=== PATIENT | female | born 1930 | race Caucasian/White ===

== ENCOUNTER 2017-08-14 21:10 | Emergency (ER) | payer OTHER ==
[2017-08-14 21:24] VITALS: BP 102/89; PULSE 113; TEMP 98; BMI 28.3
--- NOTE | 2017-08-14 21:40 | PDOC ---
History of Present Illness - General Chief Complaint: Pain, Acute Stated Complaint: SICK Time Seen by Provider: 08/14/17 21:40 - History of Present Illness Initial Comments: 87 year old female with PMH of HTN, COPD, Diabetes, and cardiac disease ( pacemaker in place) with poor recollection of medical history (granddaughter lives with her at home) presenting with stomach pain and abdominal distension for the past three days that acutely worsened today. The food does not have an prandial relation and her appetite has not been affected. The pain is a sharp/ pressure in the bilateral lower abdominal quadrants. Denies fevers, urinary symptoms, chills, nausea vomiting, diarrhea, constipation, or other sick symptoms. 08/14/17 21:56 Past History - Past Medical History Allergies/Adverse Reactions: Allergies Allergy/AdvReac Type Severity Reaction Status Date / Time No Known Allergies Allergy Verified 08/14/17 21:22 Home Medications: Ambulatory Orders Amlodipine Besylate mg PO 08/15/17 Brillintox 08/15/17 Carvedilol mg PO 08/15/17 Gabapentin mg PO 08/15/17 Insulin (Levemir) [Levemir Vial] 0 unit SQ DAILY 08/15/17 Pantoprazole Sodium [Protonix -] mg PO DAILY 08/15/17 Sitagliptin Phosphate [Januvia] mg PO 08/15/17 - Suicide/Smoking/Psychosocial Hx Smoking History: Never smoked Have you smoked in the past 12 months: No Information on smoking cessation initiated: No Hx Alcohol Use: No Drug/Substance Use Hx: No Review of Systems - Review of Systems Constitutional: No: Chills, Diaphoresis, Fever HEENTM: No: Eye Pain, Blurred Vision Respiratory: No: Cough, Orthopnea, Shortness of Breath Cardiac (ROS): No: Chest Pain, Edema, Irregular Heart Rate, Palpitations, Syncope, Chest Tightness ABD/GI: Yes: Abdominal Distended. No: Constipated, Diarrhea, Nausea, Vomiting : No: Burning, Dysuria, Discharge, Frequency, Hematuria, Incontinence, Pain Musculoskeletal: No: Back Pain Integumentary: No: Bruising, Erythema, Flushing, Lesions Neurological: No: Headache, Numbness *Physical Exam - Vital Signs Last Vital Signs Temp Pulse Resp BP Pulse Ox 98.0 F 113 H 20 102/89 97 08/14/17 21:22 08/14/17 21:22 08/14/17 21:22 08/14/17 21:22 08/14/17 21:22 - Physical Exam General Appearance: Yes: Nourished, Appropriately Dressed. No: Apparent Distress HEENT: positive: EOMI, FRANKIE, Normal ENT Inspection, Normal Voice, Thrush Neck: positive: Trachea midline, Normal Thyroid. negative: Tender, Rigid Respiratory/Chest: positive: Lungs Clear. negative: Chest Tender, Normal Breath Sounds (distant lung sounds with slightly delayed expiratory phase) ED Treatment Course - LABORATORY CBC & Chemistry Diagram: 08/14/17 21:55 08/14/17 21:55 Medical Decision Making - Medical Decision Making 87 year old occasionally confused female presenting with with bilateral lower quadrant abdominal pain. Given one dose of nebs, maalox, and ranitidine with some relief. CXR clear. Labs roughly WNL and pending CT abdomen/ pelvis with IV contrast as well as UA. Suspicion for gerd vs. appendicitis vs. UTI vs. diverticulitis. Patient signed out to Dr. Ocampo in stable condition. 08/15/17 00:08 *DC/Admit/Observation/Transfer Diagnosis at time of Disposition: Abdominal pain Qualifiers: Abdominal location: generalized Qualified Code(s): R10.84 - Generalized abdominal pain - Discharge Dispostion Disposition: HOME Condition at time of disposition: Stable Admit: No - Referrals Referrals: James Machuca [Primary Care Provider] - - Patient Instructions Printed Discharge Instructions: Kidney Stones -- Adult Additional Instructions: Please return to the ER if you have any signs or symptoms of chest pain, shortness of breath, uncontrollable fever, chills, nausea, vomiting, numbness, tingling, or weakness in any part of your body, changes in vision, or slurred speech. Please follow up with your primary care physician in 2-3 days. Please return to the ER if symptoms persist, worsen, or new symptoms arise. Por favor regrese a la jazzy de emergencia si tiene signos o sntomas de dolor en el pecho, dificultad para respirar, fiebre incontrolable, escalofros, n useas, vmitos, entumecimiento, hormigueo o debilidad en cualquier parte de benson cuerpo, cambios en la visin o dificultad para hablar. Por favor, glendy un seguimiento con benson mdico de atencin primaria en 2-3 mendosa. Por favor regrese a la jazzy de emergencias si los sntomas persisten, empeoran o surgen nuevos sntomas. Print Language: MALTESE - Post Discharge Activity
[2017-08-14] MEDS ORDERED: ALBUTEROL SO4 2.5/IPRATROPIUM 0.5 INH SOL 3 ML VIAL.NEB. NEB ONE (21:53)
[2017-08-14 22:02] LABS: BASO % 0.8 % (0-2.0); EOS % 2.4 % (0-4.5); HEMATOCRIT 33.9 % (32.4-45.2); HEMOGLOBIN 11.3 GM/dL (10.7-15.3); MCH 29.4 pg (25.7-33.7); MCHC 33.4 g/dl (32.0-36.0); MEAN CELL VOLUME 87.8 fl (80-96); MEAN PLT VOLUME 8.7 fl (7.5-11.1); MONO % 6.8 % (3.8-10.2); PLATELET COUNT 212 K/MM3 (134-434); RBC 3.86 M/mm3 (3.60-5.2)
[2017-08-14 22:28] LABS: ALBUMIN 3.2 g/dl (3.4-5.0); ANION GAP 5 (8-16); BILIRUBIN,DIRECT < 0.2 mg/dL (0.0-0.2); BLOOD UREA NITROGEN 24 mg/dL (7-18); CALCIUM 8.2 mg/dL (8.5-10.1); CHLORIDE 104 mmol/L (98-107); CO2 28 mmol/L (21-32); CREATININE 1.2 mg/dL (0.55-1.02); GLUCOSE,RANDOM 245 mg/dL (74-106); LIPASE 158 U/L (73-393); PHOSPHOROUS 2.3 mg/dL (2.5-4.9); POTASSIUM 4.1 mmol/L (3.5-5.1); SGOT/AST 15 U/L (15-37); SGPT/ALT 20 U/L (12-78); SODIUM 137 mmol/L (136-145)
[2017-08-14 22:30] LABS: ALK PHOS 98 U/L (45-117); BILIRUBIN,TOTAL 0.4 mg/dL (0.2-1.0); N-TERMINAL BNP 1152.16 pg/ml (5-450); TOT PROT 6.7 g/dl (6.4-8.2)
--- NOTE | 2017-08-14 22:45 | PDOC ---
Attending Attestation - Resident Resident Name: Kimber Dixon - ED Attending Attestation I have performed the following: I have examined & evaluated the patient, The case was reviewed & discussed with the resident, I agree w/resident's findings & plan, Exceptions are as noted - HPI HPI: 08/14/17 22:30 87-year-old female with history of hypertension, prior smoking history, presents with abdominal pain for last several days. Patient is a vague historian but reports that she's been having upper and lower abdominal pain without associated nausea, vomiting or diarrhea. Denies fevers or chills. Denies dysuria. Patient may have some elements of dementia and is AAO 2, oriented to herself and to the location. Came in by ambulance. - Physicial Exam PE: 08/14/17 22:45 GENERAL: Awake, alert, oriented, in no acute distress. HEAD: No signs of trauma EYES: PERRLA, EOMI, sclera anicteric, conjunctiva clear ENT: Auricles normal inspection, hearing grossly normal, nares patent NECK: Normal ROM, supple, no lymphadenopathy, JVD, or masses LUNGS: Breath sounds equal, clear to auscultation bilaterally. No wheezes, and no crackles HEART: Regular rate and rhythm, normal S1 and S2, no murmurs, rubs or gallops ABDOMEN: TTP RLQ, LLQ. EXTREMITIES: Normal range of motion, no edema. No clubbing or cyanosis. No cords, erythema, or tenderness NEUROLOGICAL: Cranial nerves II through XII grossly intact. Normal speech SKIN: Warm, Dry, normal turgor, no rashes or lesions noted. - Medical Decision Making 08/14/17 22:46 Vital Signs Temp Pulse Resp BP Pulse Ox 98.0 F 113 H 20 102/89 97 08/14/17 21:22 08/14/17 21:22 08/14/17 21:22 08/14/17 21:22 08/14/17 21:22 The patient presents with abdominal pain. We'll need to rule out etiology such as diverticulitis, colitis, appendicitis. Labs, CAT scan, abdomen pelvis, urinalysis reassess. 08/15/17 01:54 CBC, BMP 08/14/17 21:55 08/14/17 21:55 CMP Sodium 137 mmol/L (136-145) 08/14/17 21:55 Potassium 4.1 mmol/L (3.5-5.1) 08/14/17 21:55 Chloride 104 mmol/L (98-107) 08/14/17 21:55 Carbon Dioxide 28 mmol/L (21-32) 08/14/17 21:55 Anion Gap 5 (8-16) L 08/14/17 21:55 BUN 24 mg/dL (7-18) H 08/14/17 21:55 Creatinine 1.2 mg/dL (0.55-1.02) H 08/14/17 21:55 Creat Clearance w eGFR 42.70 (>60) 08/14/17 21:55 Random Glucose 245 mg/dL (74-106) H 08/14/17 21:55 Calcium 8.2 mg/dL (8.5-10.1) L 08/14/17 21:55 Phosphorus 2.3 mg/dL (2.5-4.9) L 08/14/17 21:55 Magnesium 2.0 mg/dL (1.8-2.4) 08/14/17 21:55 Total Bilirubin 0.4 mg/dL (0.2-1.0) 08/14/17 21:55 Direct Bilirubin < 0.2 mg/dL (0.0-0.2) 08/14/17 21:55 AST 15 U/L (15-37) 08/14/17 21:55 ALT 20 U/L (12-78) 08/14/17 21:55 Alkaline Phosphatase 98 U/L (45-117) 08/14/17 21:55 Creatine Kinase 96 IU/L (26-192) 08/14/17 21:55 Troponin I < 0.02 ng/ml (0.00-0.05) 08/14/17 21:55 B-Natriuretic Peptide 1152.16 pg/ml (5-450) H 08/14/17 21:55 Total Protein 6.7 g/dl (6.4-8.2) 08/14/17 21:55 Albumin 3.2 g/dl (3.4-5.0) L 08/14/17 21:55 Lipase 158 U/L (73-393) 08/14/17 21:55 CT abdomen and pelvis. Small nonobstructive inferior right calcyeal stone. no other renal or ureteral stones. Pt reports feeling better. UA pending. Pt can be discharged pending UA. Chest xray unremarkable. Heart Score/ECG Review #1 ECG reviewed & interpreted by me at: 22:10 08/14/17 22:29 Ventricular paced 74
[2017-08-14] MEDS ORDERED: RANITIDINE HCL 150 MG TABLET (FP) PO ONE (23:26)
[2017-08-14] MEDS ORDERED: MAG HYDROX/AL HYDROX/SIMETH 30 ML UNIT-DOSE CUP PO ONE (23:26)
[2017-08-14] MEDS ORDERED: SODIUM CHLORIDE 500 ML IV STA (23:28)
[2017-08-14] MEDS ORDERED: MAG HYDROX/AL HYDROX/SIMETH 30 ML UNIT-DOSE CUP ONE (23:36)
[2017-08-14] MEDS ORDERED: RANITIDINE HCL 50 MG/2 ML VIAL ONE (23:36)
--- NOTE | 2017-08-15 00:46 | PDOC ---
*Physical Exam - Vital Signs Last Vital Signs Temp Pulse Resp BP Pulse Ox 98.0 F 113 H 20 102/89 97 08/14/17 21:22 08/14/17 21:22 08/14/17 21:22 08/14/17 21:22 08/14/17 21:22 ED Treatment Course - LABORATORY CBC & Chemistry Diagram: 08/14/17 21:55 08/14/17 21:55 - ADDITIONAL ORDERS Additional order review: Laboratory Results 08/14/17 21:55 Sodium 137 Potassium 4.1 Chloride 104 Carbon Dioxide 28 Anion Gap 5 L BUN 24 H Creatinine 1.2 H Creat Clearance w eGFR 42.70 Random Glucose 245 H Calcium 8.2 L Phosphorus 2.3 L Magnesium 2.0 Total Bilirubin 0.4 Direct Bilirubin < 0.2 AST 15 ALT 20 Alkaline Phosphatase 98 Creatine Kinase 96 Troponin I < 0.02 B-Natriuretic Peptide 1152.16 H Total Protein 6.7 Albumin 3.2 L Lipase 158 08/14/17 21:55 RBC 3.86 MCV 87.8 MCHC 33.4 RDW 16.0 H MPV 8.7 Neutrophils % 74.0 Lymphocytes % 16.0 Monocytes % 6.8 Eosinophils % 2.4 Basophils % 0.8 - Medications Given in the ED: ED Medications Discontinued Medications Generic Name Dose Route Start Last Admin Trade Name Freq PRN Reason Stop Dose Admin Al Hydroxide/Mg Hydroxide 30 ml 08/14/17 23:26 08/14/17 23:38 Mylanta Oral Suspension - PO 08/14/17 23:27 30 ml ONCE ONE Administration Albuterol/Ipratropium 1 amp 08/14/17 21:53 08/14/17 21:57 Duoneb - NEB 08/14/17 21:54 1 amp ONCE ONE Administration Sodium Chloride 500 mls @ 500 mls/hr 08/14/17 23:28 08/14/17 23:33 Normal Saline - IV 08/15/17 00:27 500 mls/hr ASDIR STA Administration Ranitidine HCl 150 mg 08/14/17 23:26 08/14/17 23:38 Zantac - PO 08/14/17 23:27 150 mg ONCE ONE Administration Medical Decision Making - Medical Decision Making 08/15/17 00:45 The patient was signed out to me by Dr. Dixon, day team. The patient is an 87F with an extensive PMH who presents to the ER with generalized and diffuse abdominal pain for 3 days. Pending UA and CTAP with contrast. 08/15/17 01:48 CTAP IMPRESSION: 1. Appendix appears normal. No focal bowel inflammation readily identified. 2. Tiny nonobstructive inferior right calyceal stone. No other renal or ureteral stones. No hydronephrosis. My attending has discussed the results with the patient. 08/15/17 02:12 UA negative. Pt will be made aware and ready for d/c. *DC/Admit/Observation/Transfer Diagnosis at time of Disposition: Abdominal pain Qualifiers: Abdominal location: generalized Qualified Code(s): R10.84 - Generalized abdominal pain - Discharge Dispostion Disposition: HOME Condition at time of disposition: Stable Admit: No - Referrals Referrals: James Machuca [Primary Care Provider] - - Patient Instructions Printed Discharge Instructions: Kidney Stones -- Adult Additional Instructions: Please return to the ER if you have any signs or symptoms of chest pain, shortness of breath, uncontrollable fever, chills, nausea, vomiting, numbness, tingling, or weakness in any part of your body, changes in vision, or slurred speech. Please follow up with your primary care physician in 2-3 days. Please return to the ER if symptoms persist, worsen, or new symptoms arise. Por favor regrese a la jazzy de emergencia si tiene signos o sntomas de dolor en el pecho, dificultad para respirar, fiebre incontrolable, escalofros, n useas, vmitos, entumecimiento, hormigueo o debilidad en cualquier parte de benson cuerpo, cambios en la visin o dificultad para hablar. Por favor, glendy un seguimiento con benson mdico de atencin primaria en 2-3 mendosa. Por favor regrese a la jazzy de emergencias si los sntomas persisten, empeoran o surgen nuevos sntomas. Print Language: DIVEHI - Post Discharge Activity
[2017-08-15 02:03] LABS: URINE APPEARANCE CLEAR; URINE BILIRUBIN NEGATIVE (<2.0 mg/dL); URINE BLOOD 1+ (NEGATIVE); URINE COLOR COLORLESS; URINE GLUCOSE (UA) 2+ (NEGATIVE); URINE KETONE NEGATIVE (NEGATIVE); URINE LEUK ESTERASE NEGATIVE (NEGATIVE); URINE NITRITE NEGATIVE (NEGATIVE); URINE PROTEIN NEGATIVE (NEGATIVE); URINE UROBILINOGEN NEGATIVE mg/dL (0.2-1.0)
[2017-08-15 02:06] LABS: EPI CELLS RARE /HPF (FEW); URINE MUCUS RARE
--- NOTE | 2017-08-15 17:53 | EKG ---
Test Reason : Blood Pressure : / mmHG Vent. Rate : 074 BPM Atrial Rate : 074 BPM P-R Int : 000 ms QRS Dur : 168 ms QT Int : 446 ms P-R-T Axes : 000 -66 090 degrees QTc Int : 495 ms POOR DATA QUALITY, INTERPRETATION MAY BE ADVERSELY AFFECTED Ventricular-paced rhythm ABNORMAL ECG NO PREVIOUS ECGS AVAILABLE Confirmed by MD JONA, LAUREL ([id number]) on 08/15/2017 5:53:14 PM Referred By: Confirmed By:LAUREL TENORIO MD
== END 2017-08-15 02:33 | disposition home or self-care (01) ==
LOC: JER 21:10
PROC: 3E0F7GC Introduction of Other Therapeutic Substance into Respiratory Tract, Via Natural or Artificial Opening (ICD-10-PCS; principal; 2017-08-14)
PROC: 3E0337Z Introduction of Electrolytic and Water Balance Substance into Peripheral Vein, Percutaneous Approach (ICD-10-PCS; 2017-08-14)
DX: R10.30 Lower abdominal pain, unspecified (principal); N20.0 Calculus of kidney; Z87.442 Personal history of urinary calculi; I25.10 Atherosclerotic heart disease of native coronary artery without angina pectoris; Z87.891 Personal history of nicotine dependence; E11.9 Type 2 diabetes mellitus without complications; Z79.4 Long term (current) use of insulin; Z79.84 Long term (current) use of oral hypoglycemic drugs; J44.9 Chronic obstructive pulmonary disease, unspecified; Z95.0 Presence of cardiac pacemaker
CPT/HCPCS: 36415; 71046-TC-FY; 74176-TC; 80053; 81003; 81015; 82248; 82550; 83690; 83735; 83880; 84100; 84484; 85025; 87086; 93005; 93010; 94640; 96360; 99283-25

== ENCOUNTER 2017-10-04 17:24 | Observation (INO) | payer OTHER ==
[2017-10-04 17:48] VITALS: BMI 28.3
[2017-10-04] MEDS ORDERED: ACETAMINOPHEN 1000 MG/100 ML VIAL (NON FORMULARY) IVPB ONE (19:01)
--- NOTE | 2017-10-04 19:08 | PDOC ---
History of Present Illness - General Chief Complaint: Pain, Acute Stated Complaint: DIFFICULTY BREATHING Time Seen by Provider: 10/04/17 18:55 - History of Present Illness Initial Comments: 10/04/17 19:02 87 F with h/o DM, HTN, pacemaker, presenting to ED with 1 day of abdominal pain an distention. Pt states that she has diffuse abdominal pain. Pt states pain is constant, radiating across her lower abdomen. Denies N/V/D. Denies constipation , though she states her abdomen seems bigger. Pt denies F/C. Denies CP/SOB. Pt states she has had a prior abdominal surgery when she was a child but does not recall what it was. Past History - Past Medical History Allergies/Adverse Reactions: Allergies Allergy/AdvReac Type Severity Reaction Status Date / Time No Known Allergies Allergy Verified 10/04/17 17:36 Home Medications: Ambulatory Orders Amlodipine Besylate 5 mg PO DAILY 10/05/17 Amlodipine Besylate [Norvasc -] 10 mg PO DAILY tablet 10/05/17 Atorvastatin Ca [Lipitor] 80 mg PO HS 10/05/17 Carvedilol 25 mg PO BID 10/05/17 Gabapentin [Neurontin] 100 mg PO TID 10/05/17 Insulin Glargine,Hum.rec.anlog [Lantus] 100 unit SQ BID 10/05/17 Lactulose 10 gm PO DAILY 10/05/17 Pantoprazole Sodium [Protonix] 40 mg PO DAILY 10/05/17 Pantoprazole Sodium [Protonix] 40 mg PO DAILY 10/05/17 Ticagrelor [Brilinta -] 90 mg PO BID 10/05/17 Cardiac Disorders: Yes COPD: No Diabetes: Yes HTN: Yes - Suicide/Smoking/Psychosocial Hx Smoking History: Never smoked Have you smoked in the past 12 months: No Hx Alcohol Use: No Drug/Substance Use Hx: No Review of Systems - Review of Systems Comments:: 10/04/17 19:08 "GENERAL/CONSTITUTIONAL: No fever or chills. No weakness. HEAD, EYES, EARS, NOSE AND THROAT: No change in vision. No ear pain or discharge. No sore throat. CARDIOVASCULAR: No chest pain or shortness of breath. RESPIRATORY: No cough, wheezing, or hemoptysis. GASTROINTESTINAL: +abdominal pain, No nausea, vomiting, diarrhea or constipation. GENITOURINARY: No dysuria, frequency, or change in urination. MUSCULOSKELETAL: No joint or muscle swelling or pain. No neck or back pain. SKIN: No rash NEUROLOGIC: No headache, vertigo, loss of consciousness, or change in strength/ sensation. ENDOCRINE: No increased thirst. No abnormal weight change. HEMATOLOGIC/LYMPHATIC: No anemia, easy bleeding, or history of blood clots. ALLERGIC/IMMUNOLOGIC: No hives or skin allergy. " *Physical Exam - Vital Signs Last Vital Signs Temp Pulse Resp BP Pulse Ox 97.7 F 64 18 144/57 97 10/04/17 17:25 10/04/17 17:25 10/04/17 17:25 10/04/17 19:00 10/04/17 17:25 - Physical Exam Comments: 10/04/17 19:08 "GENERAL: Awake, alert, and fully oriented, in no acute distress. HEAD: No signs of trauma EYES: PERRLA, EOMI, sclera anicteric, conjunctiva clear ENT: Auricles normal inspection, hearing grossly normal, nares patent, oropharynx clear without exudates. Moist mucosa NECK: Nontender, no stepoffs, Normal ROM, supple, no lymphadenopathy, JVD, or masses LUNGS: Breath sounds equal, clear to auscultation bilaterally. No wheezes, and no crackles HEART: Regular rate and rhythm, normal S1 and S2, no murmurs, rubs or gallops ABDOMEN: + diffuse abdominal tenderness most pronounced in lower quadrants, normoactive bowel sounds. No guarding, no rebound. No masses EXTREMITIES: Normal range of motion, no edema. No clubbing or cyanosis. No cords, erythema, or tenderness NEUROLOGICAL: Cranial nerves II through XII intact. 5/5 strength and sensation in all extremities, Normal speech, normal gait, normal cerebellar function SKIN: Warm, Dry, normal turgor, no rashes or lesions noted. " ED Treatment Course - LABORATORY CBC & Chemistry Diagram: 10/05/17 10:45 10/05/17 10:45 - RADIOLOGY Radiology Studies Ordered: Category Date Time Status ABDOMEN & PELVIS CT WITH CONTR [CT] Stat CT Scan 10/04/17 19:00 Ordered CHEST X-RAY PORTABLE* [RAD] Stat Radiology 10/04/17 19:00 Ordered Medical Decision Making - Medical Decision Making 10/04/17 19:09 87 F with diffuse abdominal pain x 1 day. Exam notable for lower abdominal tenderness. Appy vs diverticulitis vs colitis vs cystitis. - Labs, lactate, UA - CTAP - tylenol Pt signed out to oncoming attending at 7PM, pending labs and CT *DC/Admit/Observation/Transfer Diagnosis at time of Disposition: Abdominal pain Qualifiers: Abdominal location: generalized Qualified Code(s): R10.84 - Generalized abdominal pain - Discharge Dispostion Condition at time of disposition: Good - Referrals - Patient Instructions - Post Discharge Activity - Attestations Physician Attestion: 10/06/17 00:22 I, Dr. Bryn Smalls MD, attest that this document has been prepared under my direction and personally reviewed by me in its entirety. I further attest, that it accurately reflects all work, treatment, procedures and medical decision -making performed by me.
[2017-10-04 19:15] LABS: BASO % 0.6 % (0-2.0); EOS % 1.8 % (0-4.5); HEMATOCRIT 35.3 % (32.4-45.2); HEMOGLOBIN 11.5 GM/dL (10.7-15.3); LYMPH % 20.3 % (8-40); MCH 28.6 pg (25.7-33.7); MCHC 32.5 g/dl (32.0-36.0); MEAN CELL VOLUME 87.9 fl (80-96); MEAN PLT VOLUME 8.9 fl (7.5-11.1); MONO % 7.7 % (3.8-10.2); NEUT % 69.6 % (42.8-82.8); PLATELET COUNT 204 K/MM3 (134-434); RBC 4.02 M/mm3 (3.60-5.2); RDW 15.8 % (11.6-15.6); WHITE BLOOD COUNT 5.7 K/mm3 (4.0-10.0)
[2017-10-04 19:26] LABS: INR 1.02 (0.82-1.09); PROTHROMBIN TIME (PATIENT) 11.5 SEC (9.7-13.0)
[2017-10-04 19:28] LABS: ACTIVATED PTT 32.2 SECONDS (26.9-34.4)
[2017-10-04 19:37] LABS: ALBUMIN 3.3 g/dl (3.4-5.0); ANION GAP 5 (8-16); BILIRUBIN,TOTAL 0.3 mg/dL (0.2-1.0); BLOOD UREA NITROGEN 34 mg/dL (7-18); CALCIUM 8.2 mg/dL (8.5-10.1); CHLORIDE 105 mmol/L (98-107); CO2 28 mmol/L (21-32); CREATININE 1.5 mg/dL (0.55-1.02); GLUCOSE,RANDOM 295 mg/dL (74-106); LIPASE 198 U/L (73-393); POTASSIUM 4.5 mmol/L (3.5-5.1); SGOT/AST 15 U/L (15-37); SGPT/ALT 23 U/L (12-78); SODIUM 138 mmol/L (136-145); TOT PROT 6.7 g/dl (6.4-8.2)
[2017-10-04 19:38] LABS: ALK PHOS 95 U/L (45-117)
[2017-10-04] MEDS ORDERED: ACETAMINOPHEN INJECTION 100 ML IVPB ONE (19:46)
[2017-10-04] MEDS ORDERED: SODIUM CHLORIDE 1,000 ML IV STA (19:59)
[2017-10-04 20:14] LABS: URINE APPEARANCE CLEAR; URINE BILIRUBIN NEGATIVE (<2.0 mg/dL); URINE COLOR LTYELLOW; URINE GLUCOSE (UA) 3+ (NEGATIVE); URINE KETONE NEGATIVE (NEGATIVE); URINE LEUK ESTERASE NEGATIVE (NEGATIVE); URINE NITRITE NEGATIVE (NEGATIVE); URINE PROTEIN NEGATIVE (NEGATIVE); URINE UROBILINOGEN NEGATIVE mg/dL (0.2-1.0)
--- NOTE | 2017-10-04 22:27 | PDOC ---
*Physical Exam - Vital Signs Last Vital Signs Temp Pulse Resp BP Pulse Ox 97.7 F 64 18 144/57 97 10/04/17 17:25 10/04/17 17:25 10/04/17 17:25 10/04/17 19:00 10/04/17 17:25 <Mario Alberto Najera - Last Filed: 10/04/17 23:53> - Vital Signs Last Vital Signs Temp Pulse Resp BP Pulse Ox 97.7 F 64 18 144/57 97 10/04/17 17:25 10/04/17 17:25 10/04/17 17:25 10/04/17 19:00 10/04/17 17:25 - Physical Exam Comments: 10/05/17 01:55 Care received at 1900 Briefly, pt presents with lower abd pain for 1 month, worse over the last day Labs wnl, UA neg for infection, CTAP with no acute pathology Rpt abd exam with continued RLQ and LLQ ttp. Pt also reports continuing mild pain. Given persistence of sxs and intractable sxs, pt admitted to Dr. Son for further mgmt/dispo Case discussed in detail with admitting physician including history, physical exam and ancillary studies. Admitting physician has assumed care for the patient, will follow all pending diagnostics and will complete the evaluation and treatment. <Pinyk Ramires - Last Filed: 10/05/17 06:18> ED Treatment Course - LABORATORY CBC & Chemistry Diagram: 10/04/17 19:00 10/04/17 19:00 - ADDITIONAL ORDERS Additional order review: Laboratory Results 10/04/17 10/04/17 10/04/17 20:02 19:27 19:00 PT with INR INR PTT (Actin FS) Sodium 138 Potassium 4.5 Chloride 105 Carbon Dioxide 28 Anion Gap 5 L BUN 34 H Creatinine 1.5 H Creat Clearance w eGFR 33.00 Random Glucose 295 H Lactic Acid 1.4 Calcium 8.2 L Total Bilirubin 0.3 D AST 15 ALT 23 Alkaline Phosphatase 95 Creatine Kinase Troponin I Total Protein 6.7 Albumin 3.3 L Lipase 198 Urine Color Ltyellow Urine Appearance Clear Urine pH 6.0 Ur Specific [place] 1.014 Urine Protein Negative Urine Glucose (UA) 3+ H Urine Ketones Negative Urine Blood Negative Urine Nitrite Negative Urine Bilirubin Negative Urine Urobilinogen Negative Ur Leukocyte Esterase Negative 10/04/17 10/04/17 19:00 19:00 PT with INR 11.50 INR 1.02 PTT (Actin FS) 32.2 Sodium Potassium Chloride Carbon Dioxide Anion Gap BUN Creatinine Creat Clearance w eGFR Random Glucose Lactic Acid Calcium Total Bilirubin AST ALT Alkaline Phosphatase Creatine Kinase 84 Troponin I < 0.02 Total Protein Albumin Lipase Urine Color Urine Appearance Urine pH Ur Specific [place] Urine Protein Urine Glucose (UA) Urine Ketones Urine Blood Urine Nitrite Urine Bilirubin Urine Urobilinogen Ur Leukocyte Esterase 10/04/17 19:00 RBC 4.02 MCV 87.9 MCHC 32.5 RDW 15.8 H MPV 8.9 Neutrophils % 69.6 Lymphocytes % 20.3 D Monocytes % 7.7 Eosinophils % 1.8 Basophils % 0.6 - Medications Given in the ED: ED Medications Discontinued Medications Generic Name Dose Route Start Last Admin Trade Name Freq PRN Reason Stop Dose Admin Acetaminophen 1,000 mg 10/04/17 19:01 10/04/17 20:07 Ofirmev Injection - IVPB 10/04/17 19:02 1,000 mg ONCE ONE Administration Sodium Chloride 1,000 mls @ 1,000 mls/hr 10/04/17 19:59 10/04/17 20:16 Normal Saline - IV 10/04/17 20:58 1,000 mls/hr ASDIR STA Administration <Mario Alberto Najera - Last Filed: 10/04/17 23:53> - LABORATORY CBC & Chemistry Diagram: 10/04/17 19:00 10/04/17 19:00 - ADDITIONAL ORDERS Additional order review: Laboratory Results 10/04/17 10/04/17 10/04/17 20:02 19:27 19:00 PT with INR INR PTT (Actin FS) Sodium 138 Potassium 4.5 Chloride 105 Carbon Dioxide 28 Anion Gap 5 L BUN 34 H Creatinine 1.5 H Creat Clearance w eGFR 33.00 Random Glucose 295 H Lactic Acid 1.4 Calcium 8.2 L Total Bilirubin 0.3 D AST 15 ALT 23 Alkaline Phosphatase 95 Creatine Kinase Troponin I Total Protein 6.7 Albumin 3.3 L Lipase 198 Urine Color Ltyellow Urine Appearance Clear Urine pH 6.0 Ur Specific [place] 1.014 Urine Protein Negative Urine Glucose (UA) 3+ H Urine Ketones Negative Urine Blood Negative Urine Nitrite Negative Urine Bilirubin Negative Urine Urobilinogen Negative Ur Leukocyte Esterase Negative 10/04/17 10/04/17 19:00 19:00 PT with INR 11.50 INR 1.02 PTT (Actin FS) 32.2 Sodium Potassium Chloride Carbon Dioxide Anion Gap BUN Creatinine Creat Clearance w eGFR Random Glucose Lactic Acid Calcium Total Bilirubin AST ALT Alkaline Phosphatase Creatine Kinase 84 Troponin I < 0.02 Total Protein Albumin Lipase Urine Color Urine Appearance Urine pH Ur Specific [place] Urine Protein Urine Glucose (UA) Urine Ketones Urine Blood Urine Nitrite Urine Bilirubin Urine Urobilinogen Ur Leukocyte Esterase 10/04/17 19:00 RBC 4.02 MCV 87.9 MCHC 32.5 RDW 15.8 H MPV 8.9 Neutrophils % 69.6 Lymphocytes % 20.3 D Monocytes % 7.7 Eosinophils % 1.8 Basophils % 0.6 - Medications Given in the ED: ED Medications Discontinued Medications Generic Name Dose Route Start Last Admin Trade Name Freq PRN Reason Stop Dose Admin Acetaminophen 1,000 mg 10/04/17 19:01 10/04/17 20:07 Ofirmev Injection - IVPB 10/04/17 19:02 1,000 mg ONCE ONE Administration Sodium Chloride 1,000 mls @ 1,000 mls/hr 10/04/17 19:59 10/04/17 20:16 Normal Saline - IV 10/04/17 20:58 1,000 mls/hr ASDIR STA Administration <Pinky Ramires - Last Filed: 10/05/17 06:18> Medical Decision Making - Medical Decision Making 10/04/17 10:00pm After Imagining manager electronic and being updated that the study was not sent over to their system. The study was performed at 7:00pm and sent over after multiple calls to radiology the study was sent over at 11:43pm. <Mario Alberto Najera - Last Filed: 10/04/17 23:53> *DC/Admit/Observation/Transfer - Attestations Scribe Attestion: 10/04/17 23:56 Documentation prepared by Mario Alberto Najrea, acting as medical claims manager for Pinky Ramires MD. <Mario Alberto Najera - Last Filed: 10/04/17 23:53> - Discharge Dispostion Decision to Admit order: Yes - Attestations Physician Attestion: 10/05/17 06:18 I, Dr. Pinky Ramires MD, attest that this document has been prepared under my direction and personally reviewed by me in its entirety. I further attest, that it accurately reflects all work, treatment, procedures and medical decision -making performed by me. <Pinky Ramires - Last Filed: 10/05/17 06:18> Diagnosis at time of Disposition: Abdominal pain Qualifiers: Abdominal location: generalized Qualified Code(s): R10.84 - Generalized abdominal pain - Discharge Dispostion Condition at time of disposition: Stable
--- NOTE | 2017-10-05 02:14 | HP ---
CHIEF COMPLAINT: lower abdominal pain PCP: unknown HISTORY OF PRESENT ILLNESS: 87 yr old bolivian speaking woman with HTN, DM, s/p pacemaker presents with intermittent lower abdominal pain for several weeks. a.w nausea. she is able to take po without difficulty, says she has "a little bit" of constipation occasionally. denies weight loss, diarrhea, fevers, vomiting, headache. patient is a poor historian and was unclear about her her past medical history, she does not know what her medications are, why she has a pacemaker or who her doctor is. She was informed her abdominal CT scan was negative and when told there was no further testing or intervention needed, she requested to stay until morning because "it is late at night and she lives alone." Denies chest pain, sob. ER course was notable for: (1)abd pelvis CT - negative (2) (3) Recent Travel: none chart reviewed for further medical history PAST MEDICAL HISTORY: DM, HTN PAST SURGICAL HISTORY: s/p pacemaker implanted Social History: Smoking:former smoker, quit "many years ago" Alcohol: denies Drugs: denies Family History: unknown Allergies No Known Allergies Allergy (Verified 10/04/17 17:36) HOME MEDICATIONS: Home Medications Medication Instructions Recorded Amlodipine Besylate mg PO 08/15/17 Brillintox 08/15/17 Carvedilol mg PO 08/15/17 Gabapentin mg PO 08/15/17 Insulin (Levemir) [Levemir Vial] 0 unit SQ DAILY 08/15/17 Pantoprazole Sodium [Protonix -] mg PO DAILY 08/15/17 Sitagliptin Phosphate [Januvia] mg PO 08/15/17 REVIEW OF SYSTEMS CONSTITUTIONAL: Absent: fever, chills, diaphoresis, generalized weakness, malaise, loss of appetite, weight change HEENT: Absent: rhinorrhea, nasal congestion, throat pain, throat swelling, difficulty swallowing, mouth swelling, visual changes CARDIOVASCULAR: Absent: chest pain, syncope, palpitations, irregular heart rate, lightheadedness , peripheral edema RESPIRATORY: Absent: cough, shortness of breath, dyspnea with exertion, orthopnea, wheezing, stridor, GASTROINTESTINAL: Present:abdominal pain,constipation, Absent: abdominal distension, nausea, vomiting, diarrhea, melena, hematochezia GENITOURINARY: Absent: dysuria, frequency, urgency, hesitancy, hematuria, flank pain, genital pain MUSCULOSKELETAL: Absent: myalgia, arthralgia, joint swelling, back pain, neck pain SKIN: Absent: rash, itching, pallor HEMATOLOGIC/IMMUNOLOGIC: Absent: easy bleeding, easy bruising, lymphadenopathy, frequent infections ENDOCRINE: Absent: unexplained weight gain, unexplained weight loss, heat intolerance, cold intolerance NEUROLOGIC: Absent: headache, focal weakness or paresthesias, dizziness PHYSICAL EXAMINATION Vital Signs - 24 hr 10/04/17 10/04/17 17:25 19:00 Temperature 97.7 F Pulse Rate 64 Respiratory 18 Rate Blood Pressure 157/67 Blood Pressure 144/61 [Left Arm] Blood Pressure 144/57 [Right Arm] O2 Sat by Pulse 97 Oximetry (%) GENERAL: Awake, alert, and in no acute distress. HEAD: Normal with no signs of trauma. EYES: left iris deformed, right eye non reactive to light with dark opacification, unable to see out of right eye. extraocular movements intact, sclera anicteric, conjunctiva clear. No lid lag. EARS, NOSE, THROAT: oropharynx clear without exudates. Moist mucous membranes. NECK: Normal range of motion, supple without lymphadenopathy, JVD, or masses. LUNGS: Breath sounds equal, clear to auscultation bilaterally. No wheezes, and no crackles. No accessory muscle use. HEART: Regular rate and rhythm, normal S1 and S2 without murmur, rub or gallop. ABDOMEN: Soft, +tender in RLQ and LLQ, not distended, normoactive bowel sounds, no guarding, no rebound, no masses. No hepatomegaly or splenomegaly. negative nj's, neg rovsings. RLQ with prominent veins. MUSCULOSKELETAL: No bony deformities or tenderness. No CVA tenderness. UPPER EXTREMITIES: 2+ radial pulses, warm, well-perfused. No cyanosis. No clubbing. No peripheral edema. LOWER EXTREMITIES: 2+ dp pulses, warm, well-perfused. No calf tenderness. No peripheral edema. NEUROLOGICAL: Cranial nerves II-XII intact. Normal speech. facial symmetry PSYCHIATRIC: Cooperative. Good eye contact. Appropriate mood and affect. SKIN: Warm, dry, normal turgor, no rashes or lesions noted, normal capillary refill. Laboratory Results - last 24 hr 10/04/17 10/04/17 10/04/17 19:00 19:00 19:00 WBC 5.7 RBC 4.02 Hgb 11.5 Hct 35.3 MCV 87.9 MCH 28.6 MCHC 32.5 RDW 15.8 H Plt Count 204 MPV 8.9 Neutrophils % 69.6 Lymphocytes % 20.3 D Monocytes % 7.7 Eosinophils % 1.8 Basophils % 0.6 PT with INR 11.50 INR 1.02 PTT (Actin FS) 32.2 Sodium Potassium Chloride Carbon Dioxide Anion Gap BUN Creatinine Creat Clearance w eGFR Random Glucose Lactic Acid Calcium Total Bilirubin AST ALT Alkaline Phosphatase Creatine Kinase 84 Troponin I < 0.02 Total Protein Albumin Lipase Urine Color Urine Appearance Urine pH Ur Specific [place] Urine Protein Urine Glucose (UA) Urine Ketones Urine Blood Urine Nitrite Urine Bilirubin Urine Urobilinogen Ur Leukocyte Esterase 10/04/17 10/04/17 10/04/17 19:00 19:27 20:02 WBC RBC Hgb Hct MCV MCH MCHC RDW Plt Count MPV Neutrophils % Lymphocytes % Monocytes % Eosinophils % Basophils % PT with INR INR PTT (Actin FS) Sodium 138 Potassium 4.5 Chloride 105 Carbon Dioxide 28 Anion Gap 5 L BUN 34 H Creatinine 1.5 H Creat Clearance w eGFR 33.00 Random Glucose 295 H Lactic Acid 1.4 Calcium 8.2 L Total Bilirubin 0.3 D AST 15 ALT 23 Alkaline Phosphatase 95 Creatine Kinase Troponin I Total Protein 6.7 Albumin 3.3 L Lipase 198 Urine Color Ltyellow Urine Appearance Clear Urine pH 6.0 Ur Specific [place] 1.014 Urine Protein Negative Urine Glucose (UA) 3+ H Urine Ketones Negative Urine Blood Negative Urine Nitrite Negative Urine Bilirubin Negative Urine Urobilinogen Negative Ur Leukocyte Esterase Negative ASSESSMENT/PLAN: 87 yr old woman with DM, HTN, s/p pacemaker presents with abdominal pain placed on observation pending discharge home. - needs medication reconciliation, she doesn't know her pharmacy #Abdominal pain - pt resting comfortably in bed, mild tenderness in lower quadrants, no fever, no diarrhea, no pathology on imaging, pain has improved since being the ED - unclear etiology, however pt can f.u with pcp and gi as outpatient, may need colonoscopy - denied receiving one recently #DAY Cr 1.2 in july 2017, repeat in the AM prior to DC - likely prerenal vs CKD - gently hydration, encourage po hydration #DM - NISS and BGMs ACHS - check A1c #HTN - norvasc 5mg and losartan 25mg po in the AM, until medications can be reconciled DVT prophylaxis hep subq tid Diet; low Na/diabetic diet Visit type - Emergency Visit Emergency Visit: Yes ED Registration Date: 10/04/17 Care time: The patient presented to the Emergency Department on the above date and was hospitalized for further evaluation of their emergent condition. - New Patient This patient is new to me today: Yes Date on this admission: 10/05/17 - Critical Care Critical Care patient: No Hospitalist Screening - Colonoscopy Questionnaire Colonoscopy Questionnaire: Colonoscopy Questionnaire - Patient: 50 - 75 years old and never had a screening colonoscopy: Unknown History of colon or rectal polyps, or CA: Unknown History of IBD, Crohn's disease or UC: Unknown History of abdominal radiation therapy as a child: Unknown - Relative: 1 with colon or rectal CA, or polyps at age 60 or younger: Unknown Colon or rectal CA diagnosed at age 45 or younger: Unknown Multiple relatives with colon or rectal CA: Unknown - Outcome: Screening Result: Negative Screen
[2017-10-05] MEDS ORDERED: SODIUM CHLORIDE 1,000 ML IV STA (02:42)
--- NOTE | 2017-10-05 03:03 | PN ---
Teaching Attending Note Name of Resident: Tito Nowak ATTENDING PHYSICIAN STATEMENT I saw and evaluated the patient. I reviewed the resident's note and discussed the case with the resident. I agree with the resident's findings and plan as documented. SUBJECTIVE: Patient is an 87 year old woman with the chief complaint of generalized abdominal pain for one day. Pain was constant and she could not identify any aggravating or relieving factors. She has history of DM, HTN, and pacemaker. Her ER work up was negative and her pain resolved but she can't leave because she lives alone and is afraid to go home alone. OBJECTIVE: Alert and in no acute distress. Vital Signs Period Temp Pulse Resp BP Sys/Mccarty Pulse Ox Last 24 Hr 97.7 F 64 18 144-157/57-67 97 HEENT: No Jaundice, eye redness or discharge, PERRLA, EOMI. External ears are normal and hearing is grossly intact. No nasal discharge. Neck: Supple, nontender. No palpable adenopathy or thyromegaly. No JVD Chest: Good effort. Clear to auscultation and percussion. Heart: Regular. No S3, rub or murmur Abdomen: Not distended, soft, nontender and no HSM. No rebound or guarding. Normoactive bowel sounds. Ext: Peripheral pulses intact. No leg edema. Skin: Warm and dry. No petechiae, rash or ecchymosis. Neuro: Alert. Oriented x3. CN 2-12 grossly intact. Sensation grossly intact in all four extremities and DTR are symmetric. Current Medications Generic Name Dose Route Start Last Admin Trade Name Freq PRN Reason Stop Dose Admin Sodium Chloride 1,000 mls @ 1,000 mls/hr 10/05/17 02:42 Normal Saline - IV 10/05/17 03:41 ASDIR STA Home Medications Medication Instructions Recorded Amlodipine Besylate mg PO 08/15/17 Brillintox 08/15/17 Carvedilol mg PO 08/15/17 Gabapentin mg PO 08/15/17 Insulin (Levemir) [Levemir Vial] 0 unit SQ DAILY 08/15/17 Pantoprazole Sodium [Protonix -] mg PO DAILY 08/15/17 Sitagliptin Phosphate [Januvia] mg PO 08/15/17 Laboratory Results - last 24 hr 10/04/17 10/04/17 10/04/17 19:00 19:00 19:00 WBC 5.7 RBC 4.02 Hgb 11.5 Hct 35.3 MCV 87.9 MCH 28.6 MCHC 32.5 RDW 15.8 H Plt Count 204 MPV 8.9 Neutrophils % 69.6 Lymphocytes % 20.3 D Monocytes % 7.7 Eosinophils % 1.8 Basophils % 0.6 PT with INR 11.50 INR 1.02 PTT (Actin FS) 32.2 Sodium Potassium Chloride Carbon Dioxide Anion Gap BUN Creatinine Creat Clearance w eGFR Random Glucose Lactic Acid Calcium Total Bilirubin AST ALT Alkaline Phosphatase Creatine Kinase 84 Troponin I < 0.02 Total Protein Albumin Lipase Urine Color Urine Appearance Urine pH Ur Specific [place] Urine Protein Urine Glucose (UA) Urine Ketones Urine Blood Urine Nitrite Urine Bilirubin Urine Urobilinogen Ur Leukocyte Esterase 10/04/17 10/04/17 10/04/17 19:00 19:27 20:02 WBC RBC Hgb Hct MCV MCH MCHC RDW Plt Count MPV Neutrophils % Lymphocytes % Monocytes % Eosinophils % Basophils % PT with INR INR PTT (Actin FS) Sodium 138 Potassium 4.5 Chloride 105 Carbon Dioxide 28 Anion Gap 5 L BUN 34 H Creatinine 1.5 H Creat Clearance w eGFR 33.00 Random Glucose 295 H Lactic Acid 1.4 Calcium 8.2 L Total Bilirubin 0.3 D AST 15 ALT 23 Alkaline Phosphatase 95 Creatine Kinase Troponin I Total Protein 6.7 Albumin 3.3 L Lipase 198 Urine Color Ltyellow Urine Appearance Clear Urine pH 6.0 Ur Specific [place] 1.014 Urine Protein Negative Urine Glucose (UA) 3+ H Urine Ketones Negative Urine Blood Negative Urine Nitrite Negative Urine Bilirubin Negative Urine Urobilinogen Negative Ur Leukocyte Esterase Negative ASSESSMENT AND PLAN: 1. Abdominal pain - etiology unclear, but pain has resolved. May reflect exacerbation of GERD she is on protonix at home. Admitted as an observation case. Refer to outpatient GI for elective colonoscopy. Continue protonix. 2. DM- Hold long acting insulin and do sliding scale insulin coverage. 3. DAY - Likely due to osmotic diuresis. Encourage liberal oral fluids of at least 2.5 liters per day and repeat BMP before discharge. Avoid NSAIDS and aminoglycosides. 4. Hypertension - will give amlodipine and losartan to strive for normotension - especially with concomitant DM. 5. DVT prophylaxis - Heparin 5000u sq tid 6. Advance directives - Full code
[2017-10-05] MEDS ORDERED: SODIUM CHLORIDE 1,000 ML IV SCH (04:15)
[2017-10-05] MEDS: INSULIN SLIDING SCALE (NOVOLOG) 1 VIAL SQ SCH ×2 (09:43→12:50)
[2017-10-05] MEDS ORDERED: LOSARTAN POTASSIUM 25 MG TABLET PO ONE (10:00)
[2017-10-05] MEDS ORDERED: amLODIPine BESYLATE 10 MG TABLET (FP) PO SCH (10:00)
[2017-10-05 11:08] VITALS: TEMP 97.5
[2017-10-05 11:48] LABS: BASO % 0.5 % (0-2.0); EOS % 1.8 % (0-4.5); HEMATOCRIT 36.3 % (32.4-45.2); HEMOGLOBIN 11.9 GM/dL (10.7-15.3); LYMPH % 18.8 % (8-40); MCH 28.9 pg (25.7-33.7); MCHC 32.8 g/dl (32.0-36.0); MEAN CELL VOLUME 88.1 fl (80-96); MEAN PLT VOLUME 8.7 fl (7.5-11.1); MONO % 5.6 % (3.8-10.2); NEUT % 73.3 % (42.8-82.8); PLATELET COUNT 205 K/MM3 (134-434); RBC 4.12 M/mm3 (3.60-5.2); WHITE BLOOD COUNT 6.9 K/mm3 (4.0-10.0)
[2017-10-05 12:11] LABS: ANION GAP 3 (8-16); BLOOD UREA NITROGEN 21 mg/dL (7-18); CALCIUM 8.1 mg/dL (8.5-10.1); CHLORIDE 108 mmol/L (98-107); CO2 31 mmol/L (21-32); CREATININE 1.1 mg/dL (0.55-1.02); GLUCOSE,RANDOM 173 mg/dL (74-106); POTASSIUM 4.5 mmol/L (3.5-5.1); SODIUM 142 mmol/L (136-145)
[2017-10-05] MEDS ORDERED: ACETAMINOPHEN 325 MG TABLET (FP) ONE (13:57)
[2017-10-05] MEDS ORDERED: ACETAMINOPHEN 325 MG TABLET (FP) PO ONE (14:10)
[2017-10-05 14:33] VITALS: BP 136/59; PULSE 64
--- NOTE | 2017-10-05 15:21 | PN ---
Teaching Attending Note Name of Resident: Osvaldo Li ATTENDING PHYSICIAN STATEMENT I saw and evaluated the patient. I reviewed the resident's note and discussed the case with the resident. I agree with the resident's findings and plan as documented. SUBJECTIVE:asymptomatic. states she tolerated food. had 1 BM today without blood or melena noted. denies CP, SOB, fever, chills, N/V/C/D OBJECTIVE: Last Vital Signs Temp Pulse Resp BP Pulse Ox 97.5 F L 64 20 136/59 96 10/05/17 14:32 10/05/17 14:32 10/05/17 14:32 10/05/17 14:32 10/05/17 07:22 General NAD CV S1 S2 RRR no murmur/rub/gallop Lungs CTA B/L no wheezing/rales/rhonchi Abdomen soft NT/ND no rebound or guarding. obese Extremities no pedal edema ASSESSMENT AND PLAN: 87yo F wtih PMHDm and HTN, s/p PPM presented to the ER with abdominal pain 1. Abdominal pain- now resolved. CT imaging negative. tolerating diet and having regular BM. on discussion with granddaughter states pain has been happening for several years. shes gets very upset develop SOB and then has RUQ pain. has not been worked up before. not related to eating or lack of eating of bowel movements. appears to be more likely stress induced. recommend following up with GI if persists as outpatient. 2. DAY- likely dehydration. now resolved 3. d/c home
--- NOTE | 2017-10-05 20:34 | DS ---
Physical Exam: SUBJECTIVE: Patient seen and examined at bedside. Complaint of mild abdominal pain. Pt is a very poor historian. Afebrile, in no distress. OBJECTIVE: Vital Signs Period Temp Pulse Resp BP Sys/Mccarty Pulse Ox Last 24 Hr 97.5 F-97.9 F 60-96 16-20 110-144/59-90 96 PHYSICAL EXAM GENERAL: The patient is awake, alert, and fully oriented, in no acute distress. HEAD: Normal with no signs of trauma. EYES: sclera anicteric, conjunctiva clear. ENT: Ears normal, nares patent, oropharynx clear without exudates, moist mucous membranes. NECK: Trachea midline, full range of motion, supple. LUNGS: Breath sounds equal, clear to auscultation bilaterally, no wheezes, no crackles, no accessory muscle use. HEART: Regular rate and rhythm, S1, S2 without murmur, rub or gallop. ABDOMEN: Soft,mild tenderness to palpation, nondistended, normoactive bowel sounds, no guarding, no rebound, no hepatosplenomegaly, no masses. EXTREMITIES: 2+ pulses, warm, well-perfused, no edema. NEUROLOGICAL: Cranial nerves II through XII grossly intact. Normal speech, gait not observed. PSYCH: Normal mood, normal affect. SKIN: Warm, dry, normal turgor, no rashes or lesions noted. LABS Laboratory Results - last 24 hr 10/04/17 10/05/17 10/05/17 20:02 10:45 10:45 WBC 6.9 RBC 4.12 Hgb 11.9 Hct 36.3 MCV 88.1 MCH 28.9 MCHC 32.8 RDW 16.0 H Plt Count 205 MPV 8.7 Neutrophils % 73.3 Lymphocytes % 18.8 Monocytes % 5.6 Eosinophils % 1.8 Basophils % 0.5 Nucleated RBC % 0 Sodium 142 Potassium 4.5 Chloride 108 H Carbon Dioxide 31 Anion Gap 3 L BUN 21 H Creatinine 1.1 H Random Glucose 173 H Calcium 8.1 L Urine Color Ltyellow Urine Appearance Clear Urine pH 6.0 Ur Specific [place] 1.014 Urine Protein Negative Urine Glucose (UA) 3+ H Urine Ketones Negative Urine Blood Negative Urine Nitrite Negative Urine Bilirubin Negative Urine Urobilinogen Negative Ur Leukocyte Esterase Negative HOSPITAL COURSE: Date of Admission:10/04/17 Date of Discharge: 10/05/17 Pt is an 87 yr old woman with DM, HTN, s/p pacemaker presents with abdominal pain placed on observation pending discharge home. Pt did not know her pharmacy. Granddaughter was called. Meds were reconciled. Pt presented with abdominal pain to ED. She was resting comfortably in ED on interview. No distress. No pain. Pt was set to go home, but her granddaughter had left and she complained of abdominal pain at that time. As there was no safe discharge at that time, she was kept for observation. 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 Pt was given instructions to follow up with GI as an outpt. Pt came to hospital with DAY Cr 1.5 which resolved promptly with hydration. Cause was likely prerenal. DM was treated with ISS and BGMs. HTN was treated with norvasc and losartan in the hospital. Pt is stable for d/c. Minutes to complete discharge: 30 Discharge Summary Reason For Visit: AP SHORT STAY Condition: Good - Instructions Diet, Activity, Other Instructions: You need to make sure you follow up with your primary care doctor. You need to follow up with a GI doctor. You can call the office of Dr. Shelton at [phone]. Continue taking your home medications as you were before. If you develop new symptoms or if your symptoms get worse, please return to the emergency department. Referrals: Sebas Shelton MD [Staff Physician] - 1 Week Disposition: HOME HEALTH CARE - Home Medications Comprehensive Discharge Medication List: Ambulatory Orders Amlodipine Besylate 5 mg PO DAILY 10/05/17 Amlodipine Besylate [Norvasc -] 10 mg PO DAILY tablet 10/05/17 Atorvastatin Ca [Lipitor] 80 mg PO HS 10/05/17 Carvedilol 25 mg PO BID 10/05/17 Gabapentin [Neurontin] 100 mg PO TID 10/05/17 Insulin Glargine,Hum.rec.anlog [Lantus] 100 unit SQ BID 10/05/17 Lactulose 10 gm PO DAILY 10/05/17 Pantoprazole Sodium [Protonix] 40 mg PO DAILY 10/05/17 Pantoprazole Sodium [Protonix] 40 mg PO DAILY 10/05/17 Ticagrelor [Brilinta -] 90 mg PO BID 10/05/17 This patient is new to me today: No Emergency Visit: No Critical Care patient: No - Discharge Referral Referred to [facility] No
--- NOTE | 2017-10-07 16:32 | EKG ---
Test Reason : Blood Pressure : / mmHG Vent. Rate : 060 BPM Atrial Rate : 060 BPM P-R Int : 292 ms QRS Dur : 086 ms QT Int : 406 ms P-R-T Axes : 078 -14 -06 degrees QTc Int : 406 ms Atrial-paced rhythm with prolonged AV conduction NONSPECIFIC T WAVE ABNORMALITY ABNORMAL ECG WHEN COMPARED WITH ECG OF 14-AUG-2017 22:08, ELECTRONIC ATRIAL PACEMAKER HAS REPLACED ELECTRONIC VENTRICULAR PACEMAKER Confirmed by OMID ART, KRISTAL ([id number]) on 10/07/2017 4:32:39 PM Referred By: Confirmed By:KRISTAL ANNE MD
== END 2017-10-05 16:02 | disposition home or self-care (01) ==
LOC: JER 17:24 → JERBED 23:11
PROVIDERS: ADMIT Internal Medicine; ATTEND Internal Medicine
PROC: 3E033NZ Introduction of Analgesics, Hypnotics, Sedatives into Peripheral Vein, Percutaneous Approach (ICD-10-PCS; principal; 2017-10-04)
PROC: 3E0337Z Introduction of Electrolytic and Water Balance Substance into Peripheral Vein, Percutaneous Approach (ICD-10-PCS; 2017-10-04)
PROC: 3E013VG Introduction of Insulin into Subcutaneous Tissue, Percutaneous Approach (ICD-10-PCS; 2017-10-04)
DX: R10.84 Generalized abdominal pain (principal); I10 Essential (primary) hypertension; E11.9 Type 2 diabetes mellitus without complications; Z95.0 Presence of cardiac pacemaker; Z79.4 Long term (current) use of insulin; N17.9 Acute kidney failure, unspecified
CPT/HCPCS: 36415; 71045-TC-FY; 74177-TC; 80048; 80053; 81003; 82550; 82962; 83036; 83605; 83690; 84484; 85025; 85610; 85730; 93005; 93010; 96361; 96372; 96374; 99284-25; G0378; J0131; J7030

== ENCOUNTER 2017-11-25 19:16 | Observation (INO) | payer OTHER ==
[2017-11-25 19:29] VITALS: BMI 26.8
--- NOTE | 2017-11-25 19:32 | PDOC ---
Rapid Medical Evaluation Chief Complaint: Shortness of Breath Time Seen by Provider: 11/25/17 19:26 Medical Evaluation: Allergies Allergy/AdvReac Type Severity Reaction Status Date / Time No Known Allergies Allergy Verified 10/04/17 17:36 11/25/17 19:26 c/o Shortness of breath since yesterday, and generalized abdominal pain. PMHX: cardiac stents, Pacemaker, HTN, DM, A: SIRS PE: PATIENT DYSPNEIC, COARSE BREATH SOUNDS, DRY COUGH, GENERALIZED ABDOMINAL TENDERNESS. P: SEPSIS Protocol Labs cultures chest xray 11/25/17 19:31 Discharge Disposition - Diagnosis Fever and chills Abdominal pain Qualifiers: Abdominal location: generalized Qualified Code(s): R10.84 - Generalized abdominal pain - Referrals - Patient Instructions - Post Discharge Activity
--- NOTE | 2017-11-25 21:00 | PDOC ---
History of Present Illness - General Chief Complaint: Pain Stated Complaint: STOMACH PAIN Time Seen by Provider: 11/25/17 19:26 - History of Present Illness Initial Comments: 11/25/17 20:58 87 yo F with h/o DM, HTN, GERD and pacemaker placement, CAD s/p stent placement x 5, who p/w diffuse abdominal pain. Patient with severe, sharp abdominal pain, at rest this AM. Similiar to prior pain, but increased in severity. Decreased appetite and nausea without vomiting. Last BM this AM, with no BPR. Last BM yesterday evening. Denies postprandial pain. Transient SOB this AM ( now improved). Recent admission (10/05/17) for abdominal pain. CT AP unremarkable. Endorses Tylenol use. Denies chronic NSAID use. Patient denies N/V, orthopnea, PND, leg swelling/pain, palpitations, F,C, CP, urinary complaints, hematuria, diarrhea, lightheadedness, weakness, sensory changes. PMHx: as noted above. Denies h/o abdominal surgery. H/o nml colonoscopy 7 years ago. Does not f/w GI. ROS: as noted SHx: Tobacco cessation years ago. Denies Etoh, IVDA. Denies recent travel, or sick contacts. Allergies: NKDA Past History - Past Medical History Allergies/Adverse Reactions: Allergies Allergy/AdvReac Type Severity Reaction Status Date / Time No Known Allergies Allergy Verified 11/25/17 19:27 Home Medications: Ambulatory Orders Amlodipine Besylate 5 mg PO DAILY 10/05/17 Amlodipine Besylate [Norvasc -] 10 mg PO DAILY tablet 10/05/17 Atorvastatin Ca [Lipitor] 80 mg PO HS 10/05/17 Carvedilol 25 mg PO BID 10/05/17 Gabapentin [Neurontin] 100 mg PO TID 10/05/17 Insulin Glargine,Hum.rec.anlog [Lantus] 100 unit SQ BID 10/05/17 Lactulose 10 gm PO DAILY 10/05/17 Pantoprazole Sodium [Protonix] 40 mg PO DAILY 10/05/17 Pantoprazole Sodium [Protonix] 40 mg PO DAILY 10/05/17 Ticagrelor [Brilinta -] 90 mg PO BID 10/05/17 Cardiac Disorders: Yes (5 stents) COPD: No Diabetes: Yes HTN: Yes - Surgical History Cardiac Surgery: Yes (pacemaker) - Suicide/Smoking/Psychosocial Hx Smoking History: Former smoker Have you smoked in the past 12 months: No If you are a former smoker, when did you quit?: 30 years ago Information on smoking cessation initiated: No Hx Alcohol Use: No Drug/Substance Use Hx: No Review of Systems - Review of Systems Comments:: 11/25/17 21:00 GENERAL/CONSTITUTIONAL: No fever or chills. No weakness. HEAD, EYES, EARS, NOSE AND THROAT: No change in vision. No ear pain or discharge. No sore throat. CARDIOVASCULAR: No chest pain or shortness of breath RESPIRATORY: No cough, wheezing, or hemoptysis. GASTROINTESTINAL: +Abdominal pain and Nausea. No vomiting, diarrhea or constipation. GENITOURINARY: No dysuria, frequency, or change in urination. MUSCULOSKELETAL: No joint or muscle swelling or pain. No neck or back pain. SKIN: No rash NEUROLOGIC: No headache, vertigo, loss of consciousness, or change in strength/ sensation. ENDOCRINE: No increased thirst. No abnormal weight change HEMATOLOGIC/LYMPHATIC: No anemia, easy bleeding, or history of blood clots. ALLERGIC/IMMUNOLOGIC: No hives or skin allergy. *Physical Exam - Vital Signs Last Vital Signs Temp Pulse Resp BP Pulse Ox 100.9 F H 63 20 131/48 98 11/25/17 19:27 11/25/17 19:27 11/25/17 19:27 11/25/17 19:27 11/25/17 19:27 - Physical Exam Comments: 11/25/17 21:00 GENERAL: Awake, alert, and fully oriented, in no acute distress HEAD: No signs of trauma, normocephalic, atraumatic EYES: PERRLA, EOMI, sclera anicteric, conjunctiva clear ENT: Auricles normal inspection, hearing grossly normal, nares patent, oropharynx clear without exudates. Moist mucosa NECK: Normal ROM, supple, no lymphadenopathy, JVD, or masses LUNGS: No distress, speaks full sentences, clear to auscultation bilaterally HEART: Regular rate and rhythm, normal S1 and S2, no murmurs, rubs or gallops, peripheral pulses normal and equal bilaterally. ABDOMEN: + diffuse abdominal, with RLQ abdominal predominant ttp. Soft, normoactive bowel sounds. No guarding, no rebound. No masses. Neg CVA ttp. EXTREMITIES : Normal inspection, Normal range of motion, no edema. No clubbing or cyanosis. SKIN: Warm, Dry, normal turgor, no rashes or lesions noted ED Treatment Course - LABORATORY CBC & Chemistry Diagram: 11/25/17 20:44 11/25/17 20:44 Medical Decision Making - Medical Decision Making 11/25/17 21:54 87 yo F with h/o DM, HTN, GERD and pacemaker placement, CAD s/p stent placement x 5, who p/w diffuse abdominal pain. Temp Rectal 100.9, vitals otherwise wnl. + Diffuse with RLQ predominant ttp. Differential includes colitis, diverticulitis , appendicitis, cystitis, mesenteric ischemia. Low suspicion AAA. Ed Course: CBC, CMP, Cardiac Pr. , BNP, LA UA EKG Tylenol 11/25/17 22:07 BUN/Cr: 23/1.5 CBC: Unremarkable Lactic Acid: 0.[address] AP pending. Patient signed out to night team. *DC/Admit/Observation/Transfer Diagnosis at time of Disposition: Fever and chills Abdominal pain Qualifiers: Abdominal location: generalized Qualified Code(s): R10.84 - Generalized abdominal pain - Referrals Referrals: Randolph Price MD [Staff Physician] - - Patient Instructions Printed Discharge Instructions: DI for Abdominal Pain-Adult Additional Instructions: Please return to the emergency department with any new or worsening symptoms or concerns. Please follow up with your primary care physician within 72 hours. Please follow up with gastroenterology within one week. - Post Discharge Activity - Attestations Physician Attestion: 11/25/17 22:06 I attest to the information provided in this note.
[2017-11-25 21:01] LABS: VENOUS PC02 48.3 mmHg (38-52)
[2017-11-25 21:02] LABS: BASO % 0.6 % (0-2.0); EOS % 0.7 % (0-4.5); HEMATOCRIT 34.8 % (32.4-45.2); HEMOGLOBIN 11.5 GM/dL (10.7-15.3); LYMPH % 9.6 % (8-40); MEAN CELL VOLUME 87.8 fl (80-96); MEAN PLT VOLUME 9.1 fl (7.5-11.1); MONO % 5.1 % (3.8-10.2); PLATELET COUNT 189 K/MM3 (134-434); RBC 3.96 M/mm3 (3.60-5.2); RDW 15.5 % (11.6-15.6); VENOUS PH 7.39 (7.32-7.42); WHITE BLOOD COUNT 6.7 K/mm3 (4.0-10.0)
--- NOTE | 2017-11-25 21:13 | PDOC ---
Attending Attestation - HPI HPI: 11/26/17 00:32 The patient is a 87 year old female with a significant PMH of hypertension, 5 cardiac stents, pacemaker who presents to the emergency department with sharp diffuse abdominal pain since earlier today. The patient reports that her abdominal pain was onset while at rest this morning in bed. The patient reports that this episode is similar to pain she has had in the past but is more severe now. The patient reports some decreased appetite and nausea without vomiting.she also reports some SOB this morning. She states that her last bowel movement was this morning . she denies any postprandial pain. The patient reports that she was last admitted 2 months ago for abdominal pain. She reports some tylenol use. The patient denies any other symptoms. She denies fever, chills, nausea, vomit, diarrhea, constipation or urinary symptoms. She denies any chest pain, shortness of breath, headache, leg swelling/pain, palpitations, and dizziness. The patient denies any other complaints. - Physicial Exam PE: 11/26/17 00:32 GENERAL: Awake, alert, and fully oriented, in no acute distress HEAD: No signs of trauma EYES: PERRLA, EOMI, sclera anicteric, conjunctiva clear ENT: Auricles normal inspection, hearing grossly normal, nares patent, oropharynx clear without exudates. Moist mucosa NECK: Normal ROM, supple, no lymphadenopathy, JVD, or masses LUNGS: Breath sounds equal, clear to auscultation bilaterally. No wheezes, and no crackles HEART: Regular rate and rhythm, normal S1 and S2, no murmurs, rubs or gallops ABDOMEN:(+)RLQ tenderness and suprapubic tenderness. Soft, normoactive bowel sounds. No guarding, no rebound. No masses EXTREMITIES: Normal range of motion, no edema. No clubbing or cyanosis. No cords, erythema, or tenderness NEUROLOGICAL: Cranial nerves II through XII grossly intact. Normal speech, normal gait SKIN: Warm, Dry, normal turgor, no rashes or lesions noted. Documentation prepared by Luis Enrique Zuniga, acting as certified medical records coder for Ayleen Sampson MD. <Luis Enrique Zuniga - Last Filed: 11/26/17 00:32> - Resident Resident Name: Luciano Sanders - ED Attending Attestation I have performed the following: I have examined & evaluated the patient, The case was reviewed & discussed with the resident, I agree w/resident's findings & plan, Exceptions are as noted - Medical Decision Making 11/25/17 21:13 I, Dr. Ayleen Sampson, DO, attest that this document has been prepared under my direction and personally reviewed by me in its entirety. I further attest, that it accurately reflects all work, treatment, procedures and medical decision -making performed by me. 11/25/17 22:43 a/p: 87yo female with 2 complaints -dry cough at night when she lays down and also with lower abd pain -pt with a fever upon arrival in the ed -cough is nonproductive -chronic pain, but pain tonight over bladder and RLQ - no rebound or guarding -will send labs, ua, ct abd/pelvis, trop, bnp -will monitor and reassess 11/26/17 01:31 pt with elevated bnp pts cards is Patrick Ricks will place consult pt with cough when she lays flat - suspect mild chf exacerbation -will keep in obs will give [place] [facility] [place] 01:[address] ruiz who accepts the patient to service <Ayleen Sampson - Last Filed: 11/26/17 02:01> Discharge Disposition <Luis Enrique Zuniga - Last Filed: 11/26/17 00:32> - Discharge Dispostion Decision to Admit order: Yes <Ayleen Sampson - Last Filed: 11/26/17 02:01> - Diagnosis Fever and chills, Cough, Elevated brain natriuretic peptide (BNP) level Abdominal pain Qualifiers: Abdominal location: generalized Qualified Code(s): R10.84 - Generalized abdominal pain - Discharge Dispostion Condition at time of disposition: Fair - Referrals Referrals: Randolph Price MD [Staff Physician] - - Patient Instructions Printed Discharge Instructions: DI for Abdominal Pain-Adult Additional Instructions: Please return to the emergency department with any new or worsening symptoms or concerns. Please follow up with your primary care physician within 72 hours. Please follow up with gastroenterology within one week. - Post Discharge Activity Heart Score/ECG Review - ECG Intrepretation Comment:: 11/25/17 22:45 a paced at 60, no other acute findings <Ayleen Sampson - Last Filed: 11/26/17 02:01>
[2017-11-25 21:24] LABS: INR 1.08 (0.82-1.09); PROTHROMBIN TIME (PATIENT) 12.2 SEC (9.7-13.0)
[2017-11-25 21:26] LABS: ACTIVATED PTT 29.9 SECONDS (25.2-36.5)
[2017-11-25 21:30] LABS: ALBUMIN 3.2 g/dl (3.4-5.0); ANION GAP 6 (8-16); BILIRUBIN,TOTAL 0.5 mg/dL (0.2-1.0); BLOOD UREA NITROGEN 23 mg/dL (7-18); CALCIUM 7.9 mg/dL (8.5-10.1); CHLORIDE 104 mmol/L (98-107); CO2 27 mmol/L (21-32); GLUCOSE,RANDOM 203 mg/dL (74-106); POTASSIUM 4.8 mmol/L (3.5-5.1); SGOT/AST 15 U/L (15-37); SGPT/ALT 16 U/L (12-78); SODIUM 137 mmol/L (136-145); TOT PROT 6.7 g/dl (6.4-8.2)
[2017-11-25 21:32] LABS: ALK PHOS 86 U/L (45-117); CREATININE 1.5 mg/dL (0.55-1.02)
[2017-11-25] MEDS ORDERED: ACETAMINOPHEN 1000 MG/100 ML VIAL (NON FORMULARY) IVPB ONE (21:57)
[2017-11-25] MEDS ORDERED: SODIUM CHLORIDE 0.9% 1000 ML INFUS.BAG IV ONE (21:57)
[2017-11-25] MEDS ORDERED: ACETAMINOPHEN INJECTION 100 ML IVPB ONE (22:07)
[2017-11-25 22:52] LABS: URINE APPEARANCE CLEAR; URINE BILIRUBIN NEGATIVE (<2.0 mg/dL); URINE COLOR LTYELLOW; URINE GLUCOSE (UA) 1+ (NEGATIVE); URINE KETONE NEGATIVE (NEGATIVE); URINE LEUK ESTERASE NEGATIVE (NEGATIVE); URINE NITRITE NEGATIVE (NEGATIVE); URINE UROBILINOGEN NEGATIVE mg/dL (0.2-1.0)
[2017-11-25 22:55] LABS: URINE PROTEIN 1+ (NEGATIVE)
[2017-11-26] MEDS ORDERED: FUROSEMIDE 40 MG/4 ML INJECTABLE VIAL IVPUSH ONE (01:27)
[2017-11-26] MEDS ORDERED: FUROSEMIDE 40 MG/4 ML INJECTABLE VIAL ONE (01:57)
--- NOTE | 2017-11-26 03:03 | HP ---
CHIEF COMPLAINT: abdominal swelling PCP: cardio: Dr. Ricks HISTORY OF PRESENT ILLNESS: Pt is an 87 y/o F with PMH HTN, HLD, DM, 5 cardiac stents, PPM who presented to ED with complaint of lower abdominal pain since yesterday. No other complaints. Pt reports normal BM yesterday. Denies burning on urination, chest pain, SOB, MAHER, nausea, vomiting, diarrhea, bloody stool/urine. 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 Pending official read (3) Recent Travel: denies PAST MEDICAL HISTORY: HTN, HLD, DM PAST SURGICAL HISTORY: 5 cardiac stents, PPM Social History: Smoking: former smoker Alcohol: denies Drugs: denies Family History: Allergies No Known Allergies Allergy (Verified 11/25/17 19:27) HOME MEDICATIONS: Home Medications Medication Instructions Recorded Amlodipine Besylate 5 mg PO DAILY 10/05/17 Atorvastatin Ca [Lipitor] 80 mg PO HS 10/05/17 Carvedilol 25 mg PO BID 10/05/17 Gabapentin [Neurontin] 100 mg PO TID 10/05/17 Insulin Glargine,Hum.rec.anlog 100 unit SQ BID 10/05/17 [Lantus] Lactulose 10 gm PO DAILY 10/05/17 Pantoprazole Sodium [Protonix] 40 mg PO DAILY 10/05/17 Ticagrelor [Brilinta -] 90 mg PO BID 10/05/17 REVIEW OF SYSTEMS CONSTITUTIONAL: Absent: fever, chills, diaphoresis, generalized weakness, malaise, loss of appetite, weight change HEENT: Absent: rhinorrhea, nasal congestion, throat pain, throat swelling, difficulty swallowing, mouth swelling, ear pain, eye pain, visual changes CARDIOVASCULAR: Absent: chest pain, syncope, palpitations, irregular heart rate, lightheadedness , peripheral edema RESPIRATORY: Absent: cough, shortness of breath, dyspnea with exertion, orthopnea, wheezing, stridor, hemoptysis GASTROINTESTINAL: abdominal pain Absent: , abdominal distension, nausea, vomiting, diarrhea, constipation, melena , hematochezia GENITOURINARY: Absent: dysuria, frequency, urgency, hesitancy, hematuria, flank pain, genital pain MUSCULOSKELETAL: Absent: myalgia, arthralgia, joint swelling, back pain, neck pain SKIN: Absent: rash, itching, pallor HEMATOLOGIC/IMMUNOLOGIC: Absent: easy bleeding, easy bruising, lymphadenopathy, frequent infections ENDOCRINE: Absent: unexplained weight gain, unexplained weight loss, heat intolerance, cold intolerance NEUROLOGIC: Absent: headache, focal weakness or paresthesias, dizziness, unsteady gait, seizure, mental status changes, bladder or bowel incontinence PSYCHIATRIC: Absent: anxiety, depression, suicidal or homicidal ideation, hallucinations. PHYSICAL EXAMINATION Vital Signs - 24 hr 11/25/17 11/26/17 19:27 02:12 Temperature 100.9 F H Pulse Rate 63 Pulse Rate [ 61 Left Radial] Respiratory 20 18 Rate Blood Pressure 131/48 Blood Pressure 133/60 [Left Arm] O2 Sat by Pulse 98 97 Oximetry (%) Gen: Comfortable, NAD HEENT: NCAT, PERRL, EOMI Neck: supple no jvd Cardio: rrr, soft s1, normal s2, 3-4/6 systolic murmur LUSB Pulm: cta b/l abd: soft mild suprapubic tenderness only elicited with deep palpation, which the patient eagerly demonstrated Ext: no edema, 1+ pulses . Laboratory Results - last 24 hr 11/25/17 11/25/17 11/25/17 20:44 20:44 20:44 WBC 6.7 RBC 3.96 Hgb 11.5 Hct 34.8 MCV 87.8 MCH 29.0 MCHC 33.0 RDW 15.5 Plt Count 189 MPV 9.1 Absolute Neuts (auto) 5.6 Neutrophils % 84.0 H Lymphocytes % 9.6 D Monocytes % 5.1 Eosinophils % 0.7 Basophils % 0.6 Nucleated RBC % 0 PT with INR 12.20 INR 1.08 PTT (Actin FS) 29.9 VBG pH 7.39 POC VBG pCO2 48.3 POC VBG pO2 30.0 Mixed VBG HCO3 28.7 H Sodium Potassium Chloride Carbon Dioxide Anion Gap BUN Creatinine Creat Clearance w eGFR Random Glucose Lactic Acid Calcium Total Bilirubin AST ALT Alkaline Phosphatase Troponin I B-Natriuretic Peptide Total Protein Albumin Urine Color Urine Appearance Urine pH Ur Specific [place] Urine Protein Urine Glucose (UA) Urine Ketones Urine Blood Urine Nitrite Urine Bilirubin Urine Urobilinogen Ur Leukocyte Esterase Urine WBC (Auto) Urine RBC (Auto) 11/25/17 11/25/17 11/25/17 20:44 20:44 20:44 WBC RBC Hgb Hct MCV MCH MCHC RDW Plt Count MPV Absolute Neuts (auto) Neutrophils % Lymphocytes % Monocytes % Eosinophils % Basophils % Nucleated RBC % PT with INR INR PTT (Actin FS) VBG pH POC VBG pCO2 POC VBG pO2 Mixed VBG HCO3 Sodium 137 Potassium 4.8 Chloride 104 Carbon Dioxide 27 Anion Gap 6 L BUN 23 H Creatinine 1.5 H Creat Clearance w eGFR 33.00 Random Glucose 203 H Lactic Acid 0.9 Calcium 7.9 L Total Bilirubin 0.5 AST 15 ALT 16 Alkaline Phosphatase 86 Troponin I < 0.02 B-Natriuretic Peptide Total Protein 6.7 Albumin 3.2 L Urine Color Urine Appearance Urine pH Ur Specific [place] Urine Protein Urine Glucose (UA) Urine Ketones Urine Blood Urine Nitrite Urine Bilirubin Urine Urobilinogen Ur Leukocyte Esterase Urine WBC (Auto) Urine RBC (Auto) 11/25/17 11/25/17 20:44 22:17 WBC RBC Hgb Hct MCV MCH MCHC RDW Plt Count MPV Absolute Neuts (auto) Neutrophils % Lymphocytes % Monocytes % Eosinophils % Basophils % Nucleated RBC % PT with INR INR PTT (Actin FS) VBG pH POC VBG pCO2 POC VBG pO2 Mixed VBG HCO3 Sodium Potassium Chloride Carbon Dioxide Anion Gap BUN Creatinine Creat Clearance w eGFR Random Glucose Lactic Acid Calcium Total Bilirubin AST ALT Alkaline Phosphatase Troponin I B-Natriuretic Peptide 938.52 H Total Protein Albumin Urine Color Ltyellow Urine Appearance Clear Urine pH 7.0 Ur Specific [place] 1.014 Urine Protein 1+ H Urine Glucose (UA) 1+ H D Urine Ketones Negative Urine Blood Negative Urine Nitrite Negative Urine Bilirubin Negative Urine Urobilinogen Negative Ur Leukocyte Esterase Negative Urine WBC (Auto) <1 Urine RBC (Auto) <1 ASSESSMENT/PLAN: Pt is an 87 y/o F with PMH HTN, HLD, DM, 5 cardiac stents, PPM who presented to ED with lower abdominal pain. Pt placed on obs for ? CHF exacerbation. #CHF exacerbation -rales on exam in ED -pt reportedly was reliably coughing when lying flat. alleviated when sitting upright -Lasix given in ED #Lower abdominal pain -tenderness on deep palpation suprapubically -CT abdomen pending official read #HTN -c/w home norvasc -c/w home coreg #HLD -c/w home Lipitor #DM -BGM ACHS -ISS ACHS #FEN -not on fluids -lytes wnl -DM, Na controlled diet #PPx -Hep subQ #Dispo -Tele/Obs Osvaldo Li MD PGY-2 IM Visit type - Emergency Visit Emergency Visit: Yes Care time: The patient presented to the Emergency Department on the above date and was hospitalized for further evaluation of their emergent condition. - New Patient This patient is new to me today: No - Critical Care Critical Care patient: No Hospitalist Screening - Colonoscopy Questionnaire Colonoscopy Questionnaire: Colonoscopy Questionnaire - Patient: 50 - 75 years old and never had a screening colonoscopy: Unknown History of colon or rectal polyps, or CA: Unknown History of IBD, Crohn's disease or UC: Unknown History of abdominal radiation therapy as a child: Unknown - Relative: 1 with colon or rectal CA, or polyps at age 60 or younger: Unknown Colon or rectal CA diagnosed at age 45 or younger: Unknown Multiple relatives with colon or rectal CA: Unknown - Outcome: Screening Result: Negative Screen
[2017-11-26] MEDS: GABAPENTIN 100 MG CAPSULE (FP) PO SCH ×2 (06:14→14:21)
[2017-11-26] MEDS: HEPARIN NA (PORCINE) 5,000 UNITS/ML 1ML VIAL SQ SCH ×2 (06:14→14:15)
[2017-11-26] MEDS ORDERED: GABAPENTIN 100 MG CAPSULE (FP) ONE (06:17)
[2017-11-26] MEDS ORDERED: HEPARIN NA (PORCINE) 5,000 UNITS/ML 1ML VIAL ONE (06:17)
[2017-11-26 06:50] LABS: BASO % 0.2 % (0-2.0); EOS % 0.9 % (0-4.5); HEMATOCRIT 34.2 % (32.4-45.2); HEMOGLOBIN 11.4 GM/dL (10.7-15.3); LYMPH % 13.2 % (8-40); MCH 29.3 pg (25.7-33.7); MCHC 33.3 g/dl (32.0-36.0); MEAN CELL VOLUME 87.8 fl (80-96); MEAN PLT VOLUME 8.8 fl (7.5-11.1); MONO % 6.7 % (3.8-10.2); PLATELET COUNT 173 K/MM3 (134-434); RDW 15.9 % (11.6-15.6); WHITE BLOOD COUNT 6.2 K/mm3 (4.0-10.0)
[2017-11-26 07:03] LABS: CHLORIDE 106 mmol/L (98-107); POTASSIUM 4.4 mmol/L (3.5-5.1); SODIUM 144 mmol/L (136-145)
--- NOTE | 2017-11-26 07:06 | PN ---
Teaching Attending Note Name of Resident: Osvaldo Li ATTENDING PHYSICIAN STATEMENT I saw and evaluated the patient. I reviewed the resident's note and discussed the case with the resident. I agree with the resident's findings and plan as documented. SUBJECTIVE: 87 y/o F presenting to ED c/o generalized abdominal pain which started in the morning, no vomiting or diarrhea or constipation. On evaluation patient c/o RUQ pain and then pelvic tenderness. As per ED physician patient had respiratory distress and coughing on laying down. Patient suspected of CHF exacerbation and referred for admission after lasix was given OBJECTIVE: GEN: Alert and oriented times 3 HEENT: NC, PERRLA, EOMI, MMM, no JVD CVS: RRR, no M/G/R Lungs: CTA Abd: Soft, ND, tender RUQ, no guarding or rebound Ext: 2+ pulses, Nl ROM Neuro: CN2-12 intact CBCD WBC 6.2 K/mm3 (4.0-10.0) 11/26/17 05:48 RBC 3.90 M/mm3 (3.60-5.2) 11/26/17 05:48 Hgb 11.4 GM/dL (10.7-15.3) 11/26/17 05:48 Hct 34.2 % (32.4-45.2) 11/26/17 05:48 MCV 87.8 fl (80-96) 11/26/17 05:48 MCHC 33.3 g/dl (32.0-36.0) 11/26/17 05:48 RDW 15.9 % (11.6-15.6) H 11/26/17 05:48 Plt Count 173 K/MM3 (134-434) 11/26/17 05:48 MPV 8.8 fl (7.5-11.1) 11/26/17 05:48 CMP Sodium 137 mmol/L (136-145) 11/25/17 20:44 Potassium 4.8 mmol/L (3.5-5.1) 11/25/17 20:44 Chloride 104 mmol/L (98-107) 11/25/17 20:44 Carbon Dioxide 27 mmol/L (21-32) 11/25/17 20:44 Anion Gap 6 (8-16) L 11/25/17 20:44 BUN 23 mg/dL (7-18) H 11/25/17 20:44 Creatinine 1.5 mg/dL (0.55-1.02) H 11/25/17 20:44 Creat Clearance w eGFR 33.00 (>60) 11/25/17 20:44 Random Glucose 203 mg/dL (74-106) H 11/25/17 20:44 Calcium 7.9 mg/dL (8.5-10.1) L 11/25/17 20:44 Total Bilirubin 0.5 mg/dL (0.2-1.0) 11/25/17 20:44 AST 15 U/L (15-37) 11/25/17 20:44 ALT 16 U/L (12-78) 11/25/17 20:44 Alkaline Phosphatase 86 U/L (45-117) 11/25/17 20:44 Total Protein 6.7 g/dl (6.4-8.2) 11/25/17 20:44 Albumin 3.2 g/dl (3.4-5.0) L 11/25/17 20:44 CARDIAC ENZYMES Troponin I < 0.02 ng/ml (0.00-0.05) 11/25/17 20:44 ASSESSMENT AND PLAN: Admitted for observation for CHF exacerbation- patient currently stable on examination and can be discharged in AM. Continue home medications. Abdominal pain CT scan negative for cholecystitis or colitis and labs WNL. NO further work up at this time.
[2017-11-26 07:11] LABS: ALBUMIN 3.2 g/dl (3.4-5.0); ALK PHOS 87 U/L (45-117); ANION GAP 8 (8-16); BILIRUBIN,TOTAL 0.6 mg/dL (0.2-1.0); BLOOD UREA NITROGEN 19 mg/dL (7-18); CO2 30 mmol/L (21-32); CREATININE 1.4 mg/dL (0.55-1.02); GLUCOSE,RANDOM 101 mg/dL (74-106); MAGNESIUM 2.7 mg/dL (1.8-2.4); PHOSPHOROUS 2.3 mg/dL (2.5-4.9); SGOT/AST 15 U/L (15-37); SGPT/ALT 18 U/L (12-78); TOT PROT 6.7 g/dl (6.4-8.2)
[2017-11-26] MEDS: INSULIN SLIDING SCALE (NOVOLOG) 1 VIAL SQ SCH ×2 (08:06→13:03)
[2017-11-26] MEDS ORDERED: PANTOPRAZOLE 40 MG TABLET (FP) PO SCH (10:00)
[2017-11-26] MEDS ORDERED: amLODIPine BESYLATE 5 MG TABLET (FP) PO SCH (10:00)
[2017-11-26] MEDS ORDERED: TICAGRELOR 90 MG TABLET PO SCH (10:00)
[2017-11-26] MEDS ORDERED: CARVEDILOL 25 MG TABLET (FP) PO SCH (10:00)
[2017-11-26] MEDS ORDERED: PT OWN MED DRAWER 7, Y5N ONE (10:38)
[2017-11-26] MEDS ORDERED: TICAGRELOR 90 MG TABLET PO ONE (10:41)
[2017-11-26] MEDS ORDERED: CARVEDILOL 12.5 MG TABLET (FP) ONE (10:42)
[2017-11-26] MEDS ORDERED: amLODIPine BESYLATE 5 MG TABLET (FP) ONE (10:42)
--- NOTE | 2017-11-26 12:01 | EKG ---
Test Reason : Blood Pressure : / mmHG Vent. Rate : 060 BPM Atrial Rate : 060 BPM P-R Int : 302 ms QRS Dur : 088 ms QT Int : 390 ms P-R-T Axes : 076 -27 009 degrees QTc Int : 390 ms Atrial-paced rhythm with prolonged AV conduction LOW VOLTAGE QRS ABNORMAL ECG WHEN COMPARED WITH ECG OF 04-OCT-2017 18:45, NO SIGNIFICANT CHANGE WAS FOUND Confirmed by GALINA HYMAN MD ([id number]) on 11/26/2017 12:01:42 PM Referred By: Confirmed By:GALINA HYMAN MD
[2017-11-26] MEDS ORDERED: NAPH,MB-DB/K PH,MBDB POWDER PACKET PO STA (12:37)
[2017-11-26 12:54] LABS: BASO % 0.7 % (0-2.0); EOS % 1.2 % (0-4.5); HEMATOCRIT 34.5 % (32.4-45.2); HEMOGLOBIN 11.4 GM/dL (10.7-15.3); LYMPH % 13.9 % (8-40); MCH 28.9 pg (25.7-33.7); MCHC 33.1 g/dl (32.0-36.0); MEAN CELL VOLUME 87.4 fl (80-96); MEAN PLT VOLUME 8.5 fl (7.5-11.1); MONO % 6.2 % (3.8-10.2); PLATELET COUNT 189 K/MM3 (134-434); RBC 3.94 M/mm3 (3.60-5.2); RDW 15.8 % (11.6-15.6); WHITE BLOOD COUNT 5.1 K/mm3 (4.0-10.0)
[2017-11-26 13:23] LABS: ALBUMIN 3.1 g/dl (3.4-5.0); ANION GAP 6 (8-16); BILIRUBIN,TOTAL 0.4 mg/dL (0.2-1.0); BLOOD UREA NITROGEN 20 mg/dL (7-18); CHLORIDE 103 mmol/L (98-107); CO2 30 mmol/L (21-32); CREATININE 1.3 mg/dL (0.55-1.02); GLUCOSE,RANDOM 122 mg/dL (74-106); MAGNESIUM 2.5 mg/dL (1.8-2.4); PHOSPHOROUS 2.6 mg/dL (2.5-4.9); POTASSIUM 4.1 mmol/L (3.5-5.1); SGOT/AST 14 U/L (15-37); SGPT/ALT 17 U/L (12-78); SODIUM 139 mmol/L (136-145); TOT PROT 6.7 g/dl (6.4-8.2)
[2017-11-26 13:24] LABS: ALK PHOS 83 U/L (45-117)
--- NOTE | 2017-11-26 14:03 | DS ---
Physical Exam: SUBJECTIVE: Patient seen and examined. Pt. c/o neck pain, and abdominal pain for 8 days. Pt. expresses decreased appetite. Pt. endorses eating breakfast yesterday and today. Pt. endorses having a BM and passing urine without pain or complication. Pt. denies N/V/D/C. Pt. denies chest pain, SOB, dysuria or blood in the stool. Pt. laughed at certain questions without expression of tenderness. OBJECTIVE: Vital Signs Period Temp Pulse Resp BP Sys/Mccarty Pulse Ox Last 24 Hr 98.0 F-100.9 F 58-80 16-20 106-133/48-68 95-98 PHYSICAL EXAM GENERAL: The patient is NAD, awake, alert, and oriented to person. Pt. could not recall what hospital she was in nor the date. HEAD: Normal with no signs of trauma. NECK: Trachea midline, full range of motion. LUNGS: Breath sounds equal, clear to auscultation bilaterally, no wheezes, no crackles, no accessory muscle use. HEART: Regular rate and rhythm, S1, S2 without murmur, rub or gallop. ABDOMEN: Soft, nontender, nondistended, normoactive bowel sounds, no guarding, no rebound, no hepatosplenomegaly, no masses. EXTREMITIES: pulses, warm, well-perfused, no edema, no calf tenderness. SKIN: Warm, dry, normal turgor LABS Laboratory Results - last 24 hr 11/25/17 11/25/17 11/26/17 20:44 22:17 05:48 WBC 6.2 RBC 3.90 Hgb 11.4 Hct 34.2 MCV 87.8 MCH 29.3 MCHC 33.3 RDW 15.9 H Plt Count 173 MPV 8.8 Absolute Neuts (auto) 4.9 Neutrophils % 79.0 Lymphocytes % 13.2 D Monocytes % 6.7 Eosinophils % 0.9 Basophils % 0.2 Nucleated RBC % 0 PT with INR INR PTT (Actin FS) VBG pH POC VBG pCO2 POC VBG pO2 Mixed VBG HCO3 Sodium Potassium Chloride Carbon Dioxide Anion Gap BUN Creatinine Creat Clearance w eGFR POC Glucometer Random Glucose Lactic Acid Calcium Phosphorus Magnesium Total Bilirubin AST ALT Alkaline Phosphatase Troponin I B-Natriuretic Peptide 938.52 H Total Protein Albumin Urine Color Ltyellow Urine Appearance Clear Urine pH 7.0 Ur Specific [place] 1.014 Urine Protein 1+ H Urine Glucose (UA) 1+ H D Urine Ketones Negative Urine Blood Negative Urine Nitrite Negative Urine Bilirubin Negative Urine Urobilinogen Negative Ur Leukocyte Esterase Negative Urine WBC (Auto) <1 Urine RBC (Auto) <1 11/26/17 11/26/17 11/26/17 05:48 08:01 12:40 WBC 5.1 RBC 3.94 Hgb 11.4 Hct 34.5 MCV 87.4 MCH 28.9 MCHC 33.1 RDW 15.8 H Plt Count 189 MPV 8.5 Absolute Neuts (auto) 4.0 Neutrophils % 78.0 Lymphocytes % 13.9 Monocytes % 6.2 Eosinophils % 1.2 Basophils % 0.7 D Nucleated RBC % 0 PT with INR INR PTT (Actin FS) VBG pH POC VBG pCO2 POC VBG pO2 Mixed VBG HCO3 Sodium 144 Potassium 4.4 Chloride 106 Carbon Dioxide 30 Anion Gap 8 BUN 19 H Creatinine 1.4 H Creat Clearance w eGFR 35.74 POC Glucometer 128.94382 Random Glucose 101 Lactic Acid Calcium 8.0 L Phosphorus 2.3 L Magnesium 2.7 H Total Bilirubin 0.6 AST 15 ALT 18 Alkaline Phosphatase 87 Troponin I B-Natriuretic Peptide Total Protein 6.7 Albumin 3.2 L Urine Color Urine Appearance Urine pH Ur Specific [place] Urine Protein Urine Glucose (UA) Urine Ketones Urine Blood Urine Nitrite Urine Bilirubin Urine Urobilinogen Ur Leukocyte Esterase Urine WBC (Auto) Urine RBC (Auto) 11/26/17 11/26/17 12:40 12:59 WBC RBC Hgb Hct MCV MCH MCHC RDW Plt Count MPV Absolute Neuts (auto) Neutrophils % Lymphocytes % Monocytes % Eosinophils % Basophils % Nucleated RBC % PT with INR INR PTT (Actin FS) VBG pH POC VBG pCO2 POC VBG pO2 Mixed VBG HCO3 Sodium 139 Potassium 4.1 Chloride 103 Carbon Dioxide 30 Anion Gap 6 L BUN 20 H Creatinine 1.3 H Creat Clearance w eGFR 38.93 POC Glucometer 142.95684 Random Glucose 122 H Lactic Acid Calcium 8.0 L Phosphorus 2.6 Magnesium 2.5 H Total Bilirubin 0.4 AST 14 L ALT 17 Alkaline Phosphatase 83 Troponin I B-Natriuretic Peptide Total Protein 6.7 Albumin 3.1 L Urine Color Urine Appearance Urine pH Ur Specific [place] Urine Protein Urine Glucose (UA) Urine Ketones Urine Blood Urine Nitrite Urine Bilirubin Urine Urobilinogen Ur Leukocyte Esterase Urine WBC (Auto) Urine RBC (Auto) HOSPITAL COURSE: Date of Admission:11/26/17 Date of Discharge: 11/26/17 Pre-hospital: Pt is an 87 y/o F with PMH HTN, HLD, DM, 5 cardiac stents, PPM who presented to ED with lower abdominal pain. Pt placed on obs for ? CHF exacerbation. Hospital: In the ED, pt was evaluated and found to have orthopnea 2/2 suspected CHF exacerbation Pt was given 1L IV Fluids and 40 mg Lasix. Pt. was placed on telemetry in the ED and observed. CTAP was negative pathology, CXR was negative for pathology, EKG was abnormal- unchanged from a previous EKG in Sep, 2017, showed an atrial paced rhythm with prolonged AV-conduction. BNP was 938, Troponin was negative. Pt was seen by cardiology consult. Pt. was asymptomatic during this hospital visit and is cleared for discharge. Minutes to complete discharge: 32 Discharge Summary Reason For Visit: STOMACH PAIN Current Active Problems Abdominal pain (Acute) Cough (Acute) Elevated brain natriuretic peptide (BNP) level (Acute) Fever and chills (Acute) Condition: Fair - Instructions Diet, Activity, Other Instructions: Please return to the emergency department with any new or worsening symptoms or concerns. Please follow up with your primary care physician within 72 hours. Please follow up with gastroenterology within one week. Referrals: Randolph Price MD [Staff Physician] - Disposition: HOME - Home Medications Comprehensive Discharge Medication List: Ambulatory Orders Amlodipine Besylate 5 mg PO DAILY 10/05/17 Atorvastatin Ca [Lipitor] 80 mg PO HS 10/05/17 Carvedilol 25 mg PO BID 10/05/17 Gabapentin [Neurontin] 100 mg PO TID 10/05/17 Insulin Glargine,Hum.rec.anlog [Lantus] 100 unit SQ BID 10/05/17 Lactulose 10 gm PO DAILY 10/05/17 Pantoprazole Sodium [Protonix] 40 mg PO DAILY 10/05/17 Ticagrelor [Brilinta -] 90 mg PO BID 10/05/17 This patient is new to me today: Yes Date on this admission: 11/26/17 Emergency Visit: Yes ED Registration Date: 11/26/17 Care time: The patient presented to the Emergency Department on the above date and was hospitalized for further evaluation of their emergent condition. Critical Care patient: No - Discharge Referral Referred to [facility] Med P.C.: No
[2017-11-26 14:13] LABS: MAGNESIUM 2.4 mg/dL (1.8-2.4); PHOSPHOROUS 2.8 mg/dL (2.5-4.9)
[2017-11-26 14:49] VITALS: BP 122/45; PULSE 60; TEMP 98.3
--- NOTE | 2017-11-26 14:57 | PN ---
Teaching Attending Note Name of Resident: Chon Moran ATTENDING PHYSICIAN STATEMENT I saw and evaluated the patient. I reviewed the resident's note and discussed the case with the resident. I agree with the resident's findings and plan as documented. SUBJECTIVE:continues to have abdominal pain but no difficulty eating. had a normal BM earlier today. no straining/melena/BRBPR OBJECTIVE: Last Vital Signs Temp Pulse Resp BP Pulse Ox 98.3 F 60 16 122/45 98 11/26/17 11:30 11/26/17 11:30 11/26/17 11:30 11/26/17 11:30 11/26/17 11:30 General NAD Lungs CTA B/L no wheezing/rales/rhonchi Abdomen soft + RLQ tenderness on palpation but no flinching when pressing firmly with stethoscope over the same area. +BS. obese Extremities no pedal edema ASSESSMENT AND PLAN: 87yo F with PMH CAD s/p 5 stents, HTN and DM presented to the ER with abdominal pain x 8 days 1. Abdominal pain- states she has pain but on exam there is no pain with firm pressure with stethescope. CT scan negative for acute pathology. labs normal. would recommend patient follow up with GI as outpatient as all testing has been negatie 2. Volume overload- concern pt had crackles on exam and received lasix 40mg IV x1. however CXR negative and clinically on my exam no signs of volume overload. no indication for lasix at this time 3. d/c home with Gi follow up. Explained to patient that she needs to see GI if she continues to have this pain
--- NOTE | 2017-11-26 15:34 | CON.CARD ---
Consult Consult Specialty:: Cardiology Referred by:: Kuldip Reason for Consultation:: chest discomfort - History of Present Illness Chief Complaint: Abdominal pain History of Present Illness: The patient is an 87-year-old female with a history of diabetes, hypertension, permanent pacemaker, coronary artery disease and multiple prior stents, now presenting with severe diffuse abdominal pains. Also reported some chest discomfort. Currently chest pain-free. Abdominal pains resolved almost entirely. She reports no other symptoms. No shortness of breath nor palpitations. She looks quite comfortable. - History Source History Provided By: Patient, Medical Record Limitations to Obtaining History: No Limitations - Past Medical History Cardio/Vascular: Yes: CAD, HTN, Other (permanent pacemaker) Endocrine: Yes: Diabetes Mellitus - Alcohol/Substance Use Hx Alcohol Use: No - Smoking History Smoking history: Former smoker Have you smoked in the past 12 months: No If you are a former smoker, when did you quit?: 30 years ago Home Medications - Allergies Allergies/Adverse Reactions: Allergies Allergy/AdvReac Type Severity Reaction Status Date / Time No Known Allergies Allergy Verified 11/25/17 19:27 - Home Medications Home Medications: Ambulatory Orders Amlodipine Besylate 5 mg PO DAILY 10/05/17 Atorvastatin Ca [Lipitor] 80 mg PO HS 10/05/17 Carvedilol 25 mg PO BID 10/05/17 Gabapentin [Neurontin] 100 mg PO TID 10/05/17 Insulin Glargine,Hum.rec.anlog [Lantus] 100 unit SQ BID 10/05/17 Lactulose 10 gm PO DAILY 10/05/17 Pantoprazole Sodium [Protonix] 40 mg PO DAILY 10/05/17 Ticagrelor [Brilinta -] 90 mg PO BID 10/05/17 Review of Systems - Review of Systems Constitutional: reports: No Symptoms Eyes: reports: No Symptoms HENT: reports: No Symptoms Neck: reports: No Symptoms Cardiovascular: reports: No Symptoms Respiratory: reports: No Symptoms Gastrointestinal: reports: Abdominal Pain Genitourinary: reports: No Symptoms Breasts: reports: No Symptoms Reported Musculoskeletal: reports: No Symptoms Integumentary: reports: No Symptoms Neurological: reports: No Symptoms Endocrine: reports: No Symptoms Hematology/Lymphatic: reports: No Symptoms Psychiatric: reports: No Symptoms Vital Signs: Vital Signs Temperature 98.3 F 11/26/17 11:30 Pulse Rate 60 11/26/17 11:30 Respiratory Rate 16 11/26/17 11:30 Blood Pressure 122/45 11/26/17 11:30 O2 Sat by Pulse Oximetry (%) 98 11/26/17 11:30 Constitutional: Yes: Well Nourished, No Distress, Calm Eyes: Yes: WNL, Conjunctiva Clear, EOM Intact HENT: Yes: WNL, Atraumatic, Normocephalic Neck: Yes: WNL, Supple, Trachea Midline Respiratory: Yes: WNL, Regular, CTA Bilaterally Gastrointestinal: Yes: Soft, Tenderness, Epigastrium Renal/: Yes: WNL Cardiovascular: Yes: WNL, Regular Rate and Rhythm JVD: No Carotid Bruit: No PMI: Non-Displaced Heart Sounds: Yes: S1, S2 Murmur: Yes: Systolic Murmur, Grade 2 Musculoskeletal: Yes: WNL Extremities: Yes: WNL Edema: No Peripheral Pulses: 2+ Left Carotid, 2+ Right Carotid, 2+ Left Femoral, 2+ Right Femoral, 2+ Left Popliteal, 2+ Right Popliteal, 2+ Left Doralis Pedis, 2+ Right Dorsalis Pedis Integumentary: Yes: WNL Neurological: Yes: WNL Psychiatric: Yes: WNL - Other Data Labs, Other Data: CBC, BMP 11/26/17 12:40 11/26/17 12:40 INR, PTT INR 1.08 (0.82-1.09) 11/25/17 20:44 Troponin, BNP 11/25/17 11/25/17 20:44 20:44 Troponin I < 0.02 B-Natriuretic Peptide 938.52 H Troponin, BNP 11/25/17 11/25/17 20:44 20:44 Troponin I < 0.02 B-Natriuretic Peptide 938.52 H Assessment/Plan 87-year-old female with a history of diabetes, hypertension, permanent pacemaker , coronary artery disease and multiple stents, now presenting with abdominal pains. There is no evidence of ischemia nor acute coronary syndrome. No CHF. The ECG shows atrial pacing with nonspecific ST-T changes. There is no need for further cardiac workup at this point. There is no need for cardiac monitoring. The patient is stable from the cardiac standpoint. Please do not hesitate to call us PRN
[2017-11-26] MEDS ORDERED: ATORVASTATIN CA 80 MG TABLET (FP) PO SCH (22:00)
--- NOTE | 2017-11-30 20:33 | EKG ---
Test Reason : Blood Pressure : / mmHG Vent. Rate : 060 BPM Atrial Rate : 060 BPM P-R Int : 318 ms QRS Dur : 086 ms QT Int : 406 ms P-R-T Axes : 000 -36 -12 degrees QTc Int : 406 ms Atrial-paced rhythm with prolonged AV conduction LEFT AXIS DEVIATION NONSPECIFIC T WAVE ABNORMALITY ABNORMAL ECG WHEN COMPARED WITH ECG OF 04-OCT-2017 18:45, NO SIGNIFICANT CHANGE WAS FOUND Confirmed by MD EMILIANA, DIANA ([id number]) on 11/30/2017 8:33:12 PM Referred By: Confirmed By:DIANA HOPSON MD
== END 2017-11-26 17:13 | disposition home or self-care (01) | DRG 392 ==
LOC: JER 19:16 → INTOOBSV 11-26 01:32 → JERBED 11-26 01:32
PROVIDERS: ADMIT Internal Medicine; ATTEND Internal Medicine
PROC: 3E033NZ Introduction of Analgesics, Hypnotics, Sedatives into Peripheral Vein, Percutaneous Approach (ICD-10-PCS; principal; 2017-11-26)
PROC: 3E033GC Introduction of Other Therapeutic Substance into Peripheral Vein, Percutaneous Approach (ICD-10-PCS; 2017-11-26)
PROC: 3E0337Z Introduction of Electrolytic and Water Balance Substance into Peripheral Vein, Percutaneous Approach (ICD-10-PCS; 2017-11-26)
PROC: 3E013GC Introduction of Other Therapeutic Substance into Subcutaneous Tissue, Percutaneous Approach (ICD-10-PCS; 2017-11-26)
DX: R10.84 Generalized abdominal pain (principal); I10 Essential (primary) hypertension; E11.9 Type 2 diabetes mellitus without complications; E78.5 Hyperlipidemia, unspecified; I25.10 Atherosclerotic heart disease of native coronary artery without angina pectoris; K21.9 Gastro-esophageal reflux disease without esophagitis; R05 Cough; R79.89 Other specified abnormal findings of blood chemistry; R50.9 Fever, unspecified; Z95.5 Presence of coronary angioplasty implant and graft; Z95.0 Presence of cardiac pacemaker; Z87.891 Personal history of nicotine dependence; Z79.4 Long term (current) use of insulin
CPT/HCPCS: 36415; 71045-TC-FY; 74176-TC; 80048; 80053; 81003; 81015; 82803; 82962; 83605; 83735; 83880; 84100; 84484; 85025; 85610; 85730; 87040; 87086; 93005; 93010; 96372; 96374; 96375; 99285-25; G0378; J0131; J1644; J7030

== ENCOUNTER 2018-05-08 04:12 | Inpatient (IN) | payer OTHER ==
[2018-05-08 04:27] VITALS: BMI 28.3
--- NOTE | 2018-05-08 04:32 | PDOC ---
History of Present Illness - General Chief Complaint: Shortness of Breath Stated Complaint: S.O.B. Time Seen by Provider: 05/08/18 04:31 Past History - Past Medical History Allergies/Adverse Reactions: Allergies Allergy/AdvReac Type Severity Reaction Status Date / Time No Known Allergies Allergy Verified 05/08/18 04:27 Home Medications: Ambulatory Orders Amlodipine Besylate 5 mg PO DAILY 10/05/17 Atorvastatin Ca [Lipitor] 80 mg PO HS 10/05/17 Carvedilol 25 mg PO BID 10/05/17 Gabapentin [Neurontin] 100 mg PO TID 10/05/17 Insulin Glargine,Hum.rec.anlog [Lantus] 100 unit SQ BID 10/05/17 Lactulose 10 gm PO DAILY 10/05/17 Pantoprazole Sodium [Protonix] 40 mg PO DAILY 10/05/17 Ticagrelor [Brilinta -] 90 mg PO BID 10/05/17 Cardiac Disorders: Yes (5 stents) COPD: No Diabetes: Yes HTN: Yes - Surgical History Cardiac Surgery: Yes (pacemaker) - Suicide/Smoking/Psychosocial Hx Smoking History: Never smoked Have you smoked in the past 12 months: No If you are a former smoker, when did you quit?: 30 years ago Information on smoking cessation initiated: No Hx Alcohol Use: No Drug/Substance Use Hx: No *Physical Exam - Vital Signs Last Vital Signs Temp Pulse Resp BP Pulse Ox 98.3 F 108 H 18 125/69 98 05/08/18 04:19 05/08/18 04:19 05/08/18 04:19 05/08/18 04:19 05/08/18 04:19 Moderate Sedation - Procedure Monitoring Vital Signs: Procedure Monitoring Vital Signs Temperature 98.3 F 05/08/18 04:19 Pulse Rate 108 H 05/08/18 04:19 Respiratory Rate 18 05/08/18 04:19 Blood Pressure 125/69 05/08/18 04:19 O2 Sat by Pulse Oximetry (%) 98 05/08/18 04:19
--- NOTE | 2018-05-08 05:01 | PDOC ---
Attending Attestation - Resident Resident Name: Morena Tapia - ED Attending Attestation I have performed the following: I have examined & evaluated the patient, The case was reviewed & discussed with the resident, I agree w/resident's findings & plan - HPI HPI: 05/08/18 05:10 Pt comes with gassy abd pain and distention x 2 days. She has no flank pain. She has no fever. She is SOB and she has tachycardia. Pt states that she has been constipated, but maintains that she is moving bowels normally and eating bread/cheese and milk. - Physicial Exam PE: 05/08/18 05:12 Agree with resident exam 05/08/18 05:28 Pt has diffuse abd pain; but no rebound and no guarding. Pt is afebrile 05/08/18 20:00 Pt will likely be worked up for cardiac issues - Medical Decision Making 05/08/18 05:42 Labs pending. Imaging pending. 05/08/18 05:43 CBC is normal. 05/08/18 20:00 EKG is abnormal with inferolateral flipped t waves. The lateral T waves are new and we will admit for cardiac workup in the tele unit, given pt's age and her abdomina;l/epigastric discomfort, her age and her risk factors. Heart Score/ECG Review - ECG Intrepretation Rhythm: Regular Rhythm - Holman Holman: Normal - ST and T Flattened T Waves: No Prolonged Q-T Interval: No - ECG Impressions Normal ECG: No Ischemic Changes: Yes (inferolateral flipped T waves)
[2018-05-08] MEDS ORDERED: MAG HYDROX/AL HYDROX/SIMETH 30 ML UNIT-DOSE CUP ONE (05:12)
--- NOTE | 2018-05-08 05:30 | PDOC ---
History of Present Illness - General Chief Complaint: Shortness of Breath Stated Complaint: S.O.B. Time Seen by Provider: 05/08/18 04:31 History Source: Patient, Friend Exam Limitations: Language Barrier - History of Present Illness Initial Comments: 05/08/18 05:12 Patient is an 87 year old female with a PMHx of HTN, IDDMII, HLD CAD s/p multiple stents and PPM who presented to the ED for Midepigastric abdominal pain that started two days ago associated with abdominal distention. According to patient the pain is a nonradiaring, intermittent, pressure like feeling in the midepigastric region with no alleviating or exacerbating factors. States food does not alleviate or exacerbate the pain. Patient reports having constipation but had a bowel movement today. However, patient today started having shortness of breath, which prompted this hospital visit. Patient denies any worsening shortness of breath when laying down flat or when ambulating. States that it is the same and constant since this morning. Patient had similar episode in the past (11/2017) and was discharged home to follow up with GI. Otherwise, patient denies any fever, chills, nausea, vomiting, chest pain, palpitations, headaches, dizziness, loss of consciousness, dysuria, hematuria, hematochezia, hematemesis, melena. PMHx: HTN, IDDMII, HLD CAD s/p multiple stents and PPM PSHx: s/p pacemaker implanted Social Hx: Smoking:former smoker, quit "many years ago" Alcohol: denies Drugs: denies Family History: unknown Allergies: NKDA Past History - Past Medical History Allergies/Adverse Reactions: Allergies Allergy/AdvReac Type Severity Reaction Status Date / Time No Known Allergies Allergy Verified 05/08/18 04:27 Home Medications: Ambulatory Orders Amlodipine Besylate 5 mg PO DAILY 10/05/17 Atorvastatin Ca [Lipitor] 80 mg PO HS 10/05/17 Carvedilol 25 mg PO BID 10/05/17 Gabapentin [Neurontin] 100 mg PO TID 10/05/17 Insulin Glargine,Hum.rec.anlog [Lantus] 20 unit SQ DAILY 10/05/17 Lactulose 10 gm PO DAILY 10/05/17 Pantoprazole Sodium [Protonix] 40 mg PO DAILY 10/05/17 Aspirin [Aspirin EC] 81 mg PO DAILY 05/08/18 Calcium Carbonate [Antacid] 168 mg PO Q8H PRN 05/08/18 Insulin Glargine,Hum.rec.anlog [Lantus] 15 unit SQ HS 05/08/18 Simethicone [Gas-X] 125 mg PO Q6H 05/08/18 Cardiac Disorders: Yes (5 stents) COPD: No Diabetes: Yes HTN: Yes - Surgical History Cardiac Surgery: Yes (pacemaker) - Suicide/Smoking/Psychosocial Hx Smoking History: Never smoked Have you smoked in the past 12 months: No If you are a former smoker, when did you quit?: 30 years ago Information on smoking cessation initiated: No Hx Alcohol Use: No Drug/Substance Use Hx: No Review of Systems - Review of Systems Able to Perform ROS?: Yes Constitutional: No: Chills, Diaphoresis, Fever HEENTM: No: Nose Pain, Nose Congestion, Throat Swelling, Difficulty Swallowing Respiratory: Yes: Cough, Shortness of Breath, SOB with Exertion, SOB at Rest. No: Wheezing, Productive cough Cardiac (ROS): No: Chest Pain, Irregular Heart Rate, Lightheadedness, Palpitations, Syncope, Chest Tightness ABD/GI: Yes: Abdominal Distended, Constipated, Abdominal cramping. No: Nausea, Rectal Bleeding, Vomiting : No: Burning, Dysuria, Discharge, Frequency, Flank Pain Musculoskeletal: No: Back Pain, Joint Pain Integumentary: No: Bruising, Erythema, Pruritus Neurological: No: Headache, Numbness, Paresthesia, Seizure, Tremors Psychiatric: No: Anxiety, Depression *Physical Exam - Vital Signs Last Vital Signs Temp Pulse Resp BP Pulse Ox 98.3 F 108 H 18 125/69 98 05/08/18 04:19 05/08/18 04:19 05/08/18 04:19 05/08/18 04:19 05/08/18 04:19 - Physical Exam General Appearance: Yes: Other (Awake, alert, oriented , in no acute distress ) HEENT: positive: EOMI, FRANKIE, Normal ENT Inspection, Pharynx Normal Neck: positive: Supple. negative: Lymphadenopathy (R), Lymphadenopathy (L) Respiratory/Chest: positive: Other (decreased breath sounds ). negative: Respiratory Distress, Accessory Muscle Use, Crackles, Rhonchi, Stridor, Wheezing Cardiovascular: positive: Regular Rhythm, S1, S2, Tachycardia. negative: Edema , JVD Vascular Pulses: Dorsalis-Pedis (R): 2+, Doralis-Pedis (L): 2+ Gastrointestinal/Abdominal: positive: Other (soft, tenderness upon palpation of midepigastric region, hyperactive bowel sounds, (-) Riley's sign , (-) Rovsing ) Extremity: positive: Normal Capillary Refill, Normal Inspection, Normal Range of Motion. 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, Fully Oriented, Alert, Normal Mood/ Affect, Normal Response, Motor Strength 5/5 Moderate Sedation - Procedure Monitoring Vital Signs: Procedure Monitoring Vital Signs Temperature 98.3 F 05/08/18 04:19 Pulse Rate 108 H 05/08/18 04:19 Respiratory Rate 18 05/08/18 04:19 Blood Pressure 125/69 05/08/18 04:19 O2 Sat by Pulse Oximetry (%) 98 05/08/18 04:19 ED Treatment Course - LABORATORY CBC & Chemistry Diagram: 05/09/18 06:30 05/09/18 06:30 - RADIOLOGY Radiology Studies Ordered: Category Date Time Status CHEST X-RAY PORTABLE* [RAD] Stat Radiology 05/08/18 04:49 Ordered Medical Decision Making - Medical Decision Making 05/08/18 06:05 Patient is an 87 year old female with a PMHx of HTN, HLD, IDDMII, CAD s/p multiple stents, s/p PPM who presented today for midepigastric pain with shortness of breath. Due to patients risk factors, differential diagnosis include but not limited to Acute NM, Pulmonary embolism, Abdominal obstruction, diverticulitis, gastritis, gastroenteritis -CBC, CMP, LACTIC, CARDIAC PROFILE , LIPASE -EKG, CXR -Mylanta 05/08/18 07:05 -EKG Flipped t wave in the inferior and lateral with new changes in V3-V5 -Patient admitted to [facility] for tele obs *DC/Admit/Observation/Transfer Diagnosis at time of Disposition: CHF exacerbation, Shortness of breath Abdominal pain Qualifiers: Abdominal location: generalized Qualified Code(s): R10.84 - Generalized abdominal pain - Discharge Dispostion Disposition: HOME Condition at time of disposition: Stable - Referrals - Patient Instructions - Post Discharge Activity
[2018-05-08 05:36] LABS: BASO % 0.8 % (0-2.0); EOS % 2.4 % (0-4.5); HEMATOCRIT 32.9 % (32.4-45.2); HEMOGLOBIN 10.4 GM/dL (10.7-15.3); LYMPH % 22.6 % (8-40); MCH 27.3 pg (25.7-33.7); MCHC 31.6 g/dl (32.0-36.0); MEAN CELL VOLUME 86.5 fl (80-96); MEAN PLT VOLUME 8.6 fl (7.5-11.1); MONO % 6.9 % (3.8-10.2); NEUT % 67.3 % (42.8-82.8); PLATELET COUNT 190 K/MM3 (134-434); RDW 15.4 % (11.6-15.6); WHITE BLOOD COUNT 6.9 K/mm3 (4.0-10.0)
[2018-05-08] MEDS ORDERED: MAG HYDROX/AL HYDROX/SIMETH 30 ML UNIT-DOSE CUP PO ONE (05:41)
[2018-05-08 05:58] LABS: ALBUMIN 3.2 g/dl (3.4-5.0); ALK PHOS 80 U/L (45-117); ANION GAP 5 MMOL/L (8-16); BILIRUBIN,TOTAL 0.3 mg/dL (0.2-1); BLOOD UREA NITROGEN 29 mg/dL (7-18); CALCIUM 8.4 mg/dL (8.5-10.1); CHLORIDE 107 mmol/L (98-107); CO2 29 mmol/L (21-32); CREATININE 1.4 mg/dL (0.55-1.3); GLUCOSE,RANDOM 169 mg/dL (74-106); LIPASE 158 U/L (73-393); MAGNESIUM 2.3 mg/dL (1.8-2.4); PHOSPHOROUS 3.5 mg/dL (2.5-4.9); POTASSIUM 4.7 mmol/L (3.5-5.1); SGOT/AST 19 U/L (15-37); SGPT/ALT 23 U/L (13-61); SODIUM 141 mmol/L (136-145); TOT PROT 6.5 g/dl (6.4-8.2)
--- NOTE | 2018-05-08 07:43 | PDOC ---
*Physical Exam - Vital Signs Last Vital Signs Temp Pulse Resp BP Pulse Ox 98.3 F 108 H 18 125/69 98 05/08/18 04:19 05/08/18 04:19 05/08/18 04:19 05/08/18 04:19 05/08/18 04:19 - Physical Exam Comments: 05/08/18 11:18 GENERAL: Awake, alert, and fully oriented, in no acute distress HEAD: No signs of trauma, normocephalic, atraumatic EYES: PERRLA, EOMI, sclera anicteric, conjunctiva clear ENT: Auricles normal inspection, hearing grossly normal, nares patent, oropharynx clear without exudates. Moist mucosa NECK: Normal ROM, supple, no lymphadenopathy, JVD, or masses LUNGS: No distress, speaks full sentences, clear to auscultation bilaterally HEART: Regular rate and rhythm, normal S1 and S2, no murmurs, rubs or gallops, peripheral pulses normal and equal bilaterally. ABDOMEN: Soft, nontender, normoactive bowel sounds. No guarding, no rebound. No masses EXTREMITIES : Normal inspection, Normal range of motion, no edema. No clubbing or cyanosis. NEUROLOGICAL: Cranial nerves II through XII grossly intact. Normal speech, normal gait, no focal sensorimotor deficits SKIN: Warm, Dry, normal turgor, no rashes or lesions noted ED Treatment Course - LABORATORY CBC & Chemistry Diagram: 05/10/18 05:40 05/10/18 05:40 - ADDITIONAL ORDERS Additional order review: Laboratory Results 05/08/18 05/08/18 05:25 05:25 Sodium 141 Potassium 4.7 Chloride 107 Carbon Dioxide 29 Anion Gap 5 L BUN 29 H Creatinine 1.4 H Creat Clearance w eGFR 35.74 Random Glucose 169 H Lactic Acid 0.8 Calcium 8.4 L Phosphorus 3.5 Magnesium 2.3 Total Bilirubin 0.3 AST 19 ALT 23 Alkaline Phosphatase 80 Creatine Kinase 109 Troponin I < 0.02 Total Protein 6.5 Albumin 3.2 L Lipase 158 05/08/18 05:25 RBC 3.80 MCV 86.5 MCHC 31.6 L RDW 15.4 MPV 8.6 Neutrophils % 67.3 Lymphocytes % 22.6 D Monocytes % 6.9 Eosinophils % 2.4 D Basophils % 0.8 - Medications Given in the ED: ED Medications Discontinued Medications Generic Name Dose Route Start Last Admin Trade Name Pankajq PRN Reason Stop Dose Admin Al Hydroxide/Mg Hydroxide 30 ml 05/08/18 05:41 05/08/18 06:02 Mylanta Oral Suspension - PO 05/08/18 05:42 30 ml ONCE ONE Administration Medical Decision Making - Medical Decision Making 05/08/18 07:43 Patient signed out by Dr. Tapia In short patient with a history of HTN, HLD, DM< CAD w/ multiple stents with mid epigastric pain and shortness of breath. HEART score 5 Trop negative On exam with RLQ tenderness to palpation wincing, rising off the bed. Patient with no prior history of abdominal surgery, no history of kidney stones. Denies dysuria, hematuria, has some on an off chronic constipation. Denies fever. Abd, Pelvis CT ordered. Consider appendicitis, mesenteric ischemia, UC, crohns 05/08/18 11:[address]: dilated common bile duct, 1.6cm region of body of pancreas 05/08/18 11:54 Chi contacted, updated on patinet. Patient shortness of breath, lethargic appearing, satting > 97 but wityh significant work of breathing. Patient placedon BIPAP. ABG, CXR, EKG repeat, BNP sent. lasix 40 ordered likely CHF component, congestion noticed on prior CXR. also combination of COPD as patient was a prior smoker. Will observe on bipap and intubate if mentation doese not improve. Rambo informed of patient. will come see pt. 05/08/18 12:15 Improving mentation. Satting 100% Patient admitted to medicine. *DC/Admit/Observation/Transfer Diagnosis at time of Disposition: CHF exacerbation, Shortness of breath Abdominal pain Qualifiers: Abdominal location: generalized Qualified Code(s): R10.84 - Generalized abdominal pain - Discharge Dispostion Disposition: HOME Condition at time of disposition: Stable Decision to Admit order: Yes - Referrals - Patient Instructions - Post Discharge Activity
[2018-05-08] MEDS ORDERED: ALBUTEROL SO4 2.5/IPRATROPIUM 0.5 INH SOL 3 ML VIAL.NEB. NEB ONE ×3 (11:40→20:42)
--- NOTE | 2018-05-08 11:57 | CON.CARD ---
Consult Consult Specialty:: Cardiology Referred by:: Dr Granda Reason for Consultation:: ecg changes sob - History of Present Illness Chief Complaint: abd pain History of Present Illness: The patient is an 87-year-old female with a history of diabetes, hypertension, CKD, permanent pacemaker 2011 [employer] , coronary artery disease and multiple prior stents (RCA x 3 06/06/16 and mid LAD 08/08/16), now presenting with severe diffuse abdominal pains. CT scan unremarkable, but post CT she had sob, lethargy and needed bipap for her respiratory status. CXR showed mild chf, bnp mildly elevated. Echo 09/11/17 mild LVH nlef mild brayden 1.3 21/11mm gradient. mod MAC, minimal MR , Mild TR/PI - History Source History Provided By: Family Member, Medical Record - Past Medical History Cardio/Vascular: Yes: CAD, HTN, Other (permanent pacemaker) Endocrine: Yes: Diabetes Mellitus - Alcohol/Substance Use Hx Alcohol Use: No - Smoking History Smoking history: Never smoked Have you smoked in the past 12 months: No If you are a former smoker, when did you quit?: 30 years ago Home Medications - Allergies Allergies/Adverse Reactions: Allergies Allergy/AdvReac Type Severity Reaction Status Date / Time No Known Allergies Allergy Verified 05/08/18 04:27 - Home Medications Home Medications: Ambulatory Orders Amlodipine Besylate 5 mg PO DAILY 10/05/17 Atorvastatin Ca [Lipitor] 80 mg PO HS 10/05/17 Carvedilol 25 mg PO BID 10/05/17 Gabapentin [Neurontin] 100 mg PO TID 10/05/17 Insulin Glargine,Hum.rec.anlog [Lantus] 100 unit SQ BID 10/05/17 Lactulose 10 gm PO DAILY 10/05/17 Pantoprazole Sodium [Protonix] 40 mg PO DAILY 10/05/17 Ticagrelor [Brilinta -] 90 mg PO BID 10/05/17 Review of Systems Unable to obtain ROS, reason: resp distress Vital Signs: Vital Signs Temperature 98.2 F 05/08/18 11:21 Pulse Rate 59 L 05/08/18 11:32 Respiratory Rate 16 05/08/18 11:21 Blood Pressure 152/59 L 05/08/18 11:21 O2 Sat by Pulse Oximetry (%) 100 05/08/18 11:32 Constitutional: Yes: No Distress Eyes: Yes: EOM Intact HENT: Yes: Normocephalic Neck: Yes: Trachea Midline Respiratory: Yes: On BiPap Gastrointestinal: Yes: Normal Bowel Sounds, Soft JVD: Yes Carotid Bruit: No PMI: Non-Displaced Heart Sounds: Yes: S1, S2 Murmur: Yes: Systolic Murmur, Grade 2 Extremities: Yes: WNL Edema: No - Other Data Labs, Other Data: CBC, BMP 05/08/18 05:25 05/08/18 05:25 Troponin, BNP 05/08/18 05:25 Troponin I < 0.02 Troponin, BNP 05/08/18 05:25 Troponin I < 0.02 Imaging - Results Chest X-ray: Report Reviewed (mild chf) Cat Scan: Report Reviewed EKG: Report Reviewed (ppm nssttw changes) Assessment/Plan The patient is an 87-year-old female with a history of diabetes, hypertension, CKD, permanent pacemaker 2011 [employer], coronary artery disease and multiple prior stents (RCA x 3 06/06/16 and mid LAD 08/08/16), now presenting with severe diffuse abdominal pains. CT scan unremarkable, but post CT she had sob, lethargy and needed bipap for her respiratory status. CXR showed mild chf, bnp mildly elevated. Echo 09/11/17 mild LVH nlef mild brayden 1.3 21/11mm gradient. mod MAC, minimal MR , Mild TR/PI 1. Acute on chronic diastolic CHF -likely due to osmotic load from IV contrast with CT scan -lasix IV for now, follow k, creat -continue bipap for now, wean as tolerated. -repeat lytes as well. 2. CAD -stable, trop negative -continue outpatient regimen for now. (asa coreg 25 bid norvasc 5 lipitor 80) will follow with you.
[2018-05-08] MEDS ORDERED: FUROSEMIDE 40 MG/4 ML INJECTABLE VIAL IVPUSH ONE (12:03)
[2018-05-08 12:10] LABS: VENOUS PH 7.23 (7.32-7.42); VENOUS PO2 33.8 mmHg (28-48)
[2018-05-08 12:13] LABS: ARTERIAL BLD GAS O2 SATURATION 99.6 % (90-98.9); ARTERIAL BLOOD GAS BASE EXCESS 1.8 meq/l (-2-2); ARTERIAL BLOOD GAS PCO2 59.2 mmHg (35-45); CARBOXYHEMOGLOBIN 0.5 gm% (0.5-2.0)
[2018-05-08] MEDS ORDERED: NITROGLYCERIN 50MG/D5W 250ML 50 MG/250 ML ML IVPB SCH (12:15)
[2018-05-08 12:20] LABS: ALLENS TEST POSITIVE
[2018-05-08] MEDS ORDERED: FUROSEMIDE 40 MG/4 ML INJECTABLE VIAL ONE (12:31)
[2018-05-08 12:47] LABS: N-TERMINAL BNP 2707.8 pg/ml (5-450)
[2018-05-08 13:00] LABS: INR 1.07 (0.83-1.09); PROTHROMBIN TIME (PATIENT) 12.6 SEC (9.7-13.0)
[2018-05-08 13:02] LABS: ACTIVATED PTT 29.9 SECONDS (25.2-36.5)
--- NOTE | 2018-05-08 13:37 | HP ---
CHIEF COMPLAINT: abdominal pain, sob PCP:Rusty Oviedo Cardio: Dr. Ricks HISTORY OF PRESENT ILLNESS: 87 yr old divehi speaking woman with HTN, IDDMII, s/p pacemaker(2011), CAD s/p stents presents with progressively worsening lower abdominal pain for past 2 days. she is able to take po without difficulty, [employer] called ambulance when the pain became intractable. during ED stay post-CT with contrast she developed dyspnea associated with lethargy requiring bipap. denies weight loss, diarrhea, fevers, vomiting, headache. granddaughter at bedside aided in history. as per granddaughter pt has a poor memory and does not always oriented to place, time or situation on occasion. Pt has had similar abdominal in the past with w/u always negative, last episode requiring ED was at [facility] few months ago with w/u again being negative. ambulates with a walker and assitance of [employer]. Denies chest pain, cough, sick contacts, fever, vomiting, hematochezia, melena, dysuria, salty foods recently. ER course was notable for: (1)abd/pelvis showing mass at ampulla of [place] (2) bipap (3) Recent Travel: denies PAST MEDICAL HISTORY: HTN, IDDMII, CAD s/p stents, PAST SURGICAL HISTORY: PPM [employer] in 2011 Social History: Smoking:former smoker, 2pks/day for many years but family and pt do not remember when she quit, likely 20yrs ago Alcohol:denies Drugs: denies Family History: unknown Allergies No Known Allergies Allergy (Verified 05/08/18 04:27) HOME MEDICATIONS: Home Medications - verfied with [facility] pharmacy Medication Instructions Recorded Amlodipine Besylate 5 mg PO DAILY 10/05/17 Atorvastatin Ca [Lipitor] 80 mg PO HS 10/05/17 Carvedilol 25 mg PO BID 10/05/17 Gabapentin [Neurontin] 100 mg PO TID 10/05/17 Insulin Glargine,Hum.rec.anlog 100 unit SQ BID 10/05/17 [Lantus] Lactulose prn 10 gm PO DAILY 10/05/17 Pantoprazole Sodium [Protonix] 40 mg PO DAILY 10/05/17 Ticagrelor [Brilinta -] - discontinued by cardio 4 months ago 90 mg PO BID 05/ 21/18 REVIEW OF SYSTEMS CONSTITUTIONAL: Absent: fever, chills, diaphoresis, generalized weakness, malaise, loss of appetite, weight change HEENT: Absent: rhinorrhea, nasal congestion, throat pain, throat swelling, difficulty swallowing, mouth swelling, visual changes CARDIOVASCULAR: Absent: chest pain, syncope, palpitations, irregular heart rate, lightheadedness , peripheral edema RESPIRATORY: Present: shortness of breath, Absent: cough, dyspnea with exertion, orthopnea, wheezing, stridor, hemoptysis GASTROINTESTINAL: Present: abdominal pain,constipation, Absent: abdominal distension, nausea, vomiting, diarrhea, melena, hematochezia GENITOURINARY: Absent: dysuria, frequency, urgency, hesitancy, hematuria, flank pain, MUSCULOSKELETAL: Absent: myalgia, arthralgia, joint swelling, back pain, neck pain SKIN: Absent: rash, itching, pallor HEMATOLOGIC/IMMUNOLOGIC: Absent: easy bleeding, easy bruising, lymphadenopathy, frequent infections ENDOCRINE: Absent: unexplained weight gain, unexplained weight loss, heat intolerance, cold intolerance NEUROLOGIC: Absent: headache, focal weakness or paresthesias, dizziness, unsteady gait, seizure, mental status changes, bladder or bowel incontinence PHYSICAL EXAMINATION Vital Signs - 24 hr 05/08/18 05/08/18 05/08/18 04:19 11:00 11:21 Temperature 98.3 F 98.4 F 98.2 F Pulse Rate 108 H Pulse Rate [ 56 L 59 L Left Apical] Respiratory 18 16 16 Rate Blood Pressure 125/69 Blood Pressure 146/73 152/59 L [Left Arm] O2 Sat by Pulse 98 96 97 Oximetry (%) 05/08/18 05/08/18 05/08/18 11:32 11:50 11:57 Temperature Pulse Rate 59 L Pulse Rate [ 64 Left Apical] Respiratory 16 Rate Blood Pressure Blood Pressure 158/63 [Left Arm] O2 Sat by Pulse 97 100 100 Oximetry (%) 05/08/18 05/08/18 12:50 13:20 Temperature Pulse Rate Pulse Rate [ 60 61 Left Apical] Respiratory 15 16 Rate Blood Pressure Blood Pressure 152/46 L 123/91 [Left Arm] O2 Sat by Pulse 100 96 Oximetry (%) GENERAL: Awake, alert, and oriented to person, in no acute distress. wearing bipap HEAD: Normal with no signs of trauma. EYES: left iris deformed, right eye non reactive to light with dark opacification, unable to see out of right eye. extraocular movements intact, sclera anicteric, conjunctiva clear EARS, NOSE, THROAT: bipap in place. Moist mucous membranes. LUNGS: Breath sounds equal, clear to auscultation bilaterally. few crackles in midchest HEART: Regular rate and rhythm, normal S1 and S2 without murmur, rub or gallop. ABDOMEN: Soft, +tender in RLQ and LLQ, not distended, normoactive bowel sounds, no guarding, no rebound, no masses. No hepatomegaly or splenomegaly. negative nj's, neg rovsings, neg obturator and psoa's. MUSCULOSKELETAL: No bony deformities or tenderness. No CVA tenderness. UPPER EXTREMITIES: 2+ radial pulses, warm, well-perfused. No cyanosis. No clubbing. No peripheral edema. LOWER EXTREMITIES: 2+ dp pulses, warm, well-perfused. No calf tenderness on my examination. No peripheral edema. NEUROLOGICAL: Normal speech. facial symmetry. 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 Good eye contact. Appropriate mood and affect. SKIN: Warm, dry, normal turgor, no rashes or lesions noted, normal capillary refill. Laboratory Results - last 24 hr 05/08/18 05/08/18 05/08/18 05:25 05:25 05:25 WBC 6.9 RBC 3.80 Hgb 10.4 L Hct 32.9 MCV 86.5 MCH 27.3 MCHC 31.6 L RDW 15.4 Plt Count 190 MPV 8.6 Absolute Neuts (auto) 4.7 Neutrophils % 67.3 Lymphocytes % 22.6 D Monocytes % 6.9 Eosinophils % 2.4 D Basophils % 0.8 Nucleated RBC % 0 PT with INR INR PTT (Actin FS) Anticoagulation Therapy Puncture Site ABG pH ABG pCO2 at Pt Temp ABG pO2 at Pt Temp ABG HCO3 ABG O2 Sat (Measured) ABG O2 Content ABG Base Excess Man Test VBG pH POC VBG pCO2 POC VBG pO2 Mixed VBG HCO3 Carboxyhemoglobin Methemoglobin O2 Delivery Device Oxygen Flow Rate Vent Mode Vent Rate Mechanical Rate Pressure Support Vent Sodium 141 Potassium 4.7 Chloride 107 Carbon Dioxide 29 Anion Gap 5 L BUN 29 H Creatinine 1.4 H Creat Clearance w eGFR 35.74 Random Glucose 169 H Lactic Acid 0.8 Calcium 8.4 L Phosphorus 3.5 Magnesium 2.3 Total Bilirubin 0.3 AST 19 ALT 23 Alkaline Phosphatase 80 Creatine Kinase 109 Troponin I < 0.02 B-Natriuretic Peptide Total Protein 6.5 Albumin 3.2 L Lipase 158 05/08/18 05/08/18 05/08/18 11:47 11:55 11:59 WBC RBC Hgb Hct MCV MCH MCHC RDW Plt Count MPV Absolute Neuts (auto) Neutrophils % Lymphocytes % Monocytes % Eosinophils % Basophils % Nucleated RBC % PT with INR INR PTT (Actin FS) Anticoagulation Therapy No Result Required. Puncture Site Left radial ABG pH 7.30 L ABG pCO2 at Pt Temp 59.2 H ABG pO2 at Pt Temp 428.0 H* ABG HCO3 28.5 H ABG O2 Sat (Measured) 99.6 H* ABG O2 Content 14.8 L ABG Base Excess 1.8 Man Test Positive VBG pH 7.23 L* D POC VBG pCO2 76.0 H* D POC VBG pO2 33.8 Mixed VBG HCO3 30.6 H Carboxyhemoglobin 0.5 Methemoglobin 0.5 O2 Delivery Device Bipap Oxygen Flow Rate 100% Vent Mode No Result Required. Vent Rate 12 Mechanical Rate Bipap 12/5 Pressure Support Vent No Result Required. Sodium Potassium Chloride Carbon Dioxide Anion Gap BUN Creatinine Creat Clearance w eGFR Random Glucose Lactic Acid Calcium Phosphorus Magnesium Total Bilirubin AST ALT Alkaline Phosphatase Creatine Kinase Troponin I < 0.02 B-Natriuretic Peptide 2707.8 H Total Protein Albumin Lipase 05/08/18 12:28 WBC RBC Hgb Hct MCV MCH MCHC RDW Plt Count MPV Absolute Neuts (auto) Neutrophils % Lymphocytes % Monocytes % Eosinophils % Basophils % Nucleated RBC % PT with INR 12.60 INR 1.07 PTT (Actin FS) 29.9 Anticoagulation Therapy Puncture Site ABG pH ABG pCO2 at Pt Temp ABG pO2 at Pt Temp ABG HCO3 ABG O2 Sat (Measured) ABG O2 Content ABG Base Excess Man Test VBG pH POC VBG pCO2 POC VBG pO2 Mixed VBG HCO3 Carboxyhemoglobin Methemoglobin O2 Delivery Device Oxygen Flow Rate Vent Mode Vent Rate Mechanical Rate Pressure Support Vent Sodium Potassium Chloride Carbon Dioxide Anion Gap BUN Creatinine Creat Clearance w eGFR Random Glucose Lactic Acid Calcium Phosphorus Magnesium Total Bilirubin AST ALT Alkaline Phosphatase Creatine Kinase Troponin I B-Natriuretic Peptide Total Protein Albumin Lipase ASSESSMENT/PLAN: 87 yr old woman with DM, HTN, s/p pacemaker presents with abdominal pain developed SOB. #Acute Hypercapneic Respiratory Failure - bipap - Pulmonary recommendations: -- medrol for 24hours -- neb tx -- repeat ABG to trend respiratory acidosis on fio2 30% -- r/o flu -- duplex neg for DVT, though she has risk factors, unlikely to be PE #CHF - acute exacerbatio likely from osm changes caused by contrast use, elevated BNP - diuresis, lasix 40mg one time dose, monitor UOP with gomez - trend trop to r/o cardiac cause - Cardio recommendations #Abdominal pain - unclear etiology after multiple abdominal ct scans in the past, current scan shows dilatation of the common bile duct and pancreatic duct w/ possible 1.6cm mass in region of body of pancreas or it the region of the ampulla bile duct, with radiological rec for MRCP f/u. this area would not account for the location of her current chronic pain in the RLQ. possible the pain could be intermittent claudication of abdominal vasc given her hx of athrosclerotic disease, uncontrolled DM and smoking hx. pt respiratory status not stable for GI intervention at this time to pursue MRCP - pain control, continue home medication 100mg po TID #CKD - trend #DM - last A1c 10 in 09/2017 - NISS and BGMs ACHS - levemir 15units am, levemir 20units pm as per home dosing #HTN - coreg 25mg po BID DVT prophylaxis hep subq tid Diet; low Na/diabetic diet activity: as tolerated code status: full code, family and pt defer to granddaughter for pt's medical decisions and consent as pt at times has poor memory Visit type - Emergency Visit Emergency Visit: Yes ED Registration Date: 05/08/18 Care time: The patient presented to the Emergency Department on the above date and was hospitalized for further evaluation of their emergent condition. - New Patient This patient is new to me today: Yes Date on this admission: 05/08/18 - Critical Care Critical Care patient: No
[2018-05-08 13:40] LABS: URINE APPEARANCE CLEAR; URINE BILIRUBIN NEGATIVE (<2.0 mg/dL); URINE COLOR STRAW; URINE GLUCOSE (UA) 1+ (NEGATIVE); URINE KETONE NEGATIVE (NEGATIVE); URINE LEUK ESTERASE NEGATIVE (NEGATIVE); URINE NITRITE NEGATIVE (NEGATIVE); URINE PROTEIN 2+ (NEGATIVE); URINE UROBILINOGEN NEGATIVE mg/dL (0.2-1.0)
--- NOTE | 2018-05-08 13:51 | CON.PULM ---
Consult Consult Specialty:: PULMONARY Referred by:: Dr. Mireles Reason for Consultation:: respiratory failure - History of Present Illness Chief Complaint: abdominal pain History of Present Illness: 87yo female with h/o HTN, DM, hyperlipidemia, CAD s/p stents, s/p PPM who presents with abdominal pain x 2 days and shortness of breath. Denies nausea, vomiting, had normal bowel movement earlier today. Does report worsened abdominal pain with deep breaths. No cough or wheezing. No fevers, chills or sweats. She denies any history of asthma or COPD but was a long time smoker 2 PPD x 30 years, quit about 30 years ago. No home O2 or inhaler use. She is a loud snorer with witnessed apneic events. Does not feel rested upon awakening and experiences excessive daytime somnolence with frequent naps. - History Source History Provided By: Patient, Family Member, Medical Record Limitations to Obtaining History: Clinical Condition - Past Medical History Cardio/Vascular: Yes: CAD, HTN, Other (permanent pacemaker) Endocrine: Yes: Diabetes Mellitus - Alcohol/Substance Use Hx Alcohol Use: No - Smoking History Smoking history: Never smoked Have you smoked in the past 12 months: No If you are a former smoker, when did you quit?: 30 years ago Home Medications - Allergies Allergies/Adverse Reactions: Allergies Allergy/AdvReac Type Severity Reaction Status Date / Time No Known Allergies Allergy Verified 05/08/18 04:27 - Home Medications Home Medications: Ambulatory Orders Amlodipine Besylate 5 mg PO DAILY 10/05/17 Atorvastatin Ca [Lipitor] 80 mg PO HS 10/05/17 Carvedilol 25 mg PO BID 10/05/17 Gabapentin [Neurontin] 100 mg PO TID 10/05/17 Insulin Glargine,Hum.rec.anlog [Lantus] 100 unit SQ BID 10/05/17 Lactulose 10 gm PO DAILY 10/05/17 Pantoprazole Sodium [Protonix] 40 mg PO DAILY 10/05/17 Ticagrelor [Brilinta -] 90 mg PO BID 10/05/17 Review of Systems - Review of Systems Constitutional: reports: Weakness. denies: Chills, Fever Eyes: denies: Recent Change in Vision HENT: denies: Nasal Congestion, Throat Pain Neck: denies: Stiffness, Tenderness Cardiovascular: reports: Shortness of Breath. denies: Chest Pain, Palpitations Respiratory: denies: Cough, Hemoptysis Gastrointestinal: reports: Abdominal Pain. denies: Diarrhea, Nausea, Vomiting Genitourinary: denies: Dysuria, Hematuria Neurological: denies: Dizziness, Headache Endocrine: denies: Unexplained Weight Loss Physical Exam Vital Sings: Vital Signs Temperature 98.2 F 05/08/18 11:21 Pulse Rate 61 05/08/18 13:20 Respiratory Rate 16 05/08/18 13:20 Blood Pressure 123/91 05/08/18 13:20 O2 Sat by Pulse Oximetry (%) 96 05/08/18 13:20 Constitutional: Yes: Calm Eyes: Yes: Conjunctiva Clear, EOM Intact HENT: Yes: Atraumatic, Normocephalic Neck: Yes: Supple, Trachea Midline Cardiovascular: Yes: Regular Rate and Rhythm Respiratory: Yes: Diminished (distant breath sounds) ...Clubbing: No Gastrointestinal: Yes: Normal Bowel Sounds, Soft Edema: No Neurological: Yes: Alert, Oriented Labs: CBC, BMP 05/08/18 05:25 05/08/18 05:25 ABG Results ABG pH 7.30 (7.35-7.45) L 05/08/18 11:55 ABG pCO2 at Pt Temp 59.2 mmHg (35-45) H 05/08/18 11:55 ABG pO2 at Pt Temp 428.0 mmHg (68-100) H* 05/08/18 11:55 ABG HCO3 28.5 meq/L (22-26) H 05/08/18 11:55 ABG O2 Sat (Measured) 99.6 % (90-98.9) H* 05/08/18 11:55 ABG O2 Content 14.8 % vol (15-22) L 05/08/18 11:55 ABG Base Excess 1.8 meq/l (-2-2) 05/08/18 11:55 Imaging - Results Chest X-ray: Report Reviewed, Image Reviewed (pulmonary vascular congestion) Problem List - Problems (1) Acute hypercapnic respiratory failure Code(s): J96.02 - ACUTE RESPIRATORY FAILURE WITH HYPERCAPNIA (2) Abdominal pain Code(s): R10.9 - UNSPECIFIED ABDOMINAL PAIN Qualifiers: Abdominal location: generalized Qualified Code(s): R10.84 - Generalized abdominal pain (3) HTN (hypertension) Code(s): I10 - ESSENTIAL (PRIMARY) HYPERTENSION (4) CAD (coronary artery disease) Code(s): I25.10 - ATHSCL HEART DISEASE OF [place] CORONARY ARTERY W/O ANG PCTRS Assessment/Plan Acute Hypercapneic Respiratory Failure Abdominal Pain CAD Suspect Obstructive Sleep Apnea/Obesity Hypoventilation Syndrome r/o COPD HTN DM Hyperlipidemia - acute hypercapnea likely multifactorial with abdominal pain causing shallow breaths and low tidal volumes from splinting with likely obstructive airways and underlying COPD given her smoking history - ABG suggesting component of chronic respiratory acidosis likely from underlying MICHAEL/OHS - agree with BiPAP support for now until abdominal pain improved - pain control - short course of medrol x 24 hrs - inhaled bronchodilators - decreased Fio2 to 30% - recheck ABG to ensure improving acidosis - will need outpt PFTs, PSG and f/u - DVT prophylaxis Thank you for this consult Ken Briggs MD
[2018-05-08] MEDS ORDERED: ALBUTEROL SO4 0.083% IH SOL 2.5 MG/3 ML VIAL.NEB. NEB PRN (13:57)
[2018-05-08] MEDS: ALBUTEROL SO4 2.5/IPRATROPIUM 0.5 INH SOL 3 ML VIAL.NEB. NEB SCH ×2 (14:12→20:48)
[2018-05-08] MEDS ORDERED: methylPREDNISolone NA SUCC 40 MG/1 ML VIAL ONE ×2 (14:13→18:24)
[2018-05-08] MEDS: methylPREDNISolone NA SUCC 40 MG/1 ML VIAL IVPUSH SCH ×2 (14:14→18:24)
--- NOTE | 2018-05-08 14:38 | PN ---
Teaching Attending Note Name of Resident: Tito Nowak ATTENDING PHYSICIAN STATEMENT I saw and evaluated the patient. I reviewed the resident's note and discussed the case with the resident. I agree with the resident's findings and plan as documented with exceptions below. SUBJECTIVE: 87 yof with PMHx of diabetes, hypertension, CKD, permanent pacemaker 2011 [employer], coronary artery disease and multiple prior stents (RCA x 3 and mid LAD 08/08/16), reported 60 pack year smoking history, recurrent visits to ED with abdominal pain, came to ED early AM with right sided abdominal pain and dyspnea. Patient had CT A/P in the ED. Sometime later was noted by granddaughter to be lethargic, minimally responsive and short of breath. She was placed on bipap with rapid improvement in her mental status and breathing. Currently patient is alert, awake, appropriately responsive and pleasant, on bipap. Reports right sided abdominal pain, intermittent but worse yesterday. No fevers , chills, nausea, vomiting, decreased po or change in bowels. Denies any recent orthopnea/PND, leg swelling, fevers, chills, cough, URI like illness, chest pain, sick contacts, travel or recent antibiotics. 12 point ROS done, neg except above. Patient with dementia, history obtained from grand daughter at bedside. OBJECTIVE: Vital Signs Period Temp Pulse Resp BP Sys/Mccarty Pulse Ox Last 24 Hr 98.2 F-98.4 F 56-108 15-18 123-158/46-91 96-100 Intake & Output 05/05/18 05/06/18 05/07/18 05/08/18 23:59 23:59 23:59 23:59 Output Total 470 Balance -470 Weight 150 lb GENERAL: Awake, alert, oriented to self, (per grand daughter at bedside, usually not oriented to place and time), on bipap, breathing comfortably, no use of accessory muscles of respiration HEAD: Normal with no signs of trauma. EYES: Pupils equal, round and reactive to light, extraocular movements intact, sclera anicteric, conjunctiva clear. No lid lag. EARS, NOSE, THROAT: Ears normal, nares patent, oropharynx clear without exudates. Moist mucous membranes. NECK: soft, supple, distended neck veins. LUNGS: CTAB, distant breath sounds but positive air entry, no rales or wheezing appreciated. HEART: Regular rate and rhythm, normal S1 and S2 ABDOMEN: Soft, RMQ tenderness, ND, positive bowel sounds, no voluntary or involuntary guarding or rigidity MUSCULOSKELETAL: Normal range of motion at all joints. No spinal tenderness. No CVA tenderness. UPPER EXTREMITIES: 2+ pulses, warm, well-perfused. No cyanosis. No clubbing. No peripheral edema. LOWER EXTREMITIES: 2+ pulses, warm, well-perfused. tenderness on palpation anywhere both lower extremities (no swelling/erythema/warmth noted), positive pulses NEUROLOGICAL: AA, oriented to self, smiling, pleasant, facial symmetry, moves all extremities freely, further exam limited, follows commands PSYCHIATRIC: Cooperative. Good eye contact. Appropriate mood and affect. SKIN: Warm, dry, normal turgor, no rashes or lesions noted, normal capillary refill. Home Medications Medication Instructions Recorded Amlodipine Besylate 5 mg PO DAILY 10/05/17 Atorvastatin Ca [Lipitor] 80 mg PO HS 10/05/17 Carvedilol 25 mg PO BID 10/05/17 Gabapentin [Neurontin] 100 mg PO TID 10/05/17 Insulin Glargine,Hum.rec.anlog 20 unit SQ DAILY 10/05/17 [Lantus] Lactulose 10 gm PO DAILY 10/05/17 Pantoprazole Sodium [Protonix] 40 mg PO DAILY 10/05/17 Ticagrelor [Brilinta -] 90 mg PO BID 10/05/17 Aspirin [Aspirin EC] 81 mg PO DAILY 05/08/18 Calcium Carbonate [Antacid] 168 mg PO Q8H PRN 05/08/18 Insulin Glargine,Hum.rec.anlog 15 unit SQ HS 05/08/18 [Lantus] Simethicone [Gas-X] 125 mg PO Q6H 05/08/18 Active Medications Albuterol Sulfate (Ventolin 0.083% Nebulizer Soln -) 1 amp NEB Q4H PRN PRN Reason: SHORT OF BREATH/WHEEZING Albuterol/Ipratropium (Duoneb -) 1 amp NEB RTID [facility] Last Admin: 05/08/18 14:12 Dose: 1 amp Amlodipine Besylate (Norvasc -) 5 mg PO DAILY [facility] Carvedilol (Coreg -) 25 mg PO BID [facility] Carvedilol (Coreg -) 25 mg PO ONCE ONE Stop: 05/08/18 15:17 Heparin Sodium (Porcine) (Heparin -) 5,000 unit SQ BID [facility] Insulin Aspart (Novolog Vial Sliding Scale -) 1 vial SQ ACHS [facility]; Protocol Methylprednisolone Sodium Succinate (Solu-Medrol -) 40 mg IVPUSH Q8H-IV [facility] Stop: 05/09/18 02:01 Last Admin: 05/08/18 14:14 Dose: 40 mg Laboratory Results - last 24 hr 05/08/18 05/08/18 05/08/18 05:25 05:25 05:25 WBC 6.9 RBC 3.80 Hgb 10.4 L Hct 32.9 MCV 86.5 MCH 27.3 MCHC 31.6 L RDW 15.4 Plt Count 190 MPV 8.6 Absolute Neuts (auto) 4.7 Neutrophils % 67.3 Lymphocytes % 22.6 D Monocytes % 6.9 Eosinophils % 2.4 D Basophils % 0.8 Nucleated RBC % 0 PT with INR INR PTT (Actin FS) Anticoagulation Therapy Puncture Site ABG pH ABG pCO2 at Pt Temp ABG pO2 at Pt Temp ABG HCO3 ABG O2 Sat (Measured) ABG O2 Content ABG Base Excess Man Test VBG pH POC VBG pCO2 POC VBG pO2 Mixed VBG HCO3 Carboxyhemoglobin Methemoglobin O2 Delivery Device Oxygen Flow Rate Vent Mode Vent Rate Mechanical Rate Pressure Support Vent Sodium 141 Potassium 4.7 Chloride 107 Carbon Dioxide 29 Anion Gap 5 L BUN 29 H Creatinine 1.4 H Creat Clearance w eGFR 35.74 Random Glucose 169 H Lactic Acid 0.8 Calcium 8.4 L Phosphorus 3.5 Magnesium 2.3 Total Bilirubin 0.3 AST 19 ALT 23 Alkaline Phosphatase 80 Creatine Kinase 109 Troponin I < 0.02 B-Natriuretic Peptide Total Protein 6.5 Albumin 3.2 L Lipase 158 Urine Color Urine Appearance Urine pH Ur Specific [place] Urine Protein Urine Glucose (UA) Urine Ketones Urine Blood Urine Nitrite Urine Bilirubin Urine Urobilinogen Ur Leukocyte Esterase Urine WBC (Auto) Urine RBC (Auto) 05/08/18 05/08/18 05/08/18 11:47 11:55 11:59 WBC RBC Hgb Hct MCV MCH MCHC RDW Plt Count MPV Absolute Neuts (auto) Neutrophils % Lymphocytes % Monocytes % Eosinophils % Basophils % Nucleated RBC % PT with INR INR PTT (Actin FS) Anticoagulation Therapy No Result Required. Puncture Site Left radial ABG pH 7.30 L ABG pCO2 at Pt Temp 59.2 H ABG pO2 at Pt Temp 428.0 H* ABG HCO3 28.5 H ABG O2 Sat (Measured) 99.6 H* ABG O2 Content 14.8 L ABG Base Excess 1.8 Man Test Positive VBG pH 7.23 L* D POC VBG pCO2 76.0 H* D POC VBG pO2 33.8 Mixed VBG HCO3 30.6 H Carboxyhemoglobin 0.5 Methemoglobin 0.5 O2 Delivery Device Bipap Oxygen Flow Rate 100% Vent Mode No Result Required. Vent Rate 12 Mechanical Rate Bipap 12/5 Pressure Support Vent No Result Required. Sodium Potassium Chloride Carbon Dioxide Anion Gap BUN Creatinine Creat Clearance w eGFR Random Glucose Lactic Acid Calcium Phosphorus Magnesium Total Bilirubin AST ALT Alkaline Phosphatase Creatine Kinase Troponin I < 0.02 B-Natriuretic Peptide 2707.8 H Total Protein Albumin Lipase Urine Color Urine Appearance Urine pH Ur Specific [place] Urine Protein Urine Glucose (UA) Urine Ketones Urine Blood Urine Nitrite Urine Bilirubin Urine Urobilinogen Ur Leukocyte Esterase Urine WBC (Auto) Urine RBC (Auto) 05/08/18 05/08/18 05/08/18 12:28 13:15 14:09 WBC RBC Hgb Hct MCV MCH MCHC RDW Plt Count MPV Absolute Neuts (auto) Neutrophils % Lymphocytes % Monocytes % Eosinophils % Basophils % Nucleated RBC % PT with INR 12.60 INR 1.07 PTT (Actin FS) 29.9 Anticoagulation Therapy No Result Required. Puncture Site No Result Required. ABG pH 7.37 ABG pCO2 at Pt Temp 53.2 H ABG pO2 at Pt Temp 72.5 D ABG HCO3 29.7 H ABG O2 Sat (Measured) 93.7 ABG O2 Content 15.9 ABG Base Excess 3.8 H Man Test No Result Required. VBG pH POC VBG pCO2 POC VBG pO2 Mixed VBG HCO3 Carboxyhemoglobin Methemoglobin O2 Delivery Device No Result Required. Oxygen Flow Rate 30% Vent Mode No Result Required. Vent Rate No Result Required. Mechanical Rate No Result Required. Pressure Support Vent No Result Required. Sodium Potassium Chloride Carbon Dioxide Anion Gap BUN Creatinine Creat Clearance w eGFR Random Glucose Lactic Acid Calcium Phosphorus Magnesium Total Bilirubin AST ALT Alkaline Phosphatase Creatine Kinase Troponin I B-Natriuretic Peptide Total Protein Albumin Lipase Urine Color Straw Urine Appearance Clear Urine pH 5.0 D Ur Specific [place] 1.027 Urine Protein 2+ H Urine Glucose (UA) 1+ H Urine Ketones Negative Urine Blood 1+ H Urine Nitrite Negative Urine Bilirubin Negative Urine Urobilinogen Negative Ur Leukocyte Esterase Negative Urine WBC (Auto) 1 Urine RBC (Auto) None CXR , CT A/P results reviewed EKG: A sensing V pacing, non specific ST-T changes ASSESSMENT AND PLAN: 87 yof with PMHx of diabetes, hypertension, CKD, permanent pacemaker 2011 [employer], coronary artery disease and multiple prior stents (RCA x 3 and mid LAD 08/08/16, recurrent visits to ED with abdominal pain, admitted with abdominal pain/dypsnea, ED course complicated by acute hypercapneic respiratory failure requiring bipap. -Acute hypercapneic respiratory failure, suspect from abdominal pain with shallow breaths/splinting in the setting of underlying chronic respiratory acidosis+/- acute on chronic diastolic HF (from HTN (pain mediated)/?osmotic load from dye) -Chronic respiratory acidosis -Suspect underlying COPD from 60 pack year smoking history -Suspected MICHAEL/OHS -Abdominal pain, ?Pancreatic mass -CAD s/p multiple prior PCI -CKD Stage II (baseline cr around 1.3-1.[address] Ricks) -S/p PPM 2011 -HTN -HLD Plan: Clinically better. Pulmonary/Cardiology input appreciated. s/p lasix 40 mg IV. Monitor daily weights, strict I/Os, further diuresis based on clinical course. Solumedrol IV, standing and prn nebs. Influenza PCR but low suspicion. LE duplex but current presentation, and improvement with bipap, argue against PE. Informed grand daughter of suspected pancreatic mass. MRCP when respiratory status improved. Pain control. Continue home ASA/coreg/amlodipine/lipitor DVTPPX with heparin Dispo pending clinical improvement. Plan discussed with grand daughter at bedside in detail, all questions answered. Care co-ordinated with ED, pulmonary and cardiology. Total admit time 65 min.
[2018-05-08 14:50] LABS: ARTERIAL BLD GAS O2 SATURATION 93.7 % (90-98.9); ARTERIAL BLOOD GAS BASE EXCESS 3.8 meq/l (-2-2); ARTERIAL BLOOD GAS PCO2 53.2 mmHg (35-45); ARTERIAL BLOOD GAS PO2 72.5 mmHg (68-100); ARTERIAL BLOOD GAS pH 7.37 (7.35-7.45)
[2018-05-08] MEDS ORDERED: CARVEDILOL 25 MG TABLET (FP) PO ONE (15:16)
[2018-05-08] MEDS ORDERED: ALBUTEROL SO4 0.083% IH SOL 2.5 MG/3 ML VIAL.NEB. NEB ONE (15:40)
[2018-05-08] MEDS ORDERED: amLODIPine BESYLATE 5 MG TABLET (FP) ONE (15:40)
--- NOTE | 2018-05-08 15:40 | EKG ---
Test Reason : Blood Pressure : / mmHG Vent. Rate : 064 BPM Atrial Rate : 046 BPM P-R Int : 000 ms QRS Dur : 080 ms QT Int : 404 ms P-R-T Axes : 000 -11 -45 degrees QTc Int : 416 ms POOR DATA QUALITY, INTERPRETATION MAY BE ADVERSELY AFFECTED Atrial-paced rhythm with prolonged AV conduction T WAVE ABNORMALITY, CONSIDER INFERIOR ISCHEMIA T WAVE ABNORMALITY, CONSIDER ANTEROLATERAL ISCHEMIA ABNORMAL ECG WHEN COMPARED WITH ECG OF 08-MAY-2018 05:49, NO SIGNIFICANT CHANGE WAS FOUND Confirmed by RENU ELMORE MD ([id number]) on 05/08/2018 3:39:43 PM Referred By: Confirmed By:RENU ELMORE MD
[2018-05-08] MEDS: amLODIPine BESYLATE 5 MG TABLET (FP) PO SCH (15:41)
[2018-05-08] MEDS ORDERED: CARVEDILOL 12.5 MG TABLET (FP) ONE (15:41)
--- NOTE | 2018-05-08 15:44 | EKG ---
Test Reason : Blood Pressure : / mmHG Vent. Rate : 060 BPM Atrial Rate : 060 BPM P-R Int : 000 ms QRS Dur : 088 ms QT Int : 388 ms P-R-T Axes : 035 -01 -51 degrees QTc Int : 388 ms Atrial-paced rhythm with prolonged AV conduction ABNORMAL ECG WHEN COMPARED WITH ECG OF 26-NOV-2017 03:54, QRS AXIS SHIFTED RIGHT T WAVE INVERSION MORE EVIDENT IN INFERIOR LEADS T WAVE INVERSION NOW EVIDENT IN ANTERIOR LEADS Confirmed by RENU ELMORE MD ([id number]) on 05/08/2018 3:44:01 PM Referred By: Confirmed By:RENU ELMORE MD
[2018-05-08] MEDS ORDERED: ACETAMINOPHEN 325 MG TABLET (FP) PO PRN (15:46)
[2018-05-08] MEDS: INSULIN SLIDING SCALE (NOVOLOG) 1 VIAL SQ SCH ×2 (16:19→23:09)
[2018-05-08] MEDS ORDERED: SIMETHICONE 80 MG TAB.CHEW (FP) PO PRN (19:22)
[2018-05-08] MEDS: INSULIN (LEVEMIR) 100 UNITS/ML UNITS SQ SCH (23:08)
[2018-05-08] MEDS: ATORVASTATIN CA 80 MG TABLET (FP) PO SCH (23:09)
[2018-05-08] MEDS: CARVEDILOL 25 MG TABLET (FP) PO SCH (23:10)
[2018-05-08] MEDS: GABAPENTIN 100 MG CAPSULE (FP) PO SCH (23:10)
[2018-05-08] MEDS: HEPARIN NA (PORCINE) 5,000 UNITS/ML 1ML VIAL SQ SCH (23:10)
[2018-05-09] MEDS: methylPREDNISolone NA SUCC 40 MG/1 ML VIAL IVPUSH SCH (01:28)
[2018-05-09] MEDS: INSULIN SLIDING SCALE (NOVOLOG) 1 VIAL SQ SCH ×4 (06:39→22:32)
[2018-05-09] MEDS: GABAPENTIN 100 MG CAPSULE (FP) PO SCH ×3 (06:39→22:33)
[2018-05-09] MEDS: INSULIN (LEVEMIR) 100 UNITS/ML UNITS SQ SCH ×2 (06:40→22:32)
[2018-05-09 07:53] LABS: HEMATOCRIT 32.2 % (32.4-45.2); HEMOGLOBIN 11.1 GM/dL (10.7-15.3); LYMPH % 10.6 % (8-40); MCH 28.9 pg (25.7-33.7); MCHC 34.4 g/dl (32.0-36.0); MEAN PLT VOLUME 9.2 fl (7.5-11.1); MONO % 0.4 % (3.8-10.2); PLATELET COUNT 202 K/MM3 (134-434); RBC 3.83 M/mm3 (3.60-5.2); RDW 15.5 % (11.6-15.6)
[2018-05-09 08:26] LABS: ALBUMIN 3.1 g/dl (3.4-5.0); ALK PHOS 91 U/L (45-117); ANION GAP 6 MMOL/L (8-16); BILIRUBIN,TOTAL 0.4 mg/dL (0.2-1); BLOOD UREA NITROGEN 34 mg/dL (7-18); CALCIUM 8.1 mg/dL (8.5-10.1); CHLORIDE 102 mmol/L (98-107); CO2 31 mmol/L (21-32); CREATININE 1.4 mg/dL (0.55-1.3); GLUCOSE,RANDOM 225 mg/dL (74-106); MAGNESIUM 2.2 mg/dL (1.8-2.4); PHOSPHOROUS 4.3 mg/dL (2.5-4.9); POTASSIUM 4.5 mmol/L (3.5-5.1); SGOT/AST 21 U/L (15-37); SGPT/ALT 29 U/L (13-61); SODIUM 139 mmol/L (136-145); TOT PROT 6.5 g/dl (6.4-8.2)
[2018-05-09] MEDS: CARVEDILOL 25 MG TABLET (FP) PO SCH ×2 (10:04→22:32)
[2018-05-09] MEDS: PANTOPRAZOLE 40 MG TABLET (FP) PO SCH (10:04)
[2018-05-09] MEDS: amLODIPine BESYLATE 5 MG TABLET (FP) PO SCH (10:04)
[2018-05-09] MEDS: HEPARIN NA (PORCINE) 5,000 UNITS/ML 1ML VIAL SQ SCH ×2 (10:05→22:31)
[2018-05-09] MEDS: ALBUTEROL SO4 2.5/IPRATROPIUM 0.5 INH SOL 3 ML VIAL.NEB. NEB SCH ×3 (10:20→20:34)
--- NOTE | 2018-05-09 12:05 | PN ---
Progress Note (short form) - Note Progress Note: PULMONARY states breathing is improving. ABG improved. No cough or wheezing. Vital Signs Period Temp Pulse Resp BP Sys/Mccarty Pulse Ox Last 24 Hr 97.5 F-98.7 F 60-104 15-20 111-175/37-91 94-100 Gen: NAD at rest Heart: RRR Lung: decreased breath sounds at the bases Abd: soft, nontender Ext: no edema CBC, BMP 05/09/18 06:30 05/09/18 06:30 Active Medications Acetaminophen (Tylenol -) 650 mg PO Q6H PRN PRN Reason: PAIN LEVEL 1-5 Albuterol Sulfate (Ventolin 0.083% Nebulizer Soln -) 1 amp NEB Q4H PRN PRN Reason: SHORT OF BREATH/WHEEZING Last Admin: 05/08/18 15:41 Dose: 1 amp Albuterol/Ipratropium (Duoneb -) 1 amp NEB RTID [facility] Last Admin: 05/09/18 10:20 Dose: 1 amp Amlodipine Besylate (Norvasc -) 5 mg PO DAILY [facility] Last Admin: 05/09/18 10:04 Dose: 5 mg Atorvastatin Calcium (Lipitor -) 80 mg PO HS [facility] Last Admin: 05/08/18 23:09 Dose: 80 mg Carvedilol (Coreg -) 25 mg PO BID [facility] Last Admin: 05/09/18 10:04 Dose: 25 mg Gabapentin (Neurontin -) 100 mg PO TID [facility] Last Admin: 05/09/18 06:39 Dose: 100 mg Heparin Sodium (Porcine) (Heparin -) 5,000 unit SQ BID [facility] Last Admin: 05/09/18 10:05 Dose: 5,000 unit Insulin Aspart (Novolog Vial Sliding Scale -) [address] [facility]; Protocol Last Admin: 05/09/18 06:39 Dose: 4 unit Insulin Detemir (Levemir Vial) 15 units SQ HS [facility] Last Admin: 05/08/18 23:08 Dose: 15 unit Insulin Detemir (Levemir Vial) 20 units SQ DAILY@0700 [facility] Last Admin: 05/09/18 06:40 Dose: 20 unit Pantoprazole Sodium (Protonix -) 40 mg PO DAILY [facility] Last Admin: 05/09/18 10:04 Dose: 40 mg Simethicone (Mylicon -) 80 mg PO Q6H PRN PRN Reason: GAS A/P Acute Hypercapneic Respiratory Failure resolved Abdominal Pain CAD Suspect Obstructive Sleep Apnea/Obesity Hypoventilation Syndrome r/o COPD HTN DM Hyperlipidemia - pain control, work up in progress - short course of medrol x 24 hrs - inhaled bronchodilators - O2 to keep SpO2 >90% - will need outpt PFTs, PSG and f/u - DVT prophylaxis Problem List - Problems (1) Acute hypercapnic respiratory failure Code(s): J96.02 - ACUTE RESPIRATORY FAILURE WITH HYPERCAPNIA (2) Abdominal pain Code(s): R10.9 - UNSPECIFIED ABDOMINAL PAIN Qualifiers: Abdominal location: generalized Qualified Code(s): R10.84 - Generalized abdominal pain (3) HTN (hypertension) Code(s): I10 - ESSENTIAL (PRIMARY) HYPERTENSION (4) CAD (coronary artery disease) Code(s): I25.10 - ATHSCL HEART DISEASE OF [place] CORONARY ARTERY W/O ANG PCTRS
--- NOTE | 2018-05-09 13:19 | PN ---
Progress Note, Physician Chief Complaint: less sob tele neg (NSVT read by alarm is PPM) History of Present Illness: The patient is an 87-year-old female with a history of diabetes, hypertension, CKD, permanent pacemaker 2012 [employer], coronary artery disease and multiple prior stents (RCA x 3 06/06/16 and mid LAD 08/08/16), now presenting with severe diffuse abdominal pains. CT scan unremarkable, but post CT she had sob, lethargy and needed bipap for her respiratory status. CXR showed mild chf, bnp mildly elevated. Echo 09/11/17 mild LVH nlef mild brayden 1.3 21/11mm gradient. mod MAC, minimal MR , Mild TR/PI Seen by pulmonary started steroids. - Current Medication List Current Medications: Active Medications Acetaminophen (Tylenol -) 650 mg PO Q6H PRN PRN Reason: PAIN LEVEL 1-5 Albuterol Sulfate (Ventolin 0.083% Nebulizer Soln -) 1 amp NEB Q4H PRN PRN Reason: SHORT OF BREATH/WHEEZING Last Admin: 05/08/18 15:41 Dose: 1 amp Albuterol/Ipratropium (Duoneb -) 1 amp NEB RTID [facility] Last Admin: 05/09/18 10:20 Dose: 1 amp Amlodipine Besylate (Norvasc -) 5 mg PO DAILY [facility] Last Admin: 05/09/18 10:04 Dose: 5 mg Atorvastatin Calcium (Lipitor -) 80 mg PO HS [facility] Last Admin: 05/08/18 23:09 Dose: 80 mg Carvedilol (Coreg -) 25 mg PO BID [facility] Last Admin: 05/09/18 10:04 Dose: 25 mg Gabapentin (Neurontin -) 100 mg PO TID [facility] Last Admin: 05/09/18 06:39 Dose: 100 mg Heparin Sodium (Porcine) (Heparin -) 5,000 unit SQ BID [facility] Last Admin: 05/09/18 10:05 Dose: 5,000 unit Insulin Aspart (Novolog Vial Sliding Scale -) 1 vial SQ [facility]; Protocol Last Admin: 05/09/18 12:46 Dose: 8 unit Insulin Detemir (Levemir Vial) 15 units SQ HS [facility] Last Admin: 05/08/18 23:08 Dose: 15 unit Insulin Detemir (Levemir Vial) 20 units SQ DAILY@0700 [facility] Last Admin: 05/09/18 06:40 Dose: 20 unit Pantoprazole Sodium (Protonix -) 40 mg PO DAILY [facility] Last Admin: 05/09/18 10:04 Dose: 40 mg Simethicone (Mylicon -) 80 mg PO Q6H PRN PRN Reason: GAS - Objective Vital Signs: Vital Signs Temperature 98.7 F 05/09/18 09:00 Pulse Rate 61 05/09/18 09:00 Respiratory Rate 20 05/09/18 09:00 Blood Pressure 126/55 L 05/09/18 09:00 O2 Sat by Pulse Oximetry (%) 95 05/09/18 09:00 Constitutional: Yes: No Distress, Calm Eyes: Yes: Conjunctiva Clear, EOM Intact HENT: Yes: Normocephalic Neck: Yes: Trachea Midline Cardiovascular: Yes: Regular Rate and Rhythm Respiratory: Yes: Rales (bilat bases) Gastrointestinal: Yes: Normal Bowel Sounds, Soft Genitourinary: Yes: WNL Breast(s): Yes: WNL Musculoskeletal: Yes: WNL Extremities: Yes: WNL Edema: No Peripheral Pulses WNL: Yes Labs: CBC, BMP 05/09/18 06:30 05/09/18 06:30 INR, PTT INR 1.07 (0.83-1.09) 05/08/18 12:28 Assessment/Plan The patient is an 87-year-old female with a history of diabetes, hypertension, CKD, permanent pacemaker 2012 [employer], coronary artery disease and multiple prior stents (RCA x 3 06/06/16 and mid LAD 08/08/16), now presenting with severe diffuse abdominal pains. CT scan unremarkable, but post CT she had sob, lethargy and needed bipap for her respiratory status. CXR showed mild chf, bnp mildly elevated. Echo 09/11/17 mild LVH nlef mild brayden 1.3 21/11mm gradient. mod MAC, minimal MR , Mild TR/PI 1. Acute on chronic diastolic CHF -likely due to osmotic load from IV contrast with CT scan -would change lasix to PO. -doing better off of bipap. -pulm appreciated, needs PFTs PSG and CT scan (outpatient) -dc telemetry tomorrow if stable. 2. CAD -stable, trop negative -continue outpatient regimen for now. (asa coreg 25 bid norvasc 5 lipitor 80)
--- NOTE | 2018-05-09 13:21 | PN ---
Physical Exam: SUBJECTIVE: Patient seen and examined, breathing improved, minimal left sided abdominal pain, tolerating diet well. Grand daughter at bedside. OBJECTIVE: Vital Signs Period Temp Pulse Resp BP Sys/Mccarty Pulse Ox Last 24 Hr 97.5 F-98.7 F 61-104 16-20 111-175/37-91 94-97 GENERAL: The patient is awake, alert, oriented to self and family at bedside, no acute distress Chest: no rales or wheezing, improved air entry Abdomen:Soft, mild LMQ tenderness, no voluntary or involuntary guarding or rigidity Extremities: no edema or tenderness CVS:S1S12 irregular Laboratory Results - last 24 hr 05/08/18 05/08/18 05/08/18 13:15 14:09 16:09 WBC RBC Hgb Hct MCV MCH MCHC RDW Plt Count MPV Absolute Neuts (auto) Neutrophils % Lymphocytes % Monocytes % Eosinophils % Basophils % Nucleated RBC % Anticoagulation Therapy No Result Required. Puncture Site No Result Required. ABG pH 7.37 ABG pCO2 at Pt Temp 53.2 H ABG pO2 at Pt Temp 72.5 D ABG HCO3 29.7 H ABG O2 Sat (Measured) 93.7 ABG O2 Content 15.9 ABG Base Excess 3.8 H Man Test No Result Required. O2 Delivery Device No Result Required. Oxygen Flow Rate 30% Vent Mode No Result Required. Vent Rate No Result Required. Mechanical Rate No Result Required. Pressure Support Vent No Result Required. Sodium Potassium Chloride Carbon Dioxide Anion Gap BUN Creatinine Creat Clearance w eGFR POC Glucometer [phone] Random Glucose Calcium Phosphorus Magnesium Total Bilirubin AST ALT Alkaline Phosphatase Total Protein Albumin Urine Color Straw Urine Appearance Clear Urine pH 5.0 D Ur Specific [place] 1.027 Urine Protein 2+ H Urine Glucose (UA) 1+ H Urine Ketones Negative Urine Blood 1+ H Urine Nitrite Negative Urine Bilirubin Negative Urine Urobilinogen Negative Ur Leukocyte Esterase Negative Urine WBC (Auto) 1 Urine RBC (Auto) None Influenza A (Rapid) Influenza B (Rapid) 05/08/18 05/08/18 05/09/18 16:20 23:07 06:20 WBC RBC Hgb Hct MCV MCH MCHC RDW Plt Count MPV Absolute Neuts (auto) Neutrophils % Lymphocytes % Monocytes % Eosinophils % Basophils % Nucleated RBC % Anticoagulation Therapy Puncture Site ABG pH ABG pCO2 at Pt Temp ABG pO2 at Pt Temp ABG HCO3 ABG O2 Sat (Measured) ABG O2 Content ABG Base Excess Man Test O2 Delivery Device Oxygen Flow Rate Vent Mode Vent Rate Mechanical Rate Pressure Support Vent Sodium Potassium Chloride Carbon Dioxide Anion Gap BUN Creatinine Creat Clearance w eGFR POC Glucometer 306 236 Random Glucose Calcium Phosphorus Magnesium Total Bilirubin AST ALT Alkaline Phosphatase Total Protein Albumin Urine Color Urine Appearance Urine pH Ur Specific [place] Urine Protein Urine Glucose (UA) Urine Ketones Urine Blood Urine Nitrite Urine Bilirubin Urine Urobilinogen Ur Leukocyte Esterase Urine WBC (Auto) Urine RBC (Auto) Influenza A (Rapid) Negative Influenza B (Rapid) Negative 05/09/18 05/09/18 05/09/18 06:30 06:30 11:42 WBC 6.0 RBC 3.83 Hgb 11.1 Hct 32.2 L MCV 84.0 MCH 28.9 MCHC 34.4 RDW 15.5 Plt Count 202 MPV 9.2 Absolute Neuts (auto) 5.3 Neutrophils % 89.0 H D Lymphocytes % 10.6 D Monocytes % 0.4 L D Eosinophils % 0.0 D Basophils % 0.0 Nucleated RBC % 0 Anticoagulation Therapy Puncture Site ABG pH ABG pCO2 at Pt Temp ABG pO2 at Pt Temp ABG HCO3 ABG O2 Sat (Measured) ABG O2 Content ABG Base Excess Man Test O2 Delivery Device Oxygen Flow Rate Vent Mode Vent Rate Mechanical Rate Pressure Support Vent Sodium 139 Potassium 4.5 Chloride 102 Carbon Dioxide 31 Anion Gap 6 L BUN 34 H Creatinine 1.4 H Creat Clearance w eGFR 35.74 POC Glucometer 350 Random Glucose 225 H Calcium 8.1 L Phosphorus 4.3 Magnesium 2.2 Total Bilirubin 0.4 AST 21 ALT 29 Alkaline Phosphatase 91 Total Protein 6.5 Albumin 3.1 L Urine Color Urine Appearance Urine pH Ur Specific [place] Urine Protein Urine Glucose (UA) Urine Ketones Urine Blood Urine Nitrite Urine Bilirubin Urine Urobilinogen Ur Leukocyte Esterase Urine WBC (Auto) Urine RBC (Auto) Influenza A (Rapid) Influenza B (Rapid) Active Medications Generic Name Dose Route Start Last Admin Trade Name Freq PRN Reason Stop Dose Admin Acetaminophen 650 mg 05/08/18 15:46 Tylenol - PO Q6H PRN PAIN LEVEL 1-5 Albuterol Sulfate 1 amp 05/08/18 13:57 05/08/18 15:41 Ventolin 0.083% Nebulizer Soln - NEB 1 amp Q4H PRN Administration SHORT OF BREATH/WHEEZING Albuterol/Ipratropium 1 amp 05/08/18 14:00 05/09/18 10:20 Duoneb - NEB 1 amp RTID JERRY Administration Amlodipine Besylate 5 mg 05/08/18 15:15 05/09/18 10:04 Norvasc - PO 5 mg DAILY JERRY Administration Atorvastatin Calcium 80 mg 05/08/18 22:00 05/08/18 23:09 Lipitor - PO 80 mg HS JERRY Administration Carvedilol 25 mg 05/08/18 22:00 05/09/18 10:04 Coreg - PO 25 mg BID JERRY Administration Gabapentin 100 mg 05/08/18 22:00 05/09/18 06:39 Neurontin - PO 100 mg TID JERRY Administration Heparin Sodium (Porcine) 5,000 unit 05/08/18 22:00 05/09/18 10:05 Heparin - SQ 5,000 unit BID JERRY Administration Insulin Aspart 1 vial 05/08/18 16:30 05/09/18 12:46 Novolog Vial Sliding Scale - SQ 8 unit ACHS JERRY Administration Protocol Insulin Detemir 15 units 05/08/18 22:00 05/08/18 23:08 Levemir Vial SQ 15 unit HS JERRY Administration Insulin Detemir 20 units 05/09/18 07:00 05/09/18 06:40 Levemir Vial SQ 20 unit DAILY@0700 JERRY Administration Pantoprazole Sodium 40 mg 05/09/18 10:00 05/09/18 10:04 Protonix - PO 40 mg DAILY JERRY Administration Simethicone 80 mg 05/08/18 19:22 Mylicon - PO Q6H PRN GAS Home Medications Medication Instructions Recorded Amlodipine Besylate 5 mg PO DAILY 10/05/17 Atorvastatin Ca [Lipitor] 80 mg PO HS 10/05/17 Carvedilol 25 mg PO BID 10/05/17 Gabapentin [Neurontin] 100 mg PO TID 10/05/17 Insulin Glargine,Hum.rec.anlog 20 unit SQ DAILY 10/05/17 [Lantus] Lactulose 10 gm PO DAILY 10/05/17 Pantoprazole Sodium [Protonix] 40 mg PO DAILY 10/05/17 Aspirin [Aspirin EC] 81 mg PO DAILY 05/08/18 Calcium Carbonate [Antacid] 168 mg PO Q8H PRN 05/08/18 Insulin Glargine,Hum.rec.anlog 15 unit SQ HS 05/08/18 [Lantus] Simethicone [Gas-X] 125 mg PO Q6H 05/08/18 Microbiology 05/08/18 13:20 Urine - Urine Wood Urine Culture - Final NO GROWTH OBTAINED Telemetry: Apacing with occasional V pacing (100s) (reviewed with Dr. Ricks) ASSESSMENT/PLAN: 87 yof with PMHx of diabetes, hypertension, CKD, SSS s/p permanent pacemaker 2011 [employer], coronary artery disease and multiple prior stents (RCA x 3 06/06/16 and mid LAD 08/08/16, recurrent visits to ED with abdominal pain, admitted with abdominal pain/dypsnea, ED course complicated by acute hypercapneic respiratory failure requiring bipap. -Acute hypercapneic respiratory failure, suspect from abdominal pain with shallow breaths/splinting in the setting of underlying chronic respiratory acidosis+/- acute on chronic diastolic HF (from HTN (pain mediated)/?osmotic load from dye) -Chronic respiratory acidosis -Suspect underlying COPD from 60 pack year smoking history -Suspected MICHAEL/OHS -Abdominal pain, ?Pancreatic mass -CAD s/p multiple prior PCI -CKD Stage II (baseline cr around 1.3-1.[address] Ricks) -S/p PPM 2011 -HTN -HLD Plan: Clinically better. s/p lasix 40 mg IV and 24 hours of steroids. Off bipap. Pulmonary/Cardiology input appreciated. CT chest non contrast. Hold off on additional diuresis. Influenza PCR but low suspicion. LE duplex but current presentation, and improvement with bipap, argue against PE. Informed grand daughter of suspected pancreatic mass. Not a candidate for MRCP given PPM GI consult. Pain control. Continue home ASA/coreg/amlodipine/lipitor DVTPPX with heparin Dispo pending clinical improvement. PT eval and CM consult for d/c planning. Assess for home oxygen needs. Plan discussed with grand daughter at bedside in detail, all questions answered. Care co-ordinated with nursing and cardiology. Visit type - Emergency Visit Emergency Visit: Yes ED Registration Date: 05/08/18 Care time: The patient presented to the Emergency Department on the above date and was hospitalized for further evaluation of their emergent condition. - New Patient This patient is new to me today: No - Critical Care Critical Care patient: No - Discharge Referral Referred to [facility] Med P.C.: No
--- NOTE | 2018-05-09 15:22 | CON.GI ---
Consult Consult Specialty:: Gastroenterology ( covering Dr Blanco) Referred by:: Dr Mireles Reason for Consultation:: Abdominal pain and mass on CT scan - History of Present Illness Chief Complaint: Recurring abdominal pain History of Present Illness: 87F is admitted for abdominal pain. The history is obtained via her granddaughter Ankit as the patient is Azeri speaking and apparently a poor historian. The pain is diffuse and she describes as being gassy. She has chronic constipation. 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 The granddaughter reports that Shelby has been eating well and has not been losing weight despite frequent complaints of abdominal pain and intermittent vomiting. She apparently had a normal colonoscopy remotely in [place]. Her mother of a acute dialysis registered nurse cancer. LFTs and amylase are unremarkable. Shelby developed respiratory distress following the CT scan requiring steroids and BiPap - History Source History Provided By: Family Member Limitations to Obtaining History: Language Barrier - Past Medical History Cardio/Vascular: Yes: Aortic Stenosis (mild on echo), CAD (s/p ND x 2 and stenting on 2 occasions), CHF (diastolic , LVH), HTN, Hyperlipdemia, ND (ND x 2) , Other (permanent pacemaker) Gastrointestinal: Yes: Constipation, Other (chronic abdominal pain) Renal/: Yes: Renal Inusuff (diabetic nephropathy), Renal Calculi Musculoskeletal: Yes: Other (diabetic neuropathy) Endocrine: Yes: Diabetes Mellitus (IDDM) - Past Surgical History Past Surgical History: Yes: None, Colonoscopy, Permanent Pacemaker, Stent ( coronary stenting x 2) - Alcohol/Substance Use Hx Alcohol Use: No History of Substance Use: reports: None - Smoking History Smoking history: Former smoker Have you smoked in the past 12 months: No If you are a former smoker, when did you quit?: 30 years ago - Social History Usual Living Arrangement: Other ([employer]) ADL: Family 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year[place] 1996 History of Recent Travel: No Home Medications - Allergies Allergies/Adverse Reactions: Allergies Allergy/AdvReac Type Severity Reaction Status Date / Time No Known Allergies Allergy Verified 05/08/18 04:27 - Home Medications Home Medications: Ambulatory Orders Amlodipine Besylate 5 mg PO DAILY 10/05/17 Atorvastatin Ca [Lipitor] 80 mg PO HS 10/05/17 Carvedilol 25 mg PO BID 10/05/17 Gabapentin [Neurontin] 100 mg PO TID 10/05/17 Insulin Glargine,Hum.rec.anlog [Lantus] 20 unit SQ DAILY 10/05/17 Lactulose 10 gm PO DAILY 10/05/17 Pantoprazole Sodium [Protonix] 40 mg PO DAILY 10/05/17 Aspirin [Aspirin EC] 81 mg PO DAILY 05/08/18 Calcium Carbonate [Antacid] 168 mg PO Q8H PRN 05/08/18 Insulin Glargine,Hum.rec.anlog [Lantus] 15 unit SQ HS 05/08/18 Simethicone [Gas-X] 125 mg PO Q6H 05/08/18 Family Disease History - Family Disease History Family Disease History: [place]: Mother ( of acute dialysis registered nurse cancer) Review of Systems Unable to obtain ROS, reason: language barrier Physical Exam-GI Vital Signs: Vital Signs Temperature 98.2 F 05/09/18 13:47 Pulse Rate 60 05/09/18 13:47 Respiratory Rate 20 05/09/18 13:47 Blood Pressure 120/44 L 05/09/18 13:47 O2 Sat by Pulse Oximetry (%) 95 05/09/18 09:00 CBC,CMP WBC 6.0 K/mm3 (4.0-10.0) 05/09/18 06:30 RBC 3.83 M/mm3 (3.60-5.2) 05/09/18 06:30 Hgb 11.1 GM/dL (10.7-15.3) 05/09/18 06:30 Hct 32.2 % (32.4-45.2) L 05/09/18 06:30 MCV 84.0 fl (80-96) 05/09/18 06:30 MCH 28.9 pg (25.7-33.7) 05/09/18 06:30 MCHC 34.4 g/dl (32.0-36.0) 05/09/18 06:30 RDW 15.5 % (11.6-15.6) 05/09/18 06:30 Plt Count 202 K/MM3 (134-434) 05/09/18 06:30 MPV 9.2 fl (7.5-11.1) 05/09/18 06:30 Absolute Neuts (auto) 5.3 K/mm3 (1.5-8.0) 05/09/18 06:30 Neutrophils % 89.0 % (42.8-82.8) H D 05/09/18 06:30 Lymphocytes % 10.6 % (8-40) D 05/09/18 06:30 Monocytes % 0.4 % (3.8-10.2) L D 05/09/18 06:30 Eosinophils % 0.0 % (0-4.5) D 05/09/18 06:30 Basophils % 0.0 % (0-2.0) 05/09/18 06:30 Nucleated RBC % 0 % (0-0) 05/09/18 06:30 Sodium 139 mmol/L (136-145) 05/09/18 06:30 Potassium 4.5 mmol/L (3.5-5.1) 05/09/18 06:30 Chloride 102 mmol/L (98-107) 05/09/18 06:30 Carbon Dioxide 31 mmol/L (21-32) 05/09/18 06:30 Anion Gap 6 MMOL/L (8-16) L 05/09/18 06:30 BUN 34 mg/dL (7-18) H 05/09/18 06:30 Creatinine 1.4 mg/dL (0.55-1.3) H 05/09/18 06:30 Creat Clearance w eGFR 35.74 (>60) 05/09/18 06:30 POC Glucometer 350 UNITS (80-120) 05/09/18 11:42 Random Glucose 225 mg/dL (74-106) H 05/09/18 06:30 Lactic Acid 0.8 mmol/L (0.4-2.0) 05/08/18 05:25 Calcium 8.1 mg/dL (8.5-10.1) L 05/09/18 06:30 Phosphorus 4.3 mg/dL (2.5-4.9) 05/09/18 06:30 Magnesium 2.2 mg/dL (1.8-2.4) 05/09/18 06:30 Total Bilirubin 0.4 mg/dL (0.2-1) 05/09/18 06:30 AST 21 U/L (15-37) 05/09/18 06:30 ALT 29 U/L (13-61) 05/09/18 06:30 Alkaline Phosphatase 91 U/L (45-117) 05/09/18 06:30 Creatine Kinase 109 IU/L (26-192) 05/08/18 05:25 Troponin I < 0.02 ng/ml (0.00-0.05) 05/08/18 11:47 B-Natriuretic Peptide 2707.8 pg/ml (5-450) H 05/08/18 11:47 Total Protein 6.5 g/dl (6.4-8.2) 05/09/18 06:30 Albumin 3.1 g/dl (3.4-5.0) L 05/09/18 06:30 Lipase 158 U/L (73-393) 05/08/18 05:25 Current Medications Generic Name Dose Route Start Last Admin Trade Name Freq PRN Reason Stop Dose Admin Acetaminophen 650 mg 05/08/18 15:46 Tylenol - PO Q6H PRN PAIN LEVEL 1-5 Albuterol Sulfate 1 amp 05/08/18 13:57 05/08/18 15:41 Ventolin 0.083% Nebulizer Soln - NEB 1 amp Q4H PRN Administration SHORT OF BREATH/WHEEZING Albuterol/Ipratropium 1 amp 05/08/18 14:00 05/09/18 10:20 Duoneb - NEB 1 amp RTID JERRY Administration Amlodipine Besylate 5 mg 05/08/18 15:15 05/09/18 10:04 Norvasc - PO 5 mg DAILY JERRY Administration Atorvastatin Calcium 80 mg 05/08/18 22:00 05/08/18 23:09 Lipitor - PO 80 mg HS JERRY Administration Carvedilol 25 mg 05/08/18 22:00 05/09/18 10:04 Coreg - PO 25 mg BID JERRY Administration Gabapentin 100 mg 05/08/18 22:00 05/09/18 13:47 Neurontin - PO 100 mg TID JERRY Administration Heparin Sodium (Porcine) 5,000 unit 05/08/18 22:00 05/09/18 10:05 Heparin - SQ 5,000 unit BID JERRY Administration Insulin Aspart 1 vial 05/08/18 16:30 12/23/18 12:46 Novolog Vial Sliding Scale - SQ 8 unit ACHS JERRY Administration Protocol Insulin Detemir 15 units 05/08/18 22:00 05/08/18 23:08 Levemir Vial SQ 15 unit HS JERRY Administration Insulin Detemir 20 units 05/09/18 07:00 05/09/18 06:40 Levemir Vial SQ 20 unit DAILY@0700 JERRY Administration Pantoprazole Sodium 40 mg 05/09/18 10:00 05/09/18 10:04 Protonix - PO 40 mg DAILY JERRY Administration Simethicone 80 mg 05/08/18 19:22 Mylicon - PO Q6H PRN GAS Constitutional: Yes: Calm Eyes: Yes: Conjunctiva Clear HENT: Yes: Atraumatic Neck: Yes: Supple Cardiovascular: Yes: Regular Rate and Rhythm (left sided PPM) Respiratory: Yes: CTA Bilaterally Gastrointestinal Inspection: Yes: WNL ...Auscultate: Yes: Normoactive Bowel Sounds ...Palpate: Yes: Soft, Other (nontender) ...Percussion: Yes: Tympanitic ...Rectal Exam: Yes: Guaiac Negative (brown guaiac negative stool, no masses) Edema: No Neurological: Yes: Alert Labs: CBC, BMP 05/09/18 06:30 05/09/18 06:30 INR, PTT INR 1.07 (0.83-1.09) 05/08/18 12:28 Problem List - Problems (1) Mass of pancreas Assessment/Plan: The double duct sign lends credence to an underlying pancreatic malignancy. I have informed the granddaughter of this. I have informed her of the serious nature of such a malignancy. A Ca 19.9 and MRCP will be obtained but I have advised EUS with FNA as the best diagnostic step if the diagnosis is to be pursued. I have provided the granddaughter with phone numbers of Dr Stalin Escalante at [facility] and the Pancreatic Center at [facility]. An ampullary tumor could alternatively be diagnosed by EGD. This mass could account for her pain Code(s): K86.9 - DISEASE OF PANCREAS, UNSPECIFIED (2) Common bile duct dilatation Code(s): K83.8 - OTHER SPECIFIED DISEASES OF BILIARY TRACT (3) Dilated pancreatic duct Code(s): K86.89 - OTHER SPECIFIED DISEASES OF PANCREAS (4) Constipation Code(s): K59.00 - CONSTIPATION, UNSPECIFIED (5) Abdominal pain Code(s): R10.9 - UNSPECIFIED ABDOMINAL PAIN Qualifiers: Abdominal location: generalized Qualified Code(s): R10.84 - Generalized abdominal pain (6) Acute hypercapnic respiratory failure Code(s): J96.02 - ACUTE RESPIRATORY FAILURE WITH HYPERCAPNIA Assessment/Plan MRCP Ca 19.9 EUS with FNA vs EGD if cleared by pulmonary team Miralax for constipation which may be the actual cause of this pain
[2018-05-09] MEDS: ATORVASTATIN CA 80 MG TABLET (FP) PO SCH (22:31)
[2018-05-09] MEDS: POLYETHYLENE GLYCOL 3350 119 GM BTL PO SCH (22:33)
[2018-05-10] MEDS: INSULIN SLIDING SCALE (NOVOLOG) 1 VIAL SQ SCH ×2 (06:55→12:18)
[2018-05-10] MEDS: INSULIN (LEVEMIR) 100 UNITS/ML UNITS SQ SCH (06:55)
[2018-05-10] MEDS: GABAPENTIN 100 MG CAPSULE (FP) PO SCH ×2 (06:55→14:36)
[2018-05-10 07:15] LABS: BASO % 0.1 % (0-2.0); HEMATOCRIT 31.5 % (32.4-45.2); HEMOGLOBIN 10.2 GM/dL (10.7-15.3); LYMPH % 9.6 % (8-40); MCH 27.4 pg (25.7-33.7); MCHC 32.3 g/dl (32.0-36.0); MEAN PLT VOLUME 9.1 fl (7.5-11.1); MONO % 4.1 % (3.8-10.2); NEUT % 86.2 % (42.8-82.8); PLATELET COUNT 194 K/MM3 (134-434); RDW 15.2 % (11.6-15.6); WHITE BLOOD COUNT 10.4 K/mm3 (4.0-10.0)
[2018-05-10] MEDS: ALBUTEROL SO4 2.5/IPRATROPIUM 0.5 INH SOL 3 ML VIAL.NEB. NEB SCH ×2 (07:20→13:43)
--- NOTE | 2018-05-10 07:41 | PN ---
Teaching Attending Note Name of Resident: Triston Blackburn ATTENDING PHYSICIAN STATEMENT I saw and evaluated the patient. I reviewed the resident's note and discussed the case with the resident. I agree with the resident's findings and plan as documented with exceptions below. SUBJECTIVE: Patient seen and examined. Breathing improved, some abdominal pain, but no nausea/vomiting, tolerating diet well. OBJECTIVE: Vital Signs Period Temp Pulse Resp BP Sys/Mccarty Pulse Ox Last 24 Hr 97.9 F-98.7 F 60-76 18-20 120-137/44-64 92-95 Intake & Output 05/07/18 05/08/18 05/09/18 05/10/18 23:59 23:59 23:59 23:59 Intake Total 380 Output Total 470 1100 Balance -470 -720 Weight 150 lb 150 lb 147 lb 4 oz General: sitting in bed in no acute distress Chest: good air entry bilaterally, no rales or wheezing appreciated Abdomen: soft, obese, vague LMQ tenderness, no voluntary or involuntary guarding or rigidity Extremities: no edema Active Medications Acetaminophen (Tylenol -) 650 mg PO Q6H PRN PRN Reason: PAIN LEVEL 1-5 Albuterol Sulfate (Ventolin 0.083% Nebulizer Soln -) 1 amp NEB Q4H PRN PRN Reason: SHORT OF BREATH/WHEEZING Last Admin: 05/08/18 15:41 Dose: 1 amp Albuterol/Ipratropium (Duoneb -) 1 amp NEB RTID [facility] Last Admin: 05/09/18 20:34 Dose: 1 amp Amlodipine Besylate (Norvasc -) 5 mg PO DAILY [facility] Last Admin: 05/09/18 10:04 Dose: 5 mg Atorvastatin Calcium (Lipitor -) 80 mg PO HS [facility] Last Admin: 05/09/18 22:31 Dose: 80 mg Carvedilol (Coreg -) 25 mg PO BID [facility] Last Admin: 05/09/18 22:32 Dose: 25 mg Gabapentin (Neurontin -) 100 mg PO TID [facility] Last Admin: 05/10/18 06:55 Dose: 100 mg Heparin Sodium (Porcine) (Heparin -) 5,000 unit SQ BID [facility] Last Admin: 05/09/18 22:31 Dose: 5,000 unit Insulin Aspart (Novolog Vial Sliding Scale -) 1 vial SQ ACHS [facility]; Protocol Last Admin: 05/10/18 06:55 Dose: Not Given Insulin Detemir (Levemir Vial) 15 units SQ HS [facility] Last Admin: 05/09/18 22:32 Dose: 15 unit Insulin Detemir (Levemir Vial) 20 units SQ DAILY@0700 [facility] Last Admin: 05/10/18 06:55 Dose: 20 unit Pantoprazole Sodium (Protonix -) 40 mg PO DAILY [facility] Last Admin: 05/09/18 10:04 Dose: 40 mg Polyethylene Glycol (Miralax (For Daily Use) -) 17 gm PO BID [facility] Last Admin: 05/09/18 22:33 Dose: 17 gm Simethicone (Mylicon -) 80 mg PO Q6H PRN PRN Reason: GAS Laboratory Results - last 24 hr 05/09/18 05/09/18 05/10/18 16:59 22:30 05:40 WBC 10.4 H RBC 3.70 Hgb 10.2 L Hct 31.5 L MCV 85.0 MCH 27.4 MCHC 32.3 RDW 15.2 Plt Count 194 MPV 9.1 Absolute Neuts (auto) 9.0 H Neutrophils % 86.2 H Lymphocytes % 9.6 Monocytes % 4.1 D Eosinophils % 0.0 Basophils % 0.1 D Nucleated RBC % 0 Puncture Site ABG pH ABG pCO2 at Pt Temp ABG pO2 at Pt Temp ABG HCO3 ABG O2 Sat (Measured) ABG O2 Content ABG Base Excess Man Test Oxygen Flow Rate Sodium Potassium Chloride Carbon Dioxide Anion Gap BUN Creatinine Creat Clearance w eGFR POC Glucometer 292 217 Random Glucose Calcium Phosphorus Magnesium Total Bilirubin Direct Bilirubin GGT AST ALT Alkaline Phosphatase C-Reactive Protein Total Protein Albumin Total Amylase 05/10/18 05/10/18 05/10/18 05:40 05:40 06:51 WBC RBC Hgb Hct MCV MCH MCHC RDW Plt Count MPV Absolute Neuts (auto) Neutrophils % Lymphocytes % Monocytes % Eosinophils % Basophils % Nucleated RBC % Puncture Site ABG pH ABG pCO2 at Pt Temp ABG pO2 at Pt Temp ABG HCO3 ABG O2 Sat (Measured) ABG O2 Content ABG Base Excess Man Test Oxygen Flow Rate Sodium 141 Potassium 4.0 Chloride 104 Carbon Dioxide 33 H Anion Gap 5 L BUN 46 H Creatinine 1.4 H Creat Clearance w eGFR 35.74 POC Glucometer 133 Random Glucose 115 H Calcium 8.0 L Phosphorus 3.0 Magnesium 2.4 Total Bilirubin 0.3 0.3 Direct Bilirubin 0.1 GGT 24 AST 19 21 ALT 23 23 Alkaline Phosphatase 76 74 C-Reactive Protein 1.1 H Total Protein 6.0 L 5.9 L Albumin 2.9 L 2.8 L Total Amylase 49 05/10/18 05/10/18 10:45 11:49 WBC RBC Hgb Hct MCV MCH MCHC RDW Plt Count MPV Absolute Neuts (auto) Neutrophils % Lymphocytes % Monocytes % Eosinophils % Basophils % Nucleated RBC % Puncture Site Right radial ABG pH 7.42 ABG pCO2 at Pt Temp 49.1 H ABG pO2 at Pt Temp 60.6 L ABG HCO3 31.2 H ABG O2 Sat (Measured) 89.5 L ABG O2 Content 14.0 L ABG Base Excess 6.1 H Man Test Positive Oxygen Flow Rate Yes Sodium Potassium Chloride Carbon Dioxide Anion Gap BUN Creatinine Creat Clearance w eGFR POC Glucometer 332 Random Glucose Calcium Phosphorus Magnesium Total Bilirubin Direct Bilirubin GGT AST ALT Alkaline Phosphatase C-Reactive Protein Total Protein Albumin Total Amylase Microbiology 05/08/18 13:20 Urine - Urine Wood Urine Culture - Final NO GROWTH OBTAINED ASSESSMENT AND PLAN: 87 yof with PMHx of diabetes, hypertension, CKD, SSS s/p permanent pacemaker 2011 [employer], coronary artery disease and multiple prior stents (RCA x 3 06/06/16 and mid LAD 08/08/16, recurrent visits to ED with abdominal pain, admitted with abdominal pain/dypsnea, ED course complicated by acute hypercapneic respiratory failure requiring bipap, also noted with suspicious pancreatic mass on CT. -Acute hypercapneic respiratory failure, suspect from abdominal pain with shallow breaths/splinting in the setting of underlying chronic respiratory acidosis+/- acute on chronic diastolic HF (from HTN (pain mediated)/?osmotic load from dye) -Abdominal pain, ?Pancreatic mass -Chronic respiratory acidosis -Suspect underlying COPD from 60 pack year smoking history -Suspected MICHAEL/OHS -CAD s/p multiple prior PCI -CKD Stage II (baseline cr around 1.3-1.[address] Ricks) -S/p PPM 2011 -HTN -HLD Plan: Clinically better. s/p lasix 40 mg IV x1 and 24 hours of steroids. Off bipap. Pulmonary/Cardiology input appreciated. CT chest non contrast noted, no concerns. Hold off on additional diuresis. Influenza PCR neg. LE duplex but current presentation, and improvement with bipap, argue against PE. Informed grand daughter of suspected pancreatic mass. Not a candidate for MRCP given PPM GI input noted. Follow up CA 19-9. Pain control. Continue home ASA/coreg/amlodipine/lipitor DVTPPX with heparin Dispo Plan for transfer to [facility] for EUS and further testing. Discussed with SUAD, Rn in detail, all questions answered.
[2018-05-10 07:53] LABS: ALBUMIN 2.8 g/dl (3.4-5.0); BILIRUBIN,DIRECT 0.1 mg/dL (0.0-0.2); BILIRUBIN,TOTAL 0.3 mg/dL (0.2-1); TOT PROT 5.9 g/dl (6.4-8.2)
[2018-05-10 08:04] LABS: ALBUMIN 2.9 g/dl (3.4-5.0); ALK PHOS 76 U/L (45-117); ANION GAP 5 MMOL/L (8-16); BILIRUBIN,TOTAL 0.3 mg/dL (0.2-1); BLOOD UREA NITROGEN 46 mg/dL (7-18); CHLORIDE 104 mmol/L (98-107); CO2 33 mmol/L (21-32); CREATININE 1.4 mg/dL (0.55-1.3); GLUCOSE,RANDOM 115 mg/dL (74-106); MAGNESIUM 2.4 mg/dL (1.8-2.4); SGOT/AST 19 U/L (15-37); SGPT/ALT 23 U/L (13-61); SODIUM 141 mmol/L (136-145)
[2018-05-10] MEDS: PANTOPRAZOLE 40 MG TABLET (FP) PO SCH (10:13)
[2018-05-10] MEDS: HEPARIN NA (PORCINE) 5,000 UNITS/ML 1ML VIAL SQ SCH (10:13)
[2018-05-10] MEDS: CARVEDILOL 25 MG TABLET (FP) PO SCH (10:13)
[2018-05-10] MEDS: amLODIPine BESYLATE 5 MG TABLET (FP) PO SCH (10:14)
[2018-05-10] MEDS: POLYETHYLENE GLYCOL 3350 119 GM BTL PO SCH (10:18)
--- NOTE | 2018-05-10 10:38 | PN ---
Progress Note (short form) - Note Progress Note: Patient seen and examined Labs reviewed Patient c/o bilateral LQ pain. 05/09/18 05/10/18 05/10/18 21:00 02:00 05:51 Temperature 98.0 F 97.9 F Pulse Rate 60 67 Respiratory 18 18 Rate Blood Pressure 130/64 137/64 O2 Sat by Pulse 92 L Oximetry (%) NAD Abdomen obese, soft, ttp RLQ and LLQ without guarding AAOx1, does not know date, knows hospital but not which one Labs reviewed, CA 19-[address] scan reviewed - unclear if 1.6cm pancreatic body lesion (or ampulla) is related to dilated CBD/PD, but certainly dilated Discussed cause with granddaughter, Ankit, by phone - [phone] -- difficult decision given age and comorbid conditions, but would be reasonable to transfer to [facility] for further assessment via EUS -- particularly since she cannot have an MRCP due to PPM. Discussed with RN; awaiting call back from primary team. Please begin transfer process to [facility] division.
--- NOTE | 2018-05-10 10:44 | PN ---
Progress Note, Physician History of Present Illness: PULMONARY ALERT,COMFORTABLE,-RESP DISTRESS, ABD PAIN IMPROVED - Current Medication List Current Medications: Active Medications Acetaminophen (Tylenol -) 650 mg PO Q6H PRN PRN Reason: PAIN LEVEL 1-5 Albuterol Sulfate (Ventolin 0.083% Nebulizer Soln -) 1 amp NEB Q4H PRN PRN Reason: SHORT OF BREATH/WHEEZING Last Admin: 05/08/18 15:41 Dose: 1 amp Albuterol/Ipratropium (Duoneb -) 1 amp NEB RTID [facility] Last Admin: 05/10/18 07:20 Dose: 1 amp Amlodipine Besylate (Norvasc -) 5 mg PO DAILY [facility] Last Admin: 05/10/18 10:14 Dose: 5 mg Atorvastatin Calcium (Lipitor -) 80 mg PO HS [facility] Last Admin: 05/09/18 22:31 Dose: 80 mg Carvedilol (Coreg -) 25 mg PO BID [facility] Last Admin: 05/10/18 10:13 Dose: 25 mg Gabapentin (Neurontin -) 100 mg PO TID [facility] Last Admin: 05/10/18 06:55 Dose: 100 mg Heparin Sodium (Porcine) (Heparin -) 5,000 unit SQ BID [facility] Last Admin: 05/10/18 10:13 Dose: 5,000 unit Insulin Aspart (Novolog Vial Sliding Scale -) 1 vial SQ [facility]; Protocol Last Admin: 05/10/18 06:55 Dose: Not Given Insulin Detemir (Levemir Vial) 15 units SQ [facility] Last Admin: 05/09/18 22:32 Dose: 15 unit Insulin Detemir (Levemir Vial) 20 units SQ DAILY@0700 [facility] Last Admin: 05/10/18 06:55 Dose: 20 unit Pantoprazole Sodium (Protonix -) 40 mg PO DAILY [facility] Last Admin: 05/10/18 10:13 Dose: 40 mg Polyethylene Glycol (Miralax (For Daily Use) -) 17 gm PO BID [facility] Last Admin: 05/10/18 10:18 Dose: 17 gm Simethicone (Mylicon -) 80 mg PO Q6H PRN PRN Reason: GAS - Objective Vital Signs: Vital Signs Temperature 97.9 F 05/10/18 05:51 Pulse Rate 67 05/10/18 05:51 Respiratory Rate 18 05/10/18 05:51 Blood Pressure 137/64 05/10/18 05:51 O2 Sat by Pulse Oximetry (%) 92 L 05/09/18 21:00 Constitutional: Yes: Well Nourished, Calm Eyes: Yes: WNL HENT: Yes: WNL Neck: Yes: WNL Cardiovascular: Yes: Regular Rate and Rhythm, S1, S2 Respiratory: Yes: Diminished Gastrointestinal: Yes: Normal Bowel Sounds, Soft Extremities: Yes: WNL Edema: No Labs: CBC, BMP 05/10/18 05:40 05/10/18 05:40 INR, PTT INR 1.07 (0.83-1.09) 05/08/18 12:28 Assessment/Plan Problem List - Problems (1) Acute hypercapnic respiratory failure Code(s): J96.02 - ACUTE RESPIRATORY FAILURE WITH HYPERCAPNIA (2) Abdominal pain Code(s): R10.9 - UNSPECIFIED ABDOMINAL PAIN Qualifiers: Abdominal location: generalized Qualified Code(s): R10.84 - Generalized abdominal pain (3) HTN (hypertension) Code(s): I10 - ESSENTIAL (PRIMARY) HYPERTENSION (4) CAD (coronary artery disease) Code(s): I25.10 - ATHSCL HEART DISEASE OF [place] CORONARY ARTERY W/O ANG PCTRS Assessment/Plan Acute Hypercapneic Respiratory Failure Abdominal Pain CAD Suspect Obstructive Sleep Apnea/Obesity Hypoventilation Syndrome r/o COPD HTN DM Hyperlipidemia Pancreatic mass - pain control - inhaled bronchodilators - supplemental O2 - ABG to ensure improving acidosis - outpt PFTs, PSG and f/u - DVT prophylaxis - sleep screen DR ADRIA COVINGTON
[2018-05-10 11:13] VITALS: TEMP 98.1
--- NOTE | 2018-05-10 11:31 | PN ---
Progress Note, Physician Chief Complaint: No dyspnea. Telem NSR A paced/Vpaced History of Present Illness: 87-year-old female with a history of diabetes, hypertension, CKD, permanent pacemaker 2012 [employer], coronary artery disease and prior stents ( RCA x 3 06/06/16 and mid LAD 08/08/16), presenting with diffuse abdominal pains. post CT she had sob, lethargy and needed bipap for her respiratory status. CXR showed mild chf, bnp mildly elevated. Echo 09/11/17 mild LVH nlef mild brayden 1.3 21/11mm gradient. mod MAC, minimal MR , Mild TR/PI - Current Medication List Current Medications: Active Medications Acetaminophen (Tylenol -) 650 mg PO Q6H PRN PRN Reason: PAIN LEVEL 1-5 Albuterol Sulfate (Ventolin 0.083% Nebulizer Soln -) 1 amp NEB Q4H PRN PRN Reason: SHORT OF BREATH/WHEEZING Last Admin: 05/08/18 15:41 Dose: 1 amp Albuterol/Ipratropium (Duoneb -) 1 amp NEB RTID [facility] Last Admin: 05/10/18 07:20 Dose: 1 amp Amlodipine Besylate (Norvasc -) 5 mg PO DAILY [facility] Last Admin: 05/10/18 10:14 Dose: 5 mg Atorvastatin Calcium (Lipitor -) 80 mg PO HS [facility] Last Admin: 05/09/18 22:31 Dose: 80 mg Carvedilol (Coreg -) 25 mg PO BID [facility] Last Admin: 05/10/18 10:13 Dose: 25 mg Docusate Sodium (Colace -) 100 mg PO TID [facility] Gabapentin (Neurontin -) 100 mg PO TID [facility] Last Admin: 05/10/18 06:55 Dose: 100 mg Heparin Sodium (Porcine) (Heparin -) 5,000 unit SQ BID [facility] Last Admin: 05/10/18 10:13 Dose: 5,000 unit Insulin Aspart (Novolog Vial Sliding Scale -) 1 vial SQ [facility]; Protocol Last Admin: 05/10/18 06:55 Dose: Not Given Insulin Detemir (Levemir Vial) 15 units SQ [facility] Last Admin: 05/09/18 22:32 Dose: 15 unit Insulin Detemir (Levemir Vial) 20 units SQ DAILY@0700 [facility] Last Admin: 05/10/18 06:55 Dose: 20 unit Pantoprazole Sodium (Protonix -) 40 mg PO DAILY [facility] Last Admin: 05/10/18 10:13 Dose: 40 mg Polyethylene Glycol (Miralax (For Daily Use) -) 17 gm PO BID [facility] Last Admin: 05/10/18 10:18 Dose: 17 gm Simethicone (Mylicon -) 80 mg PO Q6H PRN PRN Reason: GAS - Objective Vital Signs: Vital Signs Temperature 98.1 F 05/10/18 10:00 Pulse Rate 66 05/10/18 10:00 Respiratory Rate 18 05/10/18 10:00 Blood Pressure 133/51 L 05/10/18 10:00 O2 Sat by Pulse Oximetry (%) 92 L 05/10/18 09:00 Constitutional: Yes: Well Nourished, No Distress Eyes: Yes: Conjunctiva Clear, EOM Intact HENT: Yes: Atraumatic, Normocephalic Neck: Yes: Supple, Trachea Midline Cardiovascular: Yes: Regular Rate and Rhythm, S1, S2. No: JVD Respiratory: Yes: CTA Bilaterally. No: Stridor Gastrointestinal: Yes: Normal Bowel Sounds, Soft Edema: No Labs: CBC, BMP 05/10/18 05:40 05/10/18 05:40 INR, PTT INR 1.07 (0.83-1.09) 05/08/18 12:28 Problem List - Problems (1) Acute hypercapnic respiratory failure Code(s): J96.02 - ACUTE RESPIRATORY FAILURE WITH HYPERCAPNIA (2) CAD (coronary artery disease) Code(s): I25.10 - ATHSCL HEART DISEASE OF [place] CORONARY ARTERY W/O ANG PCTRS Assessment/Plan 1. Acute on chronic diastolic CHF -Heart failure improved after diuretics. -likely due to osmotic load from IV contrast with CT scan 2. CAD Ressume ASA 81mg qd Will see as needed.
[2018-05-10 12:07] LABS: ARTERIAL BLD GAS O2 SATURATION 89.5 % (90-98.9); ARTERIAL BLOOD GAS BASE EXCESS 6.1 meq/l (-2-2); ARTERIAL BLOOD GAS PCO2 49.1 mmHg (35-45); ARTERIAL BLOOD GAS PO2 60.6 mmHg (68-100); ARTERIAL BLOOD GAS pH 7.42 (7.35-7.45)
[2018-05-10 12:14] LABS: ALLENS TEST POSITIVE
[2018-05-10] MEDS ORDERED: DOCUSATE SODIUM 100 MG CAPSULE (FP) PO SCH (14:00)
[2018-05-10 14:22] VITALS: PULSE 76
[2018-05-10 15:04] VITALS: BP 124/51
--- NOTE | 2018-05-10 15:38 | DS ---
Physical Exam: SUBJECTIVE: Patient seen and examined this AM. She states that her breathing is doing okay but that she is still having some abdominal pain. OBJECTIVE: Vital Signs Period Temp Pulse Resp BP Sys/Mccarty Pulse Ox Last 24 Hr 97.9 F-98.2 F 60-76 18-18 124-137/49-64 92-96 PHYSICAL EXAM GENERAL: A&O, no acute distress HEAD: Normocephalic, atraumatic. EYES: PERRL, no scleral icterus EARS, NOSE, THROAT: oropharynx clear without exudates. Moist mucous membranes. NECK: supple without lymphadenopathy LUNGS: CTA b/l, no crackles or wheezes HEART: Regular rate and rhythm, normal S1 and S2 without murmur ABDOMEN: Soft, mildly tender to palpation diffusely, normoactive bowel sounds EXTREMITIES: 2+ pulses, warm, well-perfused. No peripheral edema. NEUROLOGICAL: Cranial nerves II-XII grossly intact. Normal speech. PSYCHIATRIC: Cooperative. Good eye contact. Appropriate mood and affect. LABS Laboratory Results - last 24 hr 05/09/18 05/09/18 05/10/18 16:59 22:30 05:40 WBC 10.4 H RBC 3.70 Hgb 10.2 L Hct 31.5 L MCV 85.0 MCH 27.4 MCHC 32.3 RDW 15.2 Plt Count 194 MPV 9.1 Absolute Neuts (auto) 9.0 H Neutrophils % 86.2 H Lymphocytes % 9.6 Monocytes % 4.1 D Eosinophils % 0.0 Basophils % 0.1 D Nucleated RBC % 0 Puncture Site ABG pH ABG pCO2 at Pt Temp ABG pO2 at Pt Temp ABG HCO3 ABG O2 Sat (Measured) ABG O2 Content ABG Base Excess Man Test Oxygen Flow Rate Sodium Potassium Chloride Carbon Dioxide Anion Gap BUN Creatinine Creat Clearance w eGFR POC Glucometer 292 217 Random Glucose Calcium Phosphorus Magnesium Total Bilirubin Direct Bilirubin GGT AST ALT Alkaline Phosphatase C-Reactive Protein Total Protein Albumin Total Amylase 05/10/18 05/10/18 05/10/18 05:40 05:40 06:51 WBC RBC Hgb Hct MCV MCH MCHC RDW Plt Count MPV Absolute Neuts (auto) Neutrophils % Lymphocytes % Monocytes % Eosinophils % Basophils % Nucleated RBC % Puncture Site ABG pH ABG pCO2 at Pt Temp ABG pO2 at Pt Temp ABG HCO3 ABG O2 Sat (Measured) ABG O2 Content ABG Base Excess Man Test Oxygen Flow Rate Sodium 141 Potassium 4.0 Chloride 104 Carbon Dioxide 33 H Anion Gap 5 L BUN 46 H Creatinine 1.4 H Creat Clearance w eGFR 35.74 POC Glucometer 133 Random Glucose 115 H Calcium 8.0 L Phosphorus 3.0 Magnesium 2.4 Total Bilirubin 0.3 0.3 Direct Bilirubin 0.1 GGT 24 AST 19 21 ALT 23 23 Alkaline Phosphatase 76 74 C-Reactive Protein 1.1 H Total Protein 6.0 L 5.9 L Albumin 2.9 L 2.8 L Total Amylase 49 05/10/18 05/10/18 10:45 11:49 WBC RBC Hgb Hct MCV MCH MCHC RDW Plt Count MPV Absolute Neuts (auto) Neutrophils % Lymphocytes % Monocytes % Eosinophils % Basophils % Nucleated RBC % Puncture Site Right radial ABG pH 7.42 ABG pCO2 at Pt Temp 49.1 H ABG pO2 at Pt Temp 60.6 L ABG HCO3 31.2 H ABG O2 Sat (Measured) 89.5 L ABG O2 Content 14.0 L ABG Base Excess 6.1 H Man Test Positive Oxygen Flow Rate Yes Sodium Potassium Chloride Carbon Dioxide Anion Gap BUN Creatinine Creat Clearance w eGFR POC Glucometer 332 Random Glucose Calcium Phosphorus Magnesium Total Bilirubin Direct Bilirubin GGT AST ALT Alkaline Phosphatase C-Reactive Protein Total Protein Albumin Total Amylase HOSPITAL COURSE: Date of Admission:05/08/18 Date of Discharge: 05/10/18 HPI on admission: 87 yr old bhutanese speaking woman with HTN, IDDMII, s/p pacemaker(2011), CAD s/p stents presents with progressively worsening lower abdominal pain for past 2 days. she is able to take po without difficulty, CLINICAL PHARMACY TECHNICIAN called ambulance when the pain became intractable. during ED stay post-CT with contrast she developed dyspnea associated with lethargy requiring bipap. denies weight loss, diarrhea, fevers, vomiting, headache. granddaughter at bedside aided in history. as per granddaughter pt has a poor memory and does not always oriented to place, time or situation on occasion. Pt has had similar abdominal in the past with w/u always negative, last episode requiring ED was at [facility] few months ago with w/u again being negative. ambulates with a walker and assitance of CLINICAL PHARMACY TECHNICIAN. Denies chest pain, cough, sick contacts, fever, vomiting, hematochezia, melena, dysuria, salty foods recently. Hospital Course: Following her initial CT scan, the pt became SOB requiring bilevel ventilation. She was seen by pulmonology who agreed with bipap until abdominal pain and respiratory status improved. ABG revealed respiratory acidosis, likely chronic. Repeat ABG improved and pt no longer required BiPap. 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 Pt is not a candidate for MRI as she has a pacemaker. It was discussed with the granddaughter and recommended that she be transferred to [facility] for further evaluation of her pancreatic mass , including probably EUS-FNA biopsy. She was deemed medically safe for transfer. Dr. Escalante is the accepting physician. All requested records included with transfer paperwork. Minutes to complete discharge: 35 Discharge Summary Reason For Visit: ACUTE ON CHRONIC CHF, SOB, ABD PAIN Current Active Problems Abdominal pain (Acute) Acute hypercapnic respiratory failure (Acute) CAD (coronary artery disease) (Acute) CHF exacerbation (Acute) Common bile duct dilatation (Acute) Constipation (Acute) Dilated pancreatic duct (Acute) HTN (hypertension) (Acute) Mass of pancreas (Acute) Shortness of breath (Acute) Condition: Good - Instructions Diet, Activity, Other Instructions: You were admitted with abdominal pain, shortness of breath, and possible CHF exacerbation. You were seen by Cardiology, Pulmonology, and Gastroenterology. During your stay a likely mass was found on your pancreas. It was recommended by GI that you be transferred to [facility] for further evaluation of this mass including an endoscopic ultrasound giuded biopsy, which cannot be completed at our facility. Please continue all current medications and management upon transfer to [facility]. Referrals: James Machuca [Non Staff, Medical] - Jhon Blanco DO [Staff Physician] - Disposition: TRANSFER ACUTE CARE/OTHER HOSP - Home Medications Comprehensive Discharge Medication List: Ambulatory Orders Amlodipine Besylate 5 mg PO DAILY 10/05/17 Atorvastatin Ca [Lipitor] 80 mg PO HS 10/05/17 Gabapentin [Neurontin] 100 mg PO TID 10/05/17 Insulin Glargine,Hum.rec.anlog [Lantus] 20 unit SQ DAILY 10/05/17 Lactulose 10 gm PO DAILY 10/05/17 Pantoprazole Sodium [Protonix] 40 mg PO DAILY 10/05/17 Aspirin [Aspirin EC] 81 mg PO DAILY 05/08/18 Calcium Carbonate [Antacid] 168 mg PO Q8H PRN 05/08/18 Insulin Glargine,Hum.rec.anlog [Lantus] 15 unit SQ HS 05/08/18 Simethicone [Gas-X] 125 mg PO Q6H 05/08/18 Acetaminophen [Tylenol .Regular Strength -] 650 mg PO Q6H PRN tablet 05/10/18 Albuterol 2.5/Ipratropium 0.5 [Duoneb -] 1 amp NEB RTID amp 05/10/18 Amlodipine Besylate [Norvasc -] 5 mg PO DAILY tablet 05/10/18 Carvedilol [Coreg -] 25 mg PO BID tablet 05/10/18 Docusate Sodium [Colace -] 100 mg PO TID capsule 05/10/18 Heparin - 5,000 unit SQ BID vial 05/10/18 Insulin Sliding Scale [Novolog Vial Sliding Scale -] 1 vial SQ ACHS units 05/10 Methylprednisolone Na Succ [Solu-Medrol -] 40 mg IVPUSH Q8H-IV vial 05/10/18 This patient is new to me today: Yes Date on this admission: 05/10/18 Emergency Visit: Yes ED Registration Date: 05/08/18 Care time: The patient presented to the Emergency Department on the above date and was hospitalized for further evaluation of their emergent condition. Critical Care patient: No - Discharge Referral Referred to [facility] Med P.C.: No
== END 2018-05-10 18:39 | disposition short-term general hospital (02) | DRG 438 ==
LOC: JER 04:12 → JERBED 12:14 → J4W 21:47
PROVIDERS: ADMIT Hospitalist; ATTEND Hospitalist
DX: K86.89 Other specified diseases of pancreas (principal); I50.33 Acute on chronic diastolic (congestive) heart failure; J96.02 Acute respiratory failure with hypercapnia; E87.2 Acidosis; I13.0 Hypertensive heart and chronic kidney disease with heart failure and stage 1 through stage 4 chronic kidney disease, or unspecified chronic kidney disease; N18.2 Chronic kidney disease, stage 2 (mild); R10.9 Unspecified abdominal pain; E78.5 Hyperlipidemia, unspecified; Z98.61 Coronary angioplasty status; K59.00 Constipation, unspecified; E11.22 Type 2 diabetes mellitus with diabetic chronic kidney disease; K83.8 Other specified diseases of biliary tract; Z95.0 Presence of cardiac pacemaker
CPT/HCPCS: 36415; 36600; 71045-TC-FY; 71250-TC; 74177-TC; 80048; 80053; 80076; 81003; 81015; 82150; 82375; 82550; 82803; 82962; 82977; 83050; 83605; 83690; 83735; 83880; 84100; 84484; 85025; 85610; 85730; 86140; 86301; 87086; 87804; 93005; 93010; 93970-TC; 94010; 94640; 94761; 97116-GP; 97161-GP; 99285-25; J1644

== ENCOUNTER 2018-06-11 08:26 | Inpatient (IN) | payer OTHER ==
--- NOTE | 2018-06-11 08:47 | PDOC ---
History of Present Illness - General Stated Complaint: SOB Time Seen by Provider: 06/11/18 08:46 History Source: Patient, Care Provider, Family (Granddaughter), Finish Patcher Used (Interpretor [id number]) Exam Limitations: Other (poor historian, does not seem that she understands her medical history well) - History of Present Illness Initial Comments: Pt is an 87 yo F, with PMH of DM, HTN, CAD (stents x5 and pacemaker), CHF, and GERD, who is presenting with complaints of abdominal distension, abdominal pain (RUQ) and progressive SOB over the past 3 days. Pt is accompanied by her home health aide, who is with her daily; I also obtained some history from the granddaughter over the phone. The pt has been waking during the night feeling SOB, and the aide states she has increased swelling in her legs. The pt has to sleep upright during the night. The abdominal pain preceded the SOB, and is crampy in nature. Pt denies any fevers/chills, headache, vision changes, syncope , chest pain, palpitations, nausea/vomiting, urinary symptoms, or diarrhea/ constipation. The pt has been admitted multiple times for CHF exacerbations and similar complaints. Her last admission in April 2018 required BIPAP; she was transferred to [facility] for further work-up after findings of pancreatic mass/ CBD dilation. 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 No changes to medication were started. Last Echo 08/2017: mild LVH/ DVT study in 04/2018 negative Has been admitted to hospitalist team in the past, as PCP is "a doctor at [facility]" Social: Pt denies any cigarette, alcohol, or drug use. Pt denies any recent travel or sick contacts. Surgical: CAD/CHF (stents, pacemaker). Family: no relevant history. 06/11/18 14:39 Past History - Past Medical History Allergies/Adverse Reactions: Allergies Allergy/AdvReac Type Severity Reaction Status Date / Time No Known Allergies Allergy Verified 05/08/18 04:27 Home Medications: Ambulatory Orders Atorvastatin Ca [Lipitor] 80 mg PO HS 10/05/17 Insulin Glargine,Hum.rec.anlog [Lantus] 20 unit SQ HS 10/05/17 Pantoprazole Sodium [Protonix] 40 mg PO DAILY 10/05/17 Aspirin [Aspirin EC] 81 mg PO DAILY 05/08/18 Insulin Glargine,Hum.rec.anlog [Lantus] 10 unit SQ AM 05/08/18 Simethicone [Gas-X] 80 mg PO Q6H 05/08/18 Acetaminophen [Tylenol .Regular Strength -] 650 mg PO Q6H PRN tablet 05/10/18 Amlodipine Besylate [Norvasc -] 5 mg PO DAILY tablet 05/10/18 Carvedilol [Coreg -] 25 mg PO BID tablet 05/10/18 Gabapentin 100 mg PO TID 06/11/18 Sitagliptin Phosphate [Januvia] 100 mg PO DAILY 06/11/18 Cardiac Disorders: Yes (5 stents) COPD: No Dementia: Yes Diabetes: Yes HTN: Yes Hypercholesterolemia: Yes - Surgical History Cardiac Surgery: Yes (pacemaker) - Suicide/Smoking/Psychosocial Hx Smoking History: Former smoker Have you smoked in the past 12 months: No If you are a former smoker, when did you quit?: 30 years ago Hx Alcohol Use: No Drug/Substance Use Hx: No Review of Systems - Review of Systems Able to Perform ROS?: Yes Is the patient limited [place] proficient: No ED Treatment Course - LABORATORY CBC & Chemistry Diagram: 06/11/18 09:22 06/11/18 09:22 Medical Decision Making - Medical Decision Making Pt was seen at bedside, also will be seen by attending Dr. Romero. Pt presenting with complaints of abdominal distension, abdominal pain (RUQ) and progressive SOB over the past 3 days. Pt is accompanied by her home health aide, who is with her daily; I also obtained some history from the granddaughter over the phone. The pt has been waking during the night feeling SOB, and the aide states she has increased swelling in her legs. The pt has to sleep upright during the night. The abdominal pain preceded the SOB, and is crampy in nature. Pt denies any fevers/chills, headache, vision changes, syncope, chest pain, palpitations, nausea/vomiting, urinary symptoms, or diarrhea/constipation. The pt has been admitted multiple times for CHF exacerbations and similar complaints. Her last admission in April 2018 required BIPAP; she was transferred to [facility] for further work-up after findings of pancreatic mass/ CBD dilation. 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 No changes to medication were started. Pt was dyspneic on arrival, started on Venti mask (saturating 100%) and was quickly changed to 3 L NC (saturating 95%). Pt afebrile, BP stable. Pt has normal body habitus. PE showed pt alert and oriented. phone circuit operator generally intact, muscular strength and sensation intact. Oropharynx without erythema or exudates. No nasal congestion, hearing intact. Clear heart sounds, S1/S2, no JVD , no significant b/l pedal edema, or heart murmur. Lung sounds diminished throughout, no obvious wheezes or crackles auscultated. Mild pulling of abdominal muscles with breathing. Abdominal tenderness to palpation over suprapubic and RUQ areas, no rebound, no guarding. Abdomen soft, non-distended, and with normoactive bowel sounds. No CVA tenderness. Skin without jaundice or rash. Considering CHF exacerbation vs ACS vs URI (viral, influenza, bacterial pneumonia). Pt afebrile and no productive cough, more likely cardiac exacerbation than new infectious process. Ordered work-up including CBC, CMP, Mg, VBG, cardiac profile, ECG, UA, urine culture, and portable chest x-ray. Provided duonebs for improvement of dyspnea/chest congestion. Will continue to reassess pt and monitor for symptomatic improvement. ECG: Atrial-paced rhythm; intervals otherwise WNL. TWIs in inferior leads ( present on ECG 04/2018); no significant ST segment changes or reciprocal changes. No significant changes from prior ECG. 06/11/18 09:45 [id number] RAD/CHEST X-RAY PORTABLE* CHF, shortness of breath. Evaluate for infiltrate. Portable chest x-ray compared with May 09, 2016. Calcified aortic arch, uncoiled thoracic aorta. Cardiomegaly. Left pacemaker with 2 intact leads. No evidence of vascular congestive changes. No pleural effusion, or pneumothorax is seen. No evidence of bulky hilar adenopathy. The visualized osseous structures appear intact. Impression. Cardiomegaly. No evidence of CHF, pneumonia, pneumothorax, or pleural effusion. CBC: H/H 10.1/30.0 (pt baseline); Influenza negative, pt afebrile, no WBC -- less likely infectious cause CMP: K 5.3, BUN 40, Cr 1.6 (pt has increased BUN/Cr on prior admissions) INR 1.13 Trop <.02 BNP 3135 (elevated compared to prior admissions) -- likely CHF exacerbation, explains pts SOB, subjective leg swelling, orthopnea Pt saturating 85% on 3 L NC. Placed pt back on Venti mask (saturating 100% now, RR improving). Paged respiratory for BIPAP. 06/11/18 10:17 BIPAP settings: 12/5, RR 14, O2 60% Spoke with hospitalist team (returned call within 30 minutes), pt will be admitted to hospitalist team for further work-up (Dr. Kang) and cardiac monitoring. Admission order changed. Pt resting comfortably on BIPAP (O2 saturation 100%), pt states her work of breathing has improved. Pt awaiting eval from hospitalist team and bed upstairs. 06/11/18 12:01 06/11/18 14:17 *DC/Admit/Observation/Transfer Diagnosis at time of Disposition: Elevated brain natriuretic peptide (BNP) level Acute exacerbation of CHF (congestive heart failure) Qualifiers: Heart failure type: unspecified Qualified Code(s): I50.9 - Heart failure, unspecified HTN (hypertension) Qualifiers: Hypertension type: unspecified Qualified Code(s): I10 - Essential (primary) hypertension - Discharge Dispostion Condition at time of disposition: Stable Decision to Admit order: Yes - Referrals - Patient Instructions - Post Discharge Activity
[2018-06-11 08:59] VITALS: BMI 28.3
[2018-06-11 09:36] LABS: VENOUS PC02 83.9 mmHg (38-52); VENOUS PH 7.17 (7.32-7.42); VENOUS PO2 44.1 mmHg (28-48)
[2018-06-11 09:38] LABS: BASO % 0.4 % (0-2.0); EOS % 0.4 % (0-4.5); HEMOGLOBIN 10.1 GM/dL (10.7-15.3); LYMPH % 12.6 % (8-40); MCH 29.4 pg (25.7-33.7); MCHC 33.9 g/dl (32.0-36.0); MEAN CELL VOLUME 86.7 fl (80-96); MEAN PLT VOLUME 8.8 fl (7.5-11.1); MONO % 4.5 % (3.8-10.2); NEUT % 82.1 % (42.8-82.8); PLATELET COUNT 176 K/MM3 (134-434); RBC 3.46 M/mm3 (3.60-5.2); RDW 16.6 % (11.6-15.6); WHITE BLOOD COUNT 6.7 K/mm3 (4.0-10.0)
--- NOTE | 2018-06-11 09:54 | PDOC ---
Attending Attestation - HPI HPI: 06/11/18 10:01 The patient is an 87 year old female with a past medical history of HTN, diabetes, CAD, GERD, and CHF here today for evaluation of shortness of breath. The patients granddaughter reports that the patients shortness of breath began 3 days and notes associated right upper quadrant abdominal pain. The patients granddaughter notes that the patient has had similar episodes of shortness of breath in the past. Patient denies headache, lightheadedness. Denies fever, chills. Denies chest pain. Denies nausea, vomiting, diarrhea. Denies lower extremity edema. Denies urinary symptoms. Allergies: NKA Surgical history: pacemaker, stents (x5) PCP: James Alatorre - Physicial Exam PE: 06/11/18 11:21 Vitals: Triage vital signs reviewed General Appearance: No acute distress, well nourished, well developed Head: Atraumatic Chest Wall: Nontender Cardiac: Regular rate and rhythm, no murmurs, no rubs, no gallops Lungs: +faint crackles at bilateral bases. Good air movement bilaterally Abdomen: Soft, nondistended, normal bowel sounds, nontender to palpation Skin: Warm and dry, no rashes or lesions, no rash, no petechiae Neuro: AOX3; Cranial Nerves 2-12 grossly intact, Strength intact to all extremities, Sensation intact to all extremities Psych: Normal mood, normal affect - Medical Decision Making 06/11/18 10:01 Documentation prepared by JESS Coleman, acting as medical support assistant for Sam Romero MD. The patient is an 87 year old female with a past medical history of HTN, diabetes, CAD, GERD, and CHF here today for evaluation of shortness of breath. <Tanvir Johnson - Last Filed: 06/11/18 11:20> - Resident Resident Name: Chelita Morales - ED Attending Attestation I have performed the following: I have examined & evaluated the patient, The case was reviewed & discussed with the resident, I agree w/resident's findings & plan, Exceptions are as noted - Medical Decision Making 06/11/18 14:25 Patient with notable hypoxia when not on supplemental oxygen History and examination most consistent with CHF exacerbation although chest x- ray not notable for florid pulmonary congestion Given symptomatology dyspnea with exertion and significant cardiac history we' ll admit hospital on telemetry for serial troponins diuresis echo and further management <Sam Romero - Last Filed: 06/11/18 14:26> Heart Score/ECG Review - ECG Impressions Comment:: 06/11/18 14:26 EKG performed at 9:04 AM demonstrates atrial paced rhythm. T-wave inversions inferiorly <Sam Romero - Last Filed: 06/11/18 14:26>
[2018-06-11 09:57] LABS: INR 1.13 (0.83-1.09); PROTHROMBIN TIME (PATIENT) 13.3 SEC (9.7-13.0)
[2018-06-11] MEDS ORDERED: ALBUTEROL SO4 2.5/IPRATROPIUM 0.5 INH SOL 3 ML VIAL.NEB. NEB ONE ×3 (10:17→22:05)
[2018-06-11 10:24] LABS: ALBUMIN 3.1 g/dl (3.4-5.0); ALK PHOS 102 U/L (45-117); ANION GAP 7 MMOL/L (8-16); BILIRUBIN,TOTAL 0.4 mg/dL (0.2-1); BLOOD UREA NITROGEN 40 mg/dL (7-18); CALCIUM 7.7 mg/dL (8.5-10.1); CHLORIDE 104 mmol/L (98-107); CO2 28 mmol/L (21-32); CREATININE 1.6 mg/dL (0.55-1.3); GLUCOSE,RANDOM 172 mg/dL (74-106); LIPASE 120 U/L (73-393); MAGNESIUM 2.2 mg/dL (1.8-2.4); N-TERMINAL BNP 3135.5 pg/ml (5-450); POTASSIUM 5.3 mmol/L (3.5-5.1); SGOT/AST 25 U/L (15-37); SGPT/ALT 48 U/L (13-61); SODIUM 139 mmol/L (136-145); TOT PROT 6.8 g/dl (6.4-8.2)
[2018-06-11] MEDS ORDERED: FUROSEMIDE 40 MG/4 ML INJECTABLE VIAL IVPUSH ONE ×2 (10:25→19:17)
[2018-06-11] MEDS ORDERED: FUROSEMIDE 40 MG/4 ML INJECTABLE VIAL ONE ×2 (10:47→19:33)
--- NOTE | 2018-06-11 11:56 | EKG ---
Test Reason : Blood Pressure : / mmHG Vent. Rate : 060 BPM Atrial Rate : 072 BPM P-R Int : 268 ms QRS Dur : 086 ms QT Int : 406 ms P-R-T Axes : 091 -16 -38 degrees QTc Int : 406 ms Atrial-paced rhythm with prolonged AV conduction T WAVE ABNORMALITY, CONSIDER INFERIOR ISCHEMIA ABNORMAL ECG WHEN COMPARED WITH ECG OF 08-MAY-2018 11:41, NONSPECIFIC T WAVE ABNORMALITY HAS REPLACED INVERTED T WAVES IN LATERAL LEADS Confirmed by OMID ART, KRISTAL ([id number]) on 06/11/2018 11:56:43 AM Referred By: Confirmed By:KRISTAL ANNE MD
--- NOTE | 2018-06-11 13:56 | HP ---
CHIEF COMPLAINT: shortness of breath PCP: Dr. James Nickerson PCP Dr. Ricks (cardiology) HISTORY OF PRESENT ILLNESS: Patient is an 87 year old female with a significant past medical history or diabetes mellitus II, hypertension, pacemaker(2011), CAD s/p stents x 5. She presents to the ED today for progressively worsening shortness of breath that began 3 days ago associated with lethargy and c/o of RUQ pain. In the past 3 days, patient has waking up frequently due to shortness of breath and has to sleep upright. In the ED she was placed on nasal cannula and eventually upgraded to bipap. She is not home oxygen dependent. Patient has been admitted multiple times for CHF exacerbation with similar presentation. Her last admission was last month 04/2018 and required Bipap. On last admission she was she was transferred to [facility] for further work-up after findings of a possible pancreatic mass with CBD dilation. Per family, she was worked up at 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 ER course was notable for: (1) bnp 3135 (2) abg with respiratory acidosis and metabolic acidosis. on bipap therapy (3) k. 5.3 (4) Lasix 40mg x 2 (5) ekg: atria paced rhythm PAST MEDICAL/SURGICAL HISTORY: diabetes mellitus II, hypertension, pacemaker( 2011), CAD s/p stents x 5. Social History: Smoking: N/A Alcohol:N/A Drugs:N/A Family History: Allergies No Known Allergies Allergy (Verified 05/08/18 04:27) HOME MEDICATIONS: Home Medications Medication Instructions Recorded Atorvastatin Ca [Lipitor] 80 mg PO HS 10/05/17 Insulin Glargine,Hum.rec.anlog 20 unit SQ HS 10/05/17 [Lantus] Pantoprazole Sodium [Protonix] 40 mg PO DAILY 10/05/17 Aspirin [Aspirin EC] 81 mg PO DAILY 05/08/18 Insulin Glargine,Hum.rec.anlog 10 unit SQ AM 05/08/18 [Lantus] Simethicone [Gas-X] 80 mg PO Q6H 05/08/18 Acetaminophen [Tylenol .Regular 650 mg PO Q6H PRN tablet 05/10/18 Strength -] Amlodipine Besylate [Norvasc -] 5 mg PO DAILY tablet 05/10/18 Carvedilol [Coreg -] 25 mg PO BID tablet 05/10/18 Gabapentin 100 mg PO TID 06/11/18 Sitagliptin Phosphate [Januvia] 100 mg PO DAILY 06/11/18 REVIEW OF SYSTEMS CONSTITUTIONAL: Absent: fever, chills, diaphoresis, generalized weakness, malaise, loss of appetite, weight change HEENT: Absent: rhinorrhea, nasal congestion, throat pain, throat swelling, difficulty swallowing, mouth swelling, ear pain, eye pain, visual changes CARDIOVASCULAR: Absent: chest pain, syncope, palpitations, irregular heart rate, lightheadedness , peripheral edema GENITOURINARY: Absent: dysuria, frequency, urgency, hesitancy, hematuria, flank pain, genital pain MUSCULOSKELETAL: Absent: myalgia, arthralgia, joint swelling, back pain, neck pain SKIN: Absent: rash, itching, pallor HEMATOLOGIC/IMMUNOLOGIC: Absent: easy bleeding, easy bruising, lymphadenopathy, frequent infections ENDOCRINE: Absent: unexplained weight gain, unexplained weight loss, heat intolerance, cold intolerance NEUROLOGIC: Absent: headache, focal weakness or paresthesias, dizziness, unsteady gait, seizure, mental status changes, bladder or bowel incontinence PSYCHIATRIC: Absent: anxiety, depression, suicidal or homicidal ideation, hallucinations. PHYSICAL EXAMINATION Vital Signs - 24 hr 06/11/18 06/11/18 06/11/18 08:35 09:12 10:45 Temperature 98.1 F Pulse Rate 63 64 Pulse Rate [ Apical] Respiratory 22 H Rate Blood Pressure 139/62 Blood Pressure [Left Arm] O2 Sat by Pulse 100 100 98 Oximetry (%) 06/11/18 06/11/18 10:51 13:38 Temperature Pulse Rate Pulse Rate [ 61 60 Apical] Respiratory 14 Rate Blood Pressure Blood Pressure 136/57 L 135/51 L [Left Arm] O2 Sat by Pulse 100 100 Oximetry (%) GENERAL: Awake, alert, forgetful, poor historian HEAD: Normal with no signs of trauma. EYES: Pupils equal, round and reactive to light, extraocular movements intact, sclera anicteric, conjunctiva clear. No lid lag. EARS, NOSE, THROAT: Ears normal, nares patent, oropharynx clear without exudates. Moist mucous membranes. NECK: Normal range of motion, supple without lymphadenopathy, JVD, or masses. LUNGS: diminished lungs sounds throughout HEART: Regular rate and rhythm ABDOMEN: Soft, tenderness of ruq, no nausea or vomiting MUSCULOSKELETAL: Normal range of motion at all joints. No bony deformities or tenderness. No CVA tenderness. UPPER EXTREMITIES: No peripheral edema. LOWER EXTREMITIES: 2+ peripheral edema. NEUROLOGICAL: Normal speech. ambulates with RW PSYCHIATRIC: Cooperative. Good eye contact. . SKIN: Warm, dry, normal turgor, no rashes or lesions noted, normal capillary refill. Laboratory Results - last 24 hr 06/11/18 06/11/18 06/11/18 09:22 09:22 09:22 WBC 6.7 RBC 3.46 L Hgb 10.1 L Hct 30.0 L MCV 86.7 MCH 29.4 MCHC 33.9 RDW 16.6 H Plt Count 176 MPV 8.8 Absolute Neuts (auto) 5.5 Neutrophils % 82.1 Lymphocytes % 12.6 D Monocytes % 4.5 Eosinophils % 0.4 D Basophils % 0.4 D Nucleated RBC % 0 PT with INR INR VBG pH 7.17 L* POC VBG pCO2 83.9 H* POC VBG pO2 44.1 D Mixed VBG HCO3 29.2 H Sodium Potassium Chloride Carbon Dioxide Anion Gap BUN Creatinine Creat Clearance w eGFR POC Glucometer Random Glucose Lactic Acid Calcium Magnesium Total Bilirubin AST ALT Alkaline Phosphatase Creatine Kinase Troponin I B-Natriuretic Peptide Total Protein Albumin Lipase Influenza A (Rapid) Negative Influenza B (Rapid) Negative 06/11/18 06/11/18 06/11/18 09:22 09:22 09:25 WBC RBC Hgb Hct MCV MCH MCHC RDW Plt Count MPV Absolute Neuts (auto) Neutrophils % Lymphocytes % Monocytes % Eosinophils % Basophils % Nucleated RBC % PT with INR 13.30 H INR 1.13 H VBG pH POC VBG pCO2 POC VBG pO2 Mixed VBG HCO3 Sodium 139 Potassium 5.3 H Chloride 104 Carbon Dioxide 28 Anion Gap 7 L BUN 40 H Creatinine 1.6 H Creat Clearance w eGFR 30.63 POC Glucometer Random Glucose 172 H Lactic Acid 0.6 Calcium 7.7 L Magnesium 2.2 Total Bilirubin 0.4 AST 25 ALT 48 Alkaline Phosphatase 102 Creatine Kinase 110 Troponin I < 0.02 B-Natriuretic Peptide 3135.5 H Total Protein 6.8 Albumin 3.1 L Lipase 120 Influenza A (Rapid) Influenza B (Rapid) 06/11/18 09:36 WBC RBC Hgb Hct MCV MCH MCHC RDW Plt Count MPV Absolute Neuts (auto) Neutrophils % Lymphocytes % Monocytes % Eosinophils % Basophils % Nucleated RBC % PT with INR INR VBG pH POC VBG pCO2 POC VBG pO2 Mixed VBG HCO3 Sodium Potassium Chloride Carbon Dioxide Anion Gap BUN Creatinine Creat Clearance w eGFR POC Glucometer 205.83016 Random Glucose Lactic Acid Calcium Magnesium Total Bilirubin AST ALT Alkaline Phosphatase Creatine Kinase Troponin I B-Natriuretic Peptide Total Protein Albumin Lipase Influenza A (Rapid) Influenza B (Rapid) ASSESSMENT/PLAN: Patient is an 87 year old female with a significant past medical history or diabetes mellitus II, hypertension, pacemaker(2011), CAD s/p stents x 5. She presents to the ED today for progressively worsening shortness of breath that began 3 days ago associated with lethargy and c/o of RUQ pain. In the past 3 days, patient has waking up frequently due to shortness of breath and has to sleep upright. In the ED she was placed on nasal cannula and eventually upgraded to bipap. She is not home oxygen dependent. Patient has been admitted multiple times for CHF exacerbation with similar presentation. Her last admission was last month 04/2018 and required Bipap. On last admission she was she was transferred to [facility] for further work-up after findings of a possible pancreatic mass with CBD dilation. Per family, she was worked up at 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 Pulmonary Acute hypercapneic respiratory failure Possible underlying chronic respiratory acidosis/possible acute on chronic diastolic HF Requires bipap Tolerating episodes off bipap on nasal cannula. Lasix 40mg x 2 in the ED Underlying COPD Has history of smoking (60 pack year) Wean off bipap as tolerated ABG shows respiratory acidosis and metabolic acidosis Assess need for home oxygen Pulmonary following Cardiology Possible acute on chronic CHF Lasix given in the ED Monitor daily weights Low salt/diabetic diet Cardiology consulted Rule our ACS Trend troponins CAD s/p stents On ASA, Lipitor Endo: Diabetes Tight control with novolog and levemir monitor bgms fen no ivf monitor electrolytes diabetic diet prophy SCDs protonix full code Visit type - Emergency Visit Emergency Visit: Yes ED Registration Date: 06/11/18 Care time: The patient presented to the Emergency Department on the above date and was hospitalized for further evaluation of their emergent condition. - New Patient This patient is new to me today: Yes Date on this admission: 06/12/18 - Critical Care Critical Care patient: No
--- NOTE | 2018-06-11 15:54 | PN ---
Progress Note (short form) - Note Progress Note: PULMONARY CONSULTATION DICTATED 06/11/18 IMP ACUTE HYPOXEMIC/HYPERCAPNEIC RESPIRATORY FAILURE ACUTE ON CHRONIC CHF ASHD S/P STENTS S/P PPM ACUTE ON CHRONIC KIDNEY INJURY ABDOMINAL PAIN DM HTN GERD PLAN IV LASIX O2 BIPAP INHALED BRONCHODILATORS DAILY WT MONITOR LYTES,RENAL FUNCTION F/U CHEST X-RAYS ECHO ABG DR COVINGTON Problem List - Problems (1) Acute respiratory failure with hypoxia and hypercapnia Code(s): J96.01 - ACUTE RESPIRATORY FAILURE WITH HYPOXIA; J96.02 - ACUTE RESPIRATORY FAILURE WITH HYPERCAPNIA (2) CHF exacerbation Code(s): I50.9 - HEART FAILURE, UNSPECIFIED Qualifiers: Heart failure type: unspecified Qualified Code(s): I50.9 - Heart failure, unspecified (3) Elevated brain natriuretic peptide (BNP) level Code(s): R79.89 - OTHER SPECIFIED ABNORMAL FINDINGS OF BLOOD CHEMISTRY (4) HTN (hypertension) Code(s): I10 - ESSENTIAL (PRIMARY) HYPERTENSION Qualifiers: Hypertension type: unspecified Qualified Code(s): I10 - Essential (primary ) hypertension (5) Abdominal pain Code(s): R10.9 - UNSPECIFIED ABDOMINAL PAIN Qualifiers: Abdominal location: generalized Qualified Code(s): R10.84 - Generalized abdominal pain (6) CAD (coronary artery disease) Code(s): I25.10 - ATHSCL HEART DISEASE OF [place] CORONARY ARTERY W/O ANG PCTRS (7) Shortness of breath Code(s): R06.02 - SHORTNESS OF BREATH (8) [id number]-ot-[id number] kidney injury Code(s): N17.9 - ACUTE KIDNEY FAILURE, UNSPECIFIED; N18.9 - CHRONIC KIDNEY DISEASE, UNSPECIFIED (9) Abdominal pain Code(s): R10.9 - UNSPECIFIED ABDOMINAL PAIN (10) Acute on chronic systolic CHF (congestive heart failure) Code(s): I50.23 - ACUTE ON CHRONIC SYSTOLIC (CONGESTIVE) HEART FAILURE
[2018-06-11 16:27] LABS: ARTERIAL BLD GAS O2 SATURATION 98.8 % (90-98.9); ARTERIAL BLOOD GAS BASE EXCESS 1.9 meq/l (-2-2)
[2018-06-11 16:30] LABS: ARTERIAL BLOOD GAS PCO2 60.5 mmHg (35-45)
[2018-06-11] MEDS: INSULIN SLIDING SCALE (NOVOLOG) 1 VIAL SQ SCH ×2 (16:47→22:27)
[2018-06-11] MEDS ORDERED: LIDOCAINE 5% TOPICAL PATCH ONE (16:48)
[2018-06-11] MEDS: LIDOCAINE 5% TOPICAL PATCH TP SCH (16:49)
[2018-06-11] MEDS: SIMETHICONE 80 MG TAB.CHEW (FP) PO SCH ×2 (18:56→22:21)
[2018-06-11] MEDS ORDERED: ACETAMINOPHEN 325 MG TABLET (FP) PO PRN (21:19)
[2018-06-11] MEDS ORDERED: CARVEDILOL 12.5 MG TABLET (FP) ONE (22:05)
[2018-06-11] MEDS ORDERED: ATORVASTATIN CA 80 MG TABLET (FP) ONE (22:06)
[2018-06-11] MEDS ORDERED: GABAPENTIN 100 MG CAPSULE (FP) ONE (22:06)
[2018-06-11] MEDS ORDERED: INSULIN (LEVEMIR) 100 UNITS/ML UNITS SQ ONE (22:07)
[2018-06-11] MEDS: GABAPENTIN 100 MG CAPSULE (FP) PO SCH (22:21)
[2018-06-11] MEDS: ALBUTEROL SO4 2.5/IPRATROPIUM 0.5 INH SOL 3 ML VIAL.NEB. NEB SCH (22:21)
[2018-06-11] MEDS: CARVEDILOL 25 MG TABLET (FP) PO SCH (22:21)
[2018-06-11] MEDS: INSULIN (LEVEMIR) 100 UNITS/ML UNITS SQ SCH (22:21)
[2018-06-11] MEDS: ATORVASTATIN CA 80 MG TABLET (FP) PO SCH (22:21)
[2018-06-11] MEDS ORDERED: INSULIN (NOVOLOG) ASPART 100 UNITS/ML 10ML VIAL ONE (22:23)
[2018-06-11] MEDS: LIDOCAINE PATCH REMOVAL MC SCH (22:27)
[2018-06-12] MEDS: SIMETHICONE 80 MG TAB.CHEW (FP) PO SCH ×4 (06:03→23:18)
[2018-06-12] MEDS: INSULIN SLIDING SCALE (NOVOLOG) 1 VIAL SQ SCH ×4 (06:05→21:38)
[2018-06-12] MEDS: GABAPENTIN 100 MG CAPSULE (FP) PO SCH ×3 (06:30→21:33)
[2018-06-12 07:11] LABS: BASO % 0.7 % (0-2.0); HEMATOCRIT 26.3 % (32.4-45.2); HEMOGLOBIN 8.9 GM/dL (10.7-15.3); MCH 28.6 pg (25.7-33.7); MCHC 33.8 g/dl (32.0-36.0); MEAN CELL VOLUME 84.5 fl (80-96); MEAN PLT VOLUME 8.8 fl (7.5-11.1); MONO % 8.7 % (3.8-10.2); NEUT % 71.6 % (42.8-82.8); PLATELET COUNT 182 K/MM3 (134-434); RBC 3.11 M/mm3 (3.60-5.2); RDW 16.8 % (11.6-15.6); WHITE BLOOD COUNT 6.1 K/mm3 (4.0-10.0)
[2018-06-12 08:01] LABS: ALBUMIN 2.8 g/dl (3.4-5.0); ALK PHOS 84 U/L (45-117); ANION GAP 6 MMOL/L (8-16); BILIRUBIN,TOTAL 0.5 mg/dL (0.2-1); BLOOD UREA NITROGEN 41 mg/dL (7-18); CALCIUM 7.9 mg/dL (8.5-10.1); CHLORIDE 104 mmol/L (98-107); CHOLESTEROL 110 mg/dL (50-200); CO2 33 mmol/L (21-32); CREATININE 1.4 mg/dL (0.55-1.3); GLUCOSE,RANDOM 78 mg/dL (74-106); HDL CHOLESTEROL 50 mg/dL (40-60); MAGNESIUM 2.2 mg/dL (1.8-2.4); POTASSIUM 3.9 mmol/L (3.5-5.1); SGOT/AST 19 U/L (15-37); SGPT/ALT 38 U/L (13-61); SODIUM 143 mmol/L (136-145); TOT PROT 5.9 g/dl (6.4-8.2); TRIGLYCERIDES 66 mg/dL (0-150)
[2018-06-12] MEDS: ALBUTEROL SO4 2.5/IPRATROPIUM 0.5 INH SOL 3 ML VIAL.NEB. NEB SCH ×4 (08:01→19:29)
[2018-06-12] MEDS: sitaGLIPtin PHOSPHATE 25 MG TABLET (FP) PO SCH (08:57)
[2018-06-12] MEDS: amLODIPine BESYLATE 5 MG TABLET (FP) PO SCH (09:01)
[2018-06-12] MEDS: CARVEDILOL 25 MG TABLET (FP) PO SCH ×2 (09:02→21:33)
[2018-06-12] MEDS: ASPIRIN COATED 81 MG TABLET.EC PO SCH (09:02)
[2018-06-12] MEDS: LIDOCAINE 5% TOPICAL PATCH TP SCH (09:02)
[2018-06-12] MEDS: PANTOPRAZOLE 40 MG TABLET (FP) PO SCH (09:02)
[2018-06-12] MEDS ORDERED: sitaGLIPtin PHOSPHATE 100 MG TABLET (FP) PO SCH (10:00)
[2018-06-12] MEDS ORDERED: FUROSEMIDE 40 MG/4 ML INJECTABLE VIAL IVPUSH SCH ×2 (10:00→14:00)
--- NOTE | 2018-06-12 11:37 | PN ---
Progress Note (short form) - Note Progress Note: PULMONARY LYING FLAT IN BED USING NEB NIPPV HS VSS ANICTERIC DISTANT B/L BREATH SOUNDS S1S2 OBESE REDUCED EDEMA LABS/MEDS/NOTES/IMAGES REVIEWED IMP ACUTE HYPOXEMIC/HYPERCAPNEIC RESPIRATORY FAILURE ACUTE ON CHRONIC CHF ASHD S/P STENTS S/P PPM ACUTE ON CHRONIC KIDNEY INJURY ABDOMINAL PAIN DM HTN GERD PLAN IV LASIX O2 BIPAP HS AND PRN INHALED BRONCHODILATORS DAILY WT MONITOR LYTES,RENAL FUNCTION F/U CHEST X-RAYS ECHO PENDING R MURPHY ART
--- NOTE | 2018-06-12 12:22 | PN ---
Physical Exam: SUBJECTIVE: Patient seen and examined at the bedside. on a Venti mask 50% @ 15 liters. desats with 4 liters nasal cannula. OBJECTIVE: for ct chest today vascular study pending Vital Signs Period Temp Pulse Resp BP Sys/Mccarty Pulse Ox Last 24 Hr 98.0 F-98.1 F 60-68 15-20 130-135/41-60 95-100 GENERAL: Awake, alert, forgetful, poor historian. family at bedside. HEAD: Normal with no signs of trauma. EYES: Pupils equal, round and reactive to light, extraocular movements intact, sclera anicteric, conjunctiva clear. No lid lag. EARS, NOSE, THROAT: Ears normal, nares patent, oropharynx clear without exudates. Moist mucous membranes. NECK: Normal range of motion, supple without lymphadenopathy, JVD, or masses. LUNGS: diminished lungs sounds throughout, some crackles auscultated on the upper lobes. HEART: Regular rate and rhythm ABDOMEN: Soft, tenderness of ruq, no nausea or vomiting MUSCULOSKELETAL: Normal range of motion at all joints. No bony deformities or tenderness. No CVA tenderness. UPPER EXTREMITIES: No peripheral edema. LOWER EXTREMITIES: 2+ peripheral edema. NEUROLOGICAL: Normal speech. PSYCHIATRIC: Cooperative. Good eye contact. . SKIN: Warm, dry, normal turgor, no rashes or lesions noted, normal capillary refill. Laboratory Results - last 24 hr 06/11/18 06/11/18 06/11/18 16:10 16:15 22:18 WBC RBC Hgb Hct MCV MCH MCHC RDW Plt Count MPV Absolute Neuts (auto) Neutrophils % Lymphocytes % Monocytes % Eosinophils % Basophils % Nucleated RBC % Anticoagulation Therapy No Result Required. Puncture Site No Result Required. ABG pH 7.30 L ABG pCO2 at Pt Temp 60.5 H* D ABG pO2 at Pt Temp 157.0 H* D ABG HCO3 28.6 H ABG O2 Sat (Measured) 98.8 ABG O2 Content 13.0 L ABG Base Excess 1.9 Man Test No Result Required. O2 Delivery Device No Result Required. Oxygen Flow Rate No Result Required. Vent Mode No Result Required. Vent Rate No Result Required. Mechanical Rate No Result Required. Pressure Support Vent No Result Required. Sodium Potassium Chloride Carbon Dioxide Anion Gap BUN Creatinine Creat Clearance w eGFR POC Glucometer 170.27283 245.23953 Random Glucose Hemoglobin A1c % Calcium Magnesium Total Bilirubin AST ALT Alkaline Phosphatase Troponin I Total Protein Albumin Triglycerides Cholesterol Total LDL Cholesterol HDL Cholesterol 06/11/18 06/12/18 06/12/18 23:40 03:30 06:01 WBC RBC Hgb Hct MCV MCH MCHC RDW Plt Count MPV Absolute Neuts (auto) Neutrophils % Lymphocytes % Monocytes % Eosinophils % Basophils % Nucleated RBC % Anticoagulation Therapy Puncture Site ABG pH ABG pCO2 at Pt Temp ABG pO2 at Pt Temp ABG HCO3 ABG O2 Sat (Measured) ABG O2 Content ABG Base Excess Man Test O2 Delivery Device Oxygen Flow Rate Vent Mode Vent Rate Mechanical Rate Pressure Support Vent Sodium Potassium Chloride Carbon Dioxide Anion Gap BUN Creatinine Creat Clearance w eGFR POC Glucometer 90 Random Glucose Hemoglobin A1c % Calcium Magnesium Total Bilirubin AST ALT Alkaline Phosphatase Troponin I 0.03 0.04 Total Protein Albumin Triglycerides Cholesterol Total LDL Cholesterol HDL Cholesterol 06/12/18 06/12/18 06/12/18 06:30 06:30 06:30 WBC 6.1 RBC 3.11 L Hgb 8.9 L Hct 26.3 L MCV 84.5 MCH 28.6 MCHC 33.8 RDW 16.8 H Plt Count 182 MPV 8.8 Absolute Neuts (auto) 4.4 Neutrophils % 71.6 Lymphocytes % 18.0 D Monocytes % 8.7 D Eosinophils % 1.0 D Basophils % 0.7 Nucleated RBC % 0 Anticoagulation Therapy Puncture Site ABG pH ABG pCO2 at Pt Temp ABG pO2 at Pt Temp ABG HCO3 ABG O2 Sat (Measured) ABG O2 Content ABG Base Excess Man Test O2 Delivery Device Oxygen Flow Rate Vent Mode Vent Rate Mechanical Rate Pressure Support Vent Sodium 143 Potassium 3.9 Chloride 104 Carbon Dioxide 33 H Anion Gap 6 L BUN 41 H Creatinine 1.4 H Creat Clearance w eGFR 35.74 POC Glucometer Random Glucose 78 Hemoglobin A1c % 9.0 H Calcium 7.9 L Magnesium 2.2 Total Bilirubin 0.5 AST 19 ALT 38 Alkaline Phosphatase 84 Troponin I Total Protein 5.9 L Albumin 2.8 L Triglycerides 66 Cholesterol 110 Total LDL Cholesterol 53 HDL Cholesterol 50 06/12/18 11:15 WBC RBC Hgb Hct MCV MCH MCHC RDW Plt Count MPV Absolute Neuts (auto) Neutrophils % Lymphocytes % Monocytes % Eosinophils % Basophils % Nucleated RBC % Anticoagulation Therapy Puncture Site ABG pH ABG pCO2 at Pt Temp ABG pO2 at Pt Temp ABG HCO3 ABG O2 Sat (Measured) ABG O2 Content ABG Base Excess Man Test O2 Delivery Device Oxygen Flow Rate Vent Mode Vent Rate Mechanical Rate Pressure Support Vent Sodium Potassium Chloride Carbon Dioxide Anion Gap BUN Creatinine Creat Clearance w eGFR POC Glucometer 163 Random Glucose Hemoglobin A1c % Calcium Magnesium Total Bilirubin AST ALT Alkaline Phosphatase Troponin I Total Protein Albumin Triglycerides Cholesterol Total LDL Cholesterol HDL Cholesterol Active Medications Generic Name Dose Route Start Last Admin Trade Name Frelaquita PRN Reason Stop Dose Admin Acetaminophen 650 mg 06/11/18 21:19 Tylenol - PO Q6H PRN PAIN LEVEL 7 - 10 Albuterol/Ipratropium 1 amp 06/11/18 22:00 06/12/18 11:28 Duoneb - NEB 1 amp RQID JERRY Administration Amlodipine Besylate 5 mg 06/12/18 10:00 06/12/18 09:01 Norvasc - PO 5 mg DAILY JERRY Administration Aspirin 81 mg 06/12/18 10:00 06/12/18 09:02 Ecotrin - PO 81 mg DAILY JERRY Administration Atorvastatin Calcium 80 mg 06/11/18 22:00 06/11/18 22:21 Lipitor - PO 80 mg HS JERRY Administration Carvedilol 25 mg 06/11/18 22:00 06/12/18 09:02 Coreg - PO 25 mg BID JERRY Administration Furosemide 40 mg 06/12/18 14:00 Lasix Injection - IVPUSH BID JERRY Gabapentin 100 mg 06/11/18 22:00 06/12/18 06:30 Neurontin - PO 100 mg TID JERRY Administration Heparin Sodium (Porcine) 5,000 unit 06/12/18 14:00 Heparin - SQ TID JERRY Insulin Aspart 1 vial 06/11/18 16:30 06/12/18 11:27 Novolog Vial Sliding Scale - SQ 2 unit ACHS JERRY Administration Protocol Insulin Detemir 10 units 06/11/18 22:00 06/11/18 22:21 Levemir Vial SQ 10 unit HS JERRY Administration Lidocaine 1 patch 06/11/18 15:30 06/12/18 09:02 Lidoderm Patch - TP 1 patch DAILY JERRY Administration Miscellaneous 1 each 06/11/18 22:00 06/11/18 22:27 Lidoderm Patch Removal MC 1 each DAILY@2200 JERRY Administration Pantoprazole Sodium 40 mg 06/12/18 10:00 06/12/18 09:02 Protonix - PO 40 mg DAILY JERRY Administration Simethicone 80 mg 06/11/18 17:15 06/12/18 11:26 Mylicon - PO 80 mg Q6H JERRY Administration Sitagliptin Phosphate 25 mg 06/12/18 07:00 06/12/18 08:57 Januvia - PO 25 mg DAILY@0700 JERRY Administration ASSESSMENT/PLAN: Patient is an 87 year old female with a significant past medical history or diabetes mellitus II, hypertension, pacemaker(2011), CAD s/p stents x 5. She presents to the ED today for progressively worsening shortness of breath associated with lethargy and c/o of RUQ pain. In the past 3 days, patient has waking up frequently due to shortness of breath and has to sleep upright. In the ED she was placed on nasal cannula and eventually upgraded to bipap. She is not home oxygen dependent. Patient has been admitted multiple times for CHF exacerbation with similar presentation. Her last admission was last month 2017 and required Bipap. On last admission she was she was transferred to [facility] for further work-up after findings of a possible pancreatic mass with CBD dilation. 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 Pulmonary Acute hypercapneic respiratory failure Possible underlying chronic respiratory acidosis/possible acute on chronic diastolic HF Requires bipap, currently tolerating - venti mask 50% @ 15 liters to maintain sats above 90% On Lasix 40mg BID Underlying COPD Has history of smoking (60 pack year) ABG shows respiratory acidosis and metabolic acidosis Assess need for home oxygen Pulmonary following CT scan ordered. vascular duplex ordered. Cardiology Possible acute on chronic CHF Lasix given in the ED Monitor daily weights Low salt/diabetic diet Cardiology consulted Rule our ACS Negative troponins CAD s/p stents On ASA, Lipitor Endo: Diabetes Tight control with novolog and levemir monitor bgms fen no ivf monitor electrolytes diabetic diet prophy SCDs protonix full code Visit type - Emergency Visit Emergency Visit: Yes ED Registration Date: 06/11/18 Care time: The patient presented to the Emergency Department on the above date and was hospitalized for further evaluation of their emergent condition. - New Patient This patient is new to me today: No - Critical Care Critical Care patient: No - Discharge Referral Referred to [facility] No
[2018-06-12 15:15] LABS: ARTERIAL BLD GAS O2 SATURATION 91.6 % (90-98.9); ARTERIAL BLOOD GAS BASE EXCESS 8.1 meq/l (-2-2); ARTERIAL BLOOD GAS PCO2 50.6 mmHg (35-45); ARTERIAL BLOOD GAS PO2 62.9 mmHg (68-100); ARTERIAL BLOOD GAS pH 7.43 (7.35-7.45)
[2018-06-12 15:17] LABS: ALLENS TEST POSITIVE
[2018-06-12] MEDS ORDERED: FUROSEMIDE 40 MG/4 ML INJECTABLE VIAL ONE (15:24)
[2018-06-12] MEDS: HEPARIN NA (PORCINE) 5,000 UNITS/ML 1ML VIAL SQ SCH ×2 (15:58→21:34)
--- NOTE | 2018-06-12 15:58 | CON.CARD ---
Consult Consult Specialty:: cardiology. - History of Present Illness History of Present Illness: 87year old female with a PMH of NIDDM, HTN, SSS s/p PPM 2011 ([employer] in [place]), [place] in [place] had cath), hyperlipidemia, gallstones who was diagnosed with CAD in 2017 with NSTEMI and underwent cath 06/03/16 showing 3VD but was deemed a high risk surgical candidate. Underwent the placement of MICHAEL x 3 to the culprit lesions in the RCA (proximal, mid and distal) 06/06/16 and subsiquently PCI of the mid LAD with MICHAEL 08/08/16. She has chronic abdominal pain that was worked up. Now admitted with recurrent SOB and abdominal discomfort requiring BiPAP. Initially hypoxic. She received lasix. now improved. The patient denies chest pain. CT chest showed small bilateral effusions. No pulmonary consolidation or edema. CXR was clear. Lext duplex was negative for DVT. Cardiac Catheterization 06/03/16: 3VD OMAR 1.2 cm Echocardiogram 09/11/17:Interpretation Summary Mild concentric left ventricular hypertrophy. Normal left ventricular ejection fraction. Estimated ejection fraction: 60 % Fibrocalcific disease of the aortic valve. The aortic valve peak gradient is 21.1 mmHg. The aortic valve mean gradient is 11.8 mmHg. The aortic valve area index is 0.83 cm2/m2. The aortic valve area is 1.3 cm2. Mild aortic valve stenosis. Moderate mitral annular calcification. Minimal mitral valve regurgitation. Mild tricuspid valve regurgitation. Pulmonic valve not adequately visualized. Mild pulmonic valve regurgitation. - History Source History Provided By: Family Member, Medical Record - Past Medical History Cardio/Vascular: Yes: Aortic Stenosis (mild on echo), CAD (s/p CO x 2 and stenting on 2 occasions), CHF (diastolic , LVH), HTN, Hyperlipdemia, CO (CO x 2) , Other (permanent pacemaker) Gastrointestinal: Yes: Constipation, Other (chronic abdominal pain) Renal/: Yes: Renal Inusuff (diabetic nephropathy), Renal Calculi ...: No Musculoskeletal: Yes: Other (diabetic neuropathy) Endocrine: Yes: Diabetes Mellitus (IDDM) - Past Surgical History Past Surgical History: Yes: None, Colonoscopy, Permanent Pacemaker, Stent ( coronary stenting x 2) - Alcohol/Substance Use Hx Alcohol Use: No History of Substance Use: reports: None - Smoking History Smoking history: Former smoker Have you smoked in the past 12 months: No Aproximately how many cigarettes per day: 20 If you are a former smoker, when did you quit?: 30 years ago - Social History Usual Living Arrangement: Other ([employer]) ADL: Family 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 History of Recent Travel: No Home Medications - Allergies Allergies/Adverse Reactions: Allergies Allergy/AdvReac Type Severity Reaction Status Date / Time No Known Allergies Allergy Verified 05/08/18 04:27 - Home Medications Home Medications: Ambulatory Orders Atorvastatin Ca [Lipitor] 80 mg PO HS 10/05/17 Insulin Glargine,Hum.rec.anlog [Lantus] 20 unit SQ HS 10/05/17 Pantoprazole Sodium [Protonix] 40 mg PO DAILY 10/05/17 Aspirin [Aspirin EC] 81 mg PO DAILY 05/08/18 Insulin Glargine,Hum.rec.anlog [Lantus] 10 unit SQ AM 05/08/18 Simethicone [Gas-X] 80 mg PO Q6H 05/08/18 Acetaminophen [Tylenol .Regular Strength -] 650 mg PO Q6H PRN tablet 05/10/18 Amlodipine Besylate [Norvasc -] 5 mg PO DAILY tablet 05/10/18 Carvedilol [Coreg -] 25 mg PO BID tablet 05/10/18 Gabapentin 100 mg PO TID 06/11/18 Sitagliptin Phosphate [Januvia] 100 mg PO DAILY 06/11/18 Family Disease History - Family Disease History Family Disease History: [place]: Mother ( of education program specialist cancer) Review of Systems - Review of Systems Constitutional: denies: Fever, Lethargy Eyes: reports: No Symptoms HENT: reports: No Symptoms Cardiovascular: reports: Shortness of Breath. denies: Chest Pain, Edema, Palpitations Respiratory: reports: SOB, SOB on Exertion. denies: Cough Gastrointestinal: reports: No Symptoms Vital Signs: Vital Signs Temperature 98.3 F 06/12/18 14:00 Pulse Rate 63 06/12/18 14:00 Respiratory Rate 20 06/12/18 14:00 Blood Pressure 129/50 L 06/12/18 14:00 O2 Sat by Pulse Oximetry (%) 97 06/12/18 15:36 Constitutional: Yes: Well Nourished, Mild Distress Eyes: Yes: Conjunctiva Clear HENT: Yes: Atraumatic, Normocephalic Neck: Yes: Supple, Trachea Midline Respiratory: Yes: Regular, CTA Bilaterally Gastrointestinal: Yes: Normal Bowel Sounds JVD: No Carotid Bruit: No Heart Sounds: Yes: S2 Murmur: Yes: Systolic Murmur, Grade 1 (early systolic M) Edema: No - Other Data Labs, Other Data: CBC, BMP 06/12/18 06:30 06/12/18 06:30 INR, PTT INR 1.13 (0.83-1.09) H 06/11/18 09:22 Troponin, BNP 06/11/18 06/12/18 23:40 03:30 Troponin I 0.03 0.04 Troponin, BNP 06/11/18 06/12/18 23:40 03:30 Troponin I 0.03 0.04 Laboratory Tests 06/11/18 09:22 B-Natriuretic Peptide 3135.5 H Apaced with non-specific ST changes. Imaging - Results Chest X-ray: Report Reviewed Cat Scan: Report Reviewed Problem List - Problems (1) CHF exacerbation Code(s): I50.9 - HEART FAILURE, UNSPECIFIED Qualifiers: Heart failure type: unspecified Qualified Code(s): I50.9 - Heart failure, unspecified (2) Elevated brain natriuretic peptide (BNP) level Code(s): R79.89 - OTHER SPECIFIED ABNORMAL FINDINGS OF BLOOD CHEMISTRY (3) CAD (coronary artery disease) Code(s): I25.10 - ATHSCL HEART DISEASE OF [place] CORONARY ARTERY W/O ANG PCTRS Assessment/Plan Stable CAD with mild Aortic stenosis with recurrent dyspnea hypercapnic respiratory distress. Mildly elevated BNP. CT chest with small bilateral effusions, without CHF. Would consider lowering diuertic dose in the next 24 hours. Pulmonary eval for possible COPD. Echocardiogram
[2018-06-12 19:23] LABS: URINE APPEARANCE CLEAR; URINE BILIRUBIN NEGATIVE (<2.0 mg/dL); URINE COLOR STRAW; URINE GLUCOSE (UA) NEGATIVE (NEGATIVE); URINE KETONE NEGATIVE (NEGATIVE); URINE LEUK ESTERASE NEGATIVE (NEGATIVE); URINE NITRITE NEGATIVE (NEGATIVE); URINE PROTEIN NEGATIVE (NEGATIVE); URINE UROBILINOGEN NEGATIVE mg/dL (0.2-1.0)
[2018-06-12] MEDS: ATORVASTATIN CA 80 MG TABLET (FP) PO SCH (21:33)
[2018-06-12] MEDS: INSULIN (LEVEMIR) 100 UNITS/ML UNITS SQ SCH (21:34)
[2018-06-12] MEDS: LIDOCAINE PATCH REMOVAL MC SCH (21:37)
[2018-06-12] MEDS: methylPREDNISolone NA SUCC 40 MG/1 ML VIAL IVPUSH SCH (23:18)
[2018-06-13] MEDS: methylPREDNISolone NA SUCC 40 MG/1 ML VIAL IVPUSH SCH ×3 (04:06→18:08)
[2018-06-13] MEDS: SIMETHICONE 80 MG TAB.CHEW (FP) PO SCH ×4 (05:25→22:39)
[2018-06-13] MEDS: GABAPENTIN 100 MG CAPSULE (FP) PO SCH ×3 (05:25→21:59)
[2018-06-13] MEDS: HEPARIN NA (PORCINE) 5,000 UNITS/ML 1ML VIAL SQ SCH ×3 (05:25→21:59)
[2018-06-13] MEDS ORDERED: FUROSEMIDE 40 MG/4 ML INJECTABLE VIAL IVPUSH SCH (06:00)
[2018-06-13] MEDS: INSULIN SLIDING SCALE (NOVOLOG) 1 VIAL SQ SCH ×4 (06:39→22:08)
[2018-06-13] MEDS: sitaGLIPtin PHOSPHATE 25 MG TABLET (FP) PO SCH (06:40)
[2018-06-13] MEDS: ALBUTEROL SO4 2.5/IPRATROPIUM 0.5 INH SOL 3 ML VIAL.NEB. NEB SCH ×4 (08:18→20:25)
--- NOTE | 2018-06-13 09:43 | PN ---
Physical Exam: SUBJECTIVE: Patient seen and examined at the bedside. speaking clearly. now on venti mask. will attempt to wean off mask into nasal cannula OBJECTIVE: ct chest noted: small bilateral pleural effusion, right lower lobe atelectasis, patchy ground glass opacities, possible mild inflammatory changes given solumedrol to help work of breathing. appears improved. will titrate down Vital Signs Period Temp Pulse Resp BP Sys/Mccarty Pulse Ox Last 24 Hr 97.6 F-98.8 F 61-66 20-20 120-149/50-63 97-98 GENERAL: Awake, alert, appears improved HEAD: Normal with no signs of trauma. EYES: Pupils equal, round and reactive to light, extraocular movements intact, sclera anicteric, conjunctiva clear. No lid lag. EARS, NOSE, THROAT: Ears normal, nares patent, oropharynx clear without exudates. Moist mucous membranes. NECK: Normal range of motion, supple without lymphadenopathy, JVD, or masses. LUNGS: diminished lungs sounds throughout, some crackles auscultated on the right lower lobe HEART: Regular rate and rhythm ABDOMEN: Soft, tenderness of ruq, no nausea or vomiting MUSCULOSKELETAL: Normal range of motion at all joints. No bony deformities or tenderness. No CVA tenderness. UPPER EXTREMITIES: No peripheral edema. LOWER EXTREMITIES: 2+ peripheral edema. NEUROLOGICAL: Normal speech PSYCHIATRIC: Cooperative. Good eye contact. . SKIN: Warm, dry, normal turgor, no rashes or lesions noted, normal capillary refill. Laboratory Results - last 24 hr 06/12/18 06/12/18 06/12/18 06:30 11:15 15:11 Puncture Site Left radial ABG pH 7.43 ABG pCO2 at Pt Temp 50.6 H ABG pO2 at Pt Temp 62.9 L D ABG HCO3 33.0 H ABG O2 Sat (Measured) 91.6 ABG O2 Content 11.1 L ABG Base Excess 8.1 H Man Test Positive Oxygen Flow Rate Yes POC Glucometer 163 Hemoglobin A1c % 9.0 H Urine Color Urine Appearance Urine pH Ur Specific [place] Urine Protein Urine Glucose (UA) Urine Ketones Urine Blood Urine Nitrite Urine Bilirubin Urine Urobilinogen Ur Leukocyte Esterase 06/12/18 06/12/18 06/12/18 17:12 17:30 21:31 Puncture Site ABG pH ABG pCO2 at Pt Temp ABG pO2 at Pt Temp ABG HCO3 ABG O2 Sat (Measured) ABG O2 Content ABG Base Excess Man Test Oxygen Flow Rate POC Glucometer 208 313 Hemoglobin A1c % Urine Color Straw Urine Appearance Clear Urine pH 5.0 Ur Specific [place] 1.006 L Urine Protein Negative Urine Glucose (UA) Negative Urine Ketones Negative Urine Blood Negative Urine Nitrite Negative Urine Bilirubin Negative Urine Urobilinogen Negative Ur Leukocyte Esterase Negative 06/12/18 06/13/18 22:31 05:22 Puncture Site ABG pH ABG pCO2 at Pt Temp ABG pO2 at Pt Temp ABG HCO3 ABG O2 Sat (Measured) ABG O2 Content ABG Base Excess Man Test Oxygen Flow Rate POC Glucometer 299 248 Hemoglobin A1c % Urine Color Urine Appearance Urine pH Ur Specific [place] Urine Protein Urine Glucose (UA) Urine Ketones Urine Blood Urine Nitrite Urine Bilirubin Urine Urobilinogen Ur Leukocyte Esterase Active Medications Generic Name Dose Route Start Last Admin Trade Name Freq PRN Reason Stop Dose Admin Acetaminophen 650 mg 06/11/18 21:19 Tylenol - PO Q6H PRN PAIN LEVEL 7 - 10 Albuterol/Ipratropium 1 amp 06/11/18 22:00 06/13/18 08:18 Duoneb - NEB 1 amp RQID JERRY Administration Amlodipine Besylate 5 mg 06/12/18 10:00 06/12/18 09:01 Norvasc - PO 5 mg DAILY JERRY Administration Aspirin 81 mg 06/12/18 10:00 06/12/18 09:02 Ecotrin - PO 81 mg DAILY JERRY Administration Atorvastatin Calcium 80 mg 06/11/18 22:00 06/12/18 21:33 Lipitor - PO 80 mg HS JERRY Administration Carvedilol 25 mg 06/11/18 22:00 06/12/18 21:33 Coreg - PO 25 mg BID JERRY Administration Furosemide 40 mg 06/13/18 06:00 06/13/18 05:25 Lasix Injection - IVPUSH 40 mg BIDLASIX JERRY Administration Gabapentin 100 mg 06/11/18 22:00 06/13/18 05:25 Neurontin - PO 100 mg TID JERRY Administration Heparin Sodium (Porcine) 5,000 unit 06/12/18 14:00 06/13/18 05:25 Heparin - SQ 5,000 unit TID JERRY Administration Insulin Aspart 1 vial 06/11/18 16:30 06/13/18 06:39 Novolog Vial Sliding Scale - SQ 4 unit ACHS JERRY Administration Protocol Insulin Detemir 10 units 06/11/18 22:00 06/12/18 21:34 Levemir Vial SQ 10 unit HS JERRY Administration Lidocaine 1 patch 06/11/18 15:30 06/12/18 09:02 Lidoderm Patch - TP 1 patch DAILY JERRY Administration Methylprednisolone Sodium Succinate 40 mg 06/12/18 22:30 06/13/18 04:06 Solu-Medrol - IVPUSH 40 mg Q6H-IV JERRY Administration Miscellaneous 1 each 06/11/18 22:00 06/12/18 21:37 Lidoderm Patch Removal MC 1 each DAILY@2200 JERRY Administration Pantoprazole Sodium 40 mg 06/12/18 10:00 06/12/18 09:02 Protonix - PO 40 mg DAILY JERRY Administration Simethicone 80 mg 06/11/18 17:15 06/13/18 05:25 Mylicon - PO 80 mg Q6H JERRY Administration Sitagliptin Phosphate 25 mg 06/12/18 07:00 06/13/18 06:40 Januvia - PO 25 mg DAILY@0700 JERRY Administration ASSESSMENT/PLAN: Patient is an 87 year old female with a significant past medical history or diabetes mellitus II, hypertension, pacemaker(2011), CAD s/p stents x 5. She presents to the ED today for progressively worsening shortness of breath associated with lethargy and c/o of RUQ pain. In the past 3 days, patient has waking up frequently due to shortness of breath and has to sleep upright. In the ED she was placed on nasal cannula and eventually upgraded to bipap. She is not home oxygen dependent. Patient has been admitted multiple times for CHF exacerbation with similar presentation. Her last admission was last month 2017 and required Bipap. On last admission she was she was transferred to [facility] for further work-up after findings of a possible pancreatic mass with CBD dilation. 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 Pulmonary Acute hypercapneic respiratory failure Possible underlying chronic respiratory acidosis/possible acute on chronic diastolic HF/possible COPD Seen by cardiology, recommended to decrease of lasix patient still on bipap and venti mask, will attempt to wean off today Possibe Underlying COPD Has history of smoking (60 pack year) ABG shows respiratory acidosis and metabolic acidosis Assess need for home oxygen started on solumedrol to help work of breathing CT scan reviewed Cardiology Possible acute on chronic CHF Lasix given in the ED Monitor daily weights Low salt/diabetic diet Cardiology consulted and following await echo Ruled out for ACS Negative troponins CAD s/p stents On ASA, Lipitor Endo: Diabetes Tight control with novolog and levemir monitor bgms fen no ivf monitor electrolytes diabetic diet prophy SCDs protonix Visit type - Emergency Visit Emergency Visit: Yes ED Registration Date: 06/11/18 Care time: The patient presented to the Emergency Department on the above date and was hospitalized for further evaluation of their emergent condition. - New Patient This patient is new to me today: No - Critical Care Critical Care patient: No - Discharge Referral Referred to [facility] Med P.C.: No
[2018-06-13 09:50] LABS: BASO % 0.1 % (0-2.0); HEMATOCRIT 28.2 % (32.4-45.2); HEMOGLOBIN 9.5 GM/dL (10.7-15.3); LYMPH % 7.7 % (8-40); MCH 28.2 pg (25.7-33.7); MCHC 33.8 g/dl (32.0-36.0); MEAN CELL VOLUME 83.5 fl (80-96); MEAN PLT VOLUME 8.6 fl (7.5-11.1); MONO % 1.2 % (3.8-10.2); PLATELET COUNT 211 K/MM3 (134-434); RBC 3.38 M/mm3 (3.60-5.2); RDW 16.5 % (11.6-15.6); WHITE BLOOD COUNT 6.1 K/mm3 (4.0-10.0)
[2018-06-13 10:17] LABS: ALBUMIN 2.8 g/dl (3.4-5.0); ALK PHOS 92 U/L (45-117); ANION GAP 6 MMOL/L (8-16); BILIRUBIN,TOTAL 0.4 mg/dL (0.2-1); BLOOD UREA NITROGEN 35 mg/dL (7-18); CHLORIDE 99 mmol/L (98-107); CO2 35 mmol/L (21-32); CREATININE 1.4 mg/dL (0.55-1.3); GLUCOSE,RANDOM 267 mg/dL (74-106); POTASSIUM 4.3 mmol/L (3.5-5.1); SGOT/AST 13 U/L (15-37); SGPT/ALT 35 U/L (13-61); SODIUM 140 mmol/L (136-145); TOT PROT 6.1 g/dl (6.4-8.2)
[2018-06-13] MEDS: ASPIRIN COATED 81 MG TABLET.EC PO SCH (10:39)
[2018-06-13] MEDS: CARVEDILOL 25 MG TABLET (FP) PO SCH ×2 (10:39→21:59)
[2018-06-13] MEDS: amLODIPine BESYLATE 5 MG TABLET (FP) PO SCH (10:40)
[2018-06-13] MEDS: PANTOPRAZOLE 40 MG TABLET (FP) PO SCH (10:40)
[2018-06-13] MEDS: FUROSEMIDE 40 MG/4 ML INJECTABLE VIAL IVPUSH SCH (10:40)
[2018-06-13] MEDS: LIDOCAINE 5% TOPICAL PATCH TP SCH (10:40)
[2018-06-13 11:13] LABS: MAGNESIUM 2.1 mg/dL (1.8-2.4)
--- NOTE | 2018-06-13 11:34 | PN ---
Progress Note (short form) - Note Progress Note: PULMONARY LYING FLAT IN BED USING NEB NIPPV HS VSS ANICTERIC DISTANT B/L BREATH SOUNDS S1S2 OBESE REDUCED EDEMA LABS/MEDS/NOTES/IMAGES REVIEWED IMP ACUTE HYPOXEMIC/HYPERCAPNEIC RESPIRATORY FAILURE ACUTE ON CHRONIC CHF ASHD S/P STENTS S/P PPM ACUTE ON CHRONIC KIDNEY INJURY ABDOMINAL PAIN DM HTN GERD PLAN IV LASIX O2/TAPER MEDROL BIPAP HS AND PRN INHALED BRONCHODILATORS DAILY WT MONITOR LYTES,RENAL FUNCTION F/U CHEST X-RAYS ECHO PENDING R MURPHY ART
[2018-06-13 12:00] LABS: ANISOCYTOSIS 0; MACROCYTOSIS 0; PLATELET ESTIMATE NORMAL
--- NOTE | 2018-06-13 16:37 | PN ---
Progress Note, Physician Chief Complaint: Feeling better Still SOB with ambulation History of Present Illness: 87year old female with a PMH of NIDDM, HTN, SSS s/p PPM 2011 ([employer] in [place]), [place] in [place]in [place], never had cath), hyperlipidemia, gallstones who was diagnosed with CAD in 2017 with NSTEMI and underwent cath 06/03/16 showing 3VD but was deemed a high risk surgical candidate. Underwent the placement of MICHAEL x 3 to the culprit lesions in the RCA (proximal, mid and distal) 06/06/16 and subsiquently PCI of the mid LAD with MICHAEL 08/08/16. She has chronic abdominal pain that was worked up. Now admitted with recurrent SOB and abdominal discomfort requiring BiPAP. Initially hypoxic. She received lasix. now improved. The patient denies chest pain. CT chest showed small bilateral effusions. No pulmonary consolidation or edema. CXR was clear. Lext duplex was negative for DVT. Cardiac Catheterization 06/03/16: 3VD OMAR 1.2 cm Echocardiogram 09/11/17:Interpretation Summary Mild concentric left ventricular hypertrophy. Normal left ventricular ejection fraction. Estimated ejection fraction: 60 % Fibrocalcific disease of the aortic valve. The aortic valve peak gradient is 21.1 mmHg. The aortic valve mean gradient is 11.8 mmHg. The aortic valve area index is 0.83 cm2/m2. The aortic valve area is 1.3 cm2. Mild aortic valve stenosis. Moderate mitral annular calcification. Minimal mitral valve regurgitation. Mild tricuspid valve regurgitation. Pulmonic valve not adequately visualized. Mild pulmonic valve regurgitation. - Current Medication List Current Medications: Active Medications Acetaminophen (Tylenol -) 650 mg PO Q6H PRN PRN Reason: PAIN LEVEL 7 - 10 Albuterol/Ipratropium (Duoneb -) 1 amp NEB RQID [facility] Last Admin: 06/13/18 15:41 Dose: 1 amp Amlodipine Besylate (Norvasc -) 5 mg PO DAILY [facility] Last Admin: 06/13/18 10:40 Dose: 5 mg Aspirin (Ecotrin -) 81 mg PO DAILY [facility] Last Admin: 06/13/18 10:39 Dose: 81 mg Atorvastatin Calcium (Lipitor -) 80 mg PO HS [facility] Last Admin: 06/12/18 21:33 Dose: 80 mg Carvedilol (Coreg -) 25 mg PO BID [facility] Last Admin: 06/13/18 10:39 Dose: 25 mg Furosemide (Lasix Injection -) 20 mg IVPUSH DAILY [facility] Last Admin: 06/13/18 10:40 Dose: 20 mg Gabapentin (Neurontin -) 100 mg PO TID [facility] Last Admin: 06/13/18 14:17 Dose: 100 mg Heparin Sodium (Porcine) (Heparin -) 5,000 unit SQ TID [facility] Last Admin: 06/13/18 14:17 Dose: 5,000 unit Insulin Aspart (Novolog Vial Sliding Scale -) 1 vial SQ ACHS [facility]; Protocol Last Admin: 06/13/18 11:58 Dose: 8 unit Insulin Detemir (Levemir Vial) 10 units SQ HS [facility] Last Admin: 06/12/18 21:34 Dose: 10 unit Lidocaine (Lidoderm Patch -) 1 patch TP DAILY [facility] Last Admin: 06/13/18 10:40 Dose: 1 patch Methylprednisolone Sodium Succinate (Solu-Medrol -) 20 mg IVPUSH Q8H-IV [facility] Miscellaneous (Lidoderm Patch Removal) 1 each MC DAILY@2200 [facility] Last Admin: 06/12/18 21:37 Dose: 1 each Pantoprazole Sodium (Protonix -) 40 mg PO DAILY [facility] Last Admin: 06/13/18 10:40 Dose: 40 mg Simethicone (Mylicon -) 80 mg PO Q6H [facility] Last Admin: 06/13/18 10:40 Dose: 80 mg Sitagliptin Phosphate (Januvia -) 25 mg PO DAILY@0700 [facility] Last Admin: 06/13/18 06:40 Dose: 25 mg - Objective Vital Signs: Vital Signs Temperature 98.1 F 06/13/18 14:18 Pulse Rate 60 06/13/18 14:18 Respiratory Rate 20 06/13/18 14:18 Blood Pressure 125/50 L 06/13/18 14:18 O2 Sat by Pulse Oximetry (%) 98 06/13/18 09:00 Constitutional: Yes: Well Nourished, No Distress Eyes: Yes: Conjunctiva Clear, EOM Intact HENT: Yes: Atraumatic, Normocephalic Cardiovascular: Yes: Regular Rate and Rhythm, S1, S2. No: JVD Respiratory: Yes: Regular, Wheezes Labs: CBC, BMP 06/13/18 09:30 06/13/18 09:30 INR, PTT INR 1.13 (0.83-1.09) H 06/11/18 09:22 Problem List - Problems (1) CHF exacerbation Code(s): I50.9 - HEART FAILURE, UNSPECIFIED Qualifiers: Heart failure type: unspecified Qualified Code(s): I50.9 - Heart failure, unspecified (2) Elevated brain natriuretic peptide (BNP) level Code(s): R79.89 - OTHER SPECIFIED ABNORMAL FINDINGS OF BLOOD CHEMISTRY (3) CAD (coronary artery disease) Code(s): I25.10 - ATHSCL HEART DISEASE OF [place] CORONARY ARTERY W/O ANG PCTRS Assessment/Plan Stable CAD with mild Aortic stenosis with recurrent dyspnea hypercapnic respiratory distress. Mildly elevated BNP. CT chest with small bilateral effusions, without CHF. Improved chf. Lasix lowered. Consder transition to oral diuretics. Repeat BNP Pulmonary eval for possible COPD. Echocardiogram
[2018-06-13] MEDS: ATORVASTATIN CA 80 MG TABLET (FP) PO SCH (21:59)
[2018-06-13] MEDS: LIDOCAINE PATCH REMOVAL MC SCH (21:59)
[2018-06-14] MEDS: methylPREDNISolone NA SUCC 40 MG/1 ML VIAL IVPUSH SCH ×3 (01:42→17:15)
[2018-06-14] MEDS: SIMETHICONE 80 MG TAB.CHEW (FP) PO SCH ×4 (06:22→22:28)
[2018-06-14] MEDS: INSULIN SLIDING SCALE (NOVOLOG) 1 VIAL SQ SCH ×4 (06:35→21:21)
[2018-06-14] MEDS: HEPARIN NA (PORCINE) 5,000 UNITS/ML 1ML VIAL SQ SCH ×3 (06:35→21:21)
[2018-06-14] MEDS: GABAPENTIN 100 MG CAPSULE (FP) PO SCH ×3 (06:35→21:21)
[2018-06-14] MEDS: sitaGLIPtin PHOSPHATE 25 MG TABLET (FP) PO SCH (06:51)
[2018-06-14] MEDS ORDERED: INSULIN (LEVEMIR) 100 UNITS/ML UNITS SQ SCH (07:00)
[2018-06-14] MEDS: ALBUTEROL SO4 2.5/IPRATROPIUM 0.5 INH SOL 3 ML VIAL.NEB. NEB SCH ×4 (07:20→20:54)
[2018-06-14 08:05] LABS: ALBUMIN 2.8 g/dl (3.4-5.0); ALK PHOS 89 U/L (45-117); ANION GAP 5 MMOL/L (8-16); BILIRUBIN,TOTAL 0.4 mg/dL (0.2-1); BLOOD UREA NITROGEN 44 mg/dL (7-18); CALCIUM 8.2 mg/dL (8.5-10.1); CHLORIDE 98 mmol/L (98-107); CO2 37 mmol/L (21-32); CREATININE 1.5 mg/dL (0.55-1.3); GLUCOSE,RANDOM 283 mg/dL (74-106); MAGNESIUM 2.2 mg/dL (1.8-2.4); SGOT/AST 16 U/L (15-37); SGPT/ALT 27 U/L (13-61); SODIUM 140 mmol/L (136-145); TOT PROT 6.2 g/dl (6.4-8.2)
[2018-06-14 08:07] LABS: HEMOGLOBIN 9.7 GM/dL (10.7-15.3); MCH 28.7 pg (25.7-33.7); MCHC 34.4 g/dl (32.0-36.0); MEAN CELL VOLUME 83.3 fl (80-96); MONO % 1.5 % (3.8-10.2); NEUT % 93.5 % (42.8-82.8); PLATELET COUNT 228 K/MM3 (134-434); RBC 3.37 M/mm3 (3.60-5.2); RDW 16.1 % (11.6-15.6); WHITE BLOOD COUNT 9.2 K/mm3 (4.0-10.0)
--- NOTE | 2018-06-14 09:05 | PN ---
Physical Exam: SUBJECTIVE: Patient seen and examined at the bedside. feels better. breathing better. tells me that she had shortness of breath at home for a while. not home oxygen dependent. OBJECTIVE: pre and post prior to d/c. likely needs home oxygen if qualifies. sleep study as outpatient recommended on last admission, has not yet had it done. echo today may need pulmonary rehab, discussed with leeroy Vital Signs Period Temp Pulse Resp BP Sys/Mccarty Pulse Ox Last 24 Hr 97.2 F-98.1 F 60-70 18-20 116-148/49-80 93 GENERAL: Awake, alert, appears improved - tolerating 3 liters HEAD: Normal with no signs of trauma. EYES: Pupils equal, round and reactive to light, extraocular movements intact, sclera anicteric, conjunctiva clear. No lid lag. EARS, NOSE, THROAT: Ears normal, nares patent, oropharynx clear without exudates. Moist mucous membranes. NECK: Normal range of motion, supple without lymphadenopathy, JVD, or masses. LUNGS: diminished lungs sounds throughout, some crackles auscultated on the right lower lobe HEART: Regular rate and rhythm ABDOMEN: Soft, tenderness of ruq, no nausea or vomiting MUSCULOSKELETAL: Normal range of motion at all joints. No bony deformities or tenderness. No CVA tenderness. UPPER EXTREMITIES: No peripheral edema. LOWER EXTREMITIES: 2+ peripheral edema. NEUROLOGICAL: Normal speech PSYCHIATRIC: Cooperative. Good eye contact. . SKIN: Warm, dry, normal turgor, no rashes or lesions noted, normal capillary refill. Laboratory Results - last 24 hr 06/13/18 06/13/18 06/13/18 07:00 09:30 09:30 WBC 6.1 RBC 3.38 L Hgb 9.5 L Hct 28.2 L MCV 83.5 MCH 28.2 MCHC 33.8 RDW 16.5 H Plt Count 211 MPV 8.6 Absolute Neuts (auto) 5.6 Neutrophils % 91.0 H D Neutrophils % (Manual) 94.7 H Band Neutrophils % 0.0 Lymphocytes % 7.7 L D Lymphocytes % (Manual) 5.3 L Monocytes % 1.2 L D Monocytes % (Manual) 0 L Eosinophils % 0.0 D Eosinophils % (Manual) 0.0 Basophils % 0.1 Basophils % (Manual) 0.0 Myelocytes % (Man) 0 Promyelocytes % (Man) 0 Blast Cells % (Manual) 0 Nucleated RBC % 0 Metamyelocytes 0 Hypochromia 0 Platelet Estimate Normal Polychromasia 1+ Poikilocytosis 1+ Anisocytosis 0 Microcytosis 0 Macrocytosis 0 Sodium 140 Potassium 4.3 Chloride 99 Carbon Dioxide 35 H Anion Gap 6 L BUN 35 H Creatinine 1.4 H Creat Clearance w eGFR 35.74 POC Glucometer Random Glucose 267 H Calcium 8.0 L Magnesium Cancelled 2.1 Total Bilirubin 0.4 AST 13 L ALT 35 Alkaline Phosphatase 92 B-Natriuretic Peptide Total Protein 6.1 L Albumin 2.8 L 06/13/18 06/13/18 06/13/18 11:57 16:56 17:20 WBC RBC Hgb Hct MCV MCH MCHC RDW Plt Count MPV Absolute Neuts (auto) Neutrophils % Neutrophils % (Manual) Band Neutrophils % Lymphocytes % Lymphocytes % (Manual) Monocytes % Monocytes % (Manual) Eosinophils % Eosinophils % (Manual) Basophils % Basophils % (Manual) Myelocytes % (Man) Promyelocytes % (Man) Blast Cells % (Manual) Nucleated RBC % Metamyelocytes Hypochromia Platelet Estimate Polychromasia Poikilocytosis Anisocytosis Microcytosis Macrocytosis Sodium Potassium Chloride Carbon Dioxide Anion Gap BUN Creatinine Creat Clearance w eGFR POC Glucometer 260 427 Random Glucose 407 H* Calcium Magnesium Total Bilirubin AST ALT Alkaline Phosphatase B-Natriuretic Peptide Total Protein Albumin 06/13/18 06/14/18 06/14/18 22:01 06:17 06:17 WBC 9.2 RBC 3.37 L Hgb 9.7 L Hct 28.0 L MCV 83.3 MCH 28.7 MCHC 34.4 RDW 16.1 H Plt Count 228 MPV 9.0 Absolute Neuts (auto) 8.6 H Neutrophils % 93.5 H Neutrophils % (Manual) Band Neutrophils % Lymphocytes % 5.0 L D Lymphocytes % (Manual) Monocytes % 1.5 L Monocytes % (Manual) Eosinophils % 0.0 Eosinophils % (Manual) Basophils % 0.0 Basophils % (Manual) Myelocytes % (Man) Promyelocytes % (Man) Blast Cells % (Manual) Nucleated RBC % 0 Metamyelocytes Hypochromia Platelet Estimate Polychromasia Poikilocytosis Anisocytosis Microcytosis Macrocytosis Sodium 140 Potassium 4.0 Chloride 98 Carbon Dioxide 37 H Anion Gap 5 L BUN 44 H Creatinine 1.5 H Creat Clearance w eGFR 33.00 POC Glucometer 319 Random Glucose 283 H Calcium 8.2 L Magnesium 2.2 Total Bilirubin 0.4 AST 16 ALT 27 Alkaline Phosphatase 89 B-Natriuretic Peptide Total Protein 6.2 L Albumin 2.8 L 06/14/18 06/14/18 06:17 06:34 WBC RBC Hgb Hct MCV MCH MCHC RDW Plt Count MPV Absolute Neuts (auto) Neutrophils % Neutrophils % (Manual) Band Neutrophils % Lymphocytes % Lymphocytes % (Manual) Monocytes % Monocytes % (Manual) Eosinophils % Eosinophils % (Manual) Basophils % Basophils % (Manual) Myelocytes % (Man) Promyelocytes % (Man) Blast Cells % (Manual) Nucleated RBC % Metamyelocytes Hypochromia Platelet Estimate Polychromasia Poikilocytosis Anisocytosis Microcytosis Macrocytosis Sodium Potassium Chloride Carbon Dioxide Anion Gap BUN Creatinine Creat Clearance w eGFR POC Glucometer 320 Random Glucose Calcium Magnesium Total Bilirubin AST ALT Alkaline Phosphatase B-Natriuretic Peptide 2555.1 H Total Protein Albumin Active Medications Generic Name Dose Route Start Last Admin Trade Name Freq PRN Reason Stop Dose Admin Acetaminophen 650 mg 06/11/18 21:19 Tylenol - PO Q6H PRN PAIN LEVEL 7 - 10 Albuterol/Ipratropium 1 amp 06/11/18 22:00 06/14/18 07:20 Duoneb - NEB 1 amp RQID JERRY Administration Amlodipine Besylate 5 mg 06/12/18 10:00 06/13/18 10:40 Norvasc - PO 5 mg DAILY JERRY Administration Aspirin 81 mg 06/12/18 10:00 06/13/18 10:39 Ecotrin - PO 81 mg DAILY JERRY Administration Atorvastatin Calcium 80 mg 06/11/18 22:00 06/13/18 21:59 Lipitor - PO 80 mg HS JERRY Administration Carvedilol 25 mg 06/11/18 22:00 06/13/18 21:59 Coreg - PO 25 mg BID JERRY Administration Furosemide 20 mg 06/13/18 10:00 06/13/18 10:40 Lasix Injection - IVPUSH 20 mg DAILY JERRY Administration Gabapentin 100 mg 06/11/18 22:00 06/14/18 06:35 Neurontin - PO 100 mg TID JERRY Administration Heparin Sodium (Porcine) 5,000 unit 06/12/18 14:00 06/14/18 06:35 Heparin - SQ 5,000 unit TID JERRY Administration Insulin Aspart 1 vial 06/13/18 10:41 06/14/18 06:35 Novolog Vial Sliding Scale - SQ 10 unit ACHS JERRY Administration Protocol Insulin Detemir 15 units 06/14/18 07:00 06/14/18 06:35 Levemir Vial SQ 15 units BIDI JERRY Administration Lidocaine 1 patch 06/11/18 15:30 06/13/18 10:40 Lidoderm Patch - TP 1 patch DAILY JERRY Administration Methylprednisolone Sodium Succinate 20 mg 06/13/18 18:00 06/14/18 01:42 Solu-Medrol - IVPUSH 20 mg Q8H-IV JERRY Administration Miscellaneous 1 each 06/11/18 22:00 06/13/18 21:59 Lidoderm Patch Removal MC 1 each DAILY@2200 JERRY Administration Pantoprazole Sodium 40 mg 06/12/18 10:00 06/13/18 10:40 Protonix - PO 40 mg DAILY JERRY Administration Simethicone 80 mg 06/11/18 17:15 06/14/18 06:22 Mylicon - PO Not Given Q6H JERRY Sitagliptin Phosphate 25 mg 06/12/18 07:00 06/14/18 06:51 Januvia - PO 25 mg DAILY@0700 JERRY Administration ASSESSMENT/PLAN: Patient is an 87 year old female with a significant past medical history or diabetes mellitus II, hypertension, pacemaker(2011), CAD s/p stents x 5. She presents to the ED for progressively worsening shortness of breath associated with lethargy and c/o of RUQ pain. Initially placed on bipap, now tolerating 3 liters of nasal cannula. Pulmonary Acute hypercapneic respiratory failure/acute/overall improving. Possible underlying chronic respiratory acidosis/possible acute on chronic diastolic HF/possible COPD Seen by cardiology, recommended to decrease dose of lasix Has been weaned off of bipap and venti mask. tolerating nasal cannula @ 3 liters. Possibe Underlying COPD Has history of smoking (60 pack year) ABG shows respiratory acidosis and metabolic acidosis Assess need for home oxygen started on solumedrol to help work of breathing CT scan reviewed Cardiology Possible acute on chronic CHF Monitor daily weights (70kg > 67kgs). bnp 2200 from 3100 on admission. Cardiology consulted and following await echocardiogram Ruled out for ACS Negative troponins CAD s/p stents On ASA, Lipitor Endo: Diabetes Tight control with novolog and levemir bid monitor bgms fen no ivf monitor electrolytes diabetic diet prophy SCDs protonix Visit type - Emergency Visit Emergency Visit: Yes ED Registration Date: 06/11/18 Care time: The patient presented to the Emergency Department on the above date and was hospitalized for further evaluation of their emergent condition. - New Patient This patient is new to me today: No - Critical Care Critical Care patient: No - Discharge Referral Referred to [facility] Med P.C.: No
[2018-06-14] MEDS: LIDOCAINE 5% TOPICAL PATCH TP SCH (09:49)
[2018-06-14] MEDS: PANTOPRAZOLE 40 MG TABLET (FP) PO SCH (09:50)
[2018-06-14] MEDS: CARVEDILOL 25 MG TABLET (FP) PO SCH ×2 (09:50→21:21)
[2018-06-14] MEDS: amLODIPine BESYLATE 5 MG TABLET (FP) PO SCH (09:50)
[2018-06-14] MEDS: FUROSEMIDE 40 MG/4 ML INJECTABLE VIAL IVPUSH SCH (09:50)
[2018-06-14] MEDS: ASPIRIN COATED 81 MG TABLET.EC PO SCH (09:50)
[2018-06-14 11:17] LABS: ANISOCYTOSIS 0; MACROCYTOSIS 0; OVALOCYTE 1+; PLATELET ESTIMATE NORMAL
--- NOTE | 2018-06-14 11:47 | ECHO ---
Name: EDIN MILTON CHUNG Exam:Adult Echocardiogram Study Date: 06/14/2018 08:03 AM Age: 87 yrs Reason For Study: SOB Height: 62 in Weight: 155 lb BSA: 1.7 m2 MMode/2D Measurements & Calculations Ao root diam: 3.0 cm LVOT diam: 2.0 cm LA dimension: 3.3 cm LAV (MOD-bp): 64.9 ml Doppler Measurements & Calculations MV E max gee: 123.0 cm/sec Ao V2 max: 260.6 cm/sec MV A max gee: 111.1 cm/sec Ao max P.9 mmHg MV E/A: 1.1 Ao V2 mean: 186.4 cm/sec MV dec time: 0.16 sec Ao mean P.0 mmHg Ao V2 VTI: 66.8 cm OMAR(I,D): 0.78 cm2 OMAR(V,D): 0.93 cm2 LV V1 max P.3 mmHg SV(LVOT): 52.4 ml LV V1 mean P.4 mmHg LV V1 max: 76.2 cm/sec LV V1 mean: 54.6 cm/sec LV V1 VTI: 16.5 cm TR max gee: 277.4 cm/sec Med Peak E' Gee: 8.1 cm/sec TR max P.0 mmHg Med E/e': 15.3 Lat Peak E' Gee: 8.5 cm/sec Lat E/e': 14.5 Procedure A complete two-dimensional transthoracic echocardiogram was performed (2D, M-mode, Doppler and color flow Doppler). Technically limited study. Left Ventricle The left ventricle is normal in size. Left ventricular systolic function is normal. Ejection Fraction = 60- 65%. No regional wall motion abnormalities noted. Right Ventricle The right ventricle is not well visualized. Atria The left atrial size is normal. Right atrium not well visualized. Mitral Valve There is mild mitral valve thickening. There is mild mitral annular calcification. There is no mitral regurgitation noted. Tricuspid Valve The tricuspid valve is normal in structure and function. Pulmonary artery systolic pressure is at reyes st 41 mmHg assuming RA pressure of 3 mmHg. Aortic Valve There is moderate aortic valve thickening. Severe valvular aortic stenosis. The calculated aortic ely ve area using the continuity equation is 0.8 cm2. Aortic mean pressure gradient= 23 mmHg. DI (dimensionless i ndex) is 0.20. No aortic regurgitation is present. Pulmonic Valve The pulmonic valve is not well visualized. Great Vessels The aortic root is normal size. Pericardium/Pleura There is no pericardial effusion. Interpretation Summary Technically limited study The left ventricle is normal in size. Left ventricular systolic function is normal. No regional wall motion abnormalities noted. Ejection Fraction = 60-65%. The right ventricle is not well visualized. The left atrial size is normal. Right atrium not well visualized. There is mild mitral valve thickening. There is mild mitral annular calcification. Pulmonary artery systolic pressure is at least 41 mmHg assuming RA pressure of 3 mmHg There is moderate aortic valve thickening. Severe valvular aortic stenosis. The calculated aortic valve area using the continuity equation is 0.8 cm2. Aortic mean pressure gradient= 23 mmHg DI (dimensionless index) is 0.20 No aortic regurgitation is present. There is no pericardial effusion. Previous study is not available for comparison Suman Duran MD 06/14/2018 11:47 AM
--- NOTE | 2018-06-14 13:55 | PN ---
Progress Note (short form) - Note Progress Note: PULMONARY Breathing slightly improved. No chest pain. +nonproductive cough. Vital Signs Period Temp Pulse Resp BP Sys/Mccarty Pulse Ox Last 24 Hr 97.2 F-98.1 F 60-68 18-20 124-148/49-80 93-93 Gen: NAD at rest Heart: RRR Lung: decreased breath sounds at the bases Abd: soft, nontender Ext: no edema CBC, BMP 06/14/18 06:17 06/14/18 06:17 Active Medications Acetaminophen (Tylenol -) 650 mg PO Q6H PRN PRN Reason: PAIN LEVEL 7 - 10 Albuterol/Ipratropium (Duoneb -) 1 amp NEB RQID [facility] Last Admin: 06/14/18 11:15 Dose: 1 amp Amlodipine Besylate (Norvasc -) 5 mg PO DAILY [facility] Last Admin: 06/14/18 09:50 Dose: 5 mg Aspirin (Ecotrin -) 81 mg PO DAILY [facility] Last Admin: 06/14/18 09:50 Dose: 81 mg Atorvastatin Calcium (Lipitor -) 80 mg PO HS [facility] Last Admin: 06/13/18 21:59 Dose: 80 mg Carvedilol (Coreg -) 25 mg PO BID [facility] Last Admin: 06/14/18 09:50 Dose: 25 mg Furosemide (Lasix Injection -) 20 mg IVPUSH DAILY [facility] Last Admin: 06/14/18 09:50 Dose: 20 mg Gabapentin (Neurontin -) 100 mg PO TID [facility] Last Admin: 06/14/18 06:35 Dose: 100 mg Heparin Sodium (Porcine) (Heparin -) 5,000 unit SQ TID [facility] Last Admin: 06/14/18 06:35 Dose: 5,000 unit Insulin Aspart (Novolog Vial Sliding Scale -) 1 vial SQ ACHS [facility]; Protocol Last Admin: 06/14/18 11:57 Dose: 8 unit Insulin Detemir (Levemir Vial) 20 units SQ BIDI [facility] Lidocaine (Lidoderm Patch -) 1 patch TP DAILY [facility] Last Admin: 06/14/18 09:49 Dose: 1 patch Methylprednisolone Sodium Succinate (Solu-Medrol -) 20 mg IVPUSH Q8H-IV [facility] Last Admin: 06/14/18 09:49 Dose: 20 mg Miscellaneous (Lidoderm Patch Removal) 1 each MC DAILY@2200 [facility] Last Admin: 06/13/18 21:59 Dose: 1 each Pantoprazole Sodium (Protonix -) 40 mg PO DAILY [facility] Last Admin: 06/14/18 09:50 Dose: 40 mg Simethicone (Mylicon -) 80 mg PO Q6H [facility] Last Admin: 06/14/18 11:57 Dose: 80 mg Sitagliptin Phosphate (Januvia -) 25 mg PO DAILY@0700 [facility] Last Admin: 06/14/18 06:51 Dose: 25 mg A/P Acute Hypoxic and Hypercapneic Respiratory Failure r/o Acute COPD Exacerbation LV Diastolic Dysfunction CAD s/p stents Acute on Chronic Renal Failure HTN DM GERD r/o MICHAEL/OHS - medrol taper - inhaled bronchodilators - O2 to keep Spo2 >90% - BiPAP as needed to assist in work of breathing - will need outpt PFTs and PSG - DVT prophylaxis
--- NOTE | 2018-06-14 15:15 | PN ---
Progress Note, Physician History of Present Illness: seen and examined today in nad. daughter at bedside. currently having Sao2 tested on ra. no new complaints. - Current Medication List Current Medications: Active Medications Acetaminophen (Tylenol -) 650 mg PO Q6H PRN PRN Reason: PAIN LEVEL 7 - 10 Albuterol/Ipratropium (Duoneb -) 1 amp NEB RQID [facility] Last Admin: 06/14/18 11:15 Dose: 1 amp Amlodipine Besylate (Norvasc -) 5 mg PO DAILY [facility] Last Admin: 06/14/18 09:50 Dose: 5 mg Aspirin (Ecotrin -) 81 mg PO DAILY [facility] Last Admin: 06/14/18 09:50 Dose: 81 mg Atorvastatin Calcium (Lipitor -) 80 mg PO HS [facility] Last Admin: 06/13/18 21:59 Dose: 80 mg Carvedilol (Coreg -) 25 mg PO BID [facility] Last Admin: 06/14/18 09:50 Dose: 25 mg Furosemide (Lasix Injection -) 20 mg IVPUSH DAILY [facility] Last Admin: 06/14/18 09:50 Dose: 20 mg Gabapentin (Neurontin -) 100 mg PO TID [facility] Last Admin: 06/14/18 14:35 Dose: 100 mg Heparin Sodium (Porcine) (Heparin -) 5,000 unit SQ TID [facility] Last Admin: 06/14/18 14:35 Dose: 5,000 unit Insulin Aspart (Novolog Vial Sliding Scale -) 1 vial SQ ACHS [facility]; Protocol Last Admin: 06/14/18 11:57 Dose: 8 unit Insulin Detemir (Levemir Vial) 20 units SQ BIDI [facility] Lidocaine (Lidoderm Patch -) 1 patch TP DAILY [facility] Last Admin: 06/14/18 09:49 Dose: 1 patch Methylprednisolone Sodium Succinate (Solu-Medrol -) 20 mg IVPUSH Q8H-IV [facility] Last Admin: 06/14/18 09:49 Dose: 20 mg Miscellaneous (Lidoderm Patch Removal) 1 each MC DAILY@2200 [facility] Last Admin: 06/13/18 21:59 Dose: 1 each Pantoprazole Sodium (Protonix -) 40 mg PO DAILY [facility] Last Admin: 06/14/18 09:50 Dose: 40 mg Simethicone (Mylicon -) 80 mg PO Q6H [facility] Last Admin: 06/14/18 11:57 Dose: 80 mg Sitagliptin Phosphate (Januvia -) 25 mg PO DAILY@0700 JERRY Last Admin: 06/14/18 06:51 Dose: 25 mg - Objective Vital Signs: Vital Signs Temperature 97.7 F 06/14/18 13:38 Pulse Rate 63 06/14/18 14:15 Respiratory Rate 16 06/14/18 13:38 Blood Pressure 123/47 L 06/14/18 13:38 O2 Sat by Pulse Oximetry (%) 78 L 06/14/18 14:15 Constitutional: Yes: No Distress, Calm Eyes: Yes: Conjunctiva Clear, EOM Intact HENT: Yes: Atraumatic, Normocephalic Neck: Yes: Supple, Trachea Midline Cardiovascular: Yes: Regular Rate and Rhythm, Murmur, S1, S2. No: Bradycardia, Tachycardia, Pulse Irregular, Bruit, JVD, Gallop, Rub, S3, S4, Varicosities Respiratory: Yes: Regular, Diminished, Rhonchi, SOB. No: On Nasal O2, Rales, Wheezes Gastrointestinal: Yes: Normal Bowel Sounds, Soft. No: Distention, Tenderness Edema: No Peripheral Pulses WNL: Yes Neurological: Yes: Alert Psychiatric: Yes: Alert Labs: CBC, BMP 06/14/18 06:17 06/14/18 06:17 INR, PTT INR 1.13 (0.83-1.09) H 06/11/18 09:22 - ....Imaging Chest X-ray: Report Reviewed, Image Reviewed EKG: Report Reviewed, Image Reviewed Other: Report Reviewed, Image Reviewed Assessment/Plan 87year old female with a PMH of NIDDM, HTN, SSS s/p PPM 2011 ([employer] in [place]), ?[place] in the past (in [place], never had cath), hyperlipidemia, gallstones who was diagnosed with CAD in 2017 with NSTEMI and underwent cath 06/03/16 showing 3VD but was deemed a high risk surgical candidate. Underwent the placement of MICHAEL x 3 to the culprit lesions in the RCA (proximal, mid and distal) 06/06/16 and subsiquently PCI of the mid LAD with MICHAEL 08/08/16. She has chronic abdominal pain that was worked up. Now admitted with recurrent SOB and abdominal discomfort requiring BiPAP. Initially hypoxic. She received lasix. now improved. The patient denies chest pain. CT chest showed small bilateral effusions. No pulmonary consolidation or edema. CXR was clear. Lext duplex was negative for DVT. Cardiac Catheterization 06/03/16: 3VD OMAR 1.2 cm Echocardiogram 09/11/17:Interpretation Summary Mild concentric left ventricular hypertrophy. Normal left ventricular ejection fraction. Estimated ejection fraction: 60 % Fibrocalcific disease of the aortic valve. The aortic valve peak gradient is 21.1 mmHg. The aortic valve mean gradient is 11.8 mmHg. The aortic valve area index is 0.83 cm2/m2. The aortic valve area is 1.3 cm2. Mild aortic valve stenosis. Moderate mitral annular calcification. Minimal mitral valve regurgitation. Mild tricuspid valve regurgitation. Pulmonic valve not adequately visualized. Mild pulmonic valve regurgitation. IMPRESSION/PLAN SOB-likely multifactorial, AE COPD, Acute on chronic diastolic CHF -volume status improved -transition to po Lasix -pulmonary following -Echo today 06/14/18 showed nl LVEF, reported severe Aortic Stenosis but mean AV gradient only 23mmHg and S2 preserved on exam, Mild seen on echo 09/11/17 as above, therefore unlikely severe at this time. -cont supp O2, bipap as needed, meds as per pulm reccs Aortic stenosis -reported as severe but as above more likely to be in moderate range -will review echo images -not a surgical candidate -no need for additional inpatient work up at this time.
[2018-06-14] MEDS: INSULIN (LEVEMIR) 100 UNITS/ML UNITS SQ SCH (17:13)
[2018-06-14] MEDS: ATORVASTATIN CA 80 MG TABLET (FP) PO SCH (21:21)
[2018-06-14] MEDS: LIDOCAINE PATCH REMOVAL MC SCH (21:21)
[2018-06-15] MEDS: methylPREDNISolone NA SUCC 40 MG/1 ML VIAL IVPUSH SCH ×3 (01:11→18:11)
[2018-06-15] MEDS: SIMETHICONE 80 MG TAB.CHEW (FP) PO SCH ×4 (05:33→22:14)
[2018-06-15] MEDS: HEPARIN NA (PORCINE) 5,000 UNITS/ML 1ML VIAL SQ SCH ×3 (05:33→21:48)
[2018-06-15] MEDS: GABAPENTIN 100 MG CAPSULE (FP) PO SCH ×3 (05:33→21:47)
[2018-06-15] MEDS: INSULIN SLIDING SCALE (NOVOLOG) 1 VIAL SQ SCH ×4 (06:40→21:48)
[2018-06-15] MEDS: INSULIN (LEVEMIR) 100 UNITS/ML UNITS SQ SCH ×2 (06:40→17:05)
[2018-06-15] MEDS: sitaGLIPtin PHOSPHATE 25 MG TABLET (FP) PO SCH (06:40)
[2018-06-15 07:03] LABS: HEMATOCRIT 29.3 % (32.4-45.2); LYMPH % 4.8 % (8-40); MCH 28.2 pg (25.7-33.7); MEAN CELL VOLUME 83.2 fl (80-96); MEAN PLT VOLUME 8.9 fl (7.5-11.1); MONO % 1.4 % (3.8-10.2); NEUT % 93.8 % (42.8-82.8); PLATELET COUNT 247 K/MM3 (134-434); RBC 3.53 M/mm3 (3.60-5.2); RDW 16.4 % (11.6-15.6)
[2018-06-15 07:37] LABS: ALBUMIN 2.7 g/dl (3.4-5.0); ALK PHOS 82 U/L (45-117); ANION GAP 2 MMOL/L (8-16); BILIRUBIN,TOTAL 0.4 mg/dL (0.2-1); BLOOD UREA NITROGEN 45 mg/dL (7-18); CALCIUM 7.9 mg/dL (8.5-10.1); CHLORIDE 99 mmol/L (98-107); CO2 40 mmol/L (21-32); CREATININE 1.4 mg/dL (0.55-1.3); GLUCOSE,RANDOM 180 mg/dL (74-106); MAGNESIUM 2.3 mg/dL (1.8-2.4); POTASSIUM 3.8 mmol/L (3.5-5.1); SGOT/AST 14 U/L (15-37); SGPT/ALT 27 U/L (13-61); SODIUM 142 mmol/L (136-145)
[2018-06-15] MEDS: ALBUTEROL SO4 2.5/IPRATROPIUM 0.5 INH SOL 3 ML VIAL.NEB. NEB SCH ×4 (08:26→20:26)
--- NOTE | 2018-06-15 09:20 | CONS ---
DATE OF CONSULTATION: 06/11/2018 PULMONARY CONSULTATION REFERRING PHYSICIAN: Angel HISTORY OF PRESENT ILLNESS: The patient is an 87-year-old female with a past medical history of hypertension, ASHD status post multiple stents, status post permanent pacemaker, GERD, congestive heart failure, a history of tobacco use many years ago, admitted to [facility] with a complaint of a 3-day history of increasing shortness of breath, dyspnea on exertion and right upper quadrant abdominal discomfort. The patient denied any complaints of nausea or vomiting. She denied any chest pain or palpitations. The patient's symptoms continued to worsen, at which time she presented to the emergency room. In the ER, she was noted to be hypoxemic when off of O2. She also had a venous blood gas that revealed acute hypercapnic respiratory failure. She was admitted on Lasix and was started on BiPAP with good clinical response. The patient denies any recent travel. There is no history of occupational exposure to chemicals or fumes. She was born in the [facility] [place] and moved to the [place] approximately 15 years ago. PAST MEDICAL HISTORY: Again, this includes hypertension, diabetes, ASHD status multiple stents, congestive heart failure and GERD. REVIEW OF SYSTEMS: Positive for orthopnea and dyspnea. No cough, no chest pain , no palpitations. Positive for abdominal pain. No nausea, no vomiting, no diarrhea. CURRENT MEDICATIONS: Lidoderm, NovoLog. Medications administered prior: DuoNeb and Lasix 40 x2. PHYSICAL EXAMINATION: General: The patient is an elderly female, awake and alert, in no current distress on BiPAP. Vital Signs: Blood pressure 135/51, respiratory rate 18, heart rate 60, O2 saturation is 100% on BiPAP. HEENT: Head is normocephalic, atraumatic. Neck: Supple. Heart: Regular, S1, S2. Chest: Bibasilar crackles. Abdomen: Soft. Bowel sounds are positive. Extremities: No cyanosis or edema. LABORATORY: WBC is 6.7, hemoglobin 10.1, hematocrit 30, platelet count of 176, 000. INR is 1.13. Venous blood gas show pH of 7.17, PCO2 of 83, a PO2 of 44, a bicarb of 29. IMPRESSION: [id number] hypoxemic, hypercapnic respiratory failure secondary to: 1. [id number] congestive heart failure. 2. Arteriosclerotic heart disease status post multiple stents. 3. Status post permanent pacemaker. 4. Gastroesophageal reflux disease. 5. Diabetes. 6 .COPD 7. 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 IV Lasix,inhaled bronchodilators 2. Supplemental O2. 3. Continue BiPAP. 4. Obtain followup chest x-rays and daily weights. 5. Obtain an echocardiogram. 6. Obtain cardiac enzymes. 7. Sleep studies outpatient 8. Pfts outpatient Thank you. We will follow her closely with you. NOE COVINGTON M.D. [id number] MTDD
[2018-06-15 09:49] LABS: ACANTHOCYTES 1+; ANISOCYTOSIS 1+; MACROCYTOSIS 0; PLATELET ESTIMATE NORMAL
--- NOTE | 2018-06-15 10:22 | PN ---
Progress Note, Physician History of Present Illness: seen and examined today in nad. no overnight events. no new complaints. - Current Medication List Current Medications: Active Medications Acetaminophen (Tylenol -) 650 mg PO Q6H PRN PRN Reason: PAIN LEVEL 7 - 10 Albuterol/Ipratropium (Duoneb -) 1 amp NEB RQID [facility] Last Admin: 06/15/18 08:26 Dose: 1 amp Amlodipine Besylate (Norvasc -) 5 mg PO DAILY [facility] Last Admin: 06/14/18 09:50 Dose: 5 mg Aspirin (Ecotrin -) 81 mg PO DAILY [facility] Last Admin: 06/14/18 09:50 Dose: 81 mg Atorvastatin Calcium (Lipitor -) 80 mg PO HS [facility] Last Admin: 06/14/18 21:21 Dose: 80 mg Carvedilol (Coreg -) 25 mg PO BID [facility] Last Admin: 06/14/18 21:21 Dose: 25 mg Furosemide (Lasix -) 40 mg PO DAILY [facility] Gabapentin (Neurontin -) 100 mg PO TID [facility] Last Admin: 06/15/18 05:33 Dose: 100 mg Heparin Sodium (Porcine) (Heparin -) 5,000 unit SQ TID [facility] Last Admin: 06/15/18 05:33 Dose: 5,000 unit Insulin Aspart (Novolog Vial Sliding Scale -) 1 vial SQ [facility]; Protocol Last Admin: 06/15/18 06:40 Dose: 4 unit Insulin Detemir (Levemir Vial) 20 units SQ BIDI [facility] Last Admin: 06/15/18 06:40 Dose: 20 unit Lidocaine (Lidoderm Patch -) 1 patch TP DAILY [facility] Last Admin: 06/14/18 09:49 Dose: 1 patch Methylprednisolone Sodium Succinate (Solu-Medrol -) 20 mg IVPUSH Q8H-IV [facility] Last Admin: 06/15/18 01:11 Dose: 20 mg Miscellaneous (Lidoderm Patch Removal) 1 each MC DAILY@2200 [facility] Last Admin: 06/14/18 21:21 Dose: 1 each Pantoprazole Sodium (Protonix -) 40 mg PO DAILY [facility] Last Admin: 06/14/18 09:50 Dose: 40 mg Simethicone (Mylicon -) 80 mg PO Q6H [facility] Last Admin: 06/15/18 05:33 Dose: 80 mg Sitagliptin Phosphate (Januvia -) 25 mg PO DAILY@0700 [facility] Last Admin: 06/15/18 06:40 Dose: 25 mg - Objective Vital Signs: Vital Signs Temperature 97.9 F 06/15/18 06:00 Pulse Rate 60 06/15/18 06:00 Respiratory Rate 18 06/15/18 06:00 Blood Pressure 142/50 L 06/15/18 06:00 O2 Sat by Pulse Oximetry (%) 95 06/14/18 21:00 Constitutional: Yes: No Distress, Calm Eyes: Yes: Conjunctiva Clear, EOM Intact HENT: Yes: Atraumatic, Normocephalic Neck: Yes: Supple, Trachea Midline Cardiovascular: Yes: Regular Rate and Rhythm, Murmur, S1, S2. No: Bradycardia, Tachycardia, Pulse Irregular, Bruit, JVD, Gallop, Rub, S3, S4, Varicosities Respiratory: Yes: Regular, On Nasal O2. No: Rales, Rhonchi, SOB, Wheezes Gastrointestinal: Yes: Normal Bowel Sounds, Soft. No: Distention, Tenderness Musculoskeletal: Yes: WNL Extremities: Yes: WNL Edema: No Peripheral Pulses WNL: Yes Neurological: Yes: Alert Psychiatric: Yes: Alert Labs: CBC, BMP 06/15/18 06:15 06/15/18 06:15 INR, PTT INR 1.13 (0.83-1.09) H 06/11/18 09:22 - ....Imaging Chest X-ray: Report Reviewed, Image Reviewed EKG: Report Reviewed, Image Reviewed Other: Report Reviewed, Image Reviewed (tele-AV paced, pvcs) Assessment/Plan 87year old female with a PMH of NIDDM, HTN, SSS s/p PPM 2011 ([employer] in [place]), [place]in [place] had cath), hyperlipidemia, gallstones who was diagnosed with CAD in 2017 with NSTEMI and underwent cath 06/03/16 showing 3VD but was deemed a high risk surgical candidate. Underwent the placement of MICHAEL x 3 to the culprit lesions in the RCA (proximal, mid and distal) 06/06/16 and subsiquently PCI of the mid LAD with MICHAEL 08/08/16. She has chronic abdominal pain that was worked up. Now admitted with recurrent SOB and abdominal discomfort requiring BiPAP. Initially hypoxic. She received lasix. now improved. The patient denies chest pain. CT chest showed small bilateral effusions. No pulmonary consolidation or edema. CXR was clear. Lext duplex was negative for DVT. Cardiac Catheterization 06/03/16: 3VD OMAR 1.2 cm Echocardiogram 09/11/17:Interpretation Summary Mild concentric left ventricular hypertrophy. Normal left ventricular ejection fraction. Estimated ejection fraction: 60 % Fibrocalcific disease of the aortic valve. The aortic valve peak gradient is 21.1 mmHg. The aortic valve mean gradient is 11.8 mmHg. The aortic valve area index is 0.83 cm2/m2. The aortic valve area is 1.3 cm2. Mild aortic valve stenosis. Moderate mitral annular calcification. Minimal mitral valve regurgitation. Mild tricuspid valve regurgitation. Pulmonic valve not adequately visualized. Mild pulmonic valve regurgitation. IMPRESSION/PLAN SOB-likely multifactorial, AE COPD, Acute on chronic diastolic CHF -volume status improved -cont po Lasix -pulmonary following -Echo today 06/14/18 showed nl LVEF, reported severe Aortic Stenosis but mean AV gradient only 23mmHg and S2 preserved on exam, Mild seen on echo 09/11/17 as above, therefore unlikely severe at this time. -cont supp O2, bipap as needed, meds as per pulm reccs Aortic stenosis -reported as severe but as above more likely to be in moderate range -will review echo images -not a surgical candidate -no need for additional inpatient work up at this time.
[2018-06-15] MEDS: LIDOCAINE 5% TOPICAL PATCH TP SCH (10:50)
[2018-06-15] MEDS: ASPIRIN COATED 81 MG TABLET.EC PO SCH (10:51)
[2018-06-15] MEDS: PANTOPRAZOLE 40 MG TABLET (FP) PO SCH (10:51)
[2018-06-15] MEDS: FUROSEMIDE 40 MG TABLET (FP) PO SCH (10:51)
[2018-06-15] MEDS: CARVEDILOL 25 MG TABLET (FP) PO SCH ×2 (10:51→21:47)
[2018-06-15] MEDS: amLODIPine BESYLATE 5 MG TABLET (FP) PO SCH (10:51)
--- NOTE | 2018-06-15 12:48 | PN ---
Physical Exam: SUBJECTIVE: Patient seen and examined OBJECTIVE: Vital Signs Period Temp Pulse Resp BP Sys/Mccarty Pulse Ox Last 24 Hr 97.4 F-98.3 F 60-70 16-20 123-142/47-86 78-95 GENERAL: The patient is awake, alert, and fully oriented, in no acute distress. HEAD: Normal with no signs of trauma. EYES: PERRL, extraocular movements intact, sclera anicteric, conjunctiva clear. No ptosis. ENT: Ears normal, nares patent, oropharynx clear without exudates, moist mucous membranes. NECK: Trachea midline, full range of motion, supple. LUNGS: Breath sounds equal, clear to auscultation bilaterally, no wheezes, no crackles, no accessory muscle use. HEART: Regular rate and rhythm, S1, S2 without murmur, rub or gallop. ABDOMEN: Soft, nontender, nondistended, normoactive bowel sounds, no guarding, no rebound, no hepatosplenomegaly, no masses. EXTREMITIES: 2+ pulses, warm, well-perfused, no edema. NEUROLOGICAL: Cranial nerves II through XII grossly intact. Normal speech, gait not observed. PSYCH: Normal mood, normal affect. SKIN: Warm, dry, normal turgor, no rashes or lesions noted Laboratory Results - last 24 hr 06/14/18 06/14/18 06/15/18 17:09 21:19 05:32 WBC RBC Hgb Hct MCV MCH MCHC RDW Plt Count MPV Absolute Neuts (auto) Neutrophils % Neutrophils % (Manual) Band Neutrophils % Lymphocytes % Lymphocytes % (Manual) Monocytes % Monocytes % (Manual) Eosinophils % Eosinophils % (Manual) Basophils % Basophils % (Manual) Myelocytes % (Man) Promyelocytes % (Man) Blast Cells % (Manual) Nucleated RBC % Metamyelocytes Hypochromia Platelet Estimate Polychromasia Poikilocytosis Anisocytosis Microcytosis Macrocytosis Acanthocytes (Spur) Schistocytes Sodium Potassium Chloride Carbon Dioxide Anion Gap BUN Creatinine Creat Clearance w eGFR POC Glucometer 202 158 173 Random Glucose Calcium Magnesium Total Bilirubin AST ALT Alkaline Phosphatase Total Protein Albumin 06/15/18 06/15/18 06/15/18 06:15 06:15 11:22 WBC 9.0 RBC 3.53 L Hgb 10.0 L Hct 29.3 L MCV 83.2 MCH 28.2 MCHC 34.0 RDW 16.4 H Plt Count 247 MPV 8.9 Absolute Neuts (auto) 8.5 H Neutrophils % 93.8 H Neutrophils % (Manual) 94.1 H Band Neutrophils % 0.0 Lymphocytes % 4.8 L Lymphocytes % (Manual) 4.9 L D Monocytes % 1.4 L Monocytes % (Manual) 1 L D Eosinophils % 0.0 Eosinophils % (Manual) 0.0 Basophils % 0.0 Basophils % (Manual) 0.0 Myelocytes % (Man) 0 Promyelocytes % (Man) 0 Blast Cells % (Manual) 0 Nucleated RBC % 0 Metamyelocytes 0 Hypochromia 1+ Platelet Estimate Normal Polychromasia 0 Poikilocytosis 1+ Anisocytosis 1+ Microcytosis 1+ Macrocytosis 0 Acanthocytes (Spur) 1+ Schistocytes 1+ Sodium 142 Potassium 3.8 Chloride 99 Carbon Dioxide 40 H Anion Gap 2 L BUN 45 H Creatinine 1.4 H Creat Clearance w eGFR 35.74 POC Glucometer 237 Random Glucose 180 H Calcium 7.9 L Magnesium 2.3 Total Bilirubin 0.4 AST 14 L ALT 27 Alkaline Phosphatase 82 Total Protein 6.0 L Albumin 2.7 L Active Medications Generic Name Dose Route Start Last Admin Trade Name Freq PRN Reason Stop Dose Admin Acetaminophen 650 mg 06/11/18 21:19 Tylenol - PO Q6H PRN PAIN LEVEL 7 - 10 Albuterol/Ipratropium 1 amp 06/11/18 22:00 06/15/18 11:29 Duoneb - NEB 1 amp RQID [facility] Administration Amlodipine Besylate 5 mg 06/12/18 10:00 06/15/18 10:51 Norvasc - PO 5 mg DAILY [facility] Administration Aspirin 81 mg 06/12/18 10:00 06/15/18 10:51 Ecotrin - PO 81 mg DAILY [facility] Administration Atorvastatin Calcium 80 mg 06/11/18 22:00 06/14/18 21:21 Lipitor - PO 80 mg HS [facility] Administration Carvedilol 25 mg 06/11/18 22:00 06/15/18 10:51 Coreg - PO 25 mg BID [facility] Administration Furosemide 40 mg 06/15/18 10:00 06/15/18 10:51 Lasix - PO 40 mg DAILY [facility] Administration Gabapentin 100 mg 06/11/18 22:00 06/15/18 05:33 Neurontin - PO 100 mg TID [facility] Administration Heparin Sodium (Porcine) 5,000 unit 06/12/18 14:00 06/15/18 05:33 Heparin - SQ 5,000 unit TID [facility] Administration Insulin Aspart 1 vial 06/13/18 10:41 06/15/18 11:23 Novolog Vial Sliding Scale - SQ 6 unit ACHS [facility] Administration Protocol Insulin Detemir 20 units 06/14/18 09:05 06/15/18 06:40 Levemir Vial SQ 20 unit BIDI [facility] Administration Lidocaine 1 patch 06/11/18 15:30 06/15/18 10:50 Lidoderm Patch - TP 1 patch DAILY [facility] Administration Methylprednisolone Sodium Succinate 20 mg 06/13/18 18:00 06/15/18 10:51 Solu-Medrol - IVPUSH 20 mg Q8H-IV [facility] Administration Miscellaneous 1 each 06/11/18 22:00 06/14/18 21:21 Lidoderm Patch Removal MC 1 each DAILY@2200 [facility] Administration Pantoprazole Sodium 40 mg 06/12/18 10:00 06/15/18 10:51 Protonix - PO 40 mg DAILY [facility] Administration Simethicone 80 mg 06/11/18 17:15 06/15/18 10:51 Mylicon - PO 80 mg Q6H [facility] Administration Sitagliptin Phosphate 25 mg 06/12/18 07:00 06/15/18 06:40 Januvia - PO 25 mg DAILY@0700 [facility] Administration Imaging: -ECHO 06/14/18 showed nl LVEF, severe Aortic Stenosis Assessment: 87 year old female with pmhx of DM II, HTN, SSS s/p pacemaker (2011) , ESTEBAN s/p stents x 5 progressively worsening SOB associated with lethargy and c /o of RUQ pain. Plan: 1. Acute hypercapneic respiratory failure/SOB/COPD - s/p bipap - Tolerating NC 3L - Low dose IV medrol 20mg q8; transition to PO per pulm - Protonix daily - ECHO w/ severe , not surgical candidate 2. Acute on chronic CHF - s/p IV diuresis - Cont PO lasix 40mg daily - Coreg 25mg BID 3. ASHD s/p stents - On ASA, Lipitor 4. DM II - ISS, BMG ACHS - Levemir 20mg BID - Januvia 5. DVT ppx - Heparin sq 6. DAY - Cr improving - Cont lasix Visit type - Emergency Visit Emergency Visit: Yes ED Registration Date: 06/11/18 Care time: The patient presented to the Emergency Department on the above date and was hospitalized for further evaluation of their emergent condition. - New Patient This patient is new to me today: Yes Date on this admission: 06/15/18 - Critical Care Critical Care patient: No
--- NOTE | 2018-06-15 14:43 | PN ---
Progress Note (short form) - Note Progress Note: PULMONARY Breathing continues to improve. No chest pain. +nonproductive cough. Vital Signs Period Temp Pulse Resp BP Sys/Mccarty Pulse Ox Last 24 Hr 97.4 F-98.3 F 60-70 18-20 130-142/47-86 95-95 Gen: NAD at rest Heart: RRR Lung: decreased breath sounds at the bases Abd: soft, nontender Ext: no edema CBC, BMP 06/15/18 06:15 06/15/18 06:15 Active Medications Acetaminophen (Tylenol -) 650 mg PO Q6H PRN PRN Reason: PAIN LEVEL 7 - 10 Albuterol/Ipratropium (Duoneb -) 1 amp NEB RQID [facility] Last Admin: 06/15/18 11:29 Dose: 1 amp Amlodipine Besylate (Norvasc -) 5 mg PO DAILY [facility] Last Admin: 06/15/18 10:51 Dose: 5 mg Aspirin (Ecotrin -) 81 mg PO DAILY [facility] Last Admin: 06/15/18 10:51 Dose: 81 mg Atorvastatin Calcium (Lipitor -) 80 mg PO HS [facility] Last Admin: 06/14/18 21:21 Dose: 80 mg Carvedilol (Coreg -) 25 mg PO BID [facility] Last Admin: 06/15/18 10:51 Dose: 25 mg Furosemide (Lasix -) 40 mg PO DAILY [facility] Last Admin: 06/15/18 10:51 Dose: 40 mg Gabapentin (Neurontin -) 100 mg PO TID [facility] Last Admin: 06/15/18 05:33 Dose: 100 mg Heparin Sodium (Porcine) (Heparin -) 5,000 unit SQ TID [facility] Last Admin: 06/15/18 05:33 Dose: 5,000 unit Insulin Aspart (Novolog Vial Sliding Scale -) 1 vial SQ ACHS [facility]; Protocol Last Admin: 06/15/18 11:23 Dose: 6 unit Insulin Detemir (Levemir Vial) 20 units SQ BIDI [facility] Last Admin: 06/15/18 06:40 Dose: 20 unit Lidocaine (Lidoderm Patch -) 1 patch TP DAILY [facility] Last Admin: 06/15/18 10:50 Dose: 1 patch Methylprednisolone Sodium Succinate (Solu-Medrol -) 20 mg IVPUSH Q8H-IV [facility] Last Admin: 06/15/18 10:51 Dose: 20 mg Miscellaneous (Lidoderm Patch Removal) 1 each MC DAILY@2200 [facility] Last Admin: 06/14/18 21:21 Dose: 1 each Pantoprazole Sodium (Protonix -) 40 mg PO DAILY [facility] Last Admin: 06/15/18 10:51 Dose: 40 mg Simethicone (Mylicon -) 80 mg PO Q6H [facility] Last Admin: 06/15/18 10:51 Dose: 80 mg Sitagliptin Phosphate (Januvia -) 25 mg PO DAILY@0700 [facility] Last Admin: 06/15/18 06:40 Dose: 25 mg A/P Acute Hypoxic and Hypercapneic Respiratory Failure improving r/o Acute COPD Exacerbation LV Diastolic Dysfunction CAD s/p stents Acute on Chronic Renal Failure HTN DM GERD r/o MICHAEL/OHS - medrol taper, can likely change steroids to PO prednisone 40mg daily in AM and taper as outpt if continues to improve - inhaled bronchodilators - O2 to keep Spo2 >90% - BiPAP as needed to assist in work of breathing - will need outpt PFTs and PSG - DVT prophylaxis
[2018-06-15] MEDS: ATORVASTATIN CA 80 MG TABLET (FP) PO SCH (21:47)
[2018-06-15] MEDS: LIDOCAINE PATCH REMOVAL MC SCH (21:48)
[2018-06-16] MEDS: methylPREDNISolone NA SUCC 40 MG/1 ML VIAL IVPUSH SCH ×4 (01:24→17:16)
[2018-06-16] MEDS: SIMETHICONE 80 MG TAB.CHEW (FP) PO SCH ×5 (06:36→22:41)
[2018-06-16] MEDS: sitaGLIPtin PHOSPHATE 25 MG TABLET (FP) PO SCH (06:36)
[2018-06-16] MEDS: HEPARIN NA (PORCINE) 5,000 UNITS/ML 1ML VIAL SQ SCH ×3 (06:36→21:33)
[2018-06-16] MEDS: GABAPENTIN 100 MG CAPSULE (FP) PO SCH ×3 (06:36→21:33)
[2018-06-16] MEDS: INSULIN (LEVEMIR) 100 UNITS/ML UNITS SQ SCH ×2 (06:36→17:15)
[2018-06-16] MEDS: INSULIN SLIDING SCALE (NOVOLOG) 1 VIAL SQ SCH ×4 (06:37→21:34)
[2018-06-16 07:14] LABS: BASO % 0.1 % (0-2.0); HEMATOCRIT 30.8 % (32.4-45.2); HEMOGLOBIN 10.6 GM/dL (10.7-15.3); MCH 28.7 pg (25.7-33.7); MCHC 34.3 g/dl (32.0-36.0); MEAN CELL VOLUME 83.6 fl (80-96); MEAN PLT VOLUME 8.7 fl (7.5-11.1); MONO % 1.8 % (3.8-10.2); NEUT % 94.1 % (42.8-82.8); PLATELET COUNT 241 K/MM3 (134-434); RBC 3.68 M/mm3 (3.60-5.2); RDW 16.1 % (11.6-15.6); WHITE BLOOD COUNT 8.5 K/mm3 (4.0-10.0)
[2018-06-16] MEDS: ALBUTEROL SO4 2.5/IPRATROPIUM 0.5 INH SOL 3 ML VIAL.NEB. NEB SCH ×4 (08:00→20:26)
[2018-06-16 08:20] LABS: ANION GAP 8 MMOL/L (8-16); BLOOD UREA NITROGEN 49 mg/dL (7-18); CALCIUM 7.6 mg/dL (8.5-10.1); CHLORIDE 99 mmol/L (98-107); CO2 35 mmol/L (21-32); CREATININE 1.4 mg/dL (0.55-1.3); GLUCOSE,RANDOM 228 mg/dL (74-106); POTASSIUM 3.7 mmol/L (3.5-5.1); SODIUM 142 mmol/L (136-145)
--- NOTE | 2018-06-16 08:29 | PN ---
Progress Note (short form) - Note Progress Note: Subjective: The patient was seen and examined at the bedside, she has no complaints at this time. She reports feeling well today. F/u pre/post O2 Current Medications Generic Name Dose Route Start Last Admin Trade Name Freq PRN Reason Stop Dose Admin Acetaminophen 650 mg 06/11/18 21:19 Tylenol - PO Q6H PRN PAIN LEVEL 7 - 10 Albuterol/Ipratropium 1 amp 06/11/18 22:00 06/15/18 20:26 Duoneb - NEB 1 amp RQID [facility] Administration Amlodipine Besylate 5 mg 06/12/18 10:00 06/15/18 10:51 Norvasc - PO 5 mg DAILY [facility] Administration Aspirin 81 mg 06/12/18 10:00 06/15/18 10:51 Ecotrin - PO 81 mg DAILY [facility] Administration Atorvastatin Calcium 80 mg 06/11/18 22:00 06/15/18 21:47 Lipitor - PO 80 mg HS [facility] Administration Carvedilol 25 mg 06/11/18 22:00 06/15/18 21:47 Coreg - PO 25 mg BID [facility] Administration Furosemide 40 mg 06/15/18 10:00 06/15/18 10:51 Lasix - PO 40 mg DAILY [facility] Administration Gabapentin 100 mg 06/11/18 22:00 06/16/18 06:36 Neurontin - PO 100 mg TID [facility] Administration Heparin Sodium (Porcine) 5,000 unit 06/12/18 14:00 06/16/18 06:36 Heparin - SQ 5,000 unit TID [facility] Administration Insulin Aspart 1 vial 06/13/18 10:41 06/16/18 06:37 Novolog Vial Sliding Scale - SQ 6 unit ACHS [facility] Administration Protocol Insulin Detemir 20 units 06/14/18 09:05 06/16/18 06:36 Levemir Vial SQ 20 unit BIDI [facility] Administration Lidocaine 1 patch 06/11/18 15:30 06/15/18 10:50 Lidoderm Patch - TP 1 patch DAILY [facility] Administration Methylprednisolone Sodium Succinate 20 mg 06/13/18 18:00 06/16/18 01:24 Solu-Medrol - IVPUSH 20 mg Q8H-IV [facility] Administration Miscellaneous 1 each 06/11/18 22:00 06/15/18 21:48 Lidoderm Patch Removal MC 1 each DAILY@2200 [facility] Administration Pantoprazole Sodium 40 mg 06/12/18 10:00 06/15/18 10:51 Protonix - PO 40 mg DAILY [facility] Administration Simethicone 80 mg 06/11/18 17:15 06/16/18 06:36 Mylicon - PO 80 mg Q6H [facility] Administration Sitagliptin Phosphate 25 mg 06/12/18 07:00 06/16/18 06:36 Januvia - PO 25 mg DAILY@0700 [facility] Administration Objective: Vital Signs Period Temp Pulse Resp BP Sys/Mccarty Pulse Ox Last 24 Hr 97.6 F-98.8 F 60-70 16-20 117-147/46-65 95-95 Physical Exam: General: NAD, &Ox3 Lungs: CTA bilaterally Heart: RRR, S1S2, +systolic murmur Abd: soft, non-tender, non-distended. Normoactive bowel sounds Ext: Warm, well-perfused. 2+ DP/PT bilaterally. No edema CBCD WBC 8.5 K/mm3 (4.0-10.0) 06/16/18 06:30 RBC 3.68 M/mm3 (3.60-5.2) 06/16/18 06:30 Hgb 10.6 GM/dL (10.7-15.3) L 06/16/18 06:30 Hct 30.8 % (32.4-45.2) L 06/16/18 06:30 MCV 83.6 fl (80-96) 06/16/18 06:30 MCHC 34.3 g/dl (32.0-36.0) 06/16/18 06:30 RDW 16.1 % (11.6-15.6) H 06/16/18 06:30 Plt Count 241 K/MM3 (134-434) 06/16/18 06:30 MPV 8.7 fl (7.5-11.1) 06/16/18 06:30 CMP Sodium 142 mmol/L (136-145) 06/16/18 06:30 Potassium 3.7 mmol/L (3.5-5.1) 06/16/18 06:30 Chloride 99 mmol/L (98-107) 06/16/18 06:30 Carbon Dioxide 35 mmol/L (21-32) H 06/16/18 06:30 Anion Gap 8 MMOL/L (8-16) 06/16/18 06:30 BUN 49 mg/dL (7-18) H 06/16/18 06:30 Creatinine 1.4 mg/dL (0.55-1.3) H 06/16/18 06:30 Creat Clearance w eGFR 35.74 (>60) 06/16/18 06:30 Random Glucose 228 mg/dL (74-106) H 06/16/18 06:30 Calcium 7.6 mg/dL (8.5-10.1) L 06/16/18 06:30 Total Bilirubin 0.4 mg/dL (0.2-1) 06/15/18 06:15 AST 14 U/L (15-37) L 06/15/18 06:15 ALT 27 U/L (13-61) 06/15/18 06:15 Alkaline Phosphatase 82 U/L (45-117) 06/15/18 06:15 Total Protein 6.0 g/dl (6.4-8.2) L 06/15/18 06:15 Albumin 2.7 g/dl (3.4-5.0) L 06/15/18 06:15 CARDIAC ENZYMES Creatine Kinase 110 U/L (26-192) 06/11/18 09:22 Troponin I 0.04 ng/ml (0.00-0.05) 06/12/18 03:30 Microbiology 06/12/18 23:30 Urine - Urine Clean Catch Urine Culture - Final NO GROWTH OBTAINED Assessment: This is an 87 year old female with PMHx of DM II, HTN, SSS s/p pacemaker (2011), ESTEBAN s/p stents x 5 progressively worsening SOB associated with lethargy and c/o of RUQ pain. Plan: 1. Acute hypercapneic respiratory failure/SOB/COPD - Tolerating NC 3L. Will follow-up pre/post O2 in preparation for possible discharge home today - Continue IV medrol 20mg q8; transition to PO per pulm, likely today, awaiting recs - Protonix daily - ECHO w/ severe , however per cardiology review likely moderate 2. Acute on chronic CHF - s/p IV diuresis - Cont PO lasix 40mg daily - Coreg 25mg BID 3. ASHD s/p stents - On ASA, Lipitor 4. DM II - ISS, BMG ACHS - Levemir 20mg BID - Januvia 5. DVT ppx - Heparin sq 6. DAY - Creatinine remains stable - Cont lasix Visit type - Emergency Visit Emergency Visit: Yes ED Registration Date: 06/11/18 Care time: The patient presented to the Emergency Department on the above date and was hospitalized for further evaluation of their emergent condition. - New Patient This patient is new to me today: Yes Date on this admission: 06/16/18 - Critical Care Critical Care patient: No
[2018-06-16] MEDS: ASPIRIN COATED 81 MG TABLET.EC PO SCH (09:31)
[2018-06-16] MEDS: FUROSEMIDE 40 MG TABLET (FP) PO SCH (09:31)
[2018-06-16] MEDS: amLODIPine BESYLATE 5 MG TABLET (FP) PO SCH (09:31)
[2018-06-16] MEDS: CARVEDILOL 25 MG TABLET (FP) PO SCH ×2 (09:31→21:33)
[2018-06-16] MEDS: PANTOPRAZOLE 40 MG TABLET (FP) PO SCH (09:31)
--- NOTE | 2018-06-16 11:55 | PN ---
Progress Note, Physician History of Present Illness: pulmonary alert,comfortable,-resp distress,less cough - Current Medication List Current Medications: Active Medications Acetaminophen (Tylenol -) 650 mg PO Q6H PRN PRN Reason: PAIN LEVEL 7 - 10 Albuterol/Ipratropium (Duoneb -) 1 amp NEB RQID [facility] Last Admin: 06/16/18 11:43 Dose: 1 amp Amlodipine Besylate (Norvasc -) 5 mg PO DAILY [facility] Last Admin: 06/16/18 09:31 Dose: 5 mg Aspirin (Ecotrin -) 81 mg PO DAILY [facility] Last Admin: 06/16/18 09:31 Dose: 81 mg Atorvastatin Calcium (Lipitor -) 80 mg PO HS [facility] Last Admin: 06/15/18 21:47 Dose: 80 mg Carvedilol (Coreg -) 25 mg PO BID [facility] Last Admin: 06/16/18 09:31 Dose: 25 mg Furosemide (Lasix -) 40 mg PO DAILY [facility] Last Admin: 06/16/18 09:31 Dose: 40 mg Gabapentin (Neurontin -) 100 mg PO TID [facility] Last Admin: 06/16/18 06:36 Dose: 100 mg Heparin Sodium (Porcine) (Heparin -) 5,000 unit SQ TID [facility] Last Admin: 06/16/18 06:36 Dose: 5,000 unit Insulin Aspart (Novolog Vial Sliding Scale -) 1 vial SQ [facility]; Protocol Last Admin: 06/16/18 06:37 Dose: 6 unit Insulin Detemir (Levemir Vial) 20 units SQ BIDI [facility] Last Admin: 06/16/18 06:36 Dose: 20 unit Lidocaine (Lidoderm Patch -) 1 patch TP DAILY [facility] Last Admin: 06/15/18 10:50 Dose: 1 patch Methylprednisolone Sodium Succinate (Solu-Medrol -) 20 mg IVPUSH Q8H-IV [facility] Last Admin: 06/16/18 09:31 Dose: 20 mg Miscellaneous (Lidoderm Patch Removal) 1 each MC DAILY@2200 [facility] Last Admin: 06/15/18 21:48 Dose: 1 each Pantoprazole Sodium (Protonix -) 40 mg PO DAILY [facility] Last Admin: 06/16/18 09:31 Dose: 40 mg Simethicone (Mylicon -) 80 mg PO Q6H [facility] Last Admin: 06/16/18 09:31 Dose: 80 mg Sitagliptin Phosphate (Januvia -) 25 mg PO DAILY@0700 [facility] Last Admin: 06/16/18 06:36 Dose: 25 mg - Objective Vital Signs: Vital Signs Temperature 97.7 F 06/16/18 06:00 Pulse Rate 65 06/16/18 06:00 Respiratory Rate 18 06/16/18 06:00 Blood Pressure 147/65 06/16/18 06:00 O2 Sat by Pulse Oximetry (%) 95 06/15/18 21:00 Constitutional: Yes: Well Nourished, Calm Eyes: Yes: WNL HENT: Yes: WNL Neck: Yes: WNL Cardiovascular: Yes: Regular Rate and Rhythm, S1, S2 Respiratory: Yes: Diminished, Rhonchi (few scattered rhonchi) Gastrointestinal: Yes: Normal Bowel Sounds, Soft Extremities: Yes: WNL Edema: No Labs: CBC, BMP 06/16/18 06:30 06/16/18 06:30 INR, PTT INR 1.13 (0.83-1.09) H 06/11/18 09:22 Problem List - Problems (1) Acute respiratory failure with hypoxia and hypercapnia Code(s): J96.01 - ACUTE RESPIRATORY FAILURE WITH HYPOXIA; J96.02 - ACUTE RESPIRATORY FAILURE WITH HYPERCAPNIA (2) CHF exacerbation Code(s): I50.9 - HEART FAILURE, UNSPECIFIED Qualifiers: Heart failure type: unspecified Qualified Code(s): I50.9 - Heart failure, unspecified (3) Elevated brain natriuretic peptide (BNP) level Code(s): R79.89 - OTHER SPECIFIED ABNORMAL FINDINGS OF BLOOD CHEMISTRY (4) HTN (hypertension) Code(s): I10 - ESSENTIAL (PRIMARY) HYPERTENSION Qualifiers: Hypertension type: unspecified Qualified Code(s): I10 - Essential (primary ) hypertension (5) Abdominal pain Code(s): R10.9 - UNSPECIFIED ABDOMINAL PAIN Qualifiers: Abdominal location: generalized Qualified Code(s): R10.84 - Generalized abdominal pain (6) CAD (coronary artery disease) Code(s): I25.10 - ATHSCL HEART DISEASE OF [place] CORONARY ARTERY W/O ANG PCTRS (7) Shortness of breath Code(s): R06.02 - SHORTNESS OF BREATH (8) Tnvqi-ys-fccsboa kidney injury Code(s): N17.9 - ACUTE KIDNEY FAILURE, UNSPECIFIED; N18.9 - CHRONIC KIDNEY DISEASE, UNSPECIFIED (9) Abdominal pain Code(s): R10.9 - UNSPECIFIED ABDOMINAL PAIN (10) Acute on chronic systolic CHF (congestive heart failure) Code(s): I50.23 - ACUTE ON CHRONIC SYSTOLIC (CONGESTIVE) HEART FAILURE Assessment/Plan IMP ACUTE HYPOXEMIC/HYPERCAPNEIC RESPIRATORY FAILURE IMPROVED ACUTE ON CHRONIC CHF ASHD S/P STENTS COPD S/P PPM ACUTE ON CHRONIC KIDNEY INJURY ABDOMINAL PAIN DM HTN GERD LIKELY MICHAEL PLAN LASIX PREDNISONE O2 BIPAP NEEDED INHALED BRONCHODILATORS SLEEP STUDIES OUTPATIENT PFTS OUTPATIENT DR COVINGTON Problem List - Problems (1) Acute respiratory failure with hypoxia and hypercapnia Code(s): J96.01 - ACUTE RESPIRATORY FAILURE WITH HYPOXIA; J96.02 - ACUTE RESPIRATORY FAILURE WITH HYPERCAPNIA (2) CHF exacerbation Code(s): I50.9 - HEART FAILURE, UNSPECIFIED Qualifiers: Heart failure type: unspecified Qualified Code(s): I50.9 - Heart failure, unspecified (3) Elevated brain natriuretic peptide (BNP) level Code(s): R79.89 - OTHER SPECIFIED ABNORMAL FINDINGS OF BLOOD CHEMISTRY (4) HTN (hypertension) Code(s): I10 - ESSENTIAL (PRIMARY) HYPERTENSION Qualifiers: Hypertension type: unspecified Qualified Code(s): I10 - Essential (primary ) hypertension (5) Abdominal pain Code(s): R10.9 - UNSPECIFIED ABDOMINAL PAIN Qualifiers: Abdominal location: generalized Qualified Code(s): R10.84 - Generalized abdominal pain (6) CAD (coronary artery disease) Code(s): I25.10 - ATHSCL HEART DISEASE OF [place] CORONARY ARTERY W/O ANG PCTRS (7) Shortness of breath Code(s): R06.02 - SHORTNESS OF BREATH (8) Gdwrx-af-hdrnzow kidney injury Code(s): N17.9 - ACUTE KIDNEY FAILURE, UNSPECIFIED; N18.9 - CHRONIC KIDNEY DISEASE, UNSPECIFIED (9) Abdominal pain Code(s): R10.9 - UNSPECIFIED ABDOMINAL PAIN (10) Acute on chronic systolic CHF (congestive heart failure) Code(s): I50.23 - ACUTE ON CHRONIC SYSTOLIC (CONGESTIVE) HEART FAILURE
[2018-06-16 12:09] LABS: ACANTHOCYTES 0; ANISOCYTOSIS 0; HELMET CELLS 0; HOWELL-JOLLY BODIES 0; MACROCYTOSIS 0; OVALOCYTE 0; PLATELET ESTIMATE NORMAL; ROULEAU 0; SICKELED CELLS 0; TARGET CELLS 0; TEAR DROP CELLS 0; TOXIC GRANULATION 0
[2018-06-16] MEDS: LIDOCAINE 5% TOPICAL PATCH TP SCH (12:10)
[2018-06-16] MEDS ORDERED: PT OWN MED DRAWER 7, Y5N ONE (14:18)
--- NOTE | 2018-06-16 16:32 | DS ---
Physical Examination Vital Signs: Vital Signs Temperature 98.1 F 06/16/18 13:31 Pulse Rate 60 06/16/18 13:31 Respiratory Rate 16 06/16/18 13:31 Blood Pressure 119/49 L 06/16/18 13:31 O2 Sat by Pulse Oximetry (%) 87 L 06/16/18 11:46 Labs: CBC, BMP 06/16/18 06:30 06/16/18 06:30 Discharge Summary Reason For Visit: ELEVATED BRAIN NATRIURETIC PEPTIDE BNP LEVEL Current Active Problems Abdominal pain (Acute) Acute on chronic systolic CHF (congestive heart failure) (Acute) Acute respiratory failure with hypoxia and hypercapnia (Acute) Ixmnj-xb-hjnpsod kidney injury (Acute) CHF exacerbation (Acute) Elevated brain natriuretic peptide (BNP) level (Acute) HTN (hypertension) (Acute) Condition: Improved - Instructions Diet, Activity, Other Instructions: Please return to the ED with new, persistent, or worsening symptoms. Please follow-up with providers as scheduled. Prednisone taper: Take 40mg by mouth once a day for 3 days Take 30mg by mouth once a day for 3 days Take 20mg by mouth once a day for 3 days Take 10mg by mouth once a day for 3 days Referrals: Eddie Wilder MD [Staff Physician] - (Please follow-up with pulmonary within 2- 3 days to schedule outpatient pulmonary function tests and a sleep study.) Renzo Arthur MD [Staff Physician] - 1 Week Disposition: HOME - Home Medications Comprehensive Discharge Medication List: Ambulatory Orders Atorvastatin Ca [Lipitor] 80 mg PO HS 10/05/17 Pantoprazole Sodium [Protonix] 40 mg PO DAILY 10/05/17 Aspirin [Aspirin EC] 81 mg PO DAILY 05/08/18 Simethicone [Gas-X] 80 mg PO Q6H 05/08/18 Acetaminophen [Tylenol .Regular Strength -] 650 mg PO Q6H PRN tablet 05/10/18 Amlodipine Besylate [Norvasc -] 5 mg PO DAILY tablet 05/10/18 Carvedilol [Coreg -] 25 mg PO BID tablet 05/10/18 Gabapentin 100 mg PO TID 06/11/18 Sitagliptin Phosphate [Januvia] 100 mg PO DAILY 06/11/18 Albuterol Sulfate Inhaler - [Ventolin HFA Inhaler -] 1 - 2 inh PO Q4H PRN #1 inhaler 06/16/18 Furosemide [Lasix -] 40 mg PO DAILY #30 tablet 06/16/18 Insulin (Levemir) [Levemir Vial] 20 units SQ BIDI #100 ml 06/16/18 Lidocaine 5% Patch [Lidoderm -] 1 patch TP DAILY #30 patch 06/16/18 Lidocaine Patch Removal [Lidoderm Patch Removal] 1 each MC DAILY@2200 #1 each Prednisone 10 mg PO ASDIR #30 tablet 06/16/18 - Discharge Referral Referred to [facility] No
[2018-06-16] MEDS: LIDOCAINE PATCH REMOVAL MC SCH (21:33)
[2018-06-16] MEDS: ATORVASTATIN CA 80 MG TABLET (FP) PO SCH (21:33)
[2018-06-17] MEDS: methylPREDNISolone NA SUCC 40 MG/1 ML VIAL IVPUSH SCH ×2 (01:00→09:59)
[2018-06-17] MEDS: INSULIN SLIDING SCALE (NOVOLOG) 1 VIAL SQ SCH ×4 (06:22→21:11)
[2018-06-17] MEDS: SIMETHICONE 80 MG TAB.CHEW (FP) PO SCH ×4 (06:22→23:37)
[2018-06-17] MEDS: INSULIN (LEVEMIR) 100 UNITS/ML UNITS SQ SCH ×2 (06:22→17:17)
[2018-06-17] MEDS: HEPARIN NA (PORCINE) 5,000 UNITS/ML 1ML VIAL SQ SCH ×3 (06:22→21:10)
[2018-06-17] MEDS: GABAPENTIN 100 MG CAPSULE (FP) PO SCH ×3 (06:23→21:10)
[2018-06-17] MEDS: sitaGLIPtin PHOSPHATE 25 MG TABLET (FP) PO SCH (06:23)
[2018-06-17] MEDS: amLODIPine BESYLATE 5 MG TABLET (FP) PO SCH (09:59)
[2018-06-17] MEDS: CARVEDILOL 25 MG TABLET (FP) PO SCH ×2 (09:59→21:10)
[2018-06-17] MEDS: ASPIRIN COATED 81 MG TABLET.EC PO SCH (09:59)
[2018-06-17] MEDS: FUROSEMIDE 40 MG TABLET (FP) PO SCH (09:59)
[2018-06-17] MEDS: PANTOPRAZOLE 40 MG TABLET (FP) PO SCH (09:59)
[2018-06-17] MEDS: LIDOCAINE 5% TOPICAL PATCH TP SCH (09:59)
[2018-06-17] MEDS ORDERED: ONDANSETRON 4 MG/2 ML VIAL IVPUSH PRN (13:03)
--- NOTE | 2018-06-17 13:05 | PN ---
Progress Note (short form) - Note Progress Note: PULMONARY Nauseous and vomiting today. Denies shortness of breath. +nonproductive cough. Vital Signs Period Temp Pulse Resp BP Sys/Mccarty Pulse Ox Last 24 Hr 97.6 F-98.4 F 60-72 16-20 119-159/49-81 96-96 Gen: NAD at rest Heart: RRR Lung: decreased breath sounds at the bases Abd: soft, nontender Ext: no edema CBC, BMP 06/16/18 06:30 06/16/18 06:30 Active Medications Acetaminophen (Tylenol -) 650 mg PO Q6H PRN PRN Reason: PAIN LEVEL 7 - 10 Amlodipine Besylate (Norvasc -) 5 mg PO DAILY [facility] Last Admin: 06/17/18 09:59 Dose: 5 mg Aspirin (Ecotrin -) 81 mg PO DAILY [facility] Last Admin: 06/17/18 09:59 Dose: 81 mg Atorvastatin Calcium (Lipitor -) 80 mg PO HS [facility] Last Admin: 06/16/18 21:33 Dose: 80 mg Carvedilol (Coreg -) 25 mg PO BID [facility] Last Admin: 06/17/18 09:59 Dose: 25 mg Furosemide (Lasix -) 40 mg PO DAILY [facility] Last Admin: 06/17/18 09:59 Dose: 40 mg Gabapentin (Neurontin -) 100 mg PO TID [facility] Last Admin: 06/17/18 06:23 Dose: 100 mg Heparin Sodium (Porcine) (Heparin -) 5,000 unit SQ TID [facility] Last Admin: 06/17/18 06:22 Dose: 5,000 unit Insulin Aspart (Novolog Vial Sliding Scale -) 1 vial SQ [facility]; Protocol Last Admin: 06/17/18 11:20 Dose: 6 units Insulin Detemir (Levemir Vial) 20 units SQ BIDI [facility] Last Admin: 06/17/18 06:22 Dose: 20 unit Lidocaine (Lidoderm Patch -) 1 patch TP DAILY [facility] Last Admin: 06/17/18 09:59 Dose: 1 patch Methylprednisolone Sodium Succinate (Solu-Medrol -) 20 mg IVPUSH Q8H-IV [facility] Last Admin: 06/17/18 09:59 Dose: 20 mg Miscellaneous (Lidoderm Patch Removal) 1 each MC DAILY@2200 [facility] Last Admin: 06/16/18 21:33 Dose: 1 each Ondansetron HCl (Zofran Injection) 4 mg IVPUSH Q6H PRN PRN Reason: NAUSEA Pantoprazole Sodium (Protonix -) 40 mg PO DAILY [facility] Last Admin: 06/17/18 09:59 Dose: 40 mg Simethicone (Mylicon -) 80 mg PO Q6H [facility] Last Admin: 06/17/18 11:21 Dose: 80 mg Sitagliptin Phosphate (Januvia -) 25 mg PO DAILY@0700 [facility] Last Admin: 06/17/18 06:23 Dose: 25 mg A/P Acute Hypoxic and Hypercapneic Respiratory Failure improving r/o Acute COPD Exacerbation LV Diastolic Dysfunction CAD s/p stents Acute on Chronic Renal Failure HTN DM GERD r/o MICHAEL/OHS - can change steroids to PO prednisone 40mg daily and taper as outpt - inhaled bronchodilators - O2 to keep Spo2 >90% - will need outpt PFTs and PSG - DVT prophylaxis
--- NOTE | 2018-06-17 14:04 | DS ---
Physical Exam: SUBJECTIVE: Patient seen and examined. She has no acute complaints, no sob. She ambulated with PT OBJECTIVE: Vital Signs Period Temp Pulse Resp BP Sys/Mccarty Pulse Ox Last 24 Hr 97.6 F-98.4 F 61-72 16-20 127-159/51-81 96-96 PE Neuro: alert,awake,cn 2-12intact Pulm: diminished R lobe, left clear CV: s1 s2 rrr 3/6 systolic murmur Abd: s nt nt + bs Ext: no le edema Laboratory Results - last 24 hr 06/16/18 06/16/18 06/17/18 17:04 21:32 06:21 POC Glucometer 273 230 142 06/17/18 11:14 POC Glucometer 221 HOSPITAL COURSE: Date of Admission:06/11/18 Date of Discharge: 06/17/18 Minutes to complete discharge: 37 Discharge Summary Reason For Visit: ELEVATED BRAIN NATRIURETIC PEPTIDE BNP LEVEL Current Active Problems Abdominal pain (Acute) Acute on chronic systolic CHF (congestive heart failure) (Acute) Acute respiratory failure with hypoxia and hypercapnia (Acute) Yvdfb-yy-menqniv kidney injury (Acute) CHF exacerbation (Acute) Elevated brain natriuretic peptide (BNP) level (Acute) HTN (hypertension) (Acute) Hospital Course: Initial Hospital Course: 87 year old female with a significant past medical history or diabetes mellitus II, hypertension, pacemaker(2011), CAD s/p stents x 5 presented to ED for progressively worsening shortness of breath that began 3 days ago associated with lethargy and c/o of RUQ pain. In the past 3 days, patient has waking up frequently due to shortness of breath and has to sleep upright. In the ED she was placed on nasal cannula and eventually upgraded to bipap. She was not home oxygen dependent. Patient has been admitted multiple times for CHF exacerbation with similar presentation. Her last admission was last month 04/2018 and required Bipap. On last admission she was she was transferred to [facility] for further work-up after findings of a possible pancreatic mass with CBD dilation. 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 Subsequent Hospital Course/Progress Note/DC summary: Assessment: This is an 87 year old female with PMHx of DM II, HTN, SSS s/p pacemaker (2011), ESTEBAN s/p stents x 5 progressively worsening SOB associated with lethargy and c/o of RUQ pain. Plan: 1. Acute hypercapneic respiratory failure/SOB/COPD - Pre and post shows 87% RA; requiring home o2 - s/p IV medrol - Home with PO taper as listed - Protonix daily - ECHO w/ severe , however per cardiology review likely moderate 2. Acute on chronic CHF - s/p IV diuresis - Cont PO lasix 40mg daily - Coreg 25mg BID 3. ASHD s/p stents - On ASA, Lipitor 4. DM II - Levemir 20mg BID - Januvia 5. DAY - Creatinine remains stable - Cont lasix 6. Weakness - Following PT eval requires rolling walker, has one at home per daughter Dispo: - DC home with home o2, meds as listed, pcp follow up Condition: Stable - Instructions Diet, Activity, Other Instructions: Please return to the ED with new, persistent, or worsening symptoms. Please follow-up with providers as scheduled. Ambulate with walker at all times Resume home medications as directed Prednisone taper: Take 40mg by mouth once a day for 3 days Take 30mg by mouth once a day for 3 days Take 20mg by mouth once a day for 3 days Take 10mg by mouth once a day for 3 days Referrals: Eddie Wilder MD [Staff Physician] - (Please follow-up with pulmonary within 2- 3 days to schedule outpatient pulmonary function tests and a sleep study.) Renzo Arthur MD [Staff Physician] - 1 Week Disposition: [facility]/HOME HEALTH CARE - Home Medications Comprehensive Discharge Medication List: Ambulatory Orders Atorvastatin Ca [Lipitor] 80 mg PO HS 10/05/17 Pantoprazole Sodium [Protonix] 40 mg PO DAILY 10/05/17 Aspirin [Aspirin EC] 81 mg PO DAILY 05/08/18 Simethicone [Gas-X] 80 mg PO Q6H 05/08/18 Acetaminophen [Tylenol .Regular Strength -] 650 mg PO Q6H PRN tablet 05/10/18 Amlodipine Besylate [Norvasc -] 5 mg PO DAILY tablet 05/10/18 Carvedilol [Coreg -] 25 mg PO BID tablet 05/10/18 Gabapentin 100 mg PO TID 06/11/18 Sitagliptin Phosphate [Januvia] 100 mg PO DAILY 06/11/18 Albuterol Sulfate Inhaler - [Ventolin HFA Inhaler -] 1 - 2 inh PO Q4H PRN #1 inhaler 06/16/18 Furosemide [Lasix -] 40 mg PO DAILY #30 tablet 06/16/18 Insulin (Levemir) [Levemir Vial] 20 units SQ BIDI #100 ml 06/16/18 Lidocaine 5% Patch [Lidoderm -] 1 patch TP DAILY #30 patch 06/16/18 Lidocaine Patch Removal [Lidoderm Patch Removal] 1 each MC DAILY@2200 #1 each Prednisone 10 mg PO ASDIR #30 tablet 06/16/18 This patient is new to me today: No Emergency Visit: Yes ED Registration Date: 06/11/18 Care time: The patient presented to the Emergency Department on the above date and was hospitalized for further evaluation of their emergent condition. Critical Care patient: No - Discharge Referral Referred to [facility] No
[2018-06-17] MEDS: ATORVASTATIN CA 80 MG TABLET (FP) PO SCH (21:10)
[2018-06-17] MEDS: LIDOCAINE PATCH REMOVAL MC SCH (21:12)
[2018-06-18] MEDS ORDERED: PT OWN MED DRAWER 7, Y5N ONE ×2 (05:16→10:04)
[2018-06-18] MEDS: SIMETHICONE 80 MG TAB.CHEW (FP) PO SCH ×3 (05:54→17:20)
[2018-06-18] MEDS: HEPARIN NA (PORCINE) 5,000 UNITS/ML 1ML VIAL SQ SCH ×2 (05:54→14:00)
[2018-06-18] MEDS: GABAPENTIN 100 MG CAPSULE (FP) PO SCH ×2 (05:58→14:00)
[2018-06-18] MEDS: INSULIN SLIDING SCALE (NOVOLOG) 1 VIAL SQ SCH ×3 (06:36→17:18)
[2018-06-18] MEDS: sitaGLIPtin PHOSPHATE 25 MG TABLET (FP) PO SCH (06:38)
[2018-06-18] MEDS: INSULIN (LEVEMIR) 100 UNITS/ML UNITS SQ SCH ×2 (08:30→17:17)
[2018-06-18] MEDS ORDERED: predniSONE 20 MG TABLET (UD) PO SCH (10:00)
[2018-06-18] MEDS: PANTOPRAZOLE 40 MG TABLET (FP) PO SCH (10:39)
[2018-06-18] MEDS: CARVEDILOL 25 MG TABLET (FP) PO SCH (10:39)
[2018-06-18] MEDS: FUROSEMIDE 40 MG TABLET (FP) PO SCH (10:39)
[2018-06-18] MEDS: ASPIRIN COATED 81 MG TABLET.EC PO SCH (10:39)
[2018-06-18] MEDS: LIDOCAINE 5% TOPICAL PATCH TP SCH (10:40)
[2018-06-18] MEDS: amLODIPine BESYLATE 5 MG TABLET (FP) PO SCH (10:40)
--- NOTE | 2018-06-18 11:41 | PN ---
Progress Note, Physician History of Present Illness: pulmonary alert,comfortable,-resp distress - Current Medication List Current Medications: Active Medications Acetaminophen (Tylenol -) 650 mg PO Q6H PRN PRN Reason: PAIN LEVEL 7 - 10 Amlodipine Besylate (Norvasc -) 5 mg PO DAILY [facility] Last Admin: 06/18/18 10:40 Dose: 5 mg Aspirin (Ecotrin -) 81 mg PO DAILY [facility] Last Admin: 06/18/18 10:39 Dose: 81 mg Atorvastatin Calcium (Lipitor -) 80 mg PO HS [facility] Last Admin: 06/17/18 21:10 Dose: 80 mg Carvedilol (Coreg -) 25 mg PO BID [facility] Last Admin: 06/18/18 10:39 Dose: 25 mg Furosemide (Lasix -) 40 mg PO DAILY [facility] Last Admin: 06/18/18 10:39 Dose: 40 mg Gabapentin (Neurontin -) 100 mg PO TID [facility] Last Admin: 06/18/18 05:58 Dose: 100 mg Heparin Sodium (Porcine) (Heparin -) 5,000 unit SQ TID [facility] Last Admin: 06/18/18 05:54 Dose: 5,000 unit Insulin Aspart (Novolog Vial Sliding Scale -) 1 vial SQ [facility]; Protocol Last Admin: 06/18/18 06:36 Dose: Not Given Insulin Detemir (Levemir Vial) 20 units SQ BIDI [facility] Last Admin: 06/18/18 08:30 Dose: 20 units Lidocaine (Lidoderm Patch -) 1 patch TP DAILY [facility] Last Admin: 06/18/18 10:40 Dose: 1 patch Miscellaneous (Lidoderm Patch Removal) 1 each MC DAILY@2200 [facility] Last Admin: 06/17/18 21:12 Dose: 1 each Ondansetron HCl (Zofran Injection) 4 mg IVPUSH Q6H PRN PRN Reason: NAUSEA Last Admin: 06/17/18 14:54 Dose: 4 mg Pantoprazole Sodium (Protonix -) 40 mg PO DAILY [facility] Last Admin: 06/18/18 10:39 Dose: 40 mg Prednisone (Deltasone -) 40 mg PO DAILY [facility] Last Admin: 06/18/18 10:39 Dose: 40 mg Simethicone (Mylicon -) 80 mg PO Q6H [facility] Last Admin: 06/18/18 05:54 Dose: 80 mg Sitagliptin Phosphate (Januvia -) 25 mg PO DAILY@0700 [facility] Last Admin: 06/18/18 06:38 Dose: 25 mg - Objective Vital Signs: Vital Signs Temperature 97.9 F 06/18/18 06:00 Pulse Rate 62 06/18/18 06:00 Respiratory Rate 18 06/18/18 06:00 Blood Pressure 150/49 L 06/18/18 06:00 O2 Sat by Pulse Oximetry (%) 94 L 06/17/18 21:00 Constitutional: Yes: Well Nourished, Calm Eyes: Yes: WNL HENT: Yes: WNL Neck: Yes: WNL Cardiovascular: Yes: Regular Rate and Rhythm, S1, S2 Respiratory: Yes: Diminished Gastrointestinal: Yes: Normal Bowel Sounds, Soft Extremities: Yes: WNL Edema: No Labs: CBC, BMP Problem List - Problems (1) Acute respiratory failure with hypoxia and hypercapnia Code(s): J96.01 - ACUTE RESPIRATORY FAILURE WITH HYPOXIA; J96.02 - ACUTE RESPIRATORY FAILURE WITH HYPERCAPNIA (2) CHF exacerbation Code(s): I50.9 - HEART FAILURE, UNSPECIFIED Qualifiers: Heart failure type: unspecified Qualified Code(s): I50.9 - Heart failure, unspecified (3) Elevated brain natriuretic peptide (BNP) level Code(s): R79.89 - OTHER SPECIFIED ABNORMAL FINDINGS OF BLOOD CHEMISTRY (4) HTN (hypertension) Code(s): I10 - ESSENTIAL (PRIMARY) HYPERTENSION Qualifiers: Hypertension type: unspecified Qualified Code(s): I10 - Essential (primary ) hypertension (5) Abdominal pain Code(s): R10.9 - UNSPECIFIED ABDOMINAL PAIN Qualifiers: Abdominal location: generalized Qualified Code(s): R10.84 - Generalized abdominal pain (6) CAD (coronary artery disease) Code(s): I25.10 - ATHSCL HEART DISEASE OF [place] CORONARY ARTERY W/O ANG PCTRS (7) Shortness of breath Code(s): R06.02 - SHORTNESS OF BREATH (8) Wpfly-ku-mqjoefg kidney injury Code(s): N17.9 - ACUTE KIDNEY FAILURE, UNSPECIFIED; N18.9 - CHRONIC KIDNEY DISEASE, UNSPECIFIED (9) Abdominal pain Code(s): R10.9 - UNSPECIFIED ABDOMINAL PAIN (10) Acute on chronic systolic CHF (congestive heart failure) Code(s): I50.23 - ACUTE ON CHRONIC SYSTOLIC (CONGESTIVE) HEART FAILURE Assessment/Plan IMP ACUTE HYPOXEMIC/HYPERCAPNEIC RESPIRATORY FAILURE IMPROVED ACUTE ON CHRONIC CHF ASHD S/P STENTS COPD S/P PPM ACUTE ON CHRONIC KIDNEY INJURY ABDOMINAL PAIN DM HTN GERD LIKELY MICHAEL PLAN LASIX PREDNISONE O2 INHALED BRONCHODILATORS SLEEP STUDIES OUTPATIENT PFTS OUTPATIENT DR COVINGTON Problem List - Problems (1) Acute respiratory failure with hypoxia and hypercapnia Code(s): J96.01 - ACUTE RESPIRATORY FAILURE WITH HYPOXIA; J96.02 - ACUTE RESPIRATORY FAILURE WITH HYPERCAPNIA (2) CHF exacerbation Code(s): I50.9 - HEART FAILURE, UNSPECIFIED Qualifiers: Heart failure type: unspecified Qualified Code(s): I50.9 - Heart failure, unspecified (3) Elevated brain natriuretic peptide (BNP) level Code(s): R79.89 - OTHER SPECIFIED ABNORMAL FINDINGS OF BLOOD CHEMISTRY (4) HTN (hypertension) Code(s): I10 - ESSENTIAL (PRIMARY) HYPERTENSION Qualifiers: Hypertension type: unspecified Qualified Code(s): I10 - Essential (primary ) hypertension (5) Abdominal pain Code(s): R10.9 - UNSPECIFIED ABDOMINAL PAIN Qualifiers: Abdominal location: generalized Qualified Code(s): R10.84 - Generalized abdominal pain (6) CAD (coronary artery disease) Code(s): I25.10 - ATHSCL HEART DISEASE OF [place] CORONARY ARTERY W/O ANG PCTRS (7) Shortness of breath Code(s): R06.02 - SHORTNESS OF BREATH (8) Nwvbp-hr-yayjokd kidney injury Code(s): N17.9 - ACUTE KIDNEY FAILURE, UNSPECIFIED; N18.9 - CHRONIC KIDNEY DISEASE, UNSPECIFIED (9) Abdominal pain Code(s): R10.9 - UNSPECIFIED ABDOMINAL PAIN (10) Acute on chronic systolic CHF (congestive heart failure) Code(s): I50.23 - ACUTE ON CHRONIC SYSTOLIC (CONGESTIVE) HEART FAILURE
--- NOTE | 2018-06-18 12:37 | PN ---
Progress Note, Physician Chief Complaint: no c/o SOB or chest pain - Current Medication List Current Medications: Active Medications Acetaminophen (Tylenol -) 650 mg PO Q6H PRN PRN Reason: PAIN LEVEL 7 - 10 Amlodipine Besylate (Norvasc -) 5 mg PO DAILY [facility] Last Admin: 06/18/18 10:40 Dose: 5 mg Aspirin (Ecotrin -) 81 mg PO DAILY [facility] Last Admin: 06/18/18 10:39 Dose: 81 mg Atorvastatin Calcium (Lipitor -) 80 mg PO HS [facility] Last Admin: 06/17/18 21:10 Dose: 80 mg Carvedilol (Coreg -) 25 mg PO BID [facility] Last Admin: 06/18/18 10:39 Dose: 25 mg Furosemide (Lasix -) 40 mg PO DAILY [facility] Last Admin: 06/18/18 10:39 Dose: 40 mg Gabapentin (Neurontin -) 100 mg PO TID [facility] Last Admin: 06/18/18 05:58 Dose: 100 mg Heparin Sodium (Porcine) (Heparin -) 5,000 unit SQ TID [facility] Last Admin: 06/18/18 05:54 Dose: 5,000 unit Insulin Aspart (Novolog Vial Sliding Scale -) 1 vial SQ [facility]; Protocol Last Admin: 06/18/18 11:53 Dose: Not Given Insulin Detemir (Levemir Vial) 20 units SQ BIDI [facility] Last Admin: 06/18/18 08:30 Dose: 20 units Lidocaine (Lidoderm Patch -) 1 patch TP DAILY [facility] Last Admin: 06/18/18 10:40 Dose: 1 patch Miscellaneous (Lidoderm Patch Removal) 1 each MC DAILY@2200 [facility] Last Admin: 06/17/18 21:12 Dose: 1 each Ondansetron HCl (Zofran Injection) 4 mg IVPUSH Q6H PRN PRN Reason: NAUSEA Last Admin: 06/17/18 14:54 Dose: 4 mg Pantoprazole Sodium (Protonix -) 40 mg PO DAILY [facility] Last Admin: 06/18/18 10:39 Dose: 40 mg Prednisone (Deltasone -) 40 mg PO DAILY [facility] Last Admin: 06/18/18 10:39 Dose: 40 mg Simethicone (Mylicon -) 80 mg PO Q6H [facility] Last Admin: 06/18/18 12:00 Dose: 80 mg Sitagliptin Phosphate (Januvia -) 25 mg PO DAILY@0700 [facility] Last Admin: 06/18/18 06:38 Dose: 25 mg - Objective Vital Signs: Vital Signs Temperature 98.2 F 06/18/18 10:00 Pulse Rate 82 06/18/18 10:00 Respiratory Rate 18 06/18/18 10:00 Blood Pressure 122/57 L 06/18/18 10:00 O2 Sat by Pulse Oximetry (%) 97 06/18/18 09:00 Constitutional: Yes: Well Nourished, No Distress Eyes: Yes: WNL, Conjunctiva Clear HENT: Yes: WNL, Normocephalic Neck: Yes: Supple, Trachea Midline. No: Decreased ROM, Lymphadenopathy Cardiovascular: Yes: Regular Rate and Rhythm, S1. No: JVD, Murmur, Rub Respiratory: Yes: Regular, CTA Bilaterally, Other Gastrointestinal: Yes: Normal Bowel Sounds, Soft Edema: No Peripheral Pulses: Left Doralis Pedis: 1+, Right Dorsalis Pedis: 1+ Neurological: Yes: Alert, Oriented ...Motor Strength: WNL, LUE, LLE, RUE, RLE Labs: CBC, BMP 06/16/18 06:30 06/16/18 06:30 INR, PTT INR 1.13 (0.83-1.09) H 06/11/18 09:22 Problem List - Problems (1) Acute respiratory failure with hypoxia and hypercapnia Assessment/Plan: Improving will be Dc home on Home O2 Code(s): J96.01 - ACUTE RESPIRATORY FAILURE WITH HYPOXIA; J96.02 - ACUTE RESPIRATORY FAILURE WITH HYPERCAPNIA (2) Acute on chronic systolic CHF (congestive heart failure) Assessment/Plan: Compensated cont current management Code(s): I50.23 - ACUTE ON CHRONIC SYSTOLIC (CONGESTIVE) HEART FAILURE (3) HTN (hypertension) Assessment/Plan: Well controlled on current meds Code(s): I10 - ESSENTIAL (PRIMARY) HYPERTENSION Qualifiers: Hypertension type: unspecified Qualified Code(s): I10 - Essential (primary ) hypertension (4) CAD (coronary artery disease) Assessment/Plan: Stable no chest pain or SOB Code(s): I25.10 - ATHSCL HEART DISEASE OF [place] CORONARY ARTERY W/O ANG PCTRS (5) T2DM (type 2 diabetes mellitus) Assessment/Plan: cont current management. Code(s): E11.9 - TYPE 2 DIABETES MELLITUS WITHOUT COMPLICATIONS
[2018-06-18 19:24] VITALS: BP 136/62; PULSE 71; TEMP 97.9
== END 2018-06-18 19:28 | disposition home health service (06) | DRG 291 ==
LOC: JER 08:26 → JERBED 10:26 → J4S 06-12 00:14
PROVIDERS: ADMIT Internal Medicine; ATTEND Internal Medicine
DX: I13.0 Hypertensive heart and chronic kidney disease with heart failure and stage 1 through stage 4 chronic kidney disease, or unspecified chronic kidney disease (principal); J96.02 Acute respiratory failure with hypercapnia; I50.33 Acute on chronic diastolic (congestive) heart failure; J96.01 Acute respiratory failure with hypoxia; E87.2 Acidosis; N17.9 Acute kidney failure, unspecified; J44.1 Chronic obstructive pulmonary disease with (acute) exacerbation; E11.9 Type 2 diabetes mellitus without complications; I25.10 Atherosclerotic heart disease of native coronary artery without angina pectoris; Z98.61 Coronary angioplasty status; Z95.0 Presence of cardiac pacemaker; K21.9 Gastro-esophageal reflux disease without esophagitis; J44.9 Chronic obstructive pulmonary disease, unspecified; N18.9 Chronic kidney disease, unspecified; R53.1 Weakness; I35.0 Nonrheumatic aortic (valve) stenosis
CPT/HCPCS: 36415; 36600; 71045-TC-FY; 71250-TC; 80048; 80053; 80061; 81003; 82550; 82803; 82947; 82962; 83036; 83605; 83690; 83721; 83735; 83880; 84484; 85025; 85610; 87086; 87804; 93005; 93010; 93306-TC; 93970-TC; 94640; 94660; 94761; 97116-GP; 97161-GP; 99285-25; J1644

== ENCOUNTER 2018-08-25 14:42 | Inpatient (IN) | payer OTHER ==
[2018-08-25] MEDS ORDERED: ACETAMINOPHEN 1000 MG/100 ML VIAL (NON FORMULARY) IVPB ONE (15:38)
[2018-08-25 15:40] LABS: BASO % 0.2 % (0-2.0); EOS % 0.8 % (0-4.5); HEMATOCRIT 32.1 % (32.4-45.2); HEMOGLOBIN 10.4 GM/dL (10.7-15.3); MCH 28.1 pg (25.7-33.7); MCHC 32.3 g/dl (32.0-36.0); MEAN CELL VOLUME 87.1 fl (80-96); MONO % 3.8 % (3.8-10.2); NEUT % 90.2 % (42.8-82.8); PLATELET COUNT 181 K/MM3 (134-434); RBC 3.68 M/mm3 (3.60-5.2); RDW 18.3 % (11.6-15.6); WHITE BLOOD COUNT 6.2 K/mm3 (4.0-10.0)
[2018-08-25] MEDS ORDERED: ACETAMINOPHEN INJECTION 100 ML IVPB ONE (15:42)
--- NOTE | 2018-08-25 15:43 | PDOC ---
History of Present Illness - General Chief Complaint: Pain Stated Complaint: ABD PAIN Time Seen by Provider: 08/25/18 14:59 History Source: Patient, Care Provider Exam Limitations: Language Barrier - History of Present Illness Initial Comments: 08/25/18 15:41 Pt is an 88yo F with PMH of CAD s/p CABG and stents, SSS s/p Pacemaker, CHF, COPD? on 3L O2, Pancreatic Cyst, IDDM, HTN presenting to Ed with complaints of back and abdominal pain x2 hours. Pt describes the pain as "hard". She points to the back and says it radiates to the abdomen. Denies n/v/d, numbness/tingling , lightheadedness, headache, urinary symptoms, bloody stools. No recent travel, no sick contacts. PMD: Brigette Farah: Rambo PMH: see hpi PSH: see hpi Meds: see med rec Allergies: nkda Past History - Past Medical History Allergies/Adverse Reactions: Allergies Allergy/AdvReac Type Severity Reaction Status Date / Time No Known Allergies Allergy Verified 08/25/18 15:25 Home Medications: Ambulatory Orders Atorvastatin Ca [Lipitor] 80 mg PO HS 10/05/17 Pantoprazole Sodium [Protonix] 40 mg PO DAILY 10/05/17 Aspirin [Aspirin EC] 81 mg PO DAILY 05/08/18 Simethicone [Gas-X] 80 mg PO Q6H 05/08/18 Acetaminophen [Tylenol .Regular Strength -] 650 mg PO Q6H PRN tablet 05/10/18 Amlodipine Besylate [Norvasc -] 5 mg PO DAILY tablet 05/10/18 Carvedilol [Coreg -] 25 mg PO BID tablet 05/10/18 Gabapentin 100 mg PO TID 06/11/18 Sitagliptin Phosphate [Januvia] 100 mg PO DAILY 06/11/18 Albuterol Sulfate Inhaler - [Ventolin HFA Inhaler -] 1 - 2 inh PO Q4H PRN #1 inhaler 06/16/18 Furosemide [Lasix -] 40 mg PO DAILY #30 tablet 06/16/18 Insulin (Levemir) [Levemir Vial] 20 units SQ BIDI #100 ml 06/16/18 Lidocaine 5% Patch [Lidoderm -] 1 patch TP DAILY #30 patch 06/16/18 Lidocaine Patch Removal [Lidoderm Patch Removal] 1 each MC DAILY@2200 #1 each Prednisone 10 mg PO ASDIR #30 tablet 06/16/18 Cardiac Disorders: Yes (CAD x5 stents) COPD: No CHF: Yes Dementia: Yes Diabetes: Yes GI Disorders: Yes (GERD) HTN: Yes Hypercholesterolemia: Yes - Surgical History Cardiac Surgery: Yes (pacemaker) - Suicide/Smoking/Psychosocial Hx Smoking History: Never smoked Have you smoked in the past 12 months: No Number of Cigarettes Smoked Daily: 20 If you are a former smoker, when did you quit?: 30 years ago Hx Alcohol Use: No Drug/Substance Use Hx: No Substance Use Type: None Hx Substance Use Treatment: No Review of Systems - Review of Systems Constitutional: No: Chills, Fever, Loss of Appetite, Weakness HEENTM: No: Symptoms Reported Respiratory: No: Cough, Shortness of Breath Cardiac (ROS): No: Chest Pain, Lightheadedness, Palpitations, Syncope ABD/GI: Yes: See HPI, Abdominal cramping. No: Constipated, Diarrhea, Nausea, Rectal Bleeding, Vomiting, Tarry Stools : No: Symptoms Reported Musculoskeletal: Yes: Back Pain. No: Joint Pain, Muscle Pain Integumentary: No: Symptoms Reported Neurological: No: Symptoms reported *Physical Exam - Vital Signs Last Vital Signs Temp Pulse Resp BP Pulse Ox 98.7 F 65 18 135/50 L 100 08/25/18 14:46 08/25/18 14:46 08/25/18 14:46 08/25/18 14:46 08/25/18 14:46 - Physical Exam General Appearance: Yes: Nourished, Appropriately Dressed. No: Apparent Distress HEENT: positive: EOMI, FRANKIE, Normal ENT Inspection Neck: positive: Trachea midline, Supple. negative: Lymphadenopathy (R), Lymphadenopathy (L) Respiratory/Chest: positive: Lungs Clear, Normal Breath Sounds Cardiovascular: positive: Regular Rhythm, Regular Rate, S1, S2. negative: Edema , JVD, Murmur Vascular Pulses: Carotid (R): 2+, Carotid (L): 2+, Dorsalis-Pedis (R): 2+, Doralis-Pedis (L): 2+ Gastrointestinal/Abdominal: positive: Normal Bowel Sounds, Soft, Tenderness ( diffuse tenderness). negative: Distended, Guarding, Rebound Musculoskeletal: negative: CVA Tenderness, Vertebral Tenderness Extremity: positive: Normal Capillary Refill Integumentary: positive: Normal Color, Dry, Warm Neurologic: positive: outsole caser II-XII NML intact, Fully Oriented, Alert, Normal Mood/ Affect, Normal Response, Motor Strength 09/19 ED Treatment Course - LABORATORY CBC & Chemistry Diagram: 08/25/18 15:31 08/25/18 15:31 - ADDITIONAL ORDERS Additional order review: Laboratory Results 08/25/18 15:15 POC Glucometer 285 08/25/18 15:15 POC Glucometer 285 Medical Decision Making - Medical Decision Making 08/25/18 18:12 Pt is an 88yo F with PMH of CAD s/p CABG and stents, SSS s/p Pacemaker, CHF, COPD? on 3L O2, Pancreatic Cyst, IDDM, HTN presenting to Ed with complaints of back and abdominal pain x2 hours. Pt describes the pain as "hard". She points to the back and says it radiates to the abdomen. Denies n/v/d, numbness/tingling , lightheadedness, headache, urinary symptoms, bloody stools. No recent travel, no sick contacts. Vitals: wnl PE: diffuse abdominal tenderness, no CVA tenderness ddx includes but not limited to cholecystisis, pancreatitis, colitis, ischemia, AAA, pyelo, nephrolithiasis, atypical ACS -labs -ekg, CTAP -IV tylenol labs significant for elevated LFTs. EKG: new TWI? CT: no new changes, 1mm CBD, Pancreatic mass. Will admit. *DC/Admit/Observation/Transfer Diagnosis at time of Disposition: LFT elevation, T wave inversion in EKG Abdominal pain Qualifiers: Abdominal location: generalized Qualified Code(s): R10.84 - Generalized abdominal pain - Referrals - Patient Instructions - Post Discharge Activity
--- NOTE | 2018-08-25 15:47 | PDOC ---
Attending Attestation - HPI HPI: 08/25/18 16:50 The patient is a 88 year old female, with a significant past medical history of DM, HTN, CAD (stents x5 and pacemaker), CHF, and GERD, who presents to the emergency department with complaint of back pain and abdominal pain since 1pm today. She reports her back pain as diffuse and lower. She denies pain radiation. The patient denies chest pain, shortness of breath, headache and dizziness. The patient denies fever, chills, nausea, vomit, diarrhea and constipation. The patient denies dysuria, frequency, urgency and hematuria. Allergies: NKDA - Physicial Exam PE: 08/25/18 16:52 GENERAL: The patient is in no acute distress. HEAD: Normal with no signs of trauma. EYES: PERRLA, EOMI, sclera anicteric, conjunctiva clear. ENT: Ears normal, nares patent, oropharynx clear without exudates. Moist mucous membranes. NECK: Normal range of motion, supple without lymphadenopathy, JVD, or masses. LUNGS: Breath sounds equal, clear to auscultation bilaterally. No wheezes, and no crackles. HEART: (+) epigastric, periumbilical, and suprapubic tenderness on palpation. Regular rate and rhythm, normal S1 and S2 without murmur, rub or gallop. ABDOMEN: Soft, nontender, normoactive bowel sounds. No guarding, no rebound. No masses palpable. EXTREMITIES: Normal range of motion, no edema. No clubbing or cyanosis. No erythema, or tenderness. NEUROLOGICAL: Cranial nerves II through XII grossly intact. Normal speech. No focal neurological deficits. MUSCULOSKELETAL: Back non-tender to palpation, no CVA tenderness SKIN: Warm, Dry, normal turgor, no rashes or lesions noted. 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 but this is worse Pain in the mid abdomen and back Pain is constantly present but intermittently worsening Bedside Aortic US - no aneurysm DD: Cystitis/UTI, colitis, appendicitis, diverticulitis, renal colic SBO unlikely Will do: Labs CT abd and pelvis UA Will re assess 08/25/18 16:48 Laboratory Tests 08/25/18 08/25/18 08/25/18 15:15 15:31 15:31 WBC 6.2 Hgb 10.4 L Hct 32.1 L Plt Count 181 D Sodium 140 Potassium 4.1 Chloride 102 Carbon Dioxide 34 H BUN 26 H Creatinine 1.4 H POC Glucometer 285 Lactic Acid Total Bilirubin 0.2 AST 391 H ALT 207 H Alkaline Phosphatase 134 H Troponin I Lipase 08/25/18 08/25/18 15:31 15:31 WBC Hgb Hct Plt Count Sodium Potassium Chloride Carbon Dioxide BUN Creatinine POC Glucometer Lactic Acid 1.3 Total Bilirubin AST ALT Alkaline Phosphatase Troponin I 0.[address] abdomen and pelvis pending <Loreta Peralta - Last Filed: 08/27/18 17:42> Attestations - Attestations 08/25/18 16:53 Documentation prepared by Fariha Fowler, acting as medical geneticist for Loreta Peralta MD <Fariha Fowler - Last Filed: 08/25/18 16:50>
[2018-08-25 16:08] LABS: ALK PHOS 134 U/L (45-117); ANION GAP 4 MMOL/L (8-16); BILIRUBIN,TOTAL 0.2 mg/dL (0.2-1); BLOOD UREA NITROGEN 26 mg/dL (7-18); CALCIUM 8.1 mg/dL (8.5-10.1); CHLORIDE 102 mmol/L (98-107); CO2 34 mmol/L (21-32); CREATININE 1.4 mg/dL (0.55-1.3); GLUCOSE,RANDOM 297 mg/dL (74-106); POTASSIUM 4.1 mmol/L (3.5-5.1); SGOT/AST 391 U/L (15-37); SGPT/ALT 207 U/L (13-61); SODIUM 140 mmol/L (136-145); TOT PROT 6.1 g/dl (6.4-8.2)
[2018-08-25 19:01] LABS: URINE APPEARANCE CLEAR; URINE BILIRUBIN NEGATIVE (NEGATIVE); URINE COLOR YELLOW; URINE GLUCOSE (UA) 1+ (NEGATIVE); URINE KETONE NEGATIVE (NEGATIVE); URINE LEUK ESTERASE NEGATIVE (NEGATIVE); URINE NITRITE NEGATIVE (NEGATIVE); URINE PROTEIN NEGATIVE (NEGATIVE); URINE UROBILINOGEN 0.2 mg/dL (0.2-1.0)
--- NOTE | 2018-08-25 20:44 | HP ---
CHIEF COMPLAINT: abdominal pain PCP: Dr Machuca HISTORY OF PRESENT ILLNESS: Pt is a pleasant 88 y/o [place]ian speaking lady with a significant past medical history of CAD s/p 5 stents ([facility]), CABG, IDDM, HTN, Sick sinus syndrome s /p pacemaker placement, R eye enucleation, pancreatic cyst who presented this afternoon to [facility] c/o back and abdominal pain which commenced around 2 pm. Pt describes her pain as being constant and unremitting. Pain is sharp in nature and spans across her entire lower abdomen, radiating to her back. Pt endorsed she took tylenol which was unsuccessful in mitigating her pain. Denies shortness of breath, chest pain, nausea/vomiting, LOC, or fevers. PSurg Hx: Breast lumpectomy. R eye enucleation Social Hx- Denies Alcohol or Tobacco use FH- Father Asthma, mother unknown Allergies- None ER course was notable for: (1) TWI on EKG II, III, aVF, v3-v6 (2) CTAP--. CBD dilated 11 mm. Pancreatic Mass (3) AST/ALT--> 391/207 respectively Family History: Allergies No Known Allergies Allergy (Verified 08/25/18 15:25) HOME MEDICATIONS: Home Medications Medication Instructions Recorded Atorvastatin Ca [Lipitor] 80 mg PO HS 10/05/17 Pantoprazole Sodium [Protonix] 40 mg PO DAILY 10/05/17 Aspirin [Aspirin EC] 81 mg PO DAILY 05/08/18 Simethicone [Gas-X] 80 mg PO Q6H 05/08/18 Acetaminophen [Tylenol .Regular 650 mg PO Q6H PRN tablet 05/10/18 Strength -] Amlodipine Besylate [Norvasc -] 5 mg PO DAILY tablet 05/10/18 Carvedilol [Coreg -] 25 mg PO BID tablet 05/10/18 Gabapentin 100 mg PO TID 06/11/18 Sitagliptin Phosphate [Januvia] 100 mg PO DAILY 06/11/18 Albuterol Sulfate Inhaler - 1 - 2 inh PO Q4H PRN #1 inhaler 06/16/18 [Ventolin HFA Inhaler -] Furosemide [Lasix -] 40 mg PO DAILY #30 tablet 06/16/18 Insulin (Levemir) [Levemir Vial] 20 units SQ BIDI #100 ml 06/16/18 Lidocaine 5% Patch [Lidoderm -] 1 patch TP DAILY #30 patch 06/16/18 Lidocaine Patch Removal [Lidoderm 1 each MC DAILY@2200 #1 each 06/16/18 Patch Removal] Prednisone 10 mg PO ASDIR #30 tablet 06/16/18 REVIEW OF SYSTEMS CONSTITUTIONAL: Absent: fever, chills, diaphoresis, generalized weakness, malaise, loss of appetite, weight change HEENT: Absent: rhinorrhea, nasal congestion, throat pain, throat swelling, difficulty swallowing, mouth swelling, ear pain, eye pain, visual changes CARDIOVASCULAR: Absent: chest pain, syncope, palpitations, irregular heart rate, lightheadedness , peripheral edema RESPIRATORY: Absent: cough, shortness of breath, dyspnea with exertion, orthopnea, wheezing, stridor, hemoptysis GASTROINTESTINAL: PRESENT: abdominal pain Absent: dysuria, frequency, urgency, hesitancy, hematuria, flank pain, genital pain MUSCULOSKELETAL: Absent: myalgia, arthralgia, joint swelling, back pain, neck pain SKIN: Absent: rash, itching, pallor HEMATOLOGIC/IMMUNOLOGIC: Absent: easy bleeding, easy bruising, lymphadenopathy, frequent infections ENDOCRINE: Absent: unexplained weight gain, unexplained weight loss, heat intolerance, cold intolerance NEUROLOGIC: Absent: headache, focal weakness or paresthesias, dizziness, unsteady gait, seizure, mental status changes, bladder or bowel incontinence PSYCHIATRIC: Absent: anxiety, depression, suicidal or homicidal ideation, hallucinations. PHYSICAL EXAMINATION Vital Signs - 24 hr 08/25/18 14:46 Temperature 98.7 F Pulse Rate 65 Respiratory 18 Rate Blood Pressure 135/50 L O2 Sat by Pulse 100 Oximetry (%) GENERAL: No acute distress HEAD: Atraumatic/Normocephalic EYES: R eye prosthesis. left eye pupillary light reflex sluggish. EARS, NOSE, THROAT: poor dentition, MMM NECK: Supple LUNGS: Decreased BS@ bases b/l HEART: 2/6 JHONY LUSB ABDOMEN: ++ Riley's sign. Nondistended. BS hypoactive MUSCULOSKELETAL:FROM LOWER EXTREMITIES: Trace edema. No onychomycosis NEUROLOGICAL: Cranial nerves II-XII intact. Normal speech. PSYCHIATRIC: Cooperative. Good eye contact. Appropriate mood and affect. SKIN: No rashes or lesions appreciated Laboratory Results - last 24 hr 08/25/18 08/25/18 08/25/18 15:15 15:31 15:31 WBC 6.2 RBC 3.68 Hgb 10.4 L Hct 32.1 L MCV 87.1 MCH 28.1 MCHC 32.3 RDW 18.3 H Plt Count 181 D MPV 9.0 Absolute Neuts (auto) 5.6 Neutrophils % 90.2 H Lymphocytes % 5.0 L D Monocytes % 3.8 D Eosinophils % 0.8 D Basophils % 0.2 Nucleated RBC % 0 Sodium Potassium Chloride Carbon Dioxide Anion Gap BUN Creatinine Creat Clearance w eGFR POC Glucometer 285 Random Glucose Lactic Acid Calcium Total Bilirubin AST ALT Alkaline Phosphatase Troponin I Total Protein Albumin Lipase Urine Color Yellow Urine Appearance Clear Urine pH 5.0 Ur Specific [place] 1.012 Urine Protein Negative Urine Glucose (UA) 1+ H Urine Ketones Negative Urine Blood Negative Urine Nitrite Negative Urine Bilirubin Negative Urine Urobilinogen 0.2 Ur Leukocyte Esterase Negative 08/25/18 08/25/18 08/25/18 15:31 15:31 15:31 WBC RBC Hgb Hct MCV MCH MCHC RDW Plt Count MPV Absolute Neuts (auto) Neutrophils % Lymphocytes % Monocytes % Eosinophils % Basophils % Nucleated RBC % Sodium 140 Potassium 4.1 Chloride 102 Carbon Dioxide 34 H Anion Gap 4 L BUN 26 H Creatinine 1.4 H Creat Clearance w eGFR 35.65 POC Glucometer Random Glucose 297 H Lactic Acid 1.3 Calcium 8.1 L Total Bilirubin 0.2 AST 391 H ALT 207 H Alkaline Phosphatase 134 H Troponin I 0.02 Total Protein 6.1 L Albumin 3.0 L Lipase 175 Urine Color Urine Appearance Urine pH Ur Specific [place] Urine Protein Urine Glucose (UA) Urine Ketones Urine Blood Urine Nitrite Urine Bilirubin Urine Urobilinogen Ur Leukocyte Esterase ASSESSMENT/PLAN: Pt is a pleasant 88 y/o [place]ian speaking lady with a significant past medical history of CAD s/p 5 stents ([facility]), CABG, IDDM, HTN, Sick sinus syndrome s /p pacemaker placement, R eye enucleation, pancreatic cyst who presented this afternoon to [facility] c/o back and abdominal Pain which commenced around 2 pm. #Abdominal Pain 2/2 Choledocholithiasis/ Pancreatic Mass -AST/ALT/Alk phos 391/207/134 respectively -Lipase WNL -CTAP---> CBD dilated 11 mm. Pancreatic Mass -MRCP in light of CTAP findings - NPO -GI Consult -Trend LFT's -LR's solution -Zosyn 2.25 Q6H. Adjusted for CrCl of 35.65 # TWI in II, III, aVF, v3-v6 -Repeat EKG -ECHO May this year revealed EF 60-65%, Severe Valvular Aortic Stenosis -Cardiology Consult -Troponin negative. Repeat. #IDDM ISS Withhold oral hypoglycemics #HTN -Pharmacy closed. Day team to reconcile meds in am. -Per family at bedside, pt on Amlodipine and Carvedilol. Pt within hypotensive range. will hold off on restarting meds until reconciled. #FEN LR@42cc/hr Monitor Electrolytes NPO #DVT ppx: SCDs #Dispo: Tele Visit type - Emergency Visit Emergency Visit: Yes ED Registration Date: 08/25/18 Care time: The patient presented to the Emergency Department on the above date and was hospitalized for further evaluation of their emergent condition. - New Patient This patient is new to me today: Yes Date on this admission: 08/25/18 - Critical Care Critical Care patient: No
[2018-08-25] MEDS ORDERED: PIPERACILLIN/TAZOB 2.25 GM 2.25 GM/50 ML BAG IVPB ONE (21:03)
[2018-08-25] MEDS: PIPERACILLIN/TAZOB 2.25 GM 2.25 GM in DEXTROSE 5%-WATER - 50 ML IVPB SCH (21:14)
[2018-08-25] MEDS ORDERED: LACTATED RINGERS SOLUTION 1,000 ML/1,000 ML INFUS.BAG IV SCH (21:15)
[2018-08-25] MEDS: LACTATED RINGERS SOLUTION 1,000 ML/1,000 ML INFUS.BAG IV SCH (21:15)
--- NOTE | 2018-08-25 21:34 | PN ---
Teaching Attending Note Name of Resident: Osvaldo Dudley ATTENDING PHYSICIAN STATEMENT I saw and evaluated the patient. I reviewed the resident's note and discussed the case with the resident. I agree with the resident's findings and plan as documented. SUBJECTIVE: Patient is an 88 year old woman with PMH of CAD s/p 5 stents ([facility]), CABG , Insulin-treated DM, HTN, Sick sinus syndrome s/p pacemaker placement, right eye enucleation and pancreatic cyst who present to the ER complaining of back and abdominal pain which started around 2 pm. She describes her pain as being constant and unremitting. Pain is sharp in nature and spans across her entire lower abdomen. Says she took tylenol which was helpful in stopping her pain. Denies nausea, vomiting, diarrhea, numbness/tingling, lightheadedness, headache , urinary symptoms, bloody stools. No recent travel or sick contacts. OBJECTIVE: Alert Vital Signs Period Temp Pulse Resp BP Sys/Mccarty Pulse Ox Last 24 Hr 98.2 F-98.7 F 60-65 18-18 124-135/50-53 96-100 HEENT: No Jaundice, eye redness or discharge, PERRLA, EOMI. Tongue fasciculations. Normocephalic, atraumatic. External ears are normal and hearing is grossly intact. No nasal discharge. Neck: Supple, nontender. No palpable adenopathy or thyromegaly. No JVD Chest: Good effort. Clear to auscultation and percussion. Heart: Regular. No S3 or rub; 2/6 JHONY Abdomen: Not distended, soft, RUQ tenderness and no HSM. No rebound or guarding. Normal bowel sounds. Ext: Peripheral pulses intact. No leg edema. Skin: Warm and dry. No petechiae, rash or ecchymosis. Neuro: Alert. Oriented x3. CN 2-12 grossly intact. Tremors. Sensation grossly intact in all four extremities and DTR are symmetric. Psych: Appropriate mood and affect. Good insight. Current Medications Generic Name Dose Route Start Last Admin Trade Name Freq PRN Reason Stop Dose Admin Piperacillin Sod/Tazobactam 50 mls @ 100 mls/hr 08/25/18 21:00 08/25/18 21:14 Sod 2.25 gm/ Dextrose IVPB 08/26/18 15:29 100 mls/hr Q6H-IV JERRY Administration Protocol Piperacillin Sod/Tazobactam 50 mls @ 100 mls/hr 08/26/18 21:00 Sod 2.25 gm/ Dextrose IVPB Q6H-IV JERRY Lactated Ringer's 1,000 ml in 1,000 mls @ 42 mls/hr 08/25/18 21:15 08/25/18 21:15 Lactated Ringers Solution IV 42 mls/hr ASDIR JERRY Administration Insulin Aspart 1 vial 08/25/18 22:00 Novolog Vial Sliding Scale - SQ ACHS JERRY Protocol Home Medications Medication Instructions Recorded Atorvastatin Ca [Lipitor] 80 mg PO HS 10/05/17 Pantoprazole Sodium [Protonix] 40 mg PO DAILY 10/05/17 Aspirin [Aspirin EC] 81 mg PO DAILY 05/08/18 Simethicone [Gas-X] 80 mg PO Q6H 05/08/18 Acetaminophen [Tylenol .Regular 650 mg PO Q6H PRN tablet 05/10/18 Strength -] Amlodipine Besylate [Norvasc -] 5 mg PO DAILY tablet 05/10/18 Carvedilol [Coreg -] 25 mg PO BID tablet 05/10/18 Gabapentin 100 mg PO TID 06/11/18 Sitagliptin Phosphate [Januvia] 100 mg PO DAILY 06/11/18 Albuterol Sulfate Inhaler - 1 - 2 inh PO Q4H PRN #1 inhaler 06/16/18 [Ventolin HFA Inhaler -] Furosemide [Lasix -] 40 mg PO DAILY #30 tablet 06/16/18 Insulin (Levemir) [Levemir Vial] 20 units SQ BIDI #100 ml 06/16/18 Lidocaine 5% Patch [Lidoderm -] 1 patch TP DAILY #30 patch 06/16/18 Lidocaine Patch Removal [Lidoderm 1 each MC DAILY@2200 #1 each 06/16/18 Patch Removal] Prednisone 10 mg PO ASDIR #30 tablet 06/16/18 Abnormal Lab Results 08/25/18 08/25/18 08/25/18 15:31 15:31 15:31 Hgb 10.4 L Hct 32.1 L RDW 18.3 H Neutrophils % 90.2 H Lymphocytes % 5.0 L D Carbon Dioxide 34 H Anion Gap 4 L BUN 26 H Creatinine 1.4 H Random Glucose 297 H Calcium 8.1 L AST 391 H ALT 207 H Alkaline Phosphatase 134 H Total Protein 6.1 L Albumin 3.0 L Urine Glucose (UA) 1+ H ASSESSMENT AND PLAN: 1. Abdominal pain - Likely due to hepatobiliary disease. CT abdomen shows distended gall bladder, dilated CBD and possible mass in the head of pancreas. Will get MCRP and treat with IV Zosyn for possible cholecystitis/cholangitis. Trend LFTs, get hepatitis serology, keep her NPO, give IV LR and consult GI and surgery. No acute pathology on CXR. EKG is NSR with new T wave inversion in II, III, aVF, V3-6, but intial troponin is negative. Will admit to telemetry to rule out ACS, get ECHO and consult cardiology. 2. Uncontrolled DM For now, we will hold the home diabetes drugs and implement sliding scale insulin regimen. Provide comprehensive diabetes care with patient teaching and counseling about the importance of adherence to prescribed diabetes regimen, euglycemia, eye care and foot care. 3. CKD - Has risk factors for CKD. Will get urinalysis, a kidney sonogram, PTH, phosphate and hydrate gently. Consult nephrology and avoid nephrotoxic agents such as NSAIDS, aminoglycosides, contrast dyes and certain Alternative medicine products. 4. Anemia - Likely multifactorial. Will do basic anemia work up including serial stool guaiacs, reticulocyte count and iron studies. Monitor platelets daily. Abdominal sonogram pending. 5. Hypertension - Restart outpatient antihypertensive drugs and revise regimen to ensure smooth [id number] good BP control. Nonpharmacologic measures to control hypertension like weight loss, salt restriction and exercise discussed. 6. DVT prophylaxis - Heparin 5000u sq tid 7. Advance directives - Full code
[2018-08-25] MEDS: INSULIN SLIDING SCALE (NOVOLOG) 1 VIAL SQ SCH (22:55)
[2018-08-25] MEDS ORDERED: INSULIN (NOVOLOG) ASPART 100 UNITS/ML 10ML VIAL ONE (22:56)
[2018-08-26] MEDS ORDERED: PIPERACILLIN/TAZOB 2.25 GM 2.25 GM/50 ML BAG IVPB ONE ×2 (03:40→08:18)
[2018-08-26] MEDS: PIPERACILLIN/TAZOB 2.25 GM 2.25 GM in DEXTROSE 5%-WATER - 50 ML IVPB SCH ×4 (03:41→22:43)
[2018-08-26 06:14] LABS: BASO % 0.2 % (0-2.0); EOS % 0.7 % (0-4.5); HEMATOCRIT 29.3 % (32.4-45.2); HEMOGLOBIN 9.8 GM/dL (10.7-15.3); LYMPH % 13.4 % (8-40); MCH 28.8 pg (25.7-33.7); MCHC 33.5 g/dl (32.0-36.0); MEAN CELL VOLUME 86.1 fl (80-96); MEAN PLT VOLUME 9.3 fl (7.5-11.1); MONO % 6.6 % (3.8-10.2); NEUT % 79.1 % (42.8-82.8); PLATELET COUNT 163 K/MM3 (134-434); RBC 3.41 M/mm3 (3.60-5.2); RDW 18.4 % (11.6-15.6); WHITE BLOOD COUNT 8.4 K/mm3 (4.0-10.0)
[2018-08-26 06:31] LABS: INR 1.49 (0.83-1.09); PROTHROMBIN TIME (PATIENT) 17.6 SEC (9.7-13.0)
[2018-08-26 06:34] LABS: ACTIVATED PTT 35.5 SECONDS (25.2-36.5)
[2018-08-26] MEDS: INSULIN SLIDING SCALE (NOVOLOG) 1 VIAL SQ SCH ×4 (06:34→22:43)
[2018-08-26 06:40] LABS: ALBUMIN 2.9 g/dl (3.4-5.0); ALK PHOS 117 U/L (45-117); ANION GAP 2 MMOL/L (8-16); BILIRUBIN,TOTAL 0.6 mg/dL (0.2-1); BLOOD UREA NITROGEN 22 mg/dL (7-18); CALCIUM 8.4 mg/dL (8.5-10.1); CHLORIDE 102 mmol/L (98-107); CO2 37 mmol/L (21-32); CREATININE 1.1 mg/dL (0.55-1.3); GLUCOSE,RANDOM 148 mg/dL (74-106); MAGNESIUM 1.8 mg/dL (1.8-2.4); PHOSPHOROUS 2.6 mg/dL (2.5-4.9); POTASSIUM 3.9 mmol/L (3.5-5.1); SGOT/AST 247 U/L (15-37); SGPT/ALT 250 U/L (13-61); SODIUM 141 mmol/L (136-145)
--- NOTE | 2018-08-26 06:51 | CONSULT ---
Consult Consult Specialty:: General Surgery Reason for Consultation:: pancreatic mass - History of Present Illness History of Present Illness: 88 y/o British speaking lady with a significant past medical history of CAD s/p 5 stents ([facility]), CABG, IDDM, HTN, Sick sinus syndrome s/p pacemaker placement, R eye enucleation, pancreatic cyst who presented this afternoon to [facility] c/o back and abdominal pain which commenced around 2 pm. Pt describes her pain as being constant and unremitting. Pain is sharp in nature and spans across her entire lower abdomen, radiating to her back. Pt endorsed she took tylenol which was unsuccessful in mitigating her pain. Denies shortness of breath, chest pain, nausea/vomiting, LOC, or fevers. we were asked to assess. - History Source History Provided By: Patient, Medical Record Limitations to Obtaining History: No Limitations - Past Medical History Cardio/Vascular: Yes: Aortic Stenosis (mild on echo), CAD (s/p AR x 2 and stenting on 2 occasions), CHF (diastolic , LVH), HTN, Hyperlipdemia, AR (AR x 2) , Other (permanent pacemaker) Gastrointestinal: Yes: Constipation, Other (chronic abdominal pain) Renal/: Yes: Renal Inusuff (diabetic nephropathy), Renal Calculi Musculoskeletal: Yes: Other (diabetic neuropathy) Endocrine: Yes: Diabetes Mellitus (IDDM) - Past Surgical History Past Surgical History: Yes: None, Colonoscopy, Permanent Pacemaker, Stent ( coronary stenting x 2) - Alcohol/Substance Use Hx Alcohol Use: No History of Substance Use: reports: None - Smoking History Smoking history: Never smoked Have you smoked in the past 12 months: No Aproximately how many cigarettes per day: 20 If you are a former smoker, when did you quit?: 30 years ago - Social History Usual Living Arrangement: Other ([facility]) ADL: Family 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 History of Recent Travel: No Home Medications - Allergies Allergies/Adverse Reactions: Allergies Allergy/AdvReac Type Severity Reaction Status Date / Time No Known Allergies Allergy Verified 08/25/18 15:25 - Home Medications Home Medications: Ambulatory Orders Atorvastatin Ca [Lipitor] 80 mg PO HS 10/05/17 Pantoprazole Sodium [Protonix] 40 mg PO DAILY 10/05/17 Aspirin [Aspirin EC] 81 mg PO DAILY 05/08/18 Simethicone [Gas-X] 80 mg PO Q6H 05/08/18 Acetaminophen [Tylenol .Regular Strength -] 650 mg PO Q6H PRN tablet 05/10/18 Amlodipine Besylate [Norvasc -] 5 mg PO DAILY tablet 05/10/18 Carvedilol [Coreg -] 25 mg PO BID tablet 05/10/18 Gabapentin 100 mg PO TID 06/11/18 Sitagliptin Phosphate [Januvia] 100 mg PO DAILY 06/11/18 Albuterol Sulfate Inhaler - [Ventolin HFA Inhaler -] 1 - 2 inh PO Q4H PRN #1 inhaler 06/16/18 Furosemide [Lasix -] 40 mg PO DAILY #30 tablet 06/16/18 Insulin (Levemir) [Levemir Vial] 20 units SQ BIDI #100 ml 06/16/18 Lidocaine 5% Patch [Lidoderm -] 1 patch TP DAILY #30 patch 06/16/18 Lidocaine Patch Removal [Lidoderm Patch Removal] 1 each MC DAILY@2200 #1 each Prednisone 10 mg PO ASDIR #30 tablet 06/16/18 Family Disease History - Family Disease History Family Disease History: CA: Mother ( of wood cutter cancer) Review of Systems - Review of Systems Constitutional: denies: Chills, Fever Eyes: denies: Blind Spots, Recent Change in Vision HENT: denies: Difficult Swallowing, Hearing Loss Neck: denies: Decreased ROM, Lumps Cardiovascular: denies: Chest Pain, Edema Respiratory: denies: Cough, SOB Gastrointestinal: reports: Abdominal Pain, Bloating Genitourinary: denies: Incontinence, Lesions Breasts: reports: No Symptoms Reported. denies: Pain Musculoskeletal: denies: Crepitus, Decreased ROM Integumentary: denies: Incision, Lesions Neurological: denies: Seizure, Syncope, Weakness Endocrine: denies: Unexplained Weight Gain, Unexplained Weight Loss Hematology/Lymphatic: denies: Easily Bruised, Excessive Bleeding Psychiatric: denies: Anxiety, Depression Physical Exam Vital Signs: Vital Signs Temperature 98.2 F 08/25/18 22:11 Pulse Rate 60 08/25/18 22:11 Respiratory Rate 18 08/25/18 22:11 Blood Pressure 124/53 L 08/25/18 22:11 O2 Sat by Pulse Oximetry (%) 96 08/25/18 22:11 Constitutional: Yes: No Distress, Calm, Thin Eyes: Yes: Conjunctiva Clear, EOM Intact HENT: Yes: Atraumatic, Normocephalic Neck: Yes: Supple, Trachea Midline Cardiovascular: Yes: Regular Rate and Rhythm, S1, S2 Respiratory: Yes: Regular, CTA Bilaterally Gastrointestinal: Yes: Normal Bowel Sounds, Soft. No: Tenderness, Tenderness, Epigastrium, Tenderness, Rebound ...Rectal Exam: Yes: Deferred Renal/: Yes: CVA Tenderness - Left, CVA Tenderness - Right Breast(s): No: Gynecomastia, Mass, Skin Changes Musculoskeletal: No: Muscle Pain, Muscle Weakness Extremities: No: Cool, Cyanosis Edema: No Peripheral Pulses WNL: Yes Integumentary: No: Jaundice, Rash Neurological: Yes: Alert, Oriented Psychiatric: Yes: Alert, Oriented Labs: CBC, BMP 08/26/18 05:30 08/26/18 05:30 Imaging - Results Cat Scan: Report Reviewed, Image Reviewed (periampullary mass dialated pancreatic duct) Problem List - Problems (1) Mass of pancreas Assessment/Plan: 88yo female with probable pancreatic head mass? No acute surgical intervention is indicated. NPO and IVF hydration GI evaluation tumor markers Adequate analgesia Consider transfer to hepatobilliary center for additional management Thank you for the opportunity to participate in the care of this patient. Code(s): K86.9 - DISEASE OF PANCREAS, UNSPECIFIED (2) LFT elevation Code(s): R94.5 - ABNORMAL RESULTS OF LIVER FUNCTION STUDIES (3) CAD (coronary artery disease) Code(s): I25.10 - ATHSCL HEART DISEASE OF [place] CORONARY ARTERY W/O ANG PCTRS (4) CHF exacerbation Code(s): I50.9 - HEART FAILURE, UNSPECIFIED Qualifiers: Heart failure type: unspecified Qualified Code(s): I50.9 - Heart failure, unspecified (5) Dilated pancreatic duct Code(s): K86.89 - OTHER SPECIFIED DISEASES OF PANCREAS (6) HTN (hypertension) Code(s): I10 - ESSENTIAL (PRIMARY) HYPERTENSION Qualifiers: Hypertension type: unspecified Qualified Code(s): I10 - Essential (primary ) hypertension
--- NOTE | 2018-08-26 08:55 | PN ---
Teaching Attending Note Name of Resident: Aster Molina ATTENDING PHYSICIAN STATEMENT I saw and evaluated the patient. I reviewed the resident's note and discussed the case with the resident. I agree with the resident's findings and plan as documented. SUBJECTIVE: Patient is a 88yo female presents with having RUQ and RLQ/LLQ pain radiating to the back. OBJECTIVE: Vital Signs Temperature 98 F 08/26/18 08:13 Pulse Rate 98 H 08/26/18 08:13 Respiratory Rate 18 08/26/18 08:13 Blood Pressure 144/57 L 08/26/18 08:13 O2 Sat by Pulse Oximetry (%) 97 08/26/18 08:13 Initial Vital Signs Temp Pulse Resp BP Pulse Ox 98.7 F 65 18 135/50 L 100 08/25/18 14:46 08/25/18 14:46 08/25/18 14:46 08/25/18 14:46 08/25/18 14:46 GENERAL: The patient is awake, alert, and fully oriented, in mild distress. HEAD: Normal with no signs of trauma. EYES: left eye reactive, right eye enucleation , extraocular movements intact, sclera anicteric, conjunctiva clear. ENT: Ears normal, oropharynx clear without exudates, moist mucous membranes. NECK: Trachea midline, full range of motion, supple. LUNGS: Breath sounds equal, clear to auscultation bilaterally, no wheezes, no crackles, no accessory muscle use. HEART: Regular rate and rhythm, S1, S2 without murmur, rub or gallop. ABDOMEN: Soft, RUQ /midepigastric tenderness. normoactive bowel sounds, voluntary guarding , no rebound, no hepatosplenomegaly, no masses. EXTREMITIES: 2+ pulses, warm, well-perfused, no edema. NEUROLOGICAL: Cranial nerves II through XII grossly intact. Normal speech, gait not observed. PSYCH: Normal mood, normal affect. SKIN: Warm, dry, normal turgor, no rashes or lesions noted CBCD WBC 8.4 K/mm3 (4.0-10.0) 08/26/18 05:30 RBC 3.41 M/mm3 (3.60-5.2) L 08/26/18 05:30 Hgb 9.8 GM/dL (10.7-15.3) L 08/26/18 05:30 Hct 29.3 % (32.4-45.2) L 08/26/18 05:30 MCV 86.1 fl (80-96) 08/26/18 05:30 MCHC 33.5 g/dl (32.0-36.0) 08/26/18 05:30 RDW 18.4 % (11.6-15.6) H 08/26/18 05:30 Plt Count 163 K/MM3 (134-434) 08/26/18 05:30 MPV 9.3 fl (7.5-11.1) 08/26/18 05:30 CMP Sodium 141 mmol/L (136-145) 08/26/18 05:30 Potassium 3.9 mmol/L (3.5-5.1) 08/26/18 05:30 Chloride 102 mmol/L (98-107) 08/26/18 05:30 Carbon Dioxide 37 mmol/L (21-32) H 08/26/18 05:30 Anion Gap 2 MMOL/L (8-16) L 08/26/18 05:30 BUN 22 mg/dL (7-18) H 08/26/18 05:30 Creatinine 1.1 mg/dL (0.55-1.3) 08/26/18 05:30 Creat Clearance w eGFR 47.09 (>60) 08/26/18 05:30 Random Glucose 148 mg/dL (74-106) H 08/26/18 05:30 Calcium 8.4 mg/dL (8.5-10.1) L 08/26/18 05:30 Total Bilirubin 0.6 mg/dL (0.2-1) 08/26/18 05:30 AST 247 U/L (15-37) H 08/26/18 05:30 ALT 250 U/L (13-61) H 08/26/18 05:30 Alkaline Phosphatase 117 U/L (45-117) 08/26/18 05:30 Total Protein 6.0 g/dl (6.4-8.2) L 08/26/18 05:30 Albumin 2.9 g/dl (3.4-5.0) L 08/26/18 05:30 CARDIAC ENZYMES Troponin I 0.02 ng/ml (0.00-0.05) 08/25/18 21:26 Current Medications Generic Name Dose Route Start Last Admin Trade Name Freq PRN Reason Stop Dose Admin Piperacillin Sod/Tazobactam 50 mls @ 100 mls/hr 08/25/18 21:00 08/26/18 08:18 Sod 2.25 gm/ Dextrose IVPB 08/26/18 15:29 100 mls/hr Q6H-IV JERRY Administration Protocol Piperacillin Sod/Tazobactam 50 mls @ 100 mls/hr 08/26/18 21:00 Sod 2.25 gm/ Dextrose IVPB Q6H-IV JERRY Lactated Ringer's 1,000 ml in 1,000 mls @ 42 mls/hr 08/25/18 21:15 08/25/18 21:15 Lactated Ringers Solution IV 42 mls/hr ASDIR JERRY Administration Insulin Aspart 1 vial 08/25/18 22:00 08/26/18 06:34 Novolog Vial Sliding Scale - SQ Not Given ACHS JERRY Protocol Home Medications Medication Instructions Recorded Atorvastatin Ca [Lipitor] 80 mg PO HS 10/05/17 Pantoprazole Sodium [Protonix] 40 mg PO DAILY 10/05/17 Aspirin [Aspirin EC] 81 mg PO DAILY 05/08/18 Simethicone [Gas-X] 80 mg PO Q6H 05/08/18 Acetaminophen [Tylenol .Regular 650 mg PO Q6H PRN tablet 05/10/18 Strength -] Amlodipine Besylate [Norvasc -] 5 mg PO DAILY tablet 05/10/18 Carvedilol [Coreg -] 25 mg PO BID tablet 05/10/18 Gabapentin 100 mg PO TID 06/11/18 Sitagliptin Phosphate [Januvia] 100 mg PO DAILY 06/11/18 Albuterol Sulfate Inhaler - 1 - 2 inh PO Q4H PRN #1 inhaler 06/16/18 [Ventolin HFA Inhaler -] Furosemide [Lasix -] 40 mg PO DAILY #30 tablet 06/16/18 Insulin (Levemir) [Levemir Vial] 20 units SQ BIDI #100 ml 06/16/18 Lidocaine 5% Patch [Lidoderm -] 1 patch TP DAILY #30 patch 06/16/18 Lidocaine Patch Removal [Lidoderm 1 each MC DAILY@2200 #1 each 06/16/18 Patch Removal] Prednisone 10 mg PO ASDIR #30 tablet 06/16/18 ECHO: 05/2018 LV is nl in size, no regional wall motion abnormalities, EJF 60-65%, Mild mitral annular calcification, PA systolic pressure is 41mmhg, Moderate aortic valve thickening, severe valvular aortic stenosis, Aortic mean pressure gradient : 23mmhg, no pericardial effusion. EK05/2018 atrial paced rhythm, rate of 72, t-wave abnormality, nonspecifis, inverted t- wave in lateral leads. CTAP: no significant interval change. Overdistended gallbladder with dilatation of the CBD again seen. CBD measured 11mm. Focal low-attenuation nodular density/ mass in region of the ampulla of Vater/pancreatic head again seen measuring 1.5 cm without gross surrounding mesenteric stranding/inflammatory changes. ASSESSMENT/PLAN: Patient is an 88 year old female with past medical history of CAD s/p 5 stents, CABG, IDDM, HTN, sick sinus syndrome s/p pacemaker placement, R eye enucleation , pancreatic cyst who presented with sudden onset severe abdominal and back pain.(as per patient , patient was seen at [facility] last April for the same complaint, where EUS was done and patient was seen to have a pancreatic cyst, for which she was recommended to have repeat imaging in a year and to follow-up in October. Attempt to transfer patient to [facility] for further care but transfer was denied, since nothing to be done) # Acute diffuse abdominal pain /ruq/midepigastric pain emily't r/o pancreatic mass vs choledocholithiasis -MRCP not done as patient has a pacemaker. GI (Dr. Blanco) consulted. Recommendations appreciated. -abdominal ultrasound and HIDA scan ordered, will follow, NPo after midnight for night, Gentle IV hydration -Surgery (Dr. Godoy) consulted. #Acute transaminitis : will monitor ,Hepatitis panel pending, lipitor is on hold # Hx of CAD s/p PCI; continue ASA 81mg daily; T-wave inversions on EKG; Trops x2 negative, EKG has no changes, is paced rhytem. Cardiology (Dr. Murillo) consulted. #DM: Insulin sliding scale; BGM q6h #HTN: continue Amlodipine 5mg daily, Carvedilol 25mg BID DVT Px: SCDs
[2018-08-26] MEDS ORDERED: INSULIN REGULAR HUMAN 100 UNITS/ML *VIAL ONE (11:13)
[2018-08-26] MEDS ORDERED: DEXTROSE 5%-WATER - 50 ML IVPB ONE ×2 (14:36→22:02)
[2018-08-26] MEDS ORDERED: PIPERACILLIN/TAZOBACTAM 2.25 GM VIAL IVPB ONE ×2 (14:36→22:02)
[2018-08-26] MEDS: LACTATED RINGERS SOLUTION 1,000 ML/1,000 ML INFUS.BAG IV SCH ×2 (15:25→18:18)
--- NOTE | 2018-08-26 15:31 | CON.CARD ---
Consult Consult Specialty:: Cardiology Referred by:: Huy Reason for Consultation:: abnormal ekg - History of Present Illness Chief Complaint: Abdominal pain History of Present Illness: 88 year old female with a pmhx of dm, htn, cad s/p stents ([facility] x3 06/06/16 and mid lad 08/08/16), sss s/p ppm, chronic diastolic chf, moderate aortic stenosis, DM, and pancreatic cyst who presents with abdominal pain. Patient c/o lower abdominal pain and lower back pain since yesterday. No chest pain or sob. No pnd, orthopnea, or edema. No palpitations. No recent chest pain history. Noted elevated LFTS Echocardiogram 06/14/18: nl lvef and moderate aortic stenosis with OMAR 0.8 and MG 23 EKG: sinus rhythm with inferior and anterolateral TWI EKG: AV paced - History Source History Provided By: Patient, Medical Record - Past Medical History Cardio/Vascular: Yes: Aortic Stenosis (mild on echo), CAD (s/p [place] x 2 and stenting on 2 occasions), CHF (diastolic , LVH), HTN, Hyperlipdemia, NJ ([place] x 2) , Other (permanent pacemaker) Gastrointestinal: Yes: Constipation, Other (chronic abdominal pain) Renal/: Yes: Renal Inusuff (diabetic nephropathy), Renal Calculi Musculoskeletal: Yes: Other (diabetic neuropathy) Endocrine: Yes: Diabetes Mellitus (IDDM) - Past Surgical History Past Surgical History: Yes: None, Colonoscopy, Permanent Pacemaker, Stent ( coronary stenting x 2) - Alcohol/Substance Use Hx Alcohol Use: No History of Substance Use: reports: None - Smoking History Smoking history: Never smoked Have you smoked in the past 12 months: No Aproximately how many cigarettes per day: 20 If you are a former smoker, when did you quit?: 30 years ago - Social History Usual Living Arrangement: Other ([facility]) ADL: Family 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 History of Recent Travel: No Home Medications - Allergies Allergies/Adverse Reactions: Allergies Allergy/AdvReac Type Severity Reaction Status Date / Time No Known Allergies Allergy Verified 08/25/18 15:25 - Home Medications Home Medications: Ambulatory Orders Atorvastatin Ca [Lipitor] 80 mg PO HS 10/05/17 Pantoprazole Sodium [Protonix] 40 mg PO DAILY 10/05/17 Aspirin [Aspirin EC] 81 mg PO DAILY 05/08/18 Simethicone [Gas-X] 80 mg PO Q6H 05/08/18 Acetaminophen [Tylenol .Regular Strength -] 650 mg PO Q6H PRN tablet 05/10/18 Amlodipine Besylate [Norvasc -] 5 mg PO DAILY tablet 05/10/18 Carvedilol [Coreg -] 25 mg PO BID tablet 05/10/18 Gabapentin 100 mg PO TID 06/11/18 Sitagliptin Phosphate [Januvia] 100 mg PO DAILY 06/11/18 Albuterol Sulfate Inhaler - [Ventolin HFA Inhaler -] 1 - 2 inh PO Q4H PRN #1 inhaler 06/16/18 Furosemide [Lasix -] 40 mg PO DAILY #30 tablet 06/16/18 Insulin (Levemir) [Levemir Vial] 20 units SQ BIDI #100 ml 06/16/18 Lidocaine 5% Patch [Lidoderm -] 1 patch TP DAILY #30 patch 06/16/18 Lidocaine Patch Removal [Lidoderm Patch Removal] 1 each MC DAILY@2200 #1 each Prednisone 10 mg PO ASDIR #30 tablet 06/16/18 Family Disease History - Family Disease History Family Disease History: CA: Mother ( of lamination operator cancer) Vital Signs: Vital Signs Temperature 98.0 F 08/26/18 12:56 Pulse Rate 61 08/26/18 12:56 Respiratory Rate 20 08/26/18 12:56 Blood Pressure 126/54 L 08/26/18 12:56 O2 Sat by Pulse Oximetry (%) 97 08/26/18 12:56 Constitutional: Yes: No Distress, Poor Hygeine Neck: Yes: Supple Respiratory: Yes: CTA Bilaterally Gastrointestinal: Yes: Soft, Tenderness Cardiovascular: Yes: Regular Rate and Rhythm JVD: No Carotid Bruit: No Heart Sounds: Yes: S1, S2 Murmur: Yes: Systolic Murmur, Grade 4 (RUSB) - Other Data Labs, Other Data: CBC, BMP 08/26/18 05:30 08/26/18 05:30 INR, PTT INR 1.49 (0.83-1.09) H 08/26/18 05:30 Troponin, BNP 08/25/18 08/25/18 15:31 21:26 Troponin I 0.02 0.02 Troponin, BNP 08/25/18 08/25/18 15:31 21:26 Troponin I 0.02 0.02 Imaging - Results EKG: Image Reviewed Assessment/Plan 88 year old female with a pmhx of dm, htn, cad s/p stents ([facility] x3 06/06/16 and mid lad 08/08/16), sss s/p ppm, chronic diastolic chf, moderate aortic stenosis, DM, and pancreatic cyst who presents with abdominal pain. Patient c/o lower abdominal pain and lower back pain since yesterday. No chest pain or sob. No pnd, orthopnea, or edema. No palpitations. No recent chest pain history. Noted elevated LFTS Echocardiogram 06/14/18: nl lvef and moderate aortic stenosis with OMAR 0.8 and MG 23 EKG: sinus rhythm with inferior and anterolateral TWI EKG: AV paced 1) Abdominal pain -appears GI related based on abnormal lfts and ct scan findings -Patient has no chest pain or sob. No recent chest pain. EKG abnormalities are not new. At times she is paced and when she is not she has TWI. On ekgs in April 2018 she had same TWI. No cardiac testing at this time. Continue cardiac meds. No statin. Follow up as outpatient. Will sign off.
--- NOTE | 2018-08-26 16:23 | PN ---
Physical Exam: SUBJECTIVE: Patient seen and examined. Patient reports RUQ and RLQ/LLQ pain radiating to the back. Of note, patient was seen at [facility] last April for the same complaint, where EUS was done and patient was seen to have a pancreatic cyst, for which she was recommended to have repeat imaging in a year and to follow-up in October. Attempt to transfer patient to [facility] for further care but was denied. OBJECTIVE: Vital Signs Temperature 98.0 F 08/26/18 12:56 Pulse Rate 61 08/26/18 12:56 Respiratory Rate 20 08/26/18 12:56 Blood Pressure 126/54 L 08/26/18 12:56 O2 Sat by Pulse Oximetry (%) 97 08/26/18 12:56 GENERAL: The patient is awake, alert, and fully oriented, in no acute distress. HEAD: Normal with no signs of trauma. EYES: PERRLA, EOMI, sclera anicteric, conjunctiva clear. ENT: Ears normal, nares patent, oropharynx clear without exudates. NECK: Trachea midline, full range of motion, supple. LUNGS: Breath sounds equal, clear to auscultation bilaterally. HEART: Regular rate and rhythm, S1, S2 without murmur, rub or gallop. ABDOMEN: Soft, +RUQ tenderness, RLQ/LLQ tenderness, NABS. EXTREMITIES: 2+ pulses, warm, well-perfused, no edema. NEUROLOGICAL: Cranial nerves II through XII grossly intact. Normal speech, gait not observed. PSYCH: Normal mood, normal affect. SKIN: Warm, dry, normal turgor, no rashes or lesions noted Laboratory Results - last 24 hr 08/25/18 08/25/18 08/25/18 15:31 21:26 22:47 WBC RBC Hgb Hct MCV MCH MCHC RDW Plt Count MPV Absolute Neuts (auto) Neutrophils % Lymphocytes % Monocytes % Eosinophils % Basophils % Nucleated RBC % PT with INR INR PTT (Actin FS) Sodium Potassium Chloride Carbon Dioxide Anion Gap BUN Creatinine Creat Clearance w eGFR POC Glucometer 290 Random Glucose Calcium Phosphorus Magnesium Total Bilirubin AST ALT Alkaline Phosphatase Troponin I 0.02 Total Protein Albumin Urine Color Yellow Urine Appearance Clear Urine pH 5.0 Ur Specific [place] 1.012 Urine Protein Negative Urine Glucose (UA) 1+ H Urine Ketones Negative Urine Blood Negative Urine Nitrite Negative Urine Bilirubin Negative Urine Urobilinogen 0.2 Ur Leukocyte Esterase Negative 08/26/18 08/26/18 08/26/18 05:30 05:30 05:30 WBC 8.4 RBC 3.41 L Hgb 9.8 L Hct 29.3 L MCV 86.1 MCH 28.8 MCHC 33.5 RDW 18.4 H Plt Count 163 MPV 9.3 Absolute Neuts (auto) 6.6 Neutrophils % 79.1 Lymphocytes % 13.4 D Monocytes % 6.6 Eosinophils % 0.7 Basophils % 0.2 Nucleated RBC % 0 PT with INR 17.60 H INR 1.49 H PTT (Actin FS) 35.5 Sodium 141 Potassium 3.9 Chloride 102 Carbon Dioxide 37 H Anion Gap 2 L BUN 22 H Creatinine 1.1 Creat Clearance w eGFR 47.09 POC Glucometer Random Glucose 148 H Calcium 8.4 L Phosphorus 2.6 Magnesium 1.8 Total Bilirubin 0.6 AST 247 H ALT 250 H Alkaline Phosphatase 117 Troponin I Total Protein 6.0 L Albumin 2.9 L Urine Color Urine Appearance Urine pH Ur Specific [place] Urine Protein Urine Glucose (UA) Urine Ketones Urine Blood Urine Nitrite Urine Bilirubin Urine Urobilinogen Ur Leukocyte Esterase 08/26/18 08/26/18 06:33 10:56 WBC RBC Hgb Hct MCV MCH MCHC RDW Plt Count MPV Absolute Neuts (auto) Neutrophils % Lymphocytes % Monocytes % Eosinophils % Basophils % Nucleated RBC % PT with INR INR PTT (Actin FS) Sodium Potassium Chloride Carbon Dioxide Anion Gap BUN Creatinine Creat Clearance w eGFR POC Glucometer 146 163 Random Glucose Calcium Phosphorus Magnesium Total Bilirubin AST ALT Alkaline Phosphatase Troponin I Total Protein Albumin Urine Color Urine Appearance Urine pH Ur Specific [place] Urine Protein Urine Glucose (UA) Urine Ketones Urine Blood Urine Nitrite Urine Bilirubin Urine Urobilinogen Ur Leukocyte Esterase Active Medications Generic Name Dose Route Start Last Admin Trade Name Freq PRN Reason Stop Dose Admin Piperacillin Sod/Tazobactam 50 mls @ 100 mls/hr 08/26/18 21:00 Sod 2.25 gm/ Dextrose IVPB Q6H-IV JERRY Lactated Ringer's 1,000 ml in 1,000 mls @ 42 mls/hr 08/25/18 21:15 08/26/18 15:25 Lactated Ringers Solution IV 42 mls/hr ASDIR JERRY Administration Insulin Aspart 1 vial 08/25/18 22:00 08/26/18 11:15 Novolog Vial Sliding Scale - SQ 2 units ACHS JERRY Administration Protocol -CTAP: no significant interval change. Overdistended gallbladder with dilatation of the CBD again seen. CBD measured 11mm. Focal low-attenuation nodular density/mass in region of the ampulla of Vater/pancreatic head again seen measuring 1.5 cm without gross surrounding mesenteric stranding/ inflammatory changes. ASSESSMENT/PLAN: Patient is an 88 year old female with past medical history of CAD s/p 5 stents, CABG, IDDM, HTN, sick sinus syndrome s/p pacemaker placement, R eye enucleation , pancreatic cyst who presented due to sudden onset severe abdominal and back pain. #Abdominal pain likely 2/2 pancreatic mass vs ?choledocholithiasis -CTAP: Overdistended gallbladder with dilatation of the CBD again seen. Focal low-attenuation nodular density/mass in region of the ampulla of Vater/ pancreatic head -MRCP not done as patient has pacemaker. -GI (Dr. Blanco) consulted. Recommendations appreciated. -For abdominal ultrasound and HIDA scan -Will keep NPo after midnight. -Gentle IV hydration -Surgery (Dr. Godoy) consulted. #Elevated LFTs -AST 247 ALT 250 ALP 117, trending down -For abdominal US and HIDA scan -Liver unremarkable on CT scan -Will hold statin -Hepatitis panel pending -Will continue to monitor LFTs #T wave inversions on EKG -Trops <0.02 x2 -Repeat EKG has no changes -Cardiology (Dr. Murillo) consulted. Recommendations appreciated. -EKG changes likely paced. Similar EKGs in April -No cardiac testing at this time -continue cardiac meds -No statins. -follow-up as outpatient #DM -Insulin sliding scale -BGM q6h #CAD s/p PCI -Continue ASA 81mg daily -will hold Lipitor for now in light of elevated LFTs #HTN -Continue Amlodipine 5mg daily -Carvedilol 25mg BID #FEN -IV LR @42cc/hr -Electrolytes wnl, routine bmp monitoring -NPO #Prophylaxis -SCDs #Dispo -full code -med surg Visit type - Emergency Visit Emergency Visit: Yes ED Registration Date: 08/25/18 Care time: The patient presented to the Emergency Department on the above date and was hospitalized for further evaluation of their emergent condition. - New Patient This patient is new to me today: Yes Date on this admission: 08/26/18 - Critical Care Critical Care patient: No
--- NOTE | 2018-08-26 16:35 | EKG ---
Test Reason : Blood Pressure : / mmHG Vent. Rate : 076 BPM Atrial Rate : 076 BPM P-R Int : 000 ms QRS Dur : 176 ms QT Int : 438 ms P-R-T Axes : 000 -69 095 degrees QTc Int : 492 ms Ventricular-paced rhythm WITH OCCASIONAL AV dual-paced complexes IN A PATTERN OF BIGEMINY ABNORMAL ECG WHEN COMPARED WITH ECG OF 25-AUG-2018 21:13, NO SIGNIFICANT CHANGE WAS FOUND Confirmed by BOOGIE ART, GALINA ([id number]) on 08/26/2018 4:34:58 PM Referred By: Confirmed By:GALINA HYMAN MD
--- NOTE | 2018-08-26 16:37 | EKG ---
Test Reason : Blood Pressure : / mmHG Vent. Rate : 063 BPM Atrial Rate : 063 BPM P-R Int : 228 ms QRS Dur : 090 ms QT Int : 382 ms P-R-T Axes : 078 -20 -55 degrees QTc Int : 390 ms SINUS RHYTHM WITH 1ST DEGREE A-V BLOCK ABNORMAL ECG WHEN COMPARED WITH ECG OF 11-JUN-2018 09:04, SINUS RHYTHM HAS REPLACED ELECTRONIC ATRIAL PACEMAKER T WAVE INVERSION NOW EVIDENT IN LATERAL LEADS Confirmed by GALINA HYMAN MD ([id number]) on 08/26/2018 4:37:10 PM Referred By: Confirmed By:GALINA HYMAN MD
--- NOTE | 2018-08-26 16:37 | EKG ---
Test Reason : Blood Pressure : / mmHG Vent. Rate : 077 BPM Atrial Rate : 077 BPM P-R Int : 000 ms QRS Dur : 182 ms QT Int : 454 ms P-R-T Axes : 082 -65 092 degrees QTc Int : 513 ms Ventricular-paced rhythm IN A PATTERN OF BIGEMINY ABNORMAL ECG WHEN COMPARED WITH ECG OF 25-AUG-2018 16:25, ELECTRONIC VENTRICULAR PACEMAKER HAS REPLACED SINUS RHYTHM Confirmed by BOOGIE ART, GALINA ([id number]) on 08/26/2018 4:36:49 PM Referred By: Confirmed By:GALINA HYMAN MD
[2018-08-26] MEDS ORDERED: MORPHINE SULFATE 2 MG/ML VIAL IVPUSH ONE (18:15)
--- NOTE | 2018-08-26 18:28 | PN ---
Teaching Attending Note Name of Resident: Aster Molina ATTENDING PHYSICIAN STATEMENT I saw and evaluated the patient. I reviewed the resident's note and discussed the case with the resident. I agree with the resident's findings and plan as documented. SUBJECTIVE: OBJECTIVE: Vital Signs Temperature 97.9 F 08/26/18 17:27 Pulse Rate 60 08/26/18 17:27 Respiratory Rate 18 08/26/18 17:27 Blood Pressure 150/48 L 08/26/18 17:27 O2 Sat by Pulse Oximetry (%) 94 L 08/26/18 15:00 GENERAL: The patient is awake, alert, and fully oriented, in no acute distress. HEAD: Normal with no signs of trauma. EYES: PERRL, extraocular movements intact, sclera anicteric, conjunctiva clear. ENT: Ears normal, oropharynx clear without exudates, moist mucous membranes. NECK: Trachea midline, full range of motion, supple. LUNGS: Breath sounds equal, clear to auscultation bilaterally, no wheezes, no crackles, no accessory muscle use. HEART: Regular rate and rhythm, S1, S2 without murmur, rub or gallop. ABDOMEN: Soft, nontender, nondistended, normoactive bowel sounds, no guarding, no rebound, no hepatosplenomegaly, no masses. EXTREMITIES: 2+ pulses, warm, well-perfused, no edema. NEUROLOGICAL: Cranial nerves II through XII grossly intact. Normal speech, gait not observed. PSYCH: Normal mood, normal affect. SKIN: Warm, dry, normal turgor, no rashes or lesions noted CBCD WBC 8.4 K/mm3 (4.0-10.0) 08/26/18 05:30 RBC 3.41 M/mm3 (3.60-5.2) L 08/26/18 05:30 Hgb 9.8 GM/dL (10.7-15.3) L 08/26/18 05:30 Hct 29.3 % (32.4-45.2) L 08/26/18 05:30 MCV 86.1 fl (80-96) 08/26/18 05:30 MCHC 33.5 g/dl (32.0-36.0) 08/26/18 05:30 RDW 18.4 % (11.6-15.6) H 08/26/18 05:30 Plt Count 163 K/MM3 (134-434) 08/26/18 05:30 MPV 9.3 fl (7.5-11.1) 08/26/18 05:30 CMP Sodium 141 mmol/L (136-145) 08/26/18 05:30 Potassium 3.9 mmol/L (3.5-5.1) 08/26/18 05:30 Chloride 102 mmol/L (98-107) 08/26/18 05:30 Carbon Dioxide 37 mmol/L (21-32) H 08/26/18 05:30 Anion Gap 2 MMOL/L (8-16) L 08/26/18 05:30 BUN 22 mg/dL (7-18) H 08/26/18 05:30 Creatinine 1.1 mg/dL (0.55-1.3) 08/26/18 05:30 Creat Clearance w eGFR 47.09 (>60) 08/26/18 05:30 Random Glucose 148 mg/dL (74-106) H 08/26/18 05:30 Calcium 8.4 mg/dL (8.5-10.1) L 08/26/18 05:30 Total Bilirubin 0.6 mg/dL (0.2-1) 08/26/18 05:30 AST 247 U/L (15-37) H 08/26/18 05:30 ALT 250 U/L (13-61) H 08/26/18 05:30 Alkaline Phosphatase 117 U/L (45-117) 08/26/18 05:30 Total Protein 6.0 g/dl (6.4-8.2) L 08/26/18 05:30 Albumin 2.9 g/dl (3.4-5.0) L 08/26/18 05:30 CARDIAC ENZYMES Troponin I 0.02 ng/ml (0.00-0.05) 08/25/18 21:26 Current Medications Generic Name Dose Route Start Last Admin Trade Name Freq PRN Reason Stop Dose Admin Lactated Ringer's 1,000 ml in 1,000 mls @ 42 mls/hr 08/26/18 16:51 08/26/18 18:18 Lactated Ringers Solution IV Not Given ASDIR JERRY Piperacillin Sod/Tazobactam 50 mls @ 100 mls/hr 08/26/18 21:00 Sod 2.25 gm/ Dextrose IVPB Q6H-IV JERRY Piperacillin Sod/Tazobactam 50 mls @ 100 mls/hr 08/26/18 21:00 Sod 2.25 gm/ Dextrose IVPB 08/27/18 15:29 Q6H-IV JERRY Insulin Aspart 1 vial 08/26/18 22:00 Novolog Vial Sliding Scale - SQ ACHS JERRY Protocol Home Medications Medication Instructions Recorded Atorvastatin Ca [Lipitor] 80 mg PO HS 10/05/17 Pantoprazole Sodium [Protonix] 40 mg PO DAILY 10/05/17 Aspirin [Aspirin EC] 81 mg PO DAILY 05/08/18 Simethicone [Gas-X] 80 mg PO Q6H 05/08/18 Acetaminophen [Tylenol .Regular 650 mg PO Q6H PRN tablet 05/10/18 Strength -] Amlodipine Besylate [Norvasc -] 5 mg PO DAILY tablet 05/10/18 Carvedilol [Coreg -] 25 mg PO BID tablet 05/10/18 Gabapentin 100 mg PO TID 06/11/18 Sitagliptin Phosphate [Januvia] 100 mg PO DAILY 06/11/18 Albuterol Sulfate Inhaler - 1 - 2 inh PO Q4H PRN #1 inhaler 06/16/18 [Ventolin HFA Inhaler -] Furosemide [Lasix -] 40 mg PO DAILY #30 tablet 06/16/18 Insulin (Levemir) [Levemir Vial] 20 units SQ BIDI #100 ml 06/16/18 Lidocaine 5% Patch [Lidoderm -] 1 patch TP DAILY #30 patch 06/16/18 Lidocaine Patch Removal [Lidoderm 1 each MC DAILY@2200 #1 each 06/16/18 Patch Removal] Prednisone 10 mg PO ASDIR #30 tablet 06/16/18 ECHO: 05/2018 LV is nl in size, no regional wall motion abnormalities, EJF 60-65%, Mild mitral annular calcification, PA systolic pressure is 41mmhg, Moderate aortic valve thickening, severe valvular aortic stenosis, Aortic mean pressure gradient : 23mmhg, no pericardial effusion. EK05/2018 atrial paced rhythm, rate of 72, t-wave abnormality, nonspecifis, inverted t- wave in lateral leads. ASSESSMENT AND PLAN:
[2018-08-26] MEDS ORDERED: ALBUTEROL SO4 0.083% IH SOL 2.5 MG/3 ML VIAL.NEB. NEB PRN (19:41)
--- NOTE | 2018-08-26 19:44 | CON.GI ---
Consult Consult Specialty:: GI Referred by:: Hospitalist Service Reason for Consultation:: Abdominal pain - History of Present Illness Chief Complaint: RUQ pain History of Present Illness: 88F is admitted for RUQ abdominal pain. She was admitted 05/04 to [facility] and subsequently transferred to [facility] for evaluation of dilation of the common bile and pancreatic ducts and ampullary area 1.6cm attenuated mass seen on CT. It is not clear what was performed or what the wo=rk-up there concluded. I advised the primary team to obtain more information about work-up at [facility]. Dr. Ramirez, the medical resdent sent me a Mogluel[employer] message this afternoon stating that he contacted [facility] and "they denied her transfer there (I had advised the team to obtain information regarding the work-up there prior to making a decision regarding transfer), that they explained that bsbob was sent there for the same problem in april, that she had EUS and was told to follow-up in October and to have repeat imaging and that they wont be doing anything for her there if they transfer her". It is unclear who he spoke to. Dr. Ramirez informed me that he was waiting for the EUS report to be faxed to him. There is no EUS report in the physical chart at this time. Transaminases are elevated. She apparently had a normal colonoscopy remotely in [place]. Her mother of a hospital social worker cancer. - History Source History Provided By: Medical Record Limitations to Obtaining History: Poor Historian - Past Medical History Cardio/Vascular: Yes: Aortic Stenosis (mild on echo), CAD (s/p NM x 2 and stenting on 2 occasions), CHF (diastolic , LVH), HTN, Hyperlipdemia, NM (NM x 2) , Other (permanent pacemaker) Gastrointestinal: Yes: Constipation, Other (chronic abdominal pain) Renal/: Yes: Renal Inusuff (diabetic nephropathy), Renal Calculi ...: No Musculoskeletal: Yes: Other (diabetic neuropathy) Endocrine: Yes: Diabetes Mellitus (IDDM) - Past Surgical History Past Surgical History: Yes: None, Colonoscopy, Permanent Pacemaker, Stent ( coronary stenting x 2) - Alcohol/Substance Use Hx Alcohol Use: No History of Substance Use: reports: None - Smoking History Smoking history: Never smoked Have you smoked in the past 12 months: No Aproximately how many cigarettes per day: 20 If you are a former smoker, when did you quit?: 30 years ago - Social History Usual Living Arrangement: Other ([facility]) ADL: Family 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 History of Recent Travel: No Home Medications - Allergies Allergies/Adverse Reactions: Allergies Allergy/AdvReac Type Severity Reaction Status Date / Time No Known Allergies Allergy Verified 08/25/18 15:25 - Home Medications Home Medications: Ambulatory Orders Atorvastatin Ca [Lipitor] 80 mg PO HS 10/05/17 Pantoprazole Sodium [Protonix] 40 mg PO DAILY 10/05/17 Aspirin [Aspirin EC] 81 mg PO DAILY 05/08/18 Simethicone [Gas-X] 80 mg PO Q6H 05/08/18 Acetaminophen [Tylenol .Regular Strength -] 650 mg PO Q6H PRN tablet 05/10/18 Amlodipine Besylate [Norvasc -] 5 mg PO DAILY tablet 05/10/18 Carvedilol [Coreg -] 25 mg PO BID tablet 05/10/18 Gabapentin 100 mg PO TID 06/11/18 Sitagliptin Phosphate [Januvia] 100 mg PO DAILY 06/11/18 Albuterol Sulfate Inhaler - [Ventolin HFA Inhaler -] 1 - 2 inh PO Q4H PRN #1 inhaler 06/16/18 Furosemide [Lasix -] 40 mg PO DAILY #30 tablet 06/16/18 Insulin (Levemir) [Levemir Vial] 20 units SQ BIDI #100 ml 06/16/18 Lidocaine 5% Patch [Lidoderm -] 1 patch TP DAILY #30 patch 06/16/18 Lidocaine Patch Removal [Lidoderm Patch Removal] 1 each MC DAILY@2200 #1 each Prednisone 10 mg PO ASDIR #30 tablet 06/16/18 Family Disease History - Family Disease History Family Disease History: [place]: Mother ( of hospital social worker cancer) Review of Systems - Review of Systems Constitutional: denies: Chills Cardiovascular: denies: Chest Pain Respiratory: reports: SOB Gastrointestinal: reports: Abdominal Pain Physical Exam-GI Vital Signs: Vital Signs Temperature 97.9 F 08/26/18 17:27 Pulse Rate 60 08/26/18 17:27 Respiratory Rate 18 08/26/18 17:27 Blood Pressure 150/48 L 08/26/18 17:27 O2 Sat by Pulse Oximetry (%) 94 L 08/26/18 15:00 Constitutional: Yes: Calm Eyes: No: Sclera Icterus Cardiovascular: Yes: Regular Rate and Rhythm, Murmur Respiratory: Yes: Diminished (at bases b/l, poor insp effort) Gastrointestinal Inspection: No: Ascites, Scars ...Auscultate: Yes: Normoactive Bowel Sounds ...Palpate: Yes: Tenderness (TTP RUQ) ...Percussion: No: Tympanitic Edema: No (No LE edema) Neurological: Yes: Alert, Confusion Labs: CBC, BMP 08/26/18 05:30 08/26/18 05:30 INR, PTT INR 1.49 (0.83-1.09) H 08/26/18 05:30 Hepatic Panel Total Bilirubin 0.6 mg/dL (0.2-1) 08/26/18 05:30 AST 247 U/L (15-37) H 08/26/18 05:30 ALT 250 U/L (13-61) H 08/26/18 05:30 Alkaline Phosphatase 117 U/L (45-117) 08/26/18 05:30 Albumin 2.9 g/dl (3.4-5.0) L 08/26/18 05:30 Imaging - Results Cat Scan: Report Reviewed, Image Reviewed Assessment/Plan RUQ pain: Non-obstructiove liver chemistry pattern Prior work-up of dilated biliary / pancreatic ducts, ? pancereatic mass at [facility]. Patient cannot have MRI secondary to PPM. Awaiting EUS report Marked RUQ TTP on exam. Ordered abd US and HIDA. IV Abx Surgery following Monitor LFTs f/u hepatitis serologies
[2018-08-26] MEDS ORDERED: PIPERACILLIN/TAZOB 2.25 GM 2.25 GM in DEXTROSE 5%-WATER - 50 ML IVPB SCH (21:00)
[2018-08-26] MEDS: GABAPENTIN 100 MG CAPSULE (FP) PO SCH (22:43)
[2018-08-26] MEDS: CARVEDILOL 25 MG TABLET (FP) PO SCH (22:43)
[2018-08-26] MEDS ORDERED: LORazepam 2 MG/ML SDV VIAL IVPUSH ONE (23:45)
[2018-08-27] MEDS ORDERED: PIPERACILLIN/TAZOBACTAM 2.25 GM VIAL IVPB ONE ×3 (02:48→15:21)
[2018-08-27] MEDS ORDERED: DEXTROSE 5%-WATER - 50 ML IVPB ONE ×3 (02:48→15:21)
[2018-08-27] MEDS: PIPERACILLIN/TAZOB 2.25 GM 2.25 GM in DEXTROSE 5%-WATER - 50 ML IVPB SCH ×3 (03:34→15:44)
[2018-08-27 04:12] LABS: HEPATITIS B CORE ANTIBODY,IGM Negative (Negative)
[2018-08-27] MEDS: GABAPENTIN 100 MG CAPSULE (FP) PO SCH ×3 (06:33→22:34)
[2018-08-27] MEDS: INSULIN SLIDING SCALE (NOVOLOG) 1 VIAL SQ SCH ×4 (06:33→23:37)
[2018-08-27 06:43] LABS: BASO % 0.7 % (0-2.0); EOS % 1.7 % (0-4.5); HEMATOCRIT 31.7 % (32.4-45.2); HEMOGLOBIN 10.3 GM/dL (10.7-15.3); LYMPH % 18.3 % (8-40); MCH 27.9 pg (25.7-33.7); MCHC 32.6 g/dl (32.0-36.0); MEAN CELL VOLUME 85.6 fl (80-96); MEAN PLT VOLUME 9.2 fl (7.5-11.1); MONO % 5.8 % (3.8-10.2); NEUT % 73.5 % (42.8-82.8); PLATELET COUNT 179 K/MM3 (134-434); RBC 3.71 M/mm3 (3.60-5.2); RDW 18.6 % (11.6-15.6); WHITE BLOOD COUNT 6.1 K/mm3 (4.0-10.0)
[2018-08-27 07:12] LABS: ALBUMIN 2.9 g/dl (3.4-5.0); ALK PHOS 117 U/L (45-117); ANION GAP 6 MMOL/L (8-16); BILIRUBIN,TOTAL 0.6 mg/dL (0.2-1); BLOOD UREA NITROGEN 18 mg/dL (7-18); CALCIUM 8.6 mg/dL (8.5-10.1); CHLORIDE 105 mmol/L (98-107); CO2 33 mmol/L (21-32); CREATININE 1.1 mg/dL (0.55-1.3); GLUCOSE,RANDOM 159 mg/dL (74-106); MAGNESIUM 1.9 mg/dL (1.8-2.4); PHOSPHOROUS 3.3 mg/dL (2.5-4.9); POTASSIUM 3.9 mmol/L (3.5-5.1); SGOT/AST 92 U/L (15-37); SGPT/ALT 150 U/L (13-61); SODIUM 143 mmol/L (136-145); TOT PROT 6.1 g/dl (6.4-8.2)
[2018-08-27] MEDS: PANTOPRAZOLE 40 MG TABLET (FP) PO SCH (09:50)
[2018-08-27] MEDS: ASPIRIN COATED 81 MG TABLET.EC PO SCH (09:50)
[2018-08-27] MEDS: amLODIPine BESYLATE 5 MG TABLET (FP) PO SCH (09:51)
[2018-08-27] MEDS: CARVEDILOL 25 MG TABLET (FP) PO SCH ×2 (09:51→22:33)
[2018-08-27 12:27] VITALS: BMI 27.9
--- NOTE | 2018-08-27 16:13 | PN.GI ---
GI Progress Note Subjective: Patient resting comfortably. 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 CBD not commented upon in the report. (Duct was noted to be dilated that time on CT scan). surveillance in [address] scan was advised. Outpatient GI f/u was apparently arranged upon her discharge but it is unclear what this follow-up was or if she was compliant - Objective Vital Signs: Vital Signs Temperature 97.4 F L 08/27/18 13:11 Pulse Rate 60 08/27/18 13:11 Respiratory Rate 18 08/27/18 13:11 Blood Pressure 144/55 L 08/27/18 13:11 O2 Sat by Pulse Oximetry (%) 100 08/27/18 09:00 Constitutional: Calm Eyes: No: Sclera Icterus Cardiovascular: Yes: Regular Rate and Rhythm Respiratory: Yes: CTA Bilaterally ...Auscultate: Yes: Normoactive Bowel Sounds ...Palpate: Yes: Tenderness (TTP RUQ) ...Percussion: No: Tympanitic Edema: No (No LE edema) Neurological: Yes: Alert Labs: CBC, BMP 08/27/18 06:30 08/27/18 06:30 INR, PTT INR 1.49 (0.83-1.09) H 08/26/18 05:30 Hepatic Panel Total Bilirubin 0.6 mg/dL (0.2-1) 08/27/18 06:30 AST 92 U/L (15-37) H 08/27/18 06:30 ALT 150 U/L (13-61) H 08/27/18 06:30 Alkaline Phosphatase 117 U/L (45-117) 08/27/18 06:30 Albumin 2.9 g/dl (3.4-5.0) L 08/27/18 06:30 Problem List - Problems (1) Abdominal pain Assessment/Plan: Still with RUQ tenderness upon palpation Awaiting HIDA scan Contacted Dr. Stalin Escalante to see if he could comment on CBD from that EUS study Code(s): R10.9 - UNSPECIFIED ABDOMINAL PAIN Qualifiers: Abdominal location: generalized Qualified Code(s): R10.84 - Generalized abdominal pain
[2018-08-27] MEDS: LACTATED RINGERS SOLUTION 1,000 ML/1,000 ML INFUS.BAG IV SCH (17:42)
--- NOTE | 2018-08-27 18:10 | PN ---
Physical Exam: SUBJECTIVE: Patient seen and examined at bedside this morning. Patient was given morphine 2mg last night which provided relief. Patient is not complaining of abdominal or back pain this morning. No fever, chills, nausea, vomiting, SOB , diarrhea. EUS done at [facility] (05/12/18): Esophagus, stomach, duodenum endoscopically normal. The ampulla appeared unremarkable. A multicystic lesion suggestive of a cyst was identified in the pancreatic head. It does not communicate with the pancreatic duct. The lesion measured 15mm in maximal cross-sectional diameter. There was no associated mass. The PD was not dilated. OBJECTIVE: Vital Signs Temperature 97.4 F L 08/27/18 13:11 Pulse Rate 60 08/27/18 13:11 Respiratory Rate 18 08/27/18 13:11 Blood Pressure 144/55 L 08/27/18 13:11 O2 Sat by Pulse Oximetry (%) 100 08/27/18 09:00 GENERAL: The patient is awake, alert, and fully oriented, in no acute distress. HEAD: Normal with no signs of trauma. EYES: PERRLA, EOMI, sclera anicteric, conjunctiva clear. ENT: Ears normal, nares patent, oropharynx clear without exudates. NECK: Trachea midline, full range of motion, supple. LUNGS: Breath sounds equal, clear to auscultation bilaterally. HEART: Regular rate and rhythm, S1, S2 without murmur, rub or gallop. ABDOMEN: Soft, +RUQ tenderness, RLQ/LLQ tenderness, NABS. EXTREMITIES: 2+ pulses, warm, well-perfused, no edema. NEUROLOGICAL: Cranial nerves II through XII grossly intact. Normal speech, gait not observed. PSYCH: Normal mood, normal affect. SKIN: Warm, dry, normal turgor, no rashes or lesions noted Laboratory Results - last 24 hr 08/26/18 08/26/18 08/26/18 05:30 05:30 21:41 WBC RBC Hgb Hct MCV MCH MCHC RDW Plt Count MPV Absolute Neuts (auto) Neutrophils % Lymphocytes % Monocytes % Eosinophils % Basophils % Nucleated RBC % Sodium Potassium Chloride Carbon Dioxide Anion Gap BUN Creatinine Creat Clearance w eGFR POC Glucometer 153 Random Glucose Calcium Phosphorus Magnesium Total Bilirubin AST ALT Alkaline Phosphatase Total Protein Albumin Hep Bs Antibody Reactive Hep B Core IgM Ab Negative Hepatitis Be Antigen Negative 08/27/18 08/27/1808/27/19 06:00 06:30 06:30 WBC 6.1 RBC 3.71 Hgb 10.3 L Hct 31.7 L MCV 85.6 MCH 27.9 MCHC 32.6 RDW 18.6 H Plt Count 179 MPV 9.2 Absolute Neuts (auto) 4.5 Neutrophils % 73.5 Lymphocytes % 18.3 D Monocytes % 5.8 Eosinophils % 1.7 D Basophils % 0.7 D Nucleated RBC % 0 Sodium 143 Potassium 3.9 Chloride 105 Carbon Dioxide 33 H Anion Gap 6 L BUN 18 Creatinine 1.1 Creat Clearance w eGFR 47.09 POC Glucometer 141 Random Glucose 159 H Calcium 8.6 Phosphorus 3.3 Magnesium 1.9 Total Bilirubin 0.6 AST 92 H ALT 150 H Alkaline Phosphatase 117 Total Protein 6.1 L Albumin 2.9 L Hep Bs Antibody Hep B Core IgM Ab Hepatitis Be Antigen 08/27/18 08/27/18 11:38 16:53 WBC RBC Hgb Hct MCV MCH MCHC RDW Plt Count MPV Absolute Neuts (auto) Neutrophils % Lymphocytes % Monocytes % Eosinophils % Basophils % Nucleated RBC % Sodium Potassium Chloride Carbon Dioxide Anion Gap BUN Creatinine Creat Clearance w eGFR POC Glucometer 197 169 Random Glucose Calcium Phosphorus Magnesium Total Bilirubin AST ALT Alkaline Phosphatase Total Protein Albumin Hep Bs Antibody Hep B Core IgM Ab Hepatitis Be Antigen Active Medications Generic Name Dose Route Start Last Admin Trade Name Freq PRN Reason Stop Dose Admin Albuterol Sulfate 1 amp 08/26/18 19:41 Ventolin 0.083% Nebulizer Soln - NEB Q4H PRN SHORT OF BREATH/WHEEZING Amlodipine Besylate 5 mg 08/27/18 10:00 08/27/18 09:51 Norvasc - PO 5 mg DAILY JERRY Administration Aspirin 81 mg 08/27/18 10:00 08/27/18 09:50 Ecotrin - PO 81 mg DAILY JERRY Administration Carvedilol 25 mg 08/26/18 22:00 08/27/18 09:51 Coreg - PO 25 mg BID JERRY Administration Gabapentin 100 mg 08/26/18 22:00 08/27/18 14:55 Neurontin - PO 100 mg TID JERRY Administration Lactated Ringer's 1,000 ml in 1,000 mls @ 42 mls/hr 08/26/18 16:51 08/27/18 17:42 Lactated Ringers Solution IV Not Given ASDIR JERRY Piperacillin Sod/Tazobactam 50 mls @ 100 mls/hr 08/26/18 21:00 Sod 2.25 gm/ Dextrose IVPB Q6H-IV JERRY Insulin Aspart 1 vial 08/26/18 22:00 08/27/18 12:16 Novolog Vial Sliding Scale - SQ 2 units ACHS JERRY Administration Protocol Pantoprazole Sodium 40 mg 08/27/18 10:00 08/27/18 09:50 Protonix - PO 40 mg DAILY JERRY Administration -CTAP: no significant interval change. Overdistended gallbladder with dilatation of the CBD again seen. CBD measured 11mm. Focal low-attenuation nodular density/mass in region of the ampulla of Vater/pancreatic head again seen measuring 1.5 cm without gross surrounding mesenteric stranding/ inflammatory changes. ASSESSMENT/PLAN: Patient is an 88 year old female with past medical history of CAD s/p 5 stents, CABG, IDDM, HTN, sick sinus syndrome s/p pacemaker placement, R eye enucleation , pancreatic cyst who presented due to sudden onset severe abdominal and back pain. #Abdominal pain likely 2/2 pancreatic mass/cyst -CTAP: Overdistended gallbladder with dilatation of the CBD again seen. Focal low-attenuation nodular density/mass in region of the ampulla of Vater/ pancreatic head -RUQ US: Slightly distended gallbladder without evidence of cholelithiasis. Prominent CBD without obvious obstruction. -MRCP not done as patient has pacemaker. -HIDA scan pending -GI (Dr. Blanco) consulted. Recommendations appreciated. -Gentle IV hydration -Surgery (Dr. Godoy) consulted. #Elevated LFTs: improving -AST/ALT 92/150, trending down -Liver unremarkable on CT scan -Will hold statin -HBsAb reactive, HBc Ab negative,HBe Ag negative, Hep Be Ab and Hep C pending -Will continue to monitor LFTs #T wave inversions on EKG -Trops <0.02 x2 -Repeat EKG has no changes -Cardiology (Dr. Murillo) consulted. Recommendations appreciated. -EKG changes likely paced. Similar EKGs in April -No cardiac testing at this time -continue cardiac meds -No statins. -follow-up as outpatient #DM -Insulin sliding scale -BGM q6h #CAD s/p PCI -Continue ASA 81mg daily -will hold Lipitor for now in light of elevated LFTs #HTN -Continue Amlodipine 5mg daily -Carvedilol 25mg BID #FEN -IV LR @42cc/hr -Electrolytes wnl, routine bmp monitoring -NPO #Prophylaxis -SCDs #Dispo -full code -med surg Visit type - Emergency Visit Emergency Visit: Yes ED Registration Date: 08/25/18 Care time: The patient presented to the Emergency Department on the above date and was hospitalized for further evaluation of their emergent condition. - New Patient This patient is new to me today: No - Critical Care Critical Care patient: No
--- NOTE | 2018-08-27 21:55 | PN ---
Teaching Attending Note Name of Resident: Aster Molina ATTENDING PHYSICIAN STATEMENT I saw and evaluated the patient. I reviewed the resident's note and discussed the case with the resident. I agree with the resident's findings and plan as documented. SUBJECTIVE: Patient is feeling better, continues to have abdominal pain. OBJECTIVE: Vital Signs Temperature 97.4 F L 08/27/18 13:11 Pulse Rate 60 08/27/18 13:11 Respiratory Rate 18 08/27/18 13:11 Blood Pressure 144/55 L 08/27/18 13:11 O2 Sat by Pulse Oximetry (%) 100 08/27/18 09:00 GENERAL: The patient is awake, alert, and fully oriented, in mild distress. HEAD: Normal with no signs of trauma. EYES: left eye reactive, right eye enucleation , extraocular movements intact, sclera anicteric, conjunctiva clear. ENT: Ears normal, oropharynx clear without exudates, moist mucous membranes. NECK: Trachea midline, full range of motion, supple. LUNGS: Breath sounds equal, clear to auscultation bilaterally, no wheezes, no crackles, no accessory muscle use. HEART: Regular rate and rhythm, S1, S2 without murmur, rub or gallop. ABDOMEN: Soft, RUQ /midepigastric tenderness on palpation, improving. normoactive bowel sounds, voluntary guarding , no rebound. . EXTREMITIES: 2+ pulses, warm, well-perfused, no edema. NEUROLOGICAL: Cranial nerves II through XII grossly intact. Normal speech, gait is stable . PSYCH: Normal mood, normal affect. SKIN: Warm, dry, normal turgor, no rashes or lesions noted CBCD WBC 6.1 K/mm3 (4.0-10.0) 08/27/18 06:30 RBC 3.71 M/mm3 (3.60-5.2) 08/27/18 06:30 Hgb 10.3 GM/dL (10.7-15.3) L 08/27/18 06:30 Hct 31.7 % (32.4-45.2) L 08/27/18 06:30 MCV 85.6 fl (80-96) 08/27/18 06:30 MCHC 32.6 g/dl (32.0-36.0) 08/27/18 06:30 RDW 18.6 % (11.6-15.6) H 08/27/18 06:30 Plt Count 179 K/MM3 (134-434) 08/27/18 06:30 MPV 9.2 fl (7.5-11.1) 08/27/18 06:30 CMP Sodium 143 mmol/L (136-145) 08/27/18 06:30 Potassium 3.9 mmol/L (3.5-5.1) 08/27/18 06:30 Chloride 105 mmol/L (98-107) 08/27/18 06:30 Carbon Dioxide 33 mmol/L (21-32) H 08/27/18 06:30 Anion Gap 6 MMOL/L (8-16) L 08/27/18 06:30 BUN 18 mg/dL (7-18) 08/27/18 06:30 Creatinine 1.1 mg/dL (0.55-1.3) 08/27/18 06:30 Creat Clearance w eGFR 47.09 (>60) 08/27/18 06:30 Random Glucose 159 mg/dL (74-106) H 08/27/18 06:30 Calcium 8.6 mg/dL (8.5-10.1) 08/27/18 06:30 Total Bilirubin 0.6 mg/dL (0.2-1) 08/27/18 06:30 AST 92 U/L (15-37) H 08/27/18 06:30 ALT 150 U/L (13-61) H 08/27/18 06:30 Alkaline Phosphatase 117 U/L (45-117) 08/27/18 06:30 Total Protein 6.1 g/dl (6.4-8.2) L 08/27/18 06:30 Albumin 2.9 g/dl (3.4-5.0) L 08/27/18 06:30 CARDIAC ENZYMES Troponin I 0.02 ng/ml (0.00-0.05) 08/25/18 21:26 Current Medications Generic Name Dose Route Start Last Admin Trade Name Freq PRN Reason Stop Dose Admin Albuterol Sulfate 1 amp 08/26/18 19:41 Ventolin 0.083% Nebulizer Soln - NEB Q4H PRN SHORT OF BREATH/WHEEZING Amlodipine Besylate 5 mg 08/27/18 10:00 08/27/18 09:51 Norvasc - PO 5 mg DAILY JERRY Administration Aspirin 81 mg 08/27/18 10:00 08/27/18 09:50 Ecotrin - PO 81 mg DAILY JERRY Administration Carvedilol 25 mg 08/26/18 22:00 08/27/18 09:51 Coreg - PO 25 mg BID JERRY Administration Gabapentin 100 mg 08/26/18 22:00 08/27/18 14:55 Neurontin - PO 100 mg TID JERRY Administration Lactated Ringer's 1,000 ml in 1,000 mls @ 42 mls/hr 08/26/18 16:51 08/27/18 17:42 Lactated Ringers Solution IV Not Given ASDIR JERRY Piperacillin Sod/Tazobactam 50 mls @ 100 mls/hr 08/26/18 21:00 Sod 2.25 gm/ Dextrose IVPB Q6H-IV JERRY Insulin Aspart 1 vial 08/26/18 22:00 08/27/18 19:46 Novolog Vial Sliding Scale - SQ 2 units ACHS JERRY Administration Protocol Pantoprazole Sodium 40 mg 08/27/18 10:00 08/27/18 09:50 Protonix - PO 40 mg DAILY JERRY Administration Home Medications Medication Instructions Recorded Atorvastatin Ca [Lipitor] 80 mg PO HS 10/05/17 Pantoprazole Sodium [Protonix] 40 mg PO DAILY 10/05/17 Aspirin [Aspirin EC] 81 mg PO DAILY 05/08/18 Simethicone [Gas-X] 80 mg PO Q6H 05/08/18 Acetaminophen [Tylenol .Regular 650 mg PO Q6H PRN tablet 05/10/18 Strength -] Amlodipine Besylate [Norvasc -] 5 mg PO DAILY tablet 05/10/18 Carvedilol [Coreg -] 25 mg PO BID tablet 05/10/18 Gabapentin 100 mg PO TID 06/11/18 Sitagliptin Phosphate [Januvia] 100 mg PO DAILY 06/11/18 Albuterol Sulfate Inhaler - 1 - 2 inh PO Q4H PRN #1 inhaler 06/16/18 [Ventolin HFA Inhaler -] Furosemide [Lasix -] 40 mg PO DAILY #30 tablet 06/16/18 Insulin (Levemir) [Levemir Vial] 20 units SQ BIDI #100 ml 06/16/18 Lidocaine 5% Patch [Lidoderm -] 1 patch TP DAILY #30 patch 06/16/18 Lidocaine Patch Removal [Lidoderm 1 each MC DAILY@2200 #1 each 06/16/18 Patch Removal] Prednisone 10 mg PO ASDIR #30 tablet 06/16/18 EKG: sinus rhythm with inferior and anterolateral TWI EKG: AV paced ECHO: 05/2018 LV is nl in size, no regional wall motion abnormalities, EJF 60-65%, Mild mitral annular calcification, PA systolic pressure is 41mmhg, Moderate aortic valve thickening, severe valvular aortic stenosis, Aortic mean pressure gradient : 23mmhg, no pericardial effusion. EK05/2018 atrial paced rhythm, rate of 72, t-wave abnormality, nonspecifis, inverted t- wave in lateral leads. CTAP: no significant interval change. Overdistended gallbladder with dilatation of the CBD again seen. CBD measured 11mm. Focal low-attenuation nodular density/ mass in region of the ampulla of Vater/pancreatic head again seen measuring 1.5 cm without gross surrounding mesenteric stranding/inflammatory changes. ASSESSMENT/PLAN: Patient is an 88 year old female with past medical history of CAD s/p 5 stents, CABG, IDDM, HTN, sick sinus syndrome s/p pacemaker placement, Right eye enucleation, pancreatic cyst who presented with sudden onset severe abdominal and back pain.(as per patient, patient was seen at [facility] last April for the same complaint, where EUS was done and patient was seen to have a pancreatic cyst, for which she was recommended to have repeat imaging in a year and to follow-up in October. Attempt to transfer patient to [facility] for further care but transfer was denied, since nothing to be done) #Acute diffuse abdominal pain /ruq/midepigastric pain improving , cannt have MRCP since patient has a pacemaker. GI (Dr. Blanco) on the case -abdominal ultrasound and HIDA scan ordered. no surgery at this time as per ( Dr. Godoy). questionable pancreatic mass, waiting for EUS report. will continue IV antibiotic; patient is on Zosyn . Id consulted, #Acute transaminitis : will continue to monitor ,Hepatitis panel pending, lipitor is on hold #Hx of CAD s/p PCI; continue ASA 81mg daily; T-wave inversions on EKG; Trops x2 negative, EKG has no changes, is paced rhytem. Cardiology (Dr. Murillo) consult appreciated, no further w/u at this point , follow up as an outpatient. #DM: Insulin sliding scale; BGM q6h #HTN: continue Amlodipine 5mg daily, Carvedilol 25mg BID DVT Px: SCDs
[2018-08-28] MEDS: LACTATED RINGERS SOLUTION 1,000 ML/1,000 ML INFUS.BAG IV SCH ×2 (01:55→18:18)
[2018-08-28] MEDS: INSULIN SLIDING SCALE (NOVOLOG) 1 VIAL SQ SCH ×4 (06:41→21:48)
[2018-08-28] MEDS: GABAPENTIN 100 MG CAPSULE (FP) PO SCH ×3 (06:41→21:44)
[2018-08-28 07:35] LABS: BASO % 0.6 % (0-2.0); EOS % 3.5 % (0-4.5); HEMATOCRIT 30.2 % (32.4-45.2); HEMOGLOBIN 9.9 GM/dL (10.7-15.3); LYMPH % 24.2 % (8-40); MCH 27.9 pg (25.7-33.7); MCHC 32.7 g/dl (32.0-36.0); MEAN CELL VOLUME 85.6 fl (80-96); MEAN PLT VOLUME 9.1 fl (7.5-11.1); MONO % 8.3 % (3.8-10.2); NEUT % 63.4 % (42.8-82.8); PLATELET COUNT 181 K/MM3 (134-434); RBC 3.53 M/mm3 (3.60-5.2); RDW 17.9 % (11.6-15.6); WHITE BLOOD COUNT 5.8 K/mm3 (4.0-10.0)
[2018-08-28 08:03] LABS: ALBUMIN 2.8 g/dl (3.4-5.0); ALK PHOS 107 U/L (45-117); ANION GAP 4 MMOL/L (8-16); BILIRUBIN,TOTAL 0.5 mg/dL (0.2-1); BLOOD UREA NITROGEN 15 mg/dL (7-18); CALCIUM 8.5 mg/dL (8.5-10.1); CHLORIDE 101 mmol/L (98-107); CO2 35 mmol/L (21-32); CREATININE 0.9 mg/dL (0.55-1.3); GLUCOSE,RANDOM 148 mg/dL (74-106); PHOSPHOROUS 3.2 mg/dL (2.5-4.9); POTASSIUM 4.1 mmol/L (3.5-5.1); SGOT/AST 46 U/L (15-37); SGPT/ALT 106 U/L (13-61); SODIUM 141 mmol/L (136-145); TOT PROT 5.9 g/dl (6.4-8.2)
[2018-08-28] MEDS: ASPIRIN COATED 81 MG TABLET.EC PO SCH (11:27)
[2018-08-28] MEDS: CARVEDILOL 25 MG TABLET (FP) PO SCH ×2 (11:27→21:44)
[2018-08-28] MEDS: PANTOPRAZOLE 40 MG TABLET (FP) PO SCH (11:27)
[2018-08-28] MEDS: amLODIPine BESYLATE 5 MG TABLET (FP) PO SCH (11:27)
--- NOTE | 2018-08-28 12:17 | PN ---
Progress Note (short form) - Note Progress Note: Pt awake, alert, afebrile. C/O mild discomfort in LEFT upper quadrant now. No tenderness elicited even on deep palpation. Extensive imaging workup has so far failed to uncover any acute process involving the GB, pancreas, or liver. 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 No change seen in comparison of CTs done 04/2018 and 08/2018. She is supposed to follow up at [facility] where she had her EUS exam. Will no longer follow as there does not seem to be any acute GI issue.
--- NOTE | 2018-08-28 14:06 | PN ---
Progress Note (short form) - Note Progress Note: ID consult dictated 88 yo female admitted with abdominal pain and abnormal LFTS history of prior EUS FNA showed cystic lesion in the pancreatic head c/w IPMN no fevers, no leukocytosis started on zosyn asked to evaluate she is now s/p 24 hours of zosyn abnormal LFTs-?meds- lipitor on hold awaiting HIDA scan results if negative would defer to GI and surgery regarding further workup and evaluation not sure she needs further antibiotics if there is no evidence of cholycysitis continue zosyn for now would f/u HIDA scan results Problem List - Problems (1) LFT elevation Code(s): R94.5 - ABNORMAL RESULTS OF LIVER FUNCTION STUDIES (2) Abdominal pain Code(s): R10.9 - UNSPECIFIED ABDOMINAL PAIN Qualifiers: Abdominal location: generalized Qualified Code(s): R10.84 - Generalized abdominal pain (3) Mass of pancreas Code(s): K86.9 - DISEASE OF PANCREAS, UNSPECIFIED
--- NOTE | 2018-08-28 16:41 | CONS ---
DATE OF CONSULTATION: DATE OF DICTATION: 08/28/2018 HISTORY: This is an 88-year-old woman who presents to the emergency room complaining of back and abdominal pain for the last 2 hours. She denies any fevers or chills. She has had no nausea or vomiting. There is no history of any illness or sick contacts. She was noted in the emergency room to have an elevated BUN and creatinine and abnormal LFTs. She had multiple imaging studies including a CAT scan of her abdomen and pelvis that showed an overdistended gallbladder with dilatation of the common bile duct, which she apparently has had in the past, and she has a low-attenuation nodular density in the region of the head of the pancreas, which she has had in the past as well. She was started on piperacillin/tazobactam. She never had any fever, normal white count. 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 The plan was outpatient surveillance. I am asked to see her for antibiotic approval of her piperacillin/tazobactam. PAST MEDICAL HISTORY: Notable for history of aortic stenosis, coronary artery disease status post MT x2 and stenting, CHF, hypertension, hyperlipidemia, constipation, renal insufficiency, diabetic neuropathy, diabetes. She has a history as well of this known pancreatic mass which was evaluated by EUS. PAST SURGICAL HISTORY: Notable for colonoscopy and coronary stenting. FAMILY HISTORY: Notable for mother who of a gynecologic malignancy. SOCIAL HISTORY: There is no history of cigarette or substance use. 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 ALLERGIES: She has no known drug allergies. MEDICATIONS: Include atorvastatin, Protonix, aspirin, simethicone, acetaminophen, amlodipine, Coreg, gabapentin, Januvia, albuterol, furosemide, insulin, lidocaine, and prednisone. REVIEW OF SYSTEMS: Her abdominal pain is improved significantly, and she feels well. PHYSICAL EXAMINATION: General: She is an elderly woman resting comfortably. Vital Signs: Temperature is 97.9. Pulse is 60. Blood pressure 144/51. Respiratory rate 17. She is saturating 100% on 3 L. HEENT: She is normocephalic. Her eyes are anicteric. Neck: Supple. Lungs: Clear to auscultation. Heart: Regular rate and rhythm. Abdomen: Soft, nontender. Extremities: Without edema. LABORATORY: White count of 5.8, hemoglobin is 9.9, platelets are 181. BUN and creatinine are 15 and 0.9. Liver test: AST of 46, ALT of 106. They were elevated at 391 AST and ALT of 207 on admission. Urinalysis is negative. Her hepatitis B surface E antibody is positive, but antigen is negative, and she has a positive hepatitis B surface antibody. No cultures were sent. Her HIDA scan result needs to be clarified. It is unclear whether this is a positive or a negative scan. She had an ultrasound that shows a slightly distended gallbladder and a prominent CBD. SUMMARY: This is an 88-year-old woman with abnormal LFTs. We await the results of the HIDA scan. If negative, would defer to GI and Surgery regarding further workup and evaluation. I am not sure she needs further antibiotics if there is no evidence of cholecystitis. Continue Zosyn for now and would clarify with Radiology the results. I made multiple attempts to contact Radiology today and have been unsuccessful. This was discussed with the hospitalist. LEANDER MERINO M.D. [id number]
[2018-08-28] MEDS ORDERED: PIPERACILLIN/TAZOBACTAM 3.375 GM VIAL IVPB ONE (18:10)
[2018-08-28] MEDS ORDERED: DEXTROSE 5%-WATER - 50 ML IVPB ONE (18:11)
[2018-08-28] MEDS: PIPERACILLIN/TAZOB 3.375 GM 3.375 GM in DEXTROSE 5%-WATER - 50 ML IVPB SCH ×2 (18:14→18:15)
[2018-08-28] MEDS ORDERED: INSULIN (NOVOLOG) ASPART 100 UNITS/ML 10ML VIAL ONE (19:06)
--- NOTE | 2018-08-28 20:18 | PN ---
Progress Note (short form) - Note Progress Note: Patient is feeling better, less pain. Vital Signs Temperature 97.8 F 08/28/18 18:19 Pulse Rate 60 08/28/18 18:19 Respiratory Rate 18 08/28/18 18:19 Blood Pressure 150/52 L 08/28/18 18:19 O2 Sat by Pulse Oximetry (%) 100 08/28/18 09:00 GENERAL: The patient is awake, alert, and fully oriented, in mild distress. HEAD: Normal with no signs of trauma. EYES: left eye reactive, right eye enucleation , extraocular movements intact, sclera anicteric, conjunctiva clear. ENT: Ears normal, oropharynx clear without exudates, moist mucous membranes. NECK: Trachea midline, full range of motion, supple. LUNGS: Breath sounds equal, clear to auscultation bilaterally, no wheezes, no crackles, no accessory muscle use. HEART: Regular rate and rhythm, S1, S2 without murmur, rub or gallop. ABDOMEN: Soft, RUQ and midepigastric reduced tenderness on palpation, improving. normoactive bowel sounds, voluntary guarding , no rebound. . EXTREMITIES: 2+ pulses, warm, well-perfused, no edema. NEUROLOGICAL: Cranial nerves II through XII grossly intact. Normal speech, gait is stable . PSYCH: Normal mood, normal affect. SKIN: Warm, dry, normal turgor, no rashes or lesions noted CBCD WBC 5.8 K/mm3 (4.0-10.0) 08/28/18 06:45 RBC 3.53 M/mm3 (3.60-5.2) L 08/28/18 06:45 Hgb 9.9 GM/dL (10.7-15.3) L 08/28/18 06:45 Hct 30.2 % (32.4-45.2) L 08/28/18 06:45 MCV 85.6 fl (80-96) 08/28/18 06:45 MCHC 32.7 g/dl (32.0-36.0) 08/28/18 06:45 RDW 17.9 % (11.6-15.6) H 08/28/18 06:45 Plt Count 181 K/MM3 (134-434) 08/28/18 06:45 MPV 9.1 fl (7.5-11.1) 08/28/18 06:45 CMP Sodium 141 mmol/L (136-145) 08/28/18 06:45 Potassium 4.1 mmol/L (3.5-5.1) 08/28/18 06:45 Chloride 101 mmol/L (98-107) 08/28/18 06:45 Carbon Dioxide 35 mmol/L (21-32) H 08/28/18 06:45 Anion Gap 4 MMOL/L (8-16) L 08/28/18 06:45 BUN 15 mg/dL (7-18) 08/28/18 06:45 Creatinine 0.9 mg/dL (0.55-1.3) 08/28/18 06:45 Creat Clearance w eGFR 59.37 (>60) 08/28/18 06:45 Random Glucose 148 mg/dL (74-106) H 08/28/18 06:45 Calcium 8.5 mg/dL (8.5-10.1) 08/28/18 06:45 Total Bilirubin 0.5 mg/dL (0.2-1) 08/28/18 06:45 AST 46 U/L (15-37) H 08/28/18 06:45 ALT 106 U/L (13-61) H 08/28/18 06:45 Alkaline Phosphatase 107 U/L (45-117) 08/28/18 06:45 Total Protein 5.9 g/dl (6.4-8.2) L 08/28/18 06:45 Albumin 2.8 g/dl (3.4-5.0) L 08/28/18 06:45 CARDIAC ENZYMES Troponin I 0.02 ng/ml (0.00-0.05) 08/25/18 21:26 Current Medications Generic Name Dose Route Start Last Admin Trade Name Freq PRN Reason Stop Dose Admin Albuterol Sulfate 1 amp 08/26/18 19:41 Ventolin 0.083% Nebulizer Soln - NEB Q4H PRN SHORT OF BREATH/WHEEZING Amlodipine Besylate 5 mg 08/27/18 10:00 08/28/18 11:27 Norvasc - PO 5 mg DAILY JERRY Administration Aspirin 81 mg 08/27/18 10:00 08/28/18 11:27 Ecotrin - PO 81 mg DAILY JERRY Administration Carvedilol 25 mg 08/26/18 22:00 08/28/18 11:27 Coreg - PO 25 mg BID JERRY Administration Gabapentin 100 mg 08/26/18 22:00 08/28/18 15:05 Neurontin - PO 100 mg TID JERRY Administration Lactated Ringer's 1,000 ml in 1,000 mls @ 42 mls/hr 08/26/18 16:51 08/28/18 18:18 Lactated Ringers Solution IV Not Given ASDIR JERRY Piperacillin Sod/Tazobactam 50 mls @ 100 mls/hr 08/28/18 14:45 08/28/18 18:15 Sod 3.375 gm/ Dextrose IVPB 100 mls/hr Q8H-IV JERRY Administration Protocol Insulin Aspart 1 vial 08/26/18 22:00 08/28/18 17:54 Novolog Vial Sliding Scale - SQ 4 units ACHS JERRY Administration Protocol Pantoprazole Sodium 40 mg 08/27/18 10:00 08/28/18 11:27 Protonix - PO 40 mg DAILY JERRY Administration Home Medications Medication Instructions Recorded Atorvastatin Ca [Lipitor] 80 mg PO HS 10/05/17 Pantoprazole Sodium [Protonix] 40 mg PO DAILY 10/05/17 Aspirin [Aspirin EC] 81 mg PO DAILY 05/08/18 Simethicone [Gas-X] 80 mg PO Q6H 05/08/18 Acetaminophen [Tylenol .Regular 650 mg PO Q6H PRN tablet 05/10/18 Strength -] Amlodipine Besylate [Norvasc -] 5 mg PO DAILY tablet 05/10/18 Carvedilol [Coreg -] 25 mg PO BID tablet 05/10/18 Gabapentin 100 mg PO TID 06/11/18 Sitagliptin Phosphate [Januvia] 100 mg PO DAILY 06/11/18 Albuterol Sulfate Inhaler - 1 - 2 inh PO Q4H PRN #1 inhaler 06/16/18 [Ventolin HFA Inhaler -] Furosemide [Lasix -] 40 mg PO DAILY #30 tablet 06/16/18 Insulin (Levemir) [Levemir Vial] 20 units SQ BIDI #100 ml 06/16/18 Lidocaine 5% Patch [Lidoderm -] 1 patch TP DAILY #30 patch 06/16/18 Lidocaine Patch Removal [Lidoderm 1 each MC DAILY@2200 #1 each 06/16/18 Patch Removal] Prednisone 10 mg PO ASDIR #30 tablet 06/16/18 EKG: sinus rhythm with inferior and anterolateral TWI EKG: AV paced ECHO: 05/2018 LV is nl in size, no regional wall motion abnormalities, EJF 60-65%, Mild mitral annular calcification, PA systolic pressure is 41mmhg, Moderate aortic valve thickening, severe valvular aortic stenosis, Aortic mean pressure gradient : 23mmhg, no pericardial effusion. EK05/2018 atrial paced rhythm, rate of 72, t-wave abnormality, nonspecifis, inverted t- wave in lateral leads. CTAP: no significant interval change. Overdistended gallbladder with dilatation of the CBD again seen. CBD measured 11mm. Focal low-attenuation nodular density/ mass in region of the ampulla of Vater/pancreatic head again seen measuring 1.5 cm without gross surrounding mesenteric stranding/inflammatory changes. ASSESSMENT/PLAN: Patient is an 88 year old female with past medical history of CAD s/p 5 stents, CABG, IDDM, HTN, sick sinus syndrome s/p pacemaker placement, Right eye enucleation, pancreatic cyst who presented with sudden onset severe abdominal and back pain.(as per patient, patient was seen at [facility] last April for the same complaint, where EUS was done and patient was seen to have a pancreatic cyst, for which she was recommended to have repeat imaging in a year and to follow-up in October. Attempt to transfer patient to [facility] for further care but transfer was denied, since nothing to be done) #Acute diffuse abdominal pain improving ; Hida scan reported acute cholecystitis on IV zosyn , emily't have MRCP since patient has a pacemaker. GI ( Dr. Blanco) on the case, ID on the case. no surgery at this time as per (Dr. Godoy). questionable pancreatic mass, EUS report in the chart. will continue IV antibiotic for now. #Acute transaminitis : trending down, will continue to monitor ,Hepatitis panel pending, lipitor is on hold #Hx of CAD s/p PCI; continue ASA 81mg daily; T-wave inversions on EKG; Trops x2 negative, EKG has no changes, is paced rhytem. Cardiology (Dr. Murillo) consult appreciated, no further w/u at this point , follow up with cardio. as an outpatient. #DM: Insulin sliding scale; BGM q6h #HTN: continue Amlodipine 5mg daily, Carvedilol 25mg BID DVT Px: SCDs upon discharge patient needs to follow up with GI; at [facility]. Visit type - Emergency Visit Emergency Visit: Yes ED Registration Date: 08/25/18 Care time: The patient presented to the Emergency Department on the above date and was hospitalized for further evaluation of their emergent condition. - New Patient This patient is new to me today: No - Critical Care Critical Care patient: No - Discharge Referral Referred to [facility] Med P.C.: No
[2018-08-29] MEDS ORDERED: PIPERACILLIN/TAZOBACTAM 3.375 GM VIAL IVPB ONE ×4 (02:35→17:07)
[2018-08-29] MEDS ORDERED: DEXTROSE 5%-WATER - 50 ML IVPB ONE ×3 (02:36→17:07)
[2018-08-29] MEDS: PIPERACILLIN/TAZOB 3.375 GM 3.375 GM in DEXTROSE 5%-WATER - 50 ML IVPB SCH ×3 (02:39→17:19)
[2018-08-29] MEDS: LACTATED RINGERS SOLUTION 1,000 ML/1,000 ML INFUS.BAG IV SCH (02:40)
[2018-08-29] MEDS: GABAPENTIN 100 MG CAPSULE (FP) PO SCH ×3 (06:19→21:44)
[2018-08-29] MEDS: INSULIN SLIDING SCALE (NOVOLOG) 1 VIAL SQ SCH ×6 (06:19→21:44)
[2018-08-29] MEDS: amLODIPine BESYLATE 5 MG TABLET (FP) PO SCH (09:46)
[2018-08-29] MEDS: ASPIRIN COATED 81 MG TABLET.EC PO SCH (09:46)
[2018-08-29] MEDS: CARVEDILOL 25 MG TABLET (FP) PO SCH ×2 (09:46→21:44)
[2018-08-29] MEDS: PANTOPRAZOLE 40 MG TABLET (FP) PO SCH (09:46)
[2018-08-29 10:44] LABS: ANION GAP 4 MMOL/L (8-16); BLOOD UREA NITROGEN 14 mg/dL (7-18); CALCIUM 8.8 mg/dL (8.5-10.1); CHLORIDE 101 mmol/L (98-107); CO2 34 mmol/L (21-32); GLUCOSE,RANDOM 138 mg/dL (74-106); SODIUM 140 mmol/L (136-145)
--- NOTE | 2018-08-29 11:42 | PN ---
Physical Exam: SUBJECTIVE: Patient seen and examined Sitting in bed NAD. afebrile hemodynamically stable, no acute events. denies abd or back pain. tolerating PO. denies sob, cough, cp, n/v/d/c. OBJECTIVE: Vital Signs Period Temp Pulse Resp BP Sys/Mccarty Pulse Ox Last 24 Hr 97.5 F-97.9 F 60-60 17-18 131-150/44-52 98 GENERAL: The patient is awake, alert, and fully oriented, in no acute distress. HEAD: Normal with no signs of trauma. EYES: extraocular movements intact, sclera anicteric, conjunctiva clear. No ptosis. ENT: moist mucous membranes. NECK: supple. LUNGS: Breath sounds equal, clear to auscultation bilaterally, no wheezes, no crackles, no accessory muscle use. HEART: Regular rate and rhythm, S1, S2 ABDOMEN: Soft, slightly tender epigastric and RUQ, nondistended, normoactive bowel sounds, no guarding, no rebound, no masses. EXTREMITIES: 2+ pulses, warm, well-perfused, no edema. NEUROLOGICAL: Cranial nerves II through XII grossly intact. Normal speech, gait not observed. PSYCH: Normal mood, normal affect. SKIN: Warm, dry Laboratory Results - last 24 hr 08/27/18 08/28/18 08/28/18 16:53 06:45 06:45 Sodium Potassium Chloride Carbon Dioxide Anion Gap BUN Creatinine Creat Clearance w eGFR POC Glucometer 169 Random Glucose Calcium Tumor Marker AFP Carcinoembryonic Ag 3.6 CA 19-9 Antigen 4 08/28/18 08/28/18 08/28/18 06:45 11:59 17:32 Sodium Potassium Chloride Carbon Dioxide Anion Gap BUN Creatinine Creat Clearance w eGFR POC Glucometer 227 203 Random Glucose Calcium Tumor Marker AFP 1.2 Carcinoembryonic Ag CA 19-9 Antigen 08/28/18 08/29/18 08/29/18 21:47 06:26 09:50 Sodium 140 Potassium 4.0 Chloride 101 Carbon Dioxide 34 H Anion Gap 4 L BUN 14 Creatinine 1.0 Creat Clearance w eGFR 52.57 POC Glucometer 152 182 Random Glucose 138 H Calcium 8.8 Tumor Marker AFP Carcinoembryonic Ag CA 19-9 Antigen 08/29/18 11:36 Sodium Potassium Chloride Carbon Dioxide Anion Gap BUN Creatinine Creat Clearance w eGFR POC Glucometer 201 Random Glucose Calcium Tumor Marker AFP Carcinoembryonic Ag CA 19-9 Antigen Active Medications Generic Name Dose Route Start Last Admin Trade Name Freq PRN Reason Stop Dose Admin Albuterol Sulfate 1 amp 08/26/18 19:41 Ventolin 0.083% Nebulizer Soln - NEB Q4H PRN SHORT OF BREATH/WHEEZING Amlodipine Besylate 5 mg 08/27/18 10:00 08/29/18 09:46 Norvasc - PO 5 mg DAILY JERRY Administration Aspirin 81 mg 08/27/18 10:00 08/29/18 09:46 Ecotrin - PO 81 mg DAILY JERRY Administration Carvedilol 25 mg 08/26/18 22:00 08/29/18 09:46 Coreg - PO 25 mg BID JERRY Administration Gabapentin 100 mg 08/26/18 22:00 08/29/18 06:19 Neurontin - PO Not Given TID JERRY Lactated Ringer's 1,000 ml in 1,000 mls @ 42 mls/hr 08/26/18 16:51 08/29/18 02:40 Lactated Ringers Solution IV 42 mls/hr ASDIR JERRY Administration Piperacillin Sod/Tazobactam 50 mls @ 100 mls/hr 08/28/18 14:45 08/29/18 09:46 Sod 3.375 gm/ Dextrose IVPB 100 mls/hr Q8H-IV JERRY Administration Protocol Insulin Aspart 1 vial 08/26/18 22:00 08/29/18 11:39 Novolog Vial Sliding Scale - SQ 4 units ACHS EJRRY Administration Protocol Pantoprazole Sodium 40 mg 08/27/18 10:00 08/29/18 09:46 Protonix - PO 40 mg DAILY JERRY Administration ASSESSMENT/PLAN: Patient is an 88 year old female with past medical history of CAD s/p 5 stents, CABG, IDDM, HTN, sick sinus syndrome s/p pacemaker placement, R eye enucleation , pancreatic cyst who presented due to sudden onset severe abdominal and back pain. Abdominal pain likely due to pancreatic mass/cyst transaminitis, nonobstructive improving DM CAD s/p PCI HTN -imaging reviewed (ct+HIDA), cbd 11 mm but not barry cute process compared to prior imaging. surg signed off and GI does not recommend further inervention -symptoms improved. -ID recommends 2 more days of zosyn -tolerating regular diet can stop IVF -ISS BGM q6h -Continue ASA 81mg daily -will hold Lipitor for now in light of elevated LFTs -Continue Amlodipine 5mg daily, Carvedilol 25mg BID Visit type - Emergency Visit Emergency Visit: Yes ED Registration Date: 08/25/18 Care time: The patient presented to the Emergency Department on the above date and was hospitalized for further evaluation of their emergent condition. - New Patient This patient is new to me today: No - Critical Care Critical Care patient: No - Discharge Referral Referred to [facility] Med P.C.: No
[2018-08-29 12:21] LABS: ALK PHOS 122 U/L (45-117); SGOT/AST 36 U/L (15-37); SGPT/ALT 87 U/L (13-61)
--- NOTE | 2018-08-29 16:24 | PN ---
Teaching Attending Note Name of Resident: Anh Fernandes ATTENDING PHYSICIAN STATEMENT I saw and evaluated the patient. I reviewed the resident's note and discussed the case with the resident. I agree with the resident's findings and plan as documented. SUBJECTIVE: patient is feeling better , no furthe pain noted. OBJECTIVE: Vital Signs Temperature 97.9 F 08/29/18 13:49 Pulse Rate 60 08/29/18 13:49 Respiratory Rate 18 08/29/18 13:49 Blood Pressure 146/58 L 08/29/18 13:49 O2 Sat by Pulse Oximetry (%) 99 08/29/18 09:00 GENERAL: The patient is awake, alert, and fully oriented, in mild distress. HEAD: Normal with no signs of trauma. EYES: left eye reactive, right eye enucleation , extraocular movements intact, sclera anicteric, conjunctiva clear. ENT: Ears normal, oropharynx clear without exudates, moist mucous membranes. NECK: Trachea midline, full range of motion, supple. LUNGS: Breath sounds equal, clear to auscultation bilaterally, no wheezes, no crackles, no accessory muscle use. HEART: Regular rate and rhythm, S1, S2 without murmur, rub or gallop. ABDOMEN: Soft, no further RUQ /midepigastric tenderness on palpation, improved. normoactive bowel sounds, voluntary guarding , no rebound. . EXTREMITIES: 2+ pulses, warm, well-perfused, no edema. NEUROLOGICAL: Cranial nerves II through XII grossly intact. Normal speech, gait is stable . PSYCH: Normal mood, normal affect. SKIN: Warm, dry, normal turgor, no rashes or lesions noted CBCD WBC 5.8 K/mm3 (4.0-10.0) 08/28/18 06:45 RBC 3.53 M/mm3 (3.60-5.2) L 08/28/18 06:45 Hgb 9.9 GM/dL (10.7-15.3) L 08/28/18 06:45 Hct 30.2 % (32.4-45.2) L 08/28/18 06:45 MCV 85.6 fl (80-96) 08/28/18 06:45 MCHC 32.7 g/dl (32.0-36.0) 08/28/18 06:45 RDW 17.9 % (11.6-15.6) H 08/28/18 06:45 Plt Count 181 K/MM3 (134-434) 08/28/18 06:45 MPV 9.1 fl (7.5-11.1) 08/28/18 06:45 CMP Sodium 140 mmol/L (136-145) 08/29/18 09:50 Potassium 4.0 mmol/L (3.5-5.1) 08/29/18 09:50 Chloride 101 mmol/L (98-107) 08/29/18 09:50 Carbon Dioxide 34 mmol/L (21-32) H 08/29/18 09:50 Anion Gap 4 MMOL/L (8-16) L 08/29/18 09:50 BUN 14 mg/dL (7-18) 08/29/18 09:50 Creatinine 1.0 mg/dL (0.55-1.3) 08/29/18 09:50 Creat Clearance w eGFR 52.57 (>60) 08/29/18 09:50 Random Glucose 138 mg/dL (74-106) H 08/29/18 09:50 Calcium 8.8 mg/dL (8.5-10.1) 08/29/18 09:50 Total Bilirubin 0.5 mg/dL (0.2-1) 08/28/18 06:45 AST 36 U/L (15-37) 08/29/18 09:50 ALT 87 U/L (13-61) H 08/29/18 09:50 Alkaline Phosphatase 122 U/L (45-117) H 08/29/18 09:50 Total Protein 5.9 g/dl (6.4-8.2) L 08/28/18 06:45 Albumin 2.8 g/dl (3.4-5.0) L 08/28/18 06:45 CARDIAC ENZYMES Troponin I 0.02 ng/ml (0.00-0.05) 08/25/18 21:26 Current Medications Generic Name Dose Route Start Last Admin Trade Name Freq PRN Reason Stop Dose Admin Albuterol Sulfate 1 amp 08/26/18 19:41 Ventolin 0.083% Nebulizer Soln - NEB Q4H PRN SHORT OF BREATH/WHEEZING Amlodipine Besylate 5 mg 08/27/18 10:00 08/29/18 09:46 Norvasc - PO 5 mg DAILY JERRY Administration Aspirin 81 mg 08/27/18 10:00 08/29/18 09:46 Ecotrin - PO 81 mg DAILY JERRY Administration Carvedilol 25 mg 08/26/18 22:00 08/29/18 09:46 Coreg - PO 25 mg BID JERRY Administration Gabapentin 100 mg 08/26/18 22:00 08/29/18 14:45 Neurontin - PO 100 mg TID JERRY Administration Piperacillin Sod/Tazobactam 50 mls @ 100 mls/hr 08/28/18 14:45 08/29/18 09:46 Sod 3.375 gm/ Dextrose IVPB 100 mls/hr Q8H-IV JERRY Administration Protocol Insulin Aspart 1 vial 08/26/18 22:00 08/29/18 11:39 Novolog Vial Sliding Scale - SQ 4 units ACHS JERRY Administration Protocol Pantoprazole Sodium 40 mg 08/27/18 10:00 08/29/18 09:46 Protonix - PO 40 mg DAILY JERRY Administration Home Medications Medication Instructions Recorded Atorvastatin Ca [Lipitor] 80 mg PO HS 10/05/17 Pantoprazole Sodium [Protonix] 40 mg PO DAILY 10/05/17 Aspirin [Aspirin EC] 81 mg PO DAILY 05/08/18 Simethicone [Gas-X] 80 mg PO Q6H 05/08/18 Acetaminophen [Tylenol .Regular 650 mg PO Q6H PRN tablet 05/10/18 Strength -] Amlodipine Besylate [Norvasc -] 5 mg PO DAILY tablet 05/10/18 Carvedilol [Coreg -] 25 mg PO BID tablet 05/10/18 Gabapentin 100 mg PO TID 06/11/18 Sitagliptin Phosphate [Januvia] 100 mg PO DAILY 06/11/18 Albuterol Sulfate Inhaler - 1 - 2 inh PO Q4H PRN #1 inhaler 06/16/18 [Ventolin HFA Inhaler -] Furosemide [Lasix -] 40 mg PO DAILY #30 tablet 06/16/18 Insulin (Levemir) [Levemir Vial] 20 units SQ BIDI #100 ml 06/16/18 Lidocaine 5% Patch [Lidoderm -] 1 patch TP DAILY #30 patch 06/16/18 Lidocaine Patch Removal [Lidoderm 1 each MC DAILY@2200 #1 each 06/16/18 Patch Removal] Prednisone 10 mg PO ASDIR #30 tablet 06/16/18 EKG: sinus rhythm with inferior and anterolateral TWI EKG: AV paced ECHO: 05/2018 LV is nl in size, no regional wall motion abnormalities, EJF 60-65%, Mild mitral annular calcification, PA systolic pressure is 41mmhg, Moderate aortic valve thickening, severe valvular aortic stenosis, Aortic mean pressure gradient : 23mmhg, no pericardial effusion. EK05/2018 atrial paced rhythm, rate of 72, t-wave abnormality, nonspecifis, inverted t- wave in lateral leads. CTAP: no significant interval change. Overdistended gallbladder with dilatation of the CBD again seen. CBD measured 11mm. Focal low-attenuation nodular density/ mass in region of the ampulla of Vater/pancreatic head again seen measuring 1.5 cm without gross surrounding mesenteric stranding/inflammatory changes. ASSESSMENT/PLAN: Patient is an 88 year old female with past medical history of CAD s/p 5 stents, CABG, IDDM, HTN, sick sinus syndrome s/p pacemaker placement, Right eye enucleation, pancreatic cyst who presented with sudden onset severe abdominal and back pain.(as per patient, patient was seen at [facility] last April for the same complaint, where EUS was done and patient was seen to have a pancreatic cyst, for which she was recommended to have repeat imaging in a year and to follow-up in October. Attempt to transfer patient to [facility] for further care but transfer was denied, since nothing to be done) #Acute diffuse abdominal pain improved ; Hida scan reported acute cholecystitis on IV zosyn , emily't have MRCP since patient has a pacemaker. GI (Dr. Blanco) on the case, ID on the case. no surgery at this time as per (Dr. Godoy). questionable pancreatic mass, EUS report in the chart. will continue IV antibiotic for now. #Acute transaminitis : trending down, will continue to monitor ,Hepatitis panel pending, lipitor is on hold #Hx of CAD s/p PCI; continue ASA 81mg daily; T-wave inversions on EKG; Trops x2 negative, EKG has no changes, is paced rhytem. Cardiology (Dr. Murillo) consult appreciated, no further w/u at this point , follow up with cardio. as an outpatient. #DM: Insulin sliding scale; BGM q6h #HTN: continue Amlodipine 5mg daily, Carvedilol 25mg BID DVT Px: SCDs possible discharge patient in am . needs to follow up with GI; at [facility]. Laboratory Tests 08/26/18 08/26/18 05:30 05:30 Hep Bs Antibody Reactive Hep B Core IgM Ab Negative Hepatitis Be Antibody Positive H Hepatitis Be Antigen Negative HCV Quantitation Pending
[2018-08-30] MEDS ORDERED: PIPERACILLIN/TAZOBACTAM 3.375 GM VIAL IVPB ONE ×3 (01:21→17:38)
[2018-08-30] MEDS ORDERED: DEXTROSE 5%-WATER - 50 ML IVPB ONE ×3 (01:21→17:38)
[2018-08-30] MEDS: PIPERACILLIN/TAZOB 3.375 GM 3.375 GM in DEXTROSE 5%-WATER - 50 ML IVPB SCH ×2 (02:41→11:06)
[2018-08-30] MEDS: INSULIN SLIDING SCALE (NOVOLOG) 1 VIAL SQ SCH ×4 (06:51→21:03)
[2018-08-30] MEDS: GABAPENTIN 100 MG CAPSULE (FP) PO SCH ×3 (06:51→21:07)
[2018-08-30 07:26] LABS: ALBUMIN 2.8 g/dl (3.4-5.0); ALK PHOS 120 U/L (45-117); ANION GAP 5 MMOL/L (8-16); BILIRUBIN,TOTAL 0.5 mg/dL (0.2-1); BLOOD UREA NITROGEN 13 mg/dL (7-18); CALCIUM 8.6 mg/dL (8.5-10.1); CHLORIDE 101 mmol/L (98-107); CO2 33 mmol/L (21-32); GLUCOSE,RANDOM 194 mg/dL (74-106); POTASSIUM 3.9 mmol/L (3.5-5.1); SGOT/AST 38 U/L (15-37); SGPT/ALT 75 U/L (13-61); SODIUM 139 mmol/L (136-145); TOT PROT 6.2 g/dl (6.4-8.2)
[2018-08-30] MEDS: ASPIRIN COATED 81 MG TABLET.EC PO SCH (11:05)
[2018-08-30] MEDS: CARVEDILOL 25 MG TABLET (FP) PO SCH ×2 (11:05→21:07)
[2018-08-30] MEDS: amLODIPine BESYLATE 5 MG TABLET (FP) PO SCH (11:05)
[2018-08-30] MEDS: PANTOPRAZOLE 40 MG TABLET (FP) PO SCH (11:05)
--- NOTE | 2018-08-30 13:59 | PN ---
Progress Note (short form) - Note Progress Note: continues to have nonspecific abdominal pain Vital Signs Period Temp Pulse Resp BP Sys/Mccarty Pulse Ox Last 24 Hr 97.7 F-98.2 F 60-73 16-22 140-155/54-59 98-98 cor-rrr lungs clear abd soft,nt no RUQ pain ext no edema CBC, BMP 08/28/18 06:45 08/30/18 06:10 Laboratory Tests 08/25/18 08/30/18 15:31 06:10 AST 391 H 38 H ALT 207 H 75 H Alkaline Phosphatase 134 H 120 H HIDA SCAN reviewed with Dr Hoffman- NO EVIDENCE of CBD obstruction a/p abnormal lfts resolving hida scan negative ?lipitor further management per GI consider d/c zosyn known pancreatic mass c/w IPMN please call back if needed Problem List - Problems (1) LFT elevation Code(s): R94.5 - ABNORMAL RESULTS OF LIVER FUNCTION STUDIES (2) Abdominal pain Code(s): R10.9 - UNSPECIFIED ABDOMINAL PAIN Qualifiers: Abdominal location: generalized Qualified Code(s): R10.84 - Generalized abdominal pain (3) Mass of pancreas Code(s): K86.9 - DISEASE OF PANCREAS, UNSPECIFIED
--- NOTE | 2018-08-30 14:28 | PN ---
Teaching Attending Note Name of Resident: Aster Molina ATTENDING PHYSICIAN STATEMENT I saw and evaluated the patient. I reviewed the resident's note and discussed the case with the resident. I agree with the resident's findings and plan as documented. SUBJECTIVE: Patient is comfortable with no acute distress, no nausea or vomiting, no fever or chills, OBJECTIVE: Vital Signs Temperature 98.2 F 08/30/18 13:11 Pulse Rate 60 08/30/18 13:11 Respiratory Rate 16 08/30/18 13:11 Blood Pressure 140/55 L 08/30/18 13:11 O2 Sat by Pulse Oximetry (%) 98 08/30/18 09:00 GENERAL: The patient is awake, alert, and fully oriented, in mild distress. HEAD: Normal with no signs of trauma. EYES: left eye reactive, right eye enucleation , extraocular movements intact, sclera anicteric, conjunctiva clear. ENT: Ears normal, oropharynx clear without exudates, moist mucous membranes. NECK: Trachea midline, full range of motion, supple. LUNGS: Breath sounds equal, clear to auscultation bilaterally, no wheezes, no crackles, no accessory muscle use. HEART: Regular rate and rhythm, S1, S2 without murmur, rub or gallop. ABDOMEN: Soft, no further RUQ /midepigastric tenderness on palpation, improved. normoactive bowel sounds, no rebound. . EXTREMITIES: 2+ pulses, warm, well-perfused, no edema. NEUROLOGICAL: Cranial nerves II through XII grossly intact. Normal speech, gait is stable . PSYCH: Normal mood, normal affect. SKIN: Warm, dry, normal turgor, no rashes or lesions noted CBCD WBC 5.8 K/mm3 (4.0-10.0) 08/28/18 06:45 RBC 3.53 M/mm3 (3.60-5.2) L 08/28/18 06:45 Hgb 9.9 GM/dL (10.7-15.3) L 08/28/18 06:45 Hct 30.2 % (32.4-45.2) L 08/28/18 06:45 MCV 85.6 fl (80-96) 08/28/18 06:45 MCHC 32.7 g/dl (32.0-36.0) 08/28/18 06:45 RDW 17.9 % (11.6-15.6) H 08/28/18 06:45 Plt Count 181 K/MM3 (134-434) 08/28/18 06:45 MPV 9.1 fl (7.5-11.1) 08/28/18 06:45 CMP Sodium 139 mmol/L (136-145) 08/30/18 06:10 Potassium 3.9 mmol/L (3.5-5.1) 08/30/18 06:10 Chloride 101 mmol/L (98-107) 08/30/18 06:10 Carbon Dioxide 33 mmol/L (21-32) H 08/30/18 06:10 Anion Gap 5 MMOL/L (8-16) L 08/30/18 06:10 BUN 13 mg/dL (7-18) 08/30/18 06:10 Creatinine 1.0 mg/dL (0.55-1.3) 08/30/18 06:10 Creat Clearance w eGFR 52.57 (>60) 08/30/18 06:10 Random Glucose 194 mg/dL (74-106) H 08/30/18 06:10 Calcium 8.6 mg/dL (8.5-10.1) 08/30/18 06:10 Total Bilirubin 0.5 mg/dL (0.2-1) 08/30/18 06:10 AST 38 U/L (15-37) H 08/30/18 06:10 ALT 75 U/L (13-61) H 08/30/18 06:10 Alkaline Phosphatase 120 U/L (45-117) H 08/30/18 06:10 Total Protein 6.2 g/dl (6.4-8.2) L 08/30/18 06:10 Albumin 2.8 g/dl (3.4-5.0) L 08/30/18 06:10 CARDIAC ENZYMES Troponin I 0.02 ng/ml (0.00-0.05) 08/25/18 21:26 Current Medications Generic Name Dose Route Start Last Admin Trade Name Freq PRN Reason Stop Dose Admin Albuterol Sulfate 1 amp 08/26/18 19:41 Ventolin 0.083% Nebulizer Soln - NEB Q4H PRN SHORT OF BREATH/WHEEZING Amlodipine Besylate 5 mg 08/27/18 10:00 08/30/18 11:05 Norvasc - PO 5 mg DAILY JERRY Administration Aspirin 81 mg 08/27/18 10:00 08/30/18 11:05 Ecotrin - PO 81 mg DAILY JERRY Administration Carvedilol 25 mg 08/26/18 22:00 08/30/18 11:05 Coreg - PO 25 mg BID JERRY Administration Gabapentin 100 mg 08/26/18 22:00 08/30/18 14:55 Neurontin - PO 100 mg TID JERRY Administration Piperacillin Sod/Tazobactam 50 mls @ 100 mls/hr 08/28/18 14:45 08/30/18 11:06 Sod 3.375 gm/ Dextrose IVPB 100 mls/hr Q8H-IV JERRY Administration Protocol Insulin Aspart 1 vial 08/26/18 22:00 08/30/18 12:09 Novolog Vial Sliding Scale - SQ 6 units ACHS JERRY Administration Protocol Pantoprazole Sodium 40 mg 08/27/18 10:00 08/30/18 11:05 Protonix - PO 40 mg DAILY JERRY Administration Home Medications Medication Instructions Recorded Pantoprazole Sodium [Protonix] 40 mg PO DAILY 10/05/17 Aspirin [Aspirin EC] 81 mg PO DAILY 05/08/18 Simethicone [Gas-X] 80 mg PO Q6H 05/08/18 Amlodipine Besylate [Norvasc -] 5 mg PO DAILY tablet 05/10/18 Carvedilol [Coreg -] 25 mg PO BID tablet 05/10/18 Gabapentin 100 mg PO TID 06/11/18 Sitagliptin Phosphate [Januvia] 100 mg PO DAILY 06/11/18 Albuterol Sulfate Inhaler - 1 - 2 inh PO Q4H PRN #1 inhaler 06/16/18 [Ventolin HFA Inhaler -] Furosemide [Lasix -] 40 mg PO DAILY #30 tablet 06/16/18 Insulin (Levemir) [Levemir Vial] 5 units SQ AM #100 ml 08/30/18 EKG: sinus rhythm with inferior and anterolateral TWI EKG: AV paced ECHO: 05/2018 LV is nl in size, no regional wall motion abnormalities, EJF 60-65%, Mild mitral annular calcification, PA systolic pressure is 41mmhg, Moderate aortic valve thickening, severe valvular aortic stenosis, Aortic mean pressure gradient : 23mmhg, no pericardial effusion. EK05/2018 atrial paced rhythm, rate of 72, t-wave abnormality, nonspecifis, inverted t- wave in lateral leads. CTAP: no significant interval change. Overdistended gallbladder with dilatation of the CBD again seen. CBD measured 11mm. Focal low-attenuation nodular density/ mass in region of the ampulla of Vater/pancreatic head again seen measuring 1.5 cm without gross surrounding mesenteric stranding/inflammatory changes. ASSESSMENT/PLAN: Patient is an 88 year old female with past medical history of CAD s/p 5 stents, CABG, IDDM, HTN, sick sinus syndrome s/p pacemaker placement, Right eye enucleation, pancreatic cyst who presented with sudden onset severe abdominal and back pain.(as per patient, patient was seen at [facility] last April for the same complaint, where EUS was done and patient was seen to have a pancreatic cyst, for which she was recommended to have repeat imaging in a year and to follow-up in October. Attempt to transfer patient to [facility] for further care but transfer was denied, since nothing to be done) #Acute diffuse abdominal pain improved ; Hida scan reported with questionable cholecystitis on IV zosyn, the last dose today and patient can be discharged home. emily't have MRCP since patient has a pacemaker. GI , no further w/u at this time. as per ID, no further aantibiotic is needed. no surgery at this time as per (Dr. Godoy). questionable pancreatic mass, EUS report in the chart. will discharge patient home today, with follow up with at [facility], who has seen the patient before. #Acute transaminitis : improved , lipitor is on hold #Hx of CAD s/p PCI; continue ASA 81mg daily; T-wave inversions on EKG; Trops x2 negative, EKG has no changes, is paced rhytem. Cardiology (Dr. Murillo) consult appreciated, no further w/u at this point , follow up with cardio. as an outpatient. #DM: Insulin sliding scale; BGM q6h #HTN: continue Amlodipine 5mg daily, Carvedilol 25mg BID DVT Px: SCDs discharge patient today, needs to follow up with GI; at [facility]. Laboratory Tests 08/26/18 08/26/18 05:30 05:30 Hep Bs Antibody Reactive Hep B Core IgM Ab Negative Hepatitis Be Antibody Positive H Hepatitis Be Antigen Negative HCV Quantitation Pending
--- NOTE | 2018-08-30 14:57 | DS ---
Physical Exam: SUBJECTIVE: Patient seen and examined at bedside this morning. No acute events overnight. Patient reports lower abdominal pain but states that she feels better. OBJECTIVE: Vital Signs Temperature 98.2 F 08/30/18 13:11 Pulse Rate 60 08/30/18 13:11 Respiratory Rate 16 08/30/18 13:11 Blood Pressure 140/55 L 08/30/18 13:11 O2 Sat by Pulse Oximetry (%) 98 08/30/18 09:00 PHYSICAL EXAM GENERAL: The patient is awake, alert, and fully oriented, in no acute distress. HEAD: Normal with no signs of trauma. EYES: PERRLA, EOMI, sclera anicteric, conjunctiva clear. ENT: Ears normal, nares patent, oropharynx clear without exudates. NECK: Trachea midline, full range of motion, supple. LUNGS: Breath sounds equal, clear to auscultation bilaterally. HEART: Regular rate and rhythm, S1, S2 without murmur, rub or gallop. ABDOMEN: Soft, nontender, nondistended, NABS. EXTREMITIES: 2+ pulses, warm, well-perfused, no edema. NEUROLOGICAL: Cranial nerves II through XII grossly intact. Normal speech, gait not observed. PSYCH: Normal mood, normal affect. SKIN: Warm, dry, normal turgor, no rashes or lesions noted LABS Laboratory Results - last 24 hr 08/26/18 08/29/18 08/29/18 05:30 17:32 21:30 Sodium Potassium Chloride Carbon Dioxide Anion Gap BUN Creatinine Creat Clearance w eGFR POC Glucometer 150 192 Random Glucose Calcium Total Bilirubin AST ALT Alkaline Phosphatase Total Protein Albumin HCV Quantitation Hcv not detected HCV RNA log copies/mL TNP 08/30/18 08/30/18 08/30/18 06:08 06:10 12:06 Sodium 139 Potassium 3.9 Chloride 101 Carbon Dioxide 33 H Anion Gap 5 L BUN 13 Creatinine 1.0 Creat Clearance w eGFR 52.57 POC Glucometer 182 291 Random Glucose 194 H Calcium 8.6 Total Bilirubin 0.5 AST 38 H ALT 75 H Alkaline Phosphatase 120 H Total Protein 6.2 L Albumin 2.8 L HCV Quantitation HCV RNA log copies/mL -CTAP: no significant interval change. Overdistended gallbladder with dilatation of the CBD again seen. CBD measured 11mm. Focal low-attenuation nodular density/mass in region of the ampulla of Vater/pancreatic head again seen measuring 1.5 cm without gross surrounding mesenteric stranding/ inflammatory changes. -RUQ US: Slightly distended gallbladder without evidence of cholelithiasis. Prominent CBD without obvious obstruction. -HIDA: There is no radioisotope evidence of cystic duct obstruction/acute cholecystitis. Slightly delayed transit of radioisotope activity into the proximal small bowel loops that was initially visualized at 45 mins. HOSPITAL COURSE: Date of Admission:08/25/18 Date of Discharge: 08/30/18 Patient is an 88 year old female with past medical history of CAD s/p 5 stents, CABG, IDDM, HTN, sick sinus syndrome s/p pacemaker placement, R eye enucleation , pancreatic cyst who presented due to sudden onset severe abdominal and back pain. On admission, patient was noted to have elevated liver enzymes. CT scan of abdomen, RUQ ultrasound and HIDA scan were done. GI consulted. Patient also completed 5 days of IV Zosyn. ID consulted. Patient was advised close follow-up with GI doctor at [facility]. Patient remained stable throughout hospital stay. Liver enzymes improved. She was discharged with [facility] with instructions to follow up with industrial machine operator and PCP. Minutes to complete discharge: 42 Discharge Summary Reason For Visit: ELEVATED LIVER FUNCTION TESTS PANCREATIC MASS Current Active Problems Abdominal pain (Acute) LFT elevation (Acute) T wave inversion in EKG (Acute) Condition: Improved - Instructions Diet, Activity, Other Instructions: Your visit You were admitted to the hospital because you had belly pain. CAT scan of your belly was done, which did not show any significant changes from your scan last April. You were evaluated by the industrial machine operator, and recommends that you follow up with your doctor in [facility], . We have adjusted your Levemir dose to 5 units once a day because you did not need as much insulin , and continue your Januvia Medications Please STOP taking Lipitor. Continue taking Januvia and we have decreased you Levemir dose to 5 units, Please follow up with your primary care doctor to discuss when to resume the medications. Continue your other home medications. Care Eat low fat, low salt and low carb diet. Follow up -Please follow up with your primary care doctor (Dr. Machuca) within 1 week. -Please follow up with your industrial machine operator (Dr. Ela Faulkner) at [phone] for follow up. Your schedule is moved up to September 24, at 12:40pm. Additional info Call 911 or go to the ED if with any fever, chills, headache, nausea, vomiting, chest pain, shortness of breath, belly pain, bloody stools or any new concerns noted. Referrals: Stalin Escalante [Other] - 1 Week Ela Faulkner [Other] James Machuca [Non Staff, Medical] - 1 Week Disposition: VNS/HOME HEALTH CARE - Home Medications Comprehensive Discharge Medication List: Ambulatory Orders Pantoprazole Sodium [Protonix] 40 mg PO DAILY 10/05/17 Aspirin [Aspirin EC] 81 mg PO DAILY 05/08/18 Simethicone [Gas-X] 80 mg PO Q6H 05/08/18 Amlodipine Besylate [Norvasc -] 5 mg PO DAILY tablet 05/10/18 Carvedilol [Coreg -] 25 mg PO BID tablet 05/10/18 Gabapentin 100 mg PO TID 06/11/18 Sitagliptin Phosphate [Januvia] 100 mg PO DAILY 06/11/18 Albuterol Sulfate Inhaler - [Ventolin HFA Inhaler -] 1 - 2 inh PO Q4H PRN #1 inhaler 06/16/18 Furosemide [Lasix -] 40 mg PO DAILY #30 tablet 06/16/18 Insulin (Levemir) [Levemir Vial] 5 units SQ AM #100 ml 08/30/18 This patient is new to me today: Yes Date on this admission: 08/31/18 Emergency Visit: Yes ED Registration Date: 08/25/18 Care time: The patient presented to the Emergency Department on the above date and was hospitalized for further evaluation of their emergent condition. Critical Care patient: No - Discharge Referral Referred to [facility] Med P.C.: No
--- NOTE | 2018-08-30 16:59 | PN ---
Progress Note (short form) - Note Progress Note: Patient seen and examined Labs reviewed NO new complaints today Still with some abdominal pain Vital Signs Temp 98.2 F 08/30/18 13:11 Pulse 60 08/30/18 13:11 Resp 16 08/30/18 13:11 BP 140/55 L 08/30/18 13:11 Pulse Ox 98 08/30/18 09:00 NAD Anicteric ttp in RUQ, minimally in epigastrium CBC, BMP 08/28/18 06:45 08/30/18 06:10 Hepatic Panel Total Bilirubin 0.5 mg/dL (0.2-1) 08/30/18 06:10 AST 38 U/L (15-37) H 08/30/18 06:10 ALT 75 U/L (13-61) H 08/30/18 06:10 Alkaline Phosphatase 120 U/L (45-117) H 08/30/18 06:10 Albumin 2.8 g/dl (3.4-5.0) L 08/30/18 06:10 LFTs improving US with CBD 1cm HIDA with +cystic duct obstruction, slow transit into small bowel Of note, LFTs 04/2018 at [facility] reviewed and normal EUS at that time with no comment on size of CBD CT A/P with contrast 2016 at [facility] with no biliary ductal dilatation Impression - hepatocellular injury likely explanation for LFT elevation - improving, ? medication related. Of other note are the CBD of 1cm and HIDA+ for cystic duct obstruction Would follow up with surgery regarding HIDA scan findings Regarding CBD of 1cm on US, may require repeat EUS
[2018-08-30] MEDS ORDERED: traMADol HCL 50 MG TABLET PO ONE (17:45)
[2018-08-31] MEDS: GABAPENTIN 100 MG CAPSULE (FP) PO SCH ×2 (05:57→15:04)
[2018-08-31] MEDS: INSULIN SLIDING SCALE (NOVOLOG) 1 VIAL SQ SCH ×3 (06:43→17:00)
[2018-08-31] MEDS ORDERED: INSULIN (NOVOLOG) ASPART 100 UNITS/ML 10ML VIAL ONE (11:23)
[2018-08-31] MEDS: CARVEDILOL 25 MG TABLET (FP) PO SCH (11:30)
[2018-08-31] MEDS: amLODIPine BESYLATE 5 MG TABLET (FP) PO SCH (11:30)
[2018-08-31] MEDS: ASPIRIN COATED 81 MG TABLET.EC PO SCH (11:30)
[2018-08-31] MEDS: PANTOPRAZOLE 40 MG TABLET (FP) PO SCH (11:30)
--- NOTE | 2018-08-31 11:57 | PN.GI ---
GI Progress Note Subjective: No acute events Typo noted: HIDA negative for cystic duct obstruction Dr. Wang spoke with Dr. Escalante at [facility] today: Explained that CBD was normal caliber on EUS 05/04. Given increase in pancreatic cystic lesion size, could be potential developing pancreatic process. - Objective Vital Signs: Vital Signs Temperature 97.5 F L 08/31/18 06:10 Pulse Rate 70 08/31/18 06:10 Respiratory Rate 18 08/31/18 06:10 Blood Pressure 120/56 L 08/31/18 06:10 O2 Sat by Pulse Oximetry (%) 95 08/30/18 21:00 Constitutional: Calm Eyes: No: Sclera Icterus Cardiovascular: Yes: Regular Rate and Rhythm, Murmur Respiratory: Yes: CTA Bilaterally Gastrointestinal Inspection: No: Distention ...Auscultate: Yes: Normoactive Bowel Sounds ...Palpate: Yes: Soft, Tenderness (Mild TTP upper abdomen) ...Percussion: No: Tympanitic Edema: No (No LE edema) Neurological: Yes: Alert Labs: CBC, BMP 08/28/18 06:45 08/30/18 06:10 INR, PTT INR 1.49 (0.83-1.09) H 08/26/18 05:30 Problem List - Problems (1) Abdominal pain Assessment/Plan: Cystic pancreatic lesion with continued pain and Patient has follow-up with Dr. Ela Faulkner, advanced biliary endoscopist at [facility]/ [facility] in October. With potentially evolving pancreatic process, spoke with primary team. Will see if outpatient evaluation can be scheduled sooner Code(s): R10.9 - UNSPECIFIED ABDOMINAL PAIN Qualifiers: Abdominal location: generalized Qualified Code(s): R10.84 - Generalized abdominal pain
[2018-08-31 18:09] VITALS: BP 143/47; PULSE 60; TEMP 97.7
== END 2018-08-31 19:02 | disposition home health service (06) | DRG 445 ==
LOC: JER 14:42 → JERBED 19:47 → UNDOADMOB 19:47 → OBSVTOIN 20:48 → J5S 08-26 14:13
PROVIDERS: ADMIT Internal Medicine; ATTEND Internal Medicine
DX: K80.50 Calculus of bile duct without cholangitis or cholecystitis without obstruction (principal); I50.32 Chronic diastolic (congestive) heart failure; K86.2 Cyst of pancreas; I25.10 Atherosclerotic heart disease of native coronary artery without angina pectoris; J44.9 Chronic obstructive pulmonary disease, unspecified; I11.0 Hypertensive heart disease with heart failure; E11.22 Type 2 diabetes mellitus with diabetic chronic kidney disease; I35.0 Nonrheumatic aortic (valve) stenosis; Z98.61 Coronary angioplasty status; Z95.1 Presence of aortocoronary bypass graft; R74.0 Nonspecific elevation of levels of transaminase and lactic acid dehydrogenase [LDH]; E11.65 Type 2 diabetes mellitus with hyperglycemia; D64.9 Anemia, unspecified; Z79.4 Long term (current) use of insulin
CPT/HCPCS: 36415; 71250-TC; 74176-TC; 76705-TC; 78226-TC; 80048; 80053; 81003; 82105; 82378; 82962; 83605; 83690; 83735; 84075; 84100; 84450; 84460; 84484; 85025; 85027; 85610; 85730; 86301; 86705; 86706; 86707; 87350; 87522; 93005; 93010; 99285-25; A9537; G0378; J0131

== ENCOUNTER 2021-09-21 20:24 | Inpatient (IN) | payer OTHER ==
[2021-09-21] MEDS ORDERED: ALBUTEROL SO4 2.5/IPRATROPIUM 0.5 INH SOL 3 ML VIAL.NEB. NEB ONE ×2 (20:58→21:42)
[2021-09-21] MEDS ORDERED: ACETAMINOPHEN 1000 MG/100 ML BAG IVPB ONE (21:00)
[2021-09-21 21:17] LABS: VENOUS BASE EXCESS 6.5 mmol/L (-2-2); VENOUS O2 SATURATION 44.5 % (70-80); VENOUS PH 7.251 (7.310-7.410)
[2021-09-21 21:19] LABS: BASO % 0.8 % (0-2.0); EOS % 2.1 % (0-4.5); HEMATOCRIT 30.8 % (32.4-45.2); HEMOGLOBIN 10.1 GM/dL (10.7-15.3); LYMPH % 23.4 % (8-40); MCH 29.5 pg (25.7-33.7); MCHC 32.7 g/dl (32.0-36.0); MEAN CELL VOLUME 90.3 fl (80-96); MEAN PLT VOLUME 8.9 fl (7.5-11.1); MONO % 5.9 % (3.8-10.2); NEUT % 67.8 % (42.8-82.8); PLATELET COUNT 175 10^3/uL (134-434); RBC 3.41 M/mm3 (3.60-5.2); RDW 14.5 % (11.6-15.6); VENOUS PCO2 83.4 mmHg (38-52); WHITE BLOOD COUNT 6.3 K/mm3 (4.0-10.0)
[2021-09-21] MEDS ORDERED: methylPREDNISolone NA SUCC 125 MG/2 ML VIAL IVPUSH ONE (21:28)
[2021-09-21 21:33] LABS: INR 1.21 (0.83-1.09); PROTHROMBIN TIME (PATIENT) 13.9 SEC (9.7-13.0)
[2021-09-21 21:36] LABS: ACTIVATED PTT 35.7 SECONDS (25.2-36.5)
[2021-09-21] MEDS ORDERED: ACETAMINOPHEN INJECTION 100 ML IVPB ONE (21:42)
[2021-09-21] MEDS ORDERED: methylPREDNISolone NA SUCC 125 MG/2 ML VIAL ONE (21:43)
[2021-09-21 21:44] LABS: BLOOD UREA NITROGEN 32.2 mg/dL (7-18); CALCIUM 8.4 mg/dL (8.5-10.1)
[2021-09-21 21:45] LABS: ALBUMIN 3.1 g/dl (3.4-5.0)
[2021-09-21 21:47] LABS: CREATININE 1.3 mg/dL (0.55-1.3)
[2021-09-21 21:48] LABS: TOT PROT 6.5 g/dl (6.4-8.2)
[2021-09-21] MEDS ORDERED: LORazepam 2 MG/ML SDV VIAL IVPUSH ONE ×2 (21:51→22:28)
[2021-09-21 21:52] LABS: BILIRUBIN,TOTAL 0.2 mg/dL (0.2-1)
[2021-09-21 23:29] LABS: MAGNESIUM 2.4 mg/dL (1.8-2.4)
[2021-09-21] MEDS ORDERED: FUROSEMIDE 40 MG/4 ML INJECTABLE VIAL IVPUSH ONE (23:29)
[2021-09-22] MEDS ORDERED: HALOPERIDOL LACTATE 5 MG/ML IV ONE
[2021-09-22] MEDS ORDERED: HALOPERIDOL LACTATE 5 MG/ML ONE (00:15)
[2021-09-22] MEDS ORDERED: FUROSEMIDE 40 MG/4 ML INJECTABLE VIAL ONE (01:25)
[2021-09-22 01:52] LABS: VENOUS BASE EXCESS 6.3 mmol/L (-2-2); VENOUS O2 SATURATION 30.6 % (70-80); VENOUS PH 7.211 (7.310-7.410)
[2021-09-22 01:59] LABS: VENOUS PCO2 93.9 mmHg (38-52)
[2021-09-22 02:02] LABS: EPI CELLS 2 /uL (0-25.1); HYALINE CASTS 1 /uL (0-3.1); URINE APPEARANCE CLEAR; URINE BACTERIA 2 /uL (0-1359); URINE BILIRUBIN NEGATIVE (NEGATIVE); URINE COLOR YELLOW; URINE GLUCOSE (UA) TRACE (NEGATIVE); URINE KETONE NEGATIVE (NEGATIVE); URINE LEUK ESTERASE NEGATIVE (NEGATIVE); URINE NITRITE NEGATIVE (NEGATIVE); URINE PROTEIN 1+ (NEGATIVE); URINE RBC 6 /uL (0-23.9); URINE UROBILINOGEN 0.2 mg/dL (0.2-1.0); URINE WBC 1 /uL (0-25.8)
[2021-09-22] MEDS ORDERED: ALBUTEROL SO4 2.5/IPRATROPIUM 0.5 INH SOL 3 ML VIAL.NEB. NEB PRN (02:54)
[2021-09-22] MEDS ORDERED: methylPREDNISolone NA SUCC 40 MG/1 ML VIAL IVPUSH SCH (06:00)
[2021-09-22] MEDS: INSULIN SLIDING SCALE (NOVOLOG) 1 VIAL SQ SCH ×4 (06:35→22:51)
[2021-09-22] MEDS ORDERED: AZITHROMYCIN IVPB 500 MG/250 ML BAG IVPB SCH (10:00)
[2021-09-22] MEDS: ASPIRIN COATED 81 MG TABLET.EC PO SCH (10:04)
[2021-09-22] MEDS: DEXAMETHASONE SOD PHOSPHATE 10 MG/1 ML VIAL IVPUSH SCH (10:05)
[2021-09-22] MEDS: FUROSEMIDE 40 MG/4 ML INJECTABLE VIAL IVPUSH SCH (10:05)
[2021-09-22] MEDS: amLODIPine BESYLATE 5 MG TABLET (FP) PO SCH (10:05)
[2021-09-22] MEDS: ENOXAPARIN NA (PORCINE) 40 MG/0.4 ML DISP.SYRIN SQ SCH (10:05)
[2021-09-22 12:08] LABS: ALLENS TEST POSITIVE; ARTERIAL BLD GAS O2 SATURATION 98.5 % (95-98); ARTERIAL BLOOD GAS BASE EXCESS 13.4 mmol/L (-2-2); ARTERIAL BLOOD GAS PO2 142.5 mmHg (80-100); ARTERIAL BLOOD GAS pH 7.309 (7.350-7.450)
[2021-09-22 12:09] LABS: VENT RATE 16
[2021-09-22 12:26] LABS: BASO % 0.2 % (0-2.0); HEMATOCRIT 31.1 % (32.4-45.2); HEMOGLOBIN 9.9 GM/dL (10.7-15.3); MCH 28.6 pg (25.7-33.7); MCHC 31.7 g/dl (32.0-36.0); MEAN CELL VOLUME 90.3 fl (80-96); MEAN PLT VOLUME 9.1 fl (7.5-11.1); MONO % 0.7 % (3.8-10.2); NEUT % 88.1 % (42.8-82.8); PLATELET COUNT 180 10^3/uL (134-434); RBC 3.45 M/mm3 (3.60-5.2); RDW 14.3 % (11.6-15.6); RETICULOCYTES 1.15 % (0.5-1.5); WHITE BLOOD COUNT 5.8 K/mm3 (4.0-10.0)
[2021-09-22 12:49] LABS: CHLORIDE 99 mmol/L (98-107); SODIUM 141 mmol/L (136-145)
[2021-09-22 12:51] LABS: CALCIUM 8.6 mg/dL (8.5-10.1)
[2021-09-22 12:52] LABS: ANION GAP 3 MMOL/L (8-16); BLOOD UREA NITROGEN 28.6 mg/dL (7-18); CO2 38 mmol/L (21-32); GLUCOSE,RANDOM 293 mg/dL (74-106); MAGNESIUM 2.3 mg/dL (1.8-2.4)
[2021-09-22 12:55] LABS: CREATININE 1.1 mg/dL (0.55-1.3); PHOSPHOROUS 3.3 mg/dL (2.5-4.9); SGOT/AST 17 U/L (15-37); SGPT/ALT 21 U/L (13-61)
[2021-09-22 12:56] LABS: BILIRUBIN,TOTAL 0.2 mg/dL (0.2-1); IRON SERUM 40 ug/dL (50-175); TOT PROT 6.3 g/dl (6.4-8.2); TOTAL IRON BINDING CAPACITY 293 ug/dL (250-450)
[2021-09-22 12:58] LABS: ALK PHOS 77 U/L (45-117)
[2021-09-22] MEDS ORDERED: REMDESIVIR 200 MG in SODIUM CHLORIDE 250 ML IVPB ONE (13:00)
[2021-09-22] MEDS ORDERED: LORazepam 2 MG/ML SDV VIAL IVPUSH ONE (14:15)
[2021-09-22] MEDS: BUDESONIDE/FORMETEROL FUMARATE 160/4.5 mcg INHALER IH SCH ×2 (14:22→22:42)
[2021-09-22 16:16] VITALS: BMI 30.2
[2021-09-22 17:56] LABS: ARTERIAL BLD GAS O2 SATURATION 99.1 % (95-98); ARTERIAL BLOOD GAS BASE EXCESS 5.8 mmol/L (-2-2); ARTERIAL BLOOD GAS PO2 170.9 mmHg (80-100); ARTERIAL BLOOD GAS pH 7.379 (7.350-7.450)
[2021-09-22 17:58] LABS: ALLENS TEST POSITIVE
[2021-09-22 17:59] LABS: VENT MODE ST; VENT RATE 20
[2021-09-23] MEDS ORDERED: amLODIPine BESYLATE 5 MG TABLET (FP) PO ONE (01:37)
[2021-09-23] MEDS ORDERED: LORazepam 2 MG/ML SDV VIAL IVPUSH ONE ×2 (01:39→21:05)
[2021-09-23] MEDS: INSULIN SLIDING SCALE (NOVOLOG) 1 VIAL SQ SCH ×4 (06:46→22:16)
[2021-09-23 06:47] LABS: ARTERIAL BLD GAS O2 SATURATION 98.4 % (95-98); ARTERIAL BLOOD GAS BASE EXCESS 10.2 mmol/L (-2-2); ARTERIAL BLOOD GAS PO2 130.3 mmHg (80-100); ARTERIAL BLOOD GAS pH 7.368 (7.350-7.450)
[2021-09-23 06:50] LABS: ALLENS TEST POSITIVE
[2021-09-23 06:51] LABS: VENT MODE PSV; VENT RATE 20
[2021-09-23] MEDS: ASPIRIN COATED 81 MG TABLET.EC PO SCH (10:35)
[2021-09-23] MEDS: BUDESONIDE/FORMETEROL FUMARATE 160/4.5 mcg INHALER IH SCH ×2 (10:36→21:59)
[2021-09-23] MEDS: ENOXAPARIN NA (PORCINE) 40 MG/0.4 ML DISP.SYRIN SQ SCH (10:36)
[2021-09-23] MEDS: amLODIPine BESYLATE 5 MG TABLET (FP) PO SCH (10:36)
[2021-09-23] MEDS: FUROSEMIDE 40 MG/4 ML INJECTABLE VIAL IVPUSH SCH (11:07)
[2021-09-23] MEDS: DEXAMETHASONE SOD PHOSPHATE 10 MG/1 ML VIAL IVPUSH SCH (11:07)
[2021-09-23 12:04] LABS: BASO % 0.2 % (0-2.0); HEMATOCRIT 29.2 % (32.4-45.2); HEMOGLOBIN 9.4 GM/dL (10.7-15.3); LYMPH % 14.6 % (8-40); MCH 28.9 pg (25.7-33.7); MCHC 32.2 g/dl (32.0-36.0); MEAN CELL VOLUME 89.9 fl (80-96); MEAN PLT VOLUME 9.6 fl (7.5-11.1); MONO % 7.8 % (3.8-10.2); NEUT % 77.4 % (42.8-82.8); PLATELET COUNT 184 10^3/uL (134-434); RBC 3.25 M/mm3 (3.60-5.2); RDW 14.5 % (11.6-15.6); WHITE BLOOD COUNT 9.1 K/mm3 (4.0-10.0)
[2021-09-23 12:27] LABS: ALBUMIN 3.1 g/dl (3.4-5.0); BLOOD UREA NITROGEN 38.5 mg/dL (7-18); MAGNESIUM 2.4 mg/dL (1.8-2.4)
[2021-09-23 12:30] LABS: CREATININE 1.5 mg/dL (0.55-1.3); PHOSPHOROUS 3.2 mg/dL (2.5-4.9)
[2021-09-23 12:31] LABS: BILIRUBIN,TOTAL 0.4 mg/dL (0.2-1); TOT PROT 6.2 g/dl (6.4-8.2)
[2021-09-23] MEDS: REMDESIVIR 100 MG in SODIUM CHLORIDE 250 ML IVPB SCH (12:56)
[2021-09-23] MEDS ORDERED: SODIUM CHLORIDE 1,000 ML IV SCH (15:15)
[2021-09-23 15:38] LABS: ARTERIAL BLD GAS O2 SATURATION 93.6 % (95-98); ARTERIAL BLOOD GAS BASE EXCESS 9.3 mmol/L (-2-2); ARTERIAL BLOOD GAS PO2 68.6 mmHg (80-100); ARTERIAL BLOOD GAS pH 7.418 (7.350-7.450)
[2021-09-23 15:39] LABS: ALLENS TEST POSITIVE
[2021-09-23 15:40] LABS: VENT MODE EPAP; VENT RATE 20
[2021-09-23] MEDS: CARVEDILOL 6.25 MG TABLET (FP) PO SCH (21:59)
[2021-09-23] MEDS: APIXABAN 2.5 MG TABLET PO SCH (21:59)
[2021-09-24] MEDS: INSULIN SLIDING SCALE (NOVOLOG) 1 VIAL SQ SCH ×4 (06:29→22:05)
[2021-09-24 07:38] LABS: BASO % 0.1 % (0-2.0); HEMATOCRIT 27.7 % (32.4-45.2); HEMOGLOBIN 9.2 GM/dL (10.7-15.3); LYMPH % 14.9 % (8-40); MCH 29.6 pg (25.7-33.7); MCHC 33.1 g/dl (32.0-36.0); MEAN CELL VOLUME 89.4 fl (80-96); MEAN PLT VOLUME 9.6 fl (7.5-11.1); PLATELET COUNT 178 10^3/uL (134-434); RDW 14.8 % (11.6-15.6); WHITE BLOOD COUNT 7.2 K/mm3 (4.0-10.0)
[2021-09-24 08:13] LABS: BLOOD UREA NITROGEN 54.6 mg/dL (7-18); CALCIUM 8.8 mg/dL (8.5-10.1); MAGNESIUM 2.5 mg/dL (1.8-2.4)
[2021-09-24 08:17] LABS: BILIRUBIN,TOTAL 0.4 mg/dL (0.2-1); CREATININE 1.6 mg/dL (0.55-1.3); PHOSPHOROUS 3.6 mg/dL (2.5-4.9)
[2021-09-24 08:18] LABS: TOT PROT 6.1 g/dl (6.4-8.2)
[2021-09-24 09:42] LABS: ALLENS TEST POSITIVE; ARTERIAL BLD GAS O2 SATURATION 97.8 % (95-98); ARTERIAL BLOOD GAS BASE EXCESS 12.2 mmol/L (-2-2); ARTERIAL BLOOD GAS PO2 104.7 mmHg (80-100); ARTERIAL BLOOD GAS pH 7.429 (7.350-7.450)
[2021-09-24] MEDS: DEXAMETHASONE SOD PHOSPHATE 10 MG/1 ML VIAL IVPUSH SCH (10:06)
[2021-09-24] MEDS: CARVEDILOL 6.25 MG TABLET (FP) PO SCH ×2 (10:06→22:04)
[2021-09-24] MEDS: APIXABAN 2.5 MG TABLET PO SCH ×2 (10:07→22:04)
[2021-09-24] MEDS: amLODIPine BESYLATE 5 MG TABLET (FP) PO SCH (10:07)
[2021-09-24] MEDS: FUROSEMIDE 40 MG/4 ML INJECTABLE VIAL IVPUSH SCH (10:07)
[2021-09-24] MEDS: ASPIRIN COATED 81 MG TABLET.EC PO SCH (10:07)
[2021-09-24] MEDS: BUDESONIDE/FORMETEROL FUMARATE 160/4.5 mcg INHALER IH SCH ×2 (10:07→22:07)
[2021-09-24] MEDS: REMDESIVIR 100 MG in SODIUM CHLORIDE 250 ML IVPB SCH (12:43)
[2021-09-24] MEDS ORDERED: SODIUM CHLORIDE 1,000 ML IV SCH (17:00)
[2021-09-25] MEDS: ACETAMINOPHEN 325 MG TABLET (FP) PO PRN (00:42)
[2021-09-25] MEDS ORDERED: amLODIPine BESYLATE 5 MG TABLET (FP) PO ONE (00:57)
[2021-09-25] MEDS: INSULIN SLIDING SCALE (NOVOLOG) 1 VIAL SQ SCH ×4 (06:19→23:03)
[2021-09-25 07:24] LABS: BASO % 0.1 % (0-2.0); HEMATOCRIT 30.9 % (32.4-45.2); HEMOGLOBIN 10.3 GM/dL (10.7-15.3); LYMPH % 12.2 % (8-40); MCH 29.5 pg (25.7-33.7); MCHC 33.4 g/dl (32.0-36.0); MEAN CELL VOLUME 88.3 fl (80-96); MEAN PLT VOLUME 9.5 fl (7.5-11.1); MONO % 6.3 % (3.8-10.2); NEUT % 81.4 % (42.8-82.8); PLATELET COUNT 194 10^3/uL (134-434); RBC 3.49 M/mm3 (3.60-5.2); WHITE BLOOD COUNT 7.1 K/mm3 (4.0-10.0)
[2021-09-25 07:50] LABS: ALBUMIN 3.1 g/dl (3.4-5.0); BLOOD UREA NITROGEN 54.9 mg/dL (7-18); CALCIUM 8.6 mg/dL (8.5-10.1); MAGNESIUM 2.4 mg/dL (1.8-2.4); PHOSPHOROUS 3.9 mg/dL (2.5-4.9)
[2021-09-25 07:52] LABS: BILIRUBIN,TOTAL 0.4 mg/dL (0.2-1); TOT PROT 6.3 g/dl (6.4-8.2)
[2021-09-25 07:53] LABS: CREATININE 1.5 mg/dL (0.55-1.3)
[2021-09-25] MEDS ORDERED: amLODIPine BESYLATE 10 MG TABLET (FP) PO SCH (10:00)
[2021-09-25] MEDS: CARVEDILOL 6.25 MG TABLET (FP) PO SCH ×2 (11:03→23:04)
[2021-09-25] MEDS: DEXAMETHASONE SOD PHOSPHATE 10 MG/1 ML VIAL IVPUSH SCH (11:03)
[2021-09-25] MEDS: APIXABAN 2.5 MG TABLET PO SCH ×2 (11:04→23:04)
[2021-09-25] MEDS: ASPIRIN COATED 81 MG TABLET.EC PO SCH (11:04)
[2021-09-25] MEDS: BUDESONIDE/FORMETEROL FUMARATE 160/4.5 mcg INHALER IH SCH ×2 (11:07→23:05)
[2021-09-25] MEDS: REMDESIVIR 100 MG in SODIUM CHLORIDE 250 ML IVPB SCH (12:30)
[2021-09-25] MEDS ORDERED: SODIUM CHLORIDE 1,000 ML IV SCH (18:00)
[2021-09-26] MEDS: ACETAMINOPHEN 325 MG TABLET (FP) PO PRN (01:21)
[2021-09-26] MEDS: INSULIN SLIDING SCALE (NOVOLOG) 1 VIAL SQ SCH ×4 (06:15→22:16)
[2021-09-26 06:32] LABS: BASO % 0.1 % (0-2.0); EOS % 1.2 % (0-4.5); HEMATOCRIT 29.7 % (32.4-45.2); HEMOGLOBIN 9.5 GM/dL (10.7-15.3); LYMPH % 22.7 % (8-40); MCH 28.8 pg (25.7-33.7); MCHC 32.2 g/dl (32.0-36.0); MEAN CELL VOLUME 89.6 fl (80-96); MEAN PLT VOLUME 9.4 fl (7.5-11.1); MONO % 9.7 % (3.8-10.2); NEUT % 66.3 % (42.8-82.8); PLATELET COUNT 185 10^3/uL (134-434); RBC 3.31 M/mm3 (3.60-5.2); RDW 14.8 % (11.6-15.6); WHITE BLOOD COUNT 6.8 K/mm3 (4.0-10.0)
[2021-09-26 06:57] LABS: ALBUMIN 2.7 g/dl (3.4-5.0); BLOOD UREA NITROGEN 39.6 mg/dL (7-18); MAGNESIUM 2.2 mg/dL (1.8-2.4)
[2021-09-26 06:58] LABS: CALCIUM 8.5 mg/dL (8.5-10.1)
[2021-09-26 07:00] LABS: CREATININE 1.3 mg/dL (0.55-1.3); PHOSPHOROUS 4.3 mg/dL (2.5-4.9)
[2021-09-26 07:02] LABS: BILIRUBIN,TOTAL 0.4 mg/dL (0.2-1); TOT PROT 5.5 g/dl (6.4-8.2)
[2021-09-26] MEDS: CARVEDILOL 6.25 MG TABLET (FP) PO SCH ×2 (10:21→22:15)
[2021-09-26] MEDS: DEXAMETHASONE SOD PHOSPHATE 10 MG/1 ML VIAL IVPUSH SCH (10:21)
[2021-09-26] MEDS: BUDESONIDE/FORMETEROL FUMARATE 160/4.5 mcg INHALER IH SCH ×2 (10:22→22:16)
[2021-09-26] MEDS: ASPIRIN COATED 81 MG TABLET.EC PO SCH (10:22)
[2021-09-26] MEDS: APIXABAN 2.5 MG TABLET PO SCH ×2 (10:22→22:15)
[2021-09-26] MEDS: amLODIPine BESYLATE 10 MG TABLET (FP) PO SCH (10:22)
[2021-09-26] MEDS: REMDESIVIR 100 MG in SODIUM CHLORIDE 250 ML IVPB SCH (12:35)
[2021-09-26] MEDS ORDERED: hydrALAZINE HCL 10 MG TABLET PO SCH (13:45)
[2021-09-26] MEDS ORDERED: hydrALAZINE HCL 10 MG TABLET PO ONE (15:47)
[2021-09-26] MEDS: LACTATED RINGERS SOLUTION 1,000 ML/1,000 ML INFUS.BAG IV SCH (22:00)
[2021-09-26] MEDS: hydrALAZINE HCL 25 MG TABLET (FP) PO SCH (22:15)
[2021-09-27] MEDS: INSULIN SLIDING SCALE (NOVOLOG) 1 VIAL SQ SCH ×4 (06:20→22:45)
[2021-09-27] MEDS: hydrALAZINE HCL 25 MG TABLET (FP) PO SCH ×3 (06:20→22:18)
[2021-09-27 09:22] LABS: BASO % 0.2 % (0-2.0); HEMOGLOBIN 9.5 GM/dL (10.7-15.3); LYMPH % 11.9 % (8-40); MCH 28.9 pg (25.7-33.7); MCHC 32.6 g/dl (32.0-36.0); MEAN CELL VOLUME 88.6 fl (80-96); MEAN PLT VOLUME 9.6 fl (7.5-11.1); MONO % 4.2 % (3.8-10.2); NEUT % 83.7 % (42.8-82.8); PLATELET COUNT 175 10^3/uL (134-434); RBC 3.27 M/mm3 (3.60-5.2); RDW 14.3 % (11.6-15.6); WHITE BLOOD COUNT 5.4 K/mm3 (4.0-10.0)
[2021-09-27 10:17] LABS: ALBUMIN 2.6 g/dl (3.4-5.0); BLOOD UREA NITROGEN 38.6 mg/dL (7-18); CALCIUM 8.3 mg/dL (8.5-10.1); MAGNESIUM 2.4 mg/dL (1.8-2.4)
[2021-09-27 10:20] LABS: CREATININE 1.2 mg/dL (0.55-1.3); PHOSPHOROUS 3.7 mg/dL (2.5-4.9)
[2021-09-27 10:22] LABS: BILIRUBIN,TOTAL 0.8 mg/dL (0.2-1); TOT PROT 5.3 g/dl (6.4-8.2)
[2021-09-27] MEDS: ASPIRIN COATED 81 MG TABLET.EC PO SCH (11:09)
[2021-09-27] MEDS: APIXABAN 2.5 MG TABLET PO SCH ×2 (11:09→22:18)
[2021-09-27] MEDS: BUDESONIDE/FORMETEROL FUMARATE 160/4.5 mcg INHALER IH SCH ×2 (11:10→22:18)
[2021-09-27] MEDS: amLODIPine BESYLATE 10 MG TABLET (FP) PO SCH (11:10)
[2021-09-27] MEDS: DEXAMETHASONE SOD PHOSPHATE 10 MG/1 ML VIAL IVPUSH SCH (11:10)
[2021-09-27] MEDS: CARVEDILOL 6.25 MG TABLET (FP) PO SCH ×2 (11:15→22:18)
[2021-09-27] MEDS: AMINO ACIDS/PROTEIN HYDROLYS 30 ML LIQUID.PKT PO SCH (19:09)
[2021-09-27] MEDS: LACTATED RINGERS SOLUTION 1,000 ML/1,000 ML INFUS.BAG IV SCH (19:13)
[2021-09-28] MEDS: hydrALAZINE HCL 25 MG TABLET (FP) PO SCH ×3 (06:11→22:21)
[2021-09-28] MEDS: INSULIN SLIDING SCALE (NOVOLOG) 1 VIAL SQ SCH ×4 (06:14→22:23)
[2021-09-28 09:38] LABS: BASO % 0.1 % (0-2.0); HEMATOCRIT 30.4 % (32.4-45.2); HEMOGLOBIN 9.9 GM/dL (10.7-15.3); LYMPH % 12.8 % (8-40); MCH 28.8 pg (25.7-33.7); MCHC 32.4 g/dl (32.0-36.0); MEAN CELL VOLUME 88.7 fl (80-96); MEAN PLT VOLUME 9.4 fl (7.5-11.1); MONO % 4.1 % (3.8-10.2); PLATELET COUNT 188 10^3/uL (134-434); RBC 3.43 M/mm3 (3.60-5.2); RDW 14.8 % (11.6-15.6); WHITE BLOOD COUNT 6.1 K/mm3 (4.0-10.0)
[2021-09-28] MEDS: ASPIRIN COATED 81 MG TABLET.EC PO SCH (10:00)
[2021-09-28] MEDS: APIXABAN 2.5 MG TABLET PO SCH ×2 (10:00→22:21)
[2021-09-28] MEDS: DEXAMETHASONE SOD PHOSPHATE 10 MG/1 ML VIAL IVPUSH SCH (10:00)
[2021-09-28] MEDS: amLODIPine BESYLATE 10 MG TABLET (FP) PO SCH (10:00)
[2021-09-28] MEDS: CARVEDILOL 6.25 MG TABLET (FP) PO SCH ×2 (10:00→22:36)
[2021-09-28] MEDS: AMINO ACIDS/PROTEIN HYDROLYS 30 ML LIQUID.PKT PO SCH ×2 (10:00→16:51)
[2021-09-28 10:11] LABS: ALBUMIN 2.5 g/dl (3.4-5.0); CALCIUM 8.4 mg/dL (8.5-10.1)
[2021-09-28 10:12] LABS: BLOOD UREA NITROGEN 32.4 mg/dL (7-18)
[2021-09-28 10:14] LABS: CREATININE 1.1 mg/dL (0.55-1.3)
[2021-09-28 10:15] LABS: PHOSPHOROUS 3.6 mg/dL (2.5-4.9)
[2021-09-28 10:16] LABS: BILIRUBIN,TOTAL 0.4 mg/dL (0.2-1); TOT PROT 5.2 g/dl (6.4-8.2)
[2021-09-28 10:17] LABS: MAGNESIUM 2.4 mg/dL (1.8-2.4)
[2021-09-28] MEDS: BUDESONIDE/FORMETEROL FUMARATE 160/4.5 mcg INHALER IH SCH ×2 (10:20→22:21)
[2021-09-28] MEDS ORDERED: POLYETHYLENE GLYCOL (HEALTHYLAX) 3350 17 GM PACKET PO SCH (11:36)
[2021-09-28] MEDS: SENNOSIDES 8.6MG TABLET (FP) PO SCH ×2 (11:43→22:21)
[2021-09-28] MEDS ORDERED: BISACODYL 10 MG SUPP.RECT PR ONE ×2 (19:42→22:00)
[2021-09-28] MEDS: POLYETHYLENE GLYCOL (HEALTHYLAX) 3350 17 GM PACKET PO SCH (22:21)
[2021-09-29] MEDS: INSULIN SLIDING SCALE (NOVOLOG) 1 VIAL SQ SCH ×4 (06:20→21:22)
[2021-09-29] MEDS: hydrALAZINE HCL 25 MG TABLET (FP) PO SCH ×3 (06:20→21:12)
[2021-09-29] MEDS: AMINO ACIDS/PROTEIN HYDROLYS 30 ML LIQUID.PKT PO SCH ×2 (08:19→16:53)
[2021-09-29 09:33] LABS: WHITE BLOOD COUNT 9.7 K/mm3 (4.0-10.0)
[2021-09-29 09:34] LABS: HEMATOCRIT 31.3 % (32.4-45.2); HEMOGLOBIN 10.2 GM/dL (10.7-15.3); MCH 29.1 pg (25.7-33.7); MCHC 32.6 g/dl (32.0-36.0); MEAN CELL VOLUME 89.3 fl (80-96); MEAN PLT VOLUME 9.5 fl (7.5-11.1); PLATELET COUNT 188 10^3/uL (134-434); RDW 14.9 % (11.6-15.6)
[2021-09-29] MEDS: ASPIRIN COATED 81 MG TABLET.EC PO SCH (09:44)
[2021-09-29] MEDS: APIXABAN 2.5 MG TABLET PO SCH ×2 (09:44→21:12)
[2021-09-29] MEDS: SENNOSIDES 8.6MG TABLET (FP) PO SCH ×2 (09:44→21:12)
[2021-09-29] MEDS: CARVEDILOL 6.25 MG TABLET (FP) PO SCH ×2 (09:44→21:12)
[2021-09-29] MEDS: amLODIPine BESYLATE 10 MG TABLET (FP) PO SCH (09:44)
[2021-09-29] MEDS: BUDESONIDE/FORMETEROL FUMARATE 160/4.5 mcg INHALER IH SCH ×2 (09:44→21:12)
[2021-09-29] MEDS: POLYETHYLENE GLYCOL (HEALTHYLAX) 3350 17 GM PACKET PO SCH ×2 (09:44→21:12)
[2021-09-29] MEDS: DEXAMETHASONE SOD PHOSPHATE 10 MG/1 ML VIAL IVPUSH SCH (09:44)
[2021-09-29 10:12] LABS: MAGNESIUM 2.4 mg/dL (1.8-2.4)
[2021-09-29 10:14] LABS: ALBUMIN 2.6 g/dl (3.4-5.0); CALCIUM 8.7 mg/dL (8.5-10.1)
[2021-09-29 10:16] LABS: BILIRUBIN,TOTAL 0.8 mg/dL (0.2-1); CREATININE 1.1 mg/dL (0.55-1.3); PHOSPHOROUS 3.2 mg/dL (2.5-4.9); TOT PROT 5.3 g/dl (6.4-8.2)
[2021-09-29 10:20] LABS: ANISOCYTOSIS 0; HELMET CELLS 0; HOWELL-JOLLY BODIES 0; MACROCYTOSIS 0; OVALOCYTE 0; ROULEAU 0; SICKELED CELLS 0; TARGET CELLS 0; TEAR DROP CELLS 0; TOXIC GRANULATION 0
[2021-09-30] MEDS: hydrALAZINE HCL 25 MG TABLET (FP) PO SCH ×3 (06:06→22:00)
[2021-09-30] MEDS: INSULIN SLIDING SCALE (NOVOLOG) 1 VIAL SQ SCH ×4 (06:07→22:11)
[2021-09-30 08:23] LABS: BASO % 0.1 % (0-2.0); HEMATOCRIT 29.7 % (32.4-45.2); HEMOGLOBIN 9.6 GM/dL (10.7-15.3); LYMPH % 7.7 % (8-40); MCH 28.9 pg (25.7-33.7); MCHC 32.3 g/dl (32.0-36.0); MEAN CELL VOLUME 89.4 fl (80-96); MEAN PLT VOLUME 9.5 fl (7.5-11.1); MONO % 4.4 % (3.8-10.2); NEUT % 87.8 % (42.8-82.8); PLATELET COUNT 169 10^3/uL (134-434); RBC 3.32 M/mm3 (3.60-5.2); RDW 14.6 % (11.6-15.6); WHITE BLOOD COUNT 7.9 K/mm3 (4.0-10.0)
[2021-09-30 08:48] LABS: ALBUMIN 2.4 g/dl (3.4-5.0); BILIRUBIN,TOTAL 0.4 mg/dL (0.2-1); BLOOD UREA NITROGEN 56.3 mg/dL (7-18); CALCIUM 8.5 mg/dL (8.5-10.1); MAGNESIUM 2.5 mg/dL (1.8-2.4)
[2021-09-30 08:50] LABS: CREATININE 1.3 mg/dL (0.55-1.3); PHOSPHOROUS 4.5 mg/dL (2.5-4.9)
[2021-09-30 08:52] LABS: TOT PROT 4.9 g/dl (6.4-8.2)
[2021-09-30] MEDS: POLYETHYLENE GLYCOL (HEALTHYLAX) 3350 17 GM PACKET PO SCH ×2 (09:40→22:00)
[2021-09-30] MEDS: AMINO ACIDS/PROTEIN HYDROLYS 30 ML LIQUID.PKT PO SCH ×2 (09:40→16:41)
[2021-09-30] MEDS: DEXAMETHASONE SOD PHOSPHATE 10 MG/1 ML VIAL IVPUSH SCH (09:41)
[2021-09-30] MEDS: ASPIRIN COATED 81 MG TABLET.EC PO SCH (09:41)
[2021-09-30] MEDS: TAMSULOSIN HCL 0.4 MG CAP PO SCH (09:41)
[2021-09-30] MEDS: amLODIPine BESYLATE 10 MG TABLET (FP) PO SCH (09:41)
[2021-09-30] MEDS: SENNOSIDES 8.6MG TABLET (FP) PO SCH ×2 (09:41→21:58)
[2021-09-30] MEDS: APIXABAN 2.5 MG TABLET PO SCH ×2 (09:41→21:58)
[2021-09-30] MEDS: CARVEDILOL 6.25 MG TABLET (FP) PO SCH ×2 (09:41→21:59)
[2021-09-30] MEDS: BUDESONIDE/FORMETEROL FUMARATE 160/4.5 mcg INHALER IH SCH ×2 (09:58→22:15)
[2021-09-30] MEDS: ACETAMINOPHEN 325 MG TABLET (FP) PO PRN (21:59)
[2021-10-01] MEDS: hydrALAZINE HCL 25 MG TABLET (FP) PO SCH ×2 (06:19→13:18)
[2021-10-01] MEDS: INSULIN SLIDING SCALE (NOVOLOG) 1 VIAL SQ SCH ×4 (06:25→21:44)
[2021-10-01] MEDS ORDERED: hydrALAZINE HCL 10 MG TABLET PO ONE (08:00)
[2021-10-01] MEDS: AMINO ACIDS/PROTEIN HYDROLYS 30 ML LIQUID.PKT PO SCH ×2 (08:42→16:41)
[2021-10-01] MEDS: TAMSULOSIN HCL 0.4 MG CAP PO SCH (08:42)
[2021-10-01 09:04] LABS: BASO % 0.1 % (0-2.0); EOS % 0.1 % (0-4.5); HEMATOCRIT 30.9 % (32.4-45.2); LYMPH % 12.9 % (8-40); MCH 28.9 pg (25.7-33.7); MCHC 32.3 g/dl (32.0-36.0); MEAN CELL VOLUME 89.4 fl (80-96); MEAN PLT VOLUME 9.5 fl (7.5-11.1); MONO % 5.2 % (3.8-10.2); NEUT % 81.7 % (42.8-82.8); PLATELET COUNT 180 10^3/uL (134-434); RBC 3.45 M/mm3 (3.60-5.2); RDW 15.3 % (11.6-15.6); WHITE BLOOD COUNT 6.3 K/mm3 (4.0-10.0)
[2021-10-01] MEDS: ASPIRIN COATED 81 MG TABLET.EC PO SCH (09:41)
[2021-10-01] MEDS: BUDESONIDE/FORMETEROL FUMARATE 160/4.5 mcg INHALER IH SCH ×2 (09:42→21:45)
[2021-10-01] MEDS: APIXABAN 2.5 MG TABLET PO SCH ×2 (09:42→21:35)
[2021-10-01] MEDS: amLODIPine BESYLATE 10 MG TABLET (FP) PO SCH (09:42)
[2021-10-01] MEDS: SENNOSIDES 8.6MG TABLET (FP) PO SCH ×2 (09:42→21:35)
[2021-10-01] MEDS: CARVEDILOL 6.25 MG TABLET (FP) PO SCH ×2 (09:42→21:35)
[2021-10-01] MEDS: MULTIVITAMINS (DAILY MVI) TABLET (FP) PO SCH (09:42)
[2021-10-01] MEDS: DEXAMETHASONE SOD PHOSPHATE 10 MG/1 ML VIAL IVPUSH SCH (09:42)
[2021-10-01] MEDS: POLYETHYLENE GLYCOL (HEALTHYLAX) 3350 17 GM PACKET PO SCH ×2 (09:42→21:35)
[2021-10-01] MEDS ORDERED: MULTIVITAMINS (DAILY MVI) TABLET (FP) PO SCH (10:00)
[2021-10-01 10:28] LABS: ALBUMIN 2.5 g/dl (3.4-5.0); BLOOD UREA NITROGEN 55.5 mg/dL (7-18); CALCIUM 8.5 mg/dL (8.5-10.1); MAGNESIUM 2.5 mg/dL (1.8-2.4)
[2021-10-01 10:31] LABS: BILIRUBIN,TOTAL 0.5 mg/dL (0.2-1); CREATININE 1.2 mg/dL (0.55-1.3); PHOSPHOROUS 3.6 mg/dL (2.5-4.9)
[2021-10-01 10:32] LABS: TOT PROT 5.1 g/dl (6.4-8.2)
[2021-10-01] MEDS ORDERED: hydrALAZINE HCL 50 MG TABLET (FP) PO SCH (14:45)
[2021-10-01] MEDS: hydrALAZINE HCL 50 MG TABLET (FP) PO SCH (21:35)
[2021-10-02] MEDS: INSULIN SLIDING SCALE (NOVOLOG) 1 VIAL SQ SCH ×4 (06:00→22:18)
[2021-10-02] MEDS: hydrALAZINE HCL 50 MG TABLET (FP) PO SCH ×3 (06:00→21:09)
[2021-10-02 07:41] LABS: BASO % 0.2 % (0-2.0); EOS % 0.1 % (0-4.5); HEMATOCRIT 30.9 % (32.4-45.2); HEMOGLOBIN 10.1 GM/dL (10.7-15.3); MCH 29.1 pg (25.7-33.7); MCHC 32.9 g/dl (32.0-36.0); MEAN CELL VOLUME 88.6 fl (80-96); MEAN PLT VOLUME 9.1 fl (7.5-11.1); MONO % 5.7 % (3.8-10.2); PLATELET COUNT 180 10^3/uL (134-434); RBC 3.49 M/mm3 (3.60-5.2); WHITE BLOOD COUNT 7.2 K/mm3 (4.0-10.0)
[2021-10-02 08:10] LABS: ALBUMIN 2.5 g/dl (3.4-5.0); BLOOD UREA NITROGEN 51.2 mg/dL (7-18); CALCIUM 8.6 mg/dL (8.5-10.1)
[2021-10-02 08:12] LABS: MAGNESIUM 2.5 mg/dL (1.8-2.4)
[2021-10-02 08:13] LABS: CREATININE 1.1 mg/dL (0.55-1.3); PHOSPHOROUS 3.7 mg/dL (2.5-4.9)
[2021-10-02 08:15] LABS: BILIRUBIN,TOTAL 0.6 mg/dL (0.2-1); TOT PROT 5.1 g/dl (6.4-8.2)
[2021-10-02] MEDS: AMINO ACIDS/PROTEIN HYDROLYS 30 ML LIQUID.PKT PO SCH ×2 (10:50→17:40)
[2021-10-02] MEDS: DEXAMETHASONE SOD PHOSPHATE 10 MG/1 ML VIAL IVPUSH SCH (10:50)
[2021-10-02] MEDS: POLYETHYLENE GLYCOL (HEALTHYLAX) 3350 17 GM PACKET PO SCH ×2 (10:50→21:10)
[2021-10-02] MEDS: ASPIRIN COATED 81 MG TABLET.EC PO SCH (10:51)
[2021-10-02] MEDS: amLODIPine BESYLATE 10 MG TABLET (FP) PO SCH (10:51)
[2021-10-02] MEDS: CARVEDILOL 6.25 MG TABLET (FP) PO SCH ×2 (10:51→21:09)
[2021-10-02] MEDS: TAMSULOSIN HCL 0.4 MG CAP PO SCH (10:51)
[2021-10-02] MEDS: BUDESONIDE/FORMETEROL FUMARATE 160/4.5 mcg INHALER IH SCH ×2 (10:51→21:09)
[2021-10-02] MEDS: SENNOSIDES 8.6MG TABLET (FP) PO SCH ×2 (10:51→21:09)
[2021-10-02] MEDS: APIXABAN 2.5 MG TABLET PO SCH ×2 (10:51→21:09)
[2021-10-02] MEDS: MULTIVITAMINS (DAILY MVI) TABLET (FP) PO SCH (10:51)
[2021-10-02 23:05] VITALS: BP 109/50; PULSE 61; TEMP 97.5
== END 2021-10-02 23:28 | disposition home or self-care (01) | DRG 177 ==
LOC: JER 20:24 → JERBED 23:30 → J4S 09-22 08:53
PROVIDERS: ADMIT Internal Medicine; ATTEND Internal Medicine
PROC: XW033E5 Introduction of Remdesivir Anti-infective into Peripheral Vein, Percutaneous Approach, New Technology Group 5 (ICD-10-PCS; principal; 2021-09-22)
DX: U07.1 COVID-19 (principal); I50.33 Acute on chronic diastolic (congestive) heart failure; J96.21 Acute and chronic respiratory failure with hypoxia; J96.22 Acute and chronic respiratory failure with hypercapnia; J44.1 Chronic obstructive pulmonary disease with (acute) exacerbation; K86.2 Cyst of pancreas; E87.2 Acidosis; I24.8 Other forms of acute ischemic heart disease; N17.9 Acute kidney failure, unspecified; E11.40 Type 2 diabetes mellitus with diabetic neuropathy, unspecified; I11.0 Hypertensive heart disease with heart failure; E11.21 Type 2 diabetes mellitus with diabetic nephropathy; F03.90 Unspecified dementia, unspecified severity, without behavioral disturbance, psychotic disturbance, mood disturbance, and anxiety; D64.9 Anemia, unspecified; E78.5 Hyperlipidemia, unspecified; I25.10 Atherosclerotic heart disease of native coronary artery without angina pectoris; F17.210 Nicotine dependence, cigarettes, uncomplicated; Z95.1 Presence of aortocoronary bypass graft; I35.0 Nonrheumatic aortic (valve) stenosis; Z98.61 Coronary angioplasty status; R33.9 Retention of urine, unspecified
CPT/HCPCS: 36415; 36600; 70450-TC; 71045-TC-FY; 74177-TC; 76705-TC; 76775-TC; 80053; 81003; 82728; 82803; 82962; 83540; 83550; 83605; 83615; 83690; 83735; 83880; 84100; 84484; 85025; 85045; 85379; 85610; 85730; 86140; 87086; 87804; 93005; 93010; 94660; 94761; 97116-GP; 97161-GP; 99285-25; C9399; C9803-CS; J1100; Q9967; U0003; U0005

== ENCOUNTER 2021-12-26 14:21 | Inpatient (IN) | payer OTHER ==
[2021-12-26 15:07] VITALS: BMI 33.5
[2021-12-26] MEDS ORDERED: ACETAMINOPHEN 1000 MG/100 ML BAG IVPB ONE (15:49)
[2021-12-26] MEDS ORDERED: ACETAMINOPHEN INJECTION 100 ML IVPB ONE ×2 (15:58→21:27)
[2021-12-26 16:10] LABS: BASO % 0.8 % (0-2.0); EOS % 0.8 % (0-4.5); HEMATOCRIT 33.9 % (32.4-45.2); HEMOGLOBIN 10.8 GM/dL (10.7-15.3); LYMPH % 16.6 % (8-40); MCH 27.7 pg (25.7-33.7); MCHC 31.8 g/dl (32.0-36.0); MEAN CELL VOLUME 87.1 fl (80-96); MEAN PLT VOLUME 8.8 fl (7.5-11.1); NEUT % 77.8 % (42.8-82.8); PLATELET COUNT 235 10^3/uL (134-434); RDW 15.2 % (11.6-15.6); WHITE BLOOD COUNT 11.9 K/mm3 (4.0-10.0)
[2021-12-26 16:32] LABS: ALBUMIN 3.1 g/dl (3.4-5.0); BLOOD UREA NITROGEN 35.8 mg/dL (7-18); CALCIUM 8.8 mg/dL (8.5-10.1)
[2021-12-26] MEDS ORDERED: MIDAZOLAM HCL 2 MG/2 ML SINGLE DOSE VIAL IVPUSH ONE (16:32)
[2021-12-26 16:35] LABS: CREATININE 1.5 mg/dL (0.55-1.3)
[2021-12-26] MEDS ORDERED: MIDAZOLAM HCL 2 MG/2 ML SINGLE DOSE VIAL ONE (16:35)
[2021-12-26 16:38] LABS: BILIRUBIN,TOTAL 0.5 mg/dL (0.2-1); TOT PROT 6.7 g/dl (6.4-8.2)
[2021-12-26 17:44] LABS: EPI CELLS 0 /uL (0-25.1); HYALINE CASTS 1 /uL (0-3.1); URINE APPEARANCE CLOUDY; URINE BACTERIA 84 /uL (0-1359); URINE BILIRUBIN NEGATIVE (NEGATIVE); URINE COLOR YELLOW; URINE GLUCOSE (UA) NEGATIVE (NEGATIVE); URINE KETONE NEGATIVE (NEGATIVE); URINE LEUK ESTERASE 3+ (NEGATIVE); URINE NITRITE NEGATIVE (NEGATIVE); URINE PROTEIN NEGATIVE (NEGATIVE); URINE RBC 6 /uL (0-23.9); URINE UROBILINOGEN 0.2 mg/dL (0.2-1.0); URINE WBC 621 /uL (0-25.8)
[2021-12-26] MEDS ORDERED: CEFTRIAXONE 1,000 MG in DEXTROSE 5%-WATER - 50 ML IVPB ONE (17:59)
[2021-12-26] MEDS ORDERED: SODIUM CHLORIDE 0.9% 1000 ML INFUS.BAG IV ONE (17:59)
[2021-12-26] MEDS ORDERED: CEFTRIAXONE 1 GM/50 ML BAG ONE (18:05)
[2021-12-26] MEDS ORDERED: DIPHTH,PERTUSS(ACELL),TET 0.5 ML DISP.SYRIN IM ONE ×2 (18:07→18:19)
[2021-12-26] MEDS: ACETAMINOPHEN 1000 MG/100 ML BAG IVPB PRN (21:28)
[2021-12-27] MEDS: SODIUM CHLORIDE 1,000 ML IV SCH (02:31)
[2021-12-27] MEDS: ACETAMINOPHEN 1000 MG/100 ML BAG IVPB PRN ×2 (02:40→15:06)
[2021-12-27] MEDS: INSULIN SLIDING SCALE (NOVOLOG) 1 VIAL SQ SCH ×4 (06:20→21:56)
[2021-12-27 08:06] LABS: HEMATOCRIT 32.7 % (32.4-45.2); HEMOGLOBIN 10.7 GM/dL (10.7-15.3); MCH 28.6 pg (25.7-33.7); MCHC 32.8 g/dl (32.0-36.0); MEAN PLT VOLUME 9.1 fl (7.5-11.1); PLATELET COUNT 201 10^3/uL (134-434); RBC 3.75 M/mm3 (3.60-5.2); WHITE BLOOD COUNT 10.9 K/mm3 (4.0-10.0)
[2021-12-27 08:29] LABS: CALCIUM 8.3 mg/dL (8.5-10.1)
[2021-12-27 08:30] LABS: ALBUMIN 3.1 g/dl (3.4-5.0); BLOOD UREA NITROGEN 32.1 mg/dL (7-18); MAGNESIUM 2.1 mg/dL (1.8-2.4)
[2021-12-27 08:33] LABS: CREATININE 1.2 mg/dL (0.55-1.3); PHOSPHOROUS 3.9 mg/dL (2.5-4.9)
[2021-12-27 08:34] LABS: BILIRUBIN,TOTAL 0.6 mg/dL (0.2-1); TOT PROT 6.5 g/dl (6.4-8.2)
[2021-12-27] MEDS: TAMSULOSIN HCL 0.4 MG CAP PO SCH (09:58)
[2021-12-27] MEDS: MIRTAZAPINE 15 MG TABLET (FP) PO SCH (09:58)
[2021-12-27] MEDS: CARVEDILOL 6.25 MG TABLET (FP) PO SCH ×2 (09:58→21:56)
[2021-12-27] MEDS: FUROSEMIDE 40 MG TABLET (FP) PO SCH (09:58)
[2021-12-27] MEDS: amLODIPine BESYLATE 5 MG TABLET (FP) PO SCH (09:58)
[2021-12-27] MEDS: APIXABAN 2.5 MG TABLET PO SCH ×2 (09:59→21:56)
[2021-12-27] MEDS: LACTULOSE 20 GM/30 ML UDC (FOR ORAL USE ONLY) PO SCH (10:01)
[2021-12-27] MEDS: CEFTRIAXONE 1 GM in DEXTROSE 5%-WATER - 50 ML IVPB SCH (10:02)
[2021-12-27] MEDS ORDERED: ACETAMINOPHEN 1000 MG/100 ML BAG IVPB ONE (22:05)
[2021-12-28] MEDS ORDERED: LORazepam 2 MG/ML SDV VIAL IM ONE (05:24)
[2021-12-28] MEDS: SODIUM CHLORIDE 1,000 ML IV SCH (05:29)
[2021-12-28] MEDS: INSULIN SLIDING SCALE (NOVOLOG) 1 VIAL SQ SCH ×4 (06:34→23:19)
[2021-12-28] MEDS ORDERED: INSULIN (LEVEMIR) 100 UNITS/ML UNITS SQ SCH (07:00)
[2021-12-28 09:19] LABS: CALCIUM 8.2 mg/dL (8.5-10.1)
[2021-12-28 09:20] LABS: BLOOD UREA NITROGEN 32.4 mg/dL (7-18)
[2021-12-28 09:23] LABS: CREATININE 1.3 mg/dL (0.55-1.3)
[2021-12-28 09:52] LABS: HEMATOCRIT 30.1 % (32.4-45.2); HEMOGLOBIN 9.9 GM/dL (10.7-15.3); MCHC 32.9 g/dl (32.0-36.0); MEAN PLT VOLUME 8.7 fl (7.5-11.1); PLATELET COUNT 182 10^3/uL (134-434); RBC 3.43 M/mm3 (3.60-5.2); RDW 15.4 % (11.6-15.6); WHITE BLOOD COUNT 9.8 K/mm3 (4.0-10.0)
[2021-12-28] MEDS: LACTULOSE 20 GM/30 ML UDC (FOR ORAL USE ONLY) PO SCH (10:05)
[2021-12-28] MEDS: TAMSULOSIN HCL 0.4 MG CAP PO SCH ×2 (10:05→13:09)
[2021-12-28] MEDS: MIRTAZAPINE 15 MG TABLET (FP) PO SCH ×2 (10:06→13:11)
[2021-12-28] MEDS: APIXABAN 2.5 MG TABLET PO SCH ×2 (10:06→13:10)
[2021-12-28] MEDS: CARVEDILOL 6.25 MG TABLET (FP) PO SCH ×2 (10:07→13:06)
[2021-12-28] MEDS: CEFTRIAXONE 1 GM in DEXTROSE 5%-WATER - 50 ML IVPB SCH (10:07)
[2021-12-28] MEDS: FUROSEMIDE 40 MG TABLET (FP) PO SCH ×2 (10:07→13:10)
[2021-12-28] MEDS: amLODIPine BESYLATE 5 MG TABLET (FP) PO SCH ×2 (10:07→13:11)
[2021-12-28] MEDS ORDERED: FUROSEMIDE 40 MG/4 ML INJECTABLE VIAL ONE (11:00)
[2021-12-28 13:15] LABS: ARTERIAL BLD GAS O2 SATURATION 99.5 % (95-98); ARTERIAL BLOOD GAS BASE EXCESS 2.1 mmol/L (-2-2); ARTERIAL BLOOD GAS PO2 311.8 mmHg (80-100)
[2021-12-28 13:19] LABS: ALLENS TEST POSITIVE
[2021-12-28 13:23] LABS: ARTERIAL BLOOD GAS pH 7.169 (7.350-7.450)
[2021-12-28 17:34] LABS: ARTERIAL BLD GAS O2 SATURATION 81.9 % (95-98); ARTERIAL BLOOD GAS BASE EXCESS 0.9 mmol/L (-2-2); ARTERIAL BLOOD GAS PO2 54.5 mmHg (80-100); ARTERIAL BLOOD GAS pH 7.246 (7.350-7.450)
[2021-12-28 17:35] LABS: ALLENS TEST POSITIVE
[2021-12-28] MEDS ORDERED: SODIUM CHLORIDE 1,000 ML IV SCH (17:39)
[2021-12-28] MEDS: METOPROLOL TARTRATE 5 MG/5 ML VIAL IVPUSH SCH ×2 (20:41→23:23)
[2021-12-28 21:49] LABS: ARTERIAL BLD GAS O2 SATURATION 86.9 % (95-98); ARTERIAL BLOOD GAS BASE EXCESS 3.5 mmol/L (-2-2); ARTERIAL BLOOD GAS pH 7.327 (7.350-7.450)
[2021-12-28 21:51] LABS: ALLENS TEST POSITIVE
[2021-12-28 21:52] LABS: VENT MODE ST
[2021-12-28] MEDS ORDERED: CARVEDILOL 6.25 MG TABLET (FP) PO SCH (22:00)
[2021-12-28] MEDS ORDERED: APIXABAN 2.5 MG TABLET PO SCH (22:00)
[2021-12-28] MEDS: ENOXAPARIN NA (PORCINE) 60 MG/0.6 ML DISP.SYRIN SQ SCH (23:20)
[2021-12-29] MEDS: METOPROLOL TARTRATE 5 MG/5 ML VIAL IVPUSH SCH ×5 (01:47→18:28)
[2021-12-29] MEDS ORDERED: MELATONIN 5 MG TABLETS PO ONE (03:41)
[2021-12-29] MEDS ORDERED: FUROSEMIDE 40 MG/4 ML INJECTABLE VIAL IVPUSH SCH ×2 (06:00)
[2021-12-29] MEDS: INSULIN SLIDING SCALE (NOVOLOG) 1 VIAL SQ SCH ×4 (06:30→22:07)
[2021-12-29] MEDS ORDERED: amLODIPine BESYLATE 5 MG TABLET (FP) PO SCH ×3 (06:45→10:00)
[2021-12-29] MEDS ORDERED: INSULIN (LEVEMIR) 100 UNITS/ML UNITS SQ SCH ×2 (07:00)
[2021-12-29] MEDS: FUROSEMIDE 40 MG/4 ML INJECTABLE VIAL IVPUSH SCH ×2 (07:05→15:05)
[2021-12-29] MEDS: ENOXAPARIN NA (PORCINE) 60 MG/0.6 ML DISP.SYRIN SQ SCH (09:48)
[2021-12-29] MEDS: LACTULOSE 20 GM/30 ML UDC (FOR ORAL USE ONLY) PO SCH (09:48)
[2021-12-29] MEDS: TAMSULOSIN HCL 0.4 MG CAP PO SCH (09:49)
[2021-12-29] MEDS: CEFTRIAXONE 1 GM in DEXTROSE 5%-WATER - 50 ML IVPB SCH (09:49)
[2021-12-29 11:31] LABS: ALLENS TEST POSITIVE; ARTERIAL BLD GAS O2 SATURATION 98.2 % (95-98); ARTERIAL BLOOD GAS BASE EXCESS 7.2 mmol/L (-2-2); ARTERIAL BLOOD GAS PO2 129.8 mmHg (80-100); ARTERIAL BLOOD GAS pH 7.312 (7.350-7.450)
[2021-12-29 14:57] LABS: BASO % 0.5 % (0-2.0); EOS % 2.4 % (0-4.5); HEMATOCRIT 26.3 % (32.4-45.2); HEMOGLOBIN 8.8 GM/dL (10.7-15.3); LYMPH % 28.2 % (8-40); MCH 29.3 pg (25.7-33.7); MCHC 33.5 g/dl (32.0-36.0); MEAN CELL VOLUME 87.3 fl (80-96); MEAN PLT VOLUME 8.6 fl (7.5-11.1); MONO % 5.8 % (3.8-10.2); NEUT % 63.1 % (42.8-82.8); PLATELET COUNT 180 10^3/uL (134-434); RBC 3.01 M/mm3 (3.60-5.2); RDW 15.7 % (11.6-15.6); WHITE BLOOD COUNT 6.9 K/mm3 (4.0-10.0)
[2021-12-29 15:30] LABS: ALBUMIN 2.6 g/dl (3.4-5.0); BILIRUBIN,TOTAL 0.2 mg/dL (0.2-1); BLOOD UREA NITROGEN 41.6 mg/dL (7-18); CALCIUM 8.1 mg/dL (8.5-10.1); CREATININE 1.8 mg/dL (0.55-1.3); MAGNESIUM 2.3 mg/dL (1.8-2.4); PHOSPHOROUS 2.5 mg/dL (2.5-4.9)
[2021-12-29] MEDS: MELATONIN 5 MG TABLETS PO SCH (22:13)
[2021-12-29] MEDS: APIXABAN 2.5 MG TABLET PO SCH (22:13)
[2021-12-29] MEDS: CARVEDILOL 6.25 MG TABLET (FP) PO SCH (22:13)
[2021-12-30] MEDS ORDERED: amLODIPine BESYLATE 5 MG TABLET (FP) PO SCH (06:50)
[2021-12-30] MEDS: INSULIN SLIDING SCALE (NOVOLOG) 1 VIAL SQ SCH ×4 (07:00→22:02)
[2021-12-30] MEDS: INSULIN (LEVEMIR) 100 UNITS/ML UNITS SQ SCH (07:02)
[2021-12-30 07:31] LABS: EOS % 4.4 % (0-4.5); HEMATOCRIT 28.5 % (32.4-45.2); HEMOGLOBIN 9.4 GM/dL (10.7-15.3); LYMPH % 31.2 % (8-40); MCH 28.6 pg (25.7-33.7); MCHC 32.9 g/dl (32.0-36.0); MEAN CELL VOLUME 87.2 fl (80-96); MONO % 6.1 % (3.8-10.2); NEUT % 57.3 % (42.8-82.8); PLATELET COUNT 199 10^3/uL (134-434); RBC 3.27 M/mm3 (3.60-5.2); RDW 15.3 % (11.6-15.6); WHITE BLOOD COUNT 5.3 K/mm3 (4.0-10.0)
[2021-12-30 08:00] LABS: CALCIUM 8.6 mg/dL (8.5-10.1)
[2021-12-30 08:01] LABS: ALBUMIN 2.6 g/dl (3.4-5.0); BLOOD UREA NITROGEN 40.2 mg/dL (7-18); MAGNESIUM 2.4 mg/dL (1.8-2.4)
[2021-12-30 08:04] LABS: CREATININE 1.7 mg/dL (0.55-1.3); PHOSPHOROUS 2.5 mg/dL (2.5-4.9)
[2021-12-30 08:05] LABS: BILIRUBIN,TOTAL 0.5 mg/dL (0.2-1)
[2021-12-30] MEDS: LACTULOSE 20 GM/30 ML UDC (FOR ORAL USE ONLY) PO SCH (09:02)
[2021-12-30] MEDS: CARVEDILOL 6.25 MG TABLET (FP) PO SCH ×2 (09:03→21:52)
[2021-12-30] MEDS: TAMSULOSIN HCL 0.4 MG CAP PO SCH (09:04)
[2021-12-30] MEDS: MIRTAZAPINE 15 MG TABLET (FP) PO SCH (09:05)
[2021-12-30] MEDS: APIXABAN 2.5 MG TABLET PO SCH ×2 (09:05→21:52)
[2021-12-30] MEDS: CEFTRIAXONE 1 GM in DEXTROSE 5%-WATER - 50 ML IVPB SCH (09:06)
[2021-12-30] MEDS ORDERED: ACETAMINOPHEN 325 MG TABLET (FP) PO PRN (19:32)
[2021-12-30] MEDS: amLODIPine BESYLATE 5 MG TABLET (FP) PO SCH (21:51)
[2021-12-30] MEDS: MELATONIN 5 MG TABLETS PO SCH (21:52)
[2021-12-31] MEDS: INSULIN (LEVEMIR) 100 UNITS/ML UNITS SQ SCH (06:05)
[2021-12-31] MEDS: INSULIN SLIDING SCALE (NOVOLOG) 1 VIAL SQ SCH ×4 (06:06→21:33)
[2021-12-31] MEDS ORDERED: hydrALAZINE HCL 25 MG TABLET (FP) PO SCH (07:00)
[2021-12-31] MEDS: TAMSULOSIN HCL 0.4 MG CAP PO SCH (08:32)
[2021-12-31 09:28] LABS: HEMATOCRIT 27.8 % (32.4-45.2); HEMOGLOBIN 9.2 GM/dL (10.7-15.3); MCH 28.7 pg (25.7-33.7); MCHC 33.1 g/dl (32.0-36.0); MEAN CELL VOLUME 86.8 fl (80-96); MEAN PLT VOLUME 8.1 fl (7.5-11.1); PLATELET COUNT 216 10^3/uL (134-434); RDW 15.7 % (11.6-15.6); WHITE BLOOD COUNT 5.6 K/mm3 (4.0-10.0)
[2021-12-31 10:49] LABS: CALCIUM 8.6 mg/dL (8.5-10.1)
[2021-12-31 10:50] LABS: BLOOD UREA NITROGEN 34.3 mg/dL (7-18)
[2021-12-31 10:52] LABS: CREATININE 1.5 mg/dL (0.55-1.3)
[2021-12-31] MEDS: LACTULOSE 20 GM/30 ML UDC (FOR ORAL USE ONLY) PO SCH (10:56)
[2021-12-31] MEDS: FUROSEMIDE 40 MG TABLET (FP) PO SCH (10:57)
[2021-12-31] MEDS: CEFTRIAXONE 1 GM in DEXTROSE 5%-WATER - 50 ML IVPB SCH (10:57)
[2021-12-31] MEDS: APIXABAN 2.5 MG TABLET PO SCH ×2 (10:57→21:21)
[2021-12-31] MEDS: MIRTAZAPINE 15 MG TABLET (FP) PO SCH (10:57)
[2021-12-31] MEDS: amLODIPine BESYLATE 5 MG TABLET (FP) PO SCH ×2 (10:58→21:21)
[2021-12-31] MEDS: CARVEDILOL 6.25 MG TABLET (FP) PO SCH ×2 (10:59→21:21)
[2021-12-31] MEDS ORDERED: QUEtiapine FUMARATE 25 MG TABLET PO SCH (14:00)
[2021-12-31] MEDS ORDERED: SENNOSIDES 8.6MG TABLET (FP) PO PRN (14:19)
[2021-12-31] MEDS: hydrALAZINE HCL 20 MG/ML VIAL IVPUSH SCH ×2 (14:31→18:53)
[2021-12-31] MEDS: ATORVASTATIN CA 40 MG TABLET (FP) PO SCH (21:21)
[2021-12-31] MEDS: MELATONIN 5 MG TABLETS PO SCH (21:21)
[2021-12-31] MEDS: LACTOBACILLUS ACIDOPHILUS 1 TABLET PO SCH (21:21)
[2022-01-01] MEDS: hydrALAZINE HCL 20 MG/ML VIAL IVPUSH SCH ×2 (00:56→06:28)
[2022-01-01] MEDS: INSULIN (LEVEMIR) 100 UNITS/ML UNITS SQ SCH (06:28)
[2022-01-01] MEDS: INSULIN SLIDING SCALE (NOVOLOG) 1 VIAL SQ SCH ×4 (06:29→21:54)
[2022-01-01] MEDS: hydrALAZINE HCL 25 MG TABLET (FP) PO SCH ×3 (08:30→21:54)
[2022-01-01 08:42] LABS: HEMATOCRIT 29.1 % (32.4-45.2); HEMOGLOBIN 9.9 GM/dL (10.7-15.3); MCH 29.2 pg (25.7-33.7); MCHC 34.1 g/dl (32.0-36.0); MEAN CELL VOLUME 85.7 fl (80-96); MEAN PLT VOLUME 8.7 fl (7.5-11.1); PLATELET COUNT 235 10^3/uL (134-434); WHITE BLOOD COUNT 5.8 K/mm3 (4.0-10.0)
[2022-01-01 08:49] LABS: ALBUMIN 2.7 g/dl (3.4-5.0); BLOOD UREA NITROGEN 34.9 mg/dL (7-18); CALCIUM 8.6 mg/dL (8.5-10.1); MAGNESIUM 2.5 mg/dL (1.8-2.4)
[2022-01-01 08:52] LABS: CREATININE 1.4 mg/dL (0.55-1.3); PHOSPHOROUS 3.3 mg/dL (2.5-4.9)
[2022-01-01 08:54] LABS: BILIRUBIN,TOTAL 0.4 mg/dL (0.2-1); TOT PROT 6.1 g/dl (6.4-8.2)
[2022-01-01] MEDS: TAMSULOSIN HCL 0.4 MG CAP PO SCH (09:30)
[2022-01-01] MEDS: APIXABAN 2.5 MG TABLET PO SCH ×2 (09:50→21:53)
[2022-01-01] MEDS: CEFTRIAXONE 1 GM in DEXTROSE 5%-WATER - 50 ML IVPB SCH (09:50)
[2022-01-01] MEDS: POLYETHYLENE GLYCOL (HEALTHYLAX) 3350 17 GM PACKET PO SCH (09:50)
[2022-01-01] MEDS: amLODIPine BESYLATE 5 MG TABLET (FP) PO SCH ×2 (09:50→21:52)
[2022-01-01] MEDS: LACTULOSE 20 GM/30 ML UDC (FOR ORAL USE ONLY) PO SCH (09:51)
[2022-01-01] MEDS: FUROSEMIDE 40 MG TABLET (FP) PO SCH (09:51)
[2022-01-01] MEDS: CARVEDILOL 6.25 MG TABLET (FP) PO SCH ×2 (09:51→21:53)
[2022-01-01] MEDS: LACTOBACILLUS ACIDOPHILUS 1 TABLET PO SCH (21:52)
[2022-01-01] MEDS: ATORVASTATIN CA 40 MG TABLET (FP) PO SCH (21:53)
[2022-01-01] MEDS: MELATONIN 5 MG TABLETS PO SCH (21:53)
[2022-01-02] MEDS: hydrALAZINE HCL 25 MG TABLET (FP) PO SCH ×3 (06:32→21:39)
[2022-01-02] MEDS: INSULIN SLIDING SCALE (NOVOLOG) 1 VIAL SQ SCH ×4 (06:34→21:40)
[2022-01-02] MEDS: INSULIN (LEVEMIR) 100 UNITS/ML UNITS SQ SCH (06:34)
[2022-01-02] MEDS ORDERED: INSULIN (LEVEMIR) 100 UNITS/ML UNITS SQ ONE (06:58)
[2022-01-02 09:08] LABS: ALBUMIN 2.7 g/dl (3.4-5.0); BLOOD UREA NITROGEN 36.1 mg/dL (7-18); CALCIUM 8.5 mg/dL (8.5-10.1); MAGNESIUM 2.5 mg/dL (1.8-2.4)
[2022-01-02 09:11] LABS: CREATININE 1.4 mg/dL (0.55-1.3); PHOSPHOROUS 4.2 mg/dL (2.5-4.9)
[2022-01-02 09:13] LABS: BILIRUBIN,TOTAL 0.3 mg/dL (0.2-1); TOT PROT 6.1 g/dl (6.4-8.2)
[2022-01-02] MEDS: TAMSULOSIN HCL 0.4 MG CAP PO SCH (10:50)
[2022-01-02] MEDS: APIXABAN 2.5 MG TABLET PO SCH ×2 (10:50→21:39)
[2022-01-02] MEDS: POLYETHYLENE GLYCOL (HEALTHYLAX) 3350 17 GM PACKET PO SCH (10:50)
[2022-01-02] MEDS: CARVEDILOL 6.25 MG TABLET (FP) PO SCH ×2 (10:50→21:39)
[2022-01-02] MEDS: amLODIPine BESYLATE 5 MG TABLET (FP) PO SCH ×2 (10:50→21:39)
[2022-01-02] MEDS: LACTULOSE 20 GM/30 ML UDC (FOR ORAL USE ONLY) PO SCH (10:50)
[2022-01-02] MEDS: FUROSEMIDE 40 MG TABLET (FP) PO SCH (10:50)
[2022-01-02] MEDS: LACTOBACILLUS ACIDOPHILUS 1 TABLET PO SCH (21:39)
[2022-01-02] MEDS: MELATONIN 5 MG TABLETS PO SCH (21:39)
[2022-01-02] MEDS: ATORVASTATIN CA 40 MG TABLET (FP) PO SCH (21:39)
[2022-01-03 01:58] VITALS: RESP 18
[2022-01-03] MEDS: INSULIN (LEVEMIR) 100 UNITS/ML UNITS SQ SCH (06:26)
[2022-01-03] MEDS: INSULIN SLIDING SCALE (NOVOLOG) 1 VIAL SQ SCH ×3 (06:26→17:30)
[2022-01-03] MEDS: hydrALAZINE HCL 25 MG TABLET (FP) PO SCH ×2 (06:26→13:55)
[2022-01-03] MEDS: TAMSULOSIN HCL 0.4 MG CAP PO SCH (09:00)
[2022-01-03] MEDS: amLODIPine BESYLATE 5 MG TABLET (FP) PO SCH (10:05)
[2022-01-03] MEDS: APIXABAN 2.5 MG TABLET PO SCH (10:05)
[2022-01-03] MEDS: CARVEDILOL 6.25 MG TABLET (FP) PO SCH (10:05)
[2022-01-03] MEDS: LACTULOSE 20 GM/30 ML UDC (FOR ORAL USE ONLY) PO SCH (10:05)
[2022-01-03] MEDS: FUROSEMIDE 40 MG TABLET (FP) PO SCH (10:05)
[2022-01-03] MEDS: POLYETHYLENE GLYCOL (HEALTHYLAX) 3350 17 GM PACKET PO SCH (10:06)
[2022-01-03 14:20] VITALS: BP 156/62; PULSE 60; TEMP 98.2
== END 2022-01-03 17:30 | disposition home or self-care (01) | DRG 689 ==
LOC: JER 14:21 → JERBED 18:04 → J7W 12-27 01:31 → J4S 12-28 18:02 → UNDODISIN 01-03 11:09
PROVIDERS: ADMIT Internal Medicine; ATTEND Internal Medicine
DX: N39.0 Urinary tract infection, site not specified (principal); I50.23 Acute on chronic systolic (congestive) heart failure; J96.22 Acute and chronic respiratory failure with hypercapnia; J96.21 Acute and chronic respiratory failure with hypoxia; N17.9 Acute kidney failure, unspecified; K86.2 Cyst of pancreas; I13.0 Hypertensive heart and chronic kidney disease with heart failure and stage 1 through stage 4 chronic kidney disease, or unspecified chronic kidney disease; I25.10 Atherosclerotic heart disease of native coronary artery without angina pectoris; I11.0 Hypertensive heart disease with heart failure; J44.9 Chronic obstructive pulmonary disease, unspecified; S01.91XA Laceration without foreign body of unspecified part of head, initial encounter; I48.91 Unspecified atrial fibrillation; Z95.1 Presence of aortocoronary bypass graft; W19.XXXA Unspecified fall, initial encounter; Y93.9 Activity, unspecified; Y92.89 Other specified places as the place of occurrence of the external cause; Y99.9 Unspecified external cause status; E11.40 Type 2 diabetes mellitus with diabetic neuropathy, unspecified; E11.21 Type 2 diabetes mellitus with diabetic nephropathy; Z98.61 Coronary angioplasty status; N18.9 Chronic kidney disease, unspecified
CPT/HCPCS: 36415; 36600; 70450-TC; 70498-TC; 71045-TC-FY; 72125-TC; 72170-TC-FY; 76775-TC; 80048; 80053; 80061; 81003; 82803; 82947; 82962; 83036; 83735; 84100; 84443; 84484; 85025; 85027; 87086; 87186; 90715; 93005; 93010; 93306-TC; 93880-TC; 94660; 97116-GP; 97162-GP; 99285-25; C9803-CS; Q9967; U0003; U0005